=== PATIENT | female | born 1945 | race Caucasian/White ===

== ENCOUNTER → 2017-05-02 13:55 | Outpatient (CLI) | payer MEDICARE, SELFPAY ==
[2017-05-02 14:35] LABS: International Normalized Ratio 2.6
== END ==
PROVIDERS: Family Provider Family Medicine; PCP Family Medicine; Visit Provider Internal Medicine Cardiovascular Disease
DX: I48.0 Paroxysmal atrial fibrillation (principal); Z79.01 Long term (current) use of anticoagulants
CPT/HCPCS: 36415; 85610

== ENCOUNTER 2017-06-04 11:01 | Outpatient (RCR) | payer MEDICARE, SELFPAY ==
[2017-06-04 11:54] LABS: International Normalized Ratio 2.7
== END 2017-06-04 12:00 | disposition home or self-care (01) ==
LOC: LAB 11:01
PROVIDERS: Family Provider Family Medicine; PCP Family Medicine; Visit Provider Internal Medicine Cardiovascular Disease
DX: I48.0 Paroxysmal atrial fibrillation (principal); I34.1 Nonrheumatic mitral (valve) prolapse; R55 Syncope and collapse
CPT/HCPCS: 36415; 85610

== ENCOUNTER 2017-07-09 12:03 | Outpatient (RCR) | payer MEDICARE, SELFPAY ==
[2017-07-09 13:12] LABS: International Normalized Ratio 2.2; Prothrombin Time (Protime)PT. 24.1 SECONDS (11.7-14.9)
== END 2017-07-09 13:00 | disposition home or self-care (01) ==
LOC: LAB 12:03
PROVIDERS: Family Provider Family Medicine; PCP Family Medicine; Visit Provider Internal Medicine Cardiovascular Disease
DX: I48.0 Paroxysmal atrial fibrillation (principal); Z79.01 Long term (current) use of anticoagulants
CPT/HCPCS: 36415; 85610

== ENCOUNTER 2017-08-27 16:48 | Outpatient (RCR) | payer MEDICARE, SELFPAY ==
--- NOTE | 2017-08-27 16:48 | DT_ITS ---
This patient was seen during an EMR downtime August 25, 2017 - September 01, 2017. This patient may have a combination of paper and electronic documentation or all paper documentation. All documentation is viewable within the e-chart portion of [facility] for each patient visit.
[2017-09-01 12:18] LABS: International Normalized Ratio 2.1; Prothrombin Time (Protime)PT. 23.7 SECONDS (11.7-14.9)
== END 2017-08-27 18:00 | disposition home or self-care (01) ==
LOC: LAB 16:48
PROVIDERS: Family Provider Family Medicine; PCP Family Medicine; Visit Provider Internal Medicine Cardiovascular Disease
DX: I48.0 Paroxysmal atrial fibrillation (principal); Z79.01 Long term (current) use of anticoagulants
CPT/HCPCS: 85610

== ENCOUNTER → 2017-09-05 14:51 | Outpatient (CLI) | payer MEDICARE, SELFPAY ==
[2017-09-05 15:40] LABS: Absolute Lymphocyte Count 1.36 X10^3/ul (0.83-4.51); Absolute Neutrophil Count 3.7 X10^3/uL (2.0-7.7); Basophil# 0.01 X10^3/uL; Basophil% 0.2 % (0-1); Eosinophil# 0.14 X10^3/uL; Eosinophils% 2.5 % (0-5); Hemoglobin 12.8 g/dl (12.0-15.0); Lymphocyte # 1.36 X10^3/ul (4.0); Lymphocyte % 24.6 % (19-41); Mean Corp Hgb Conc 32.8 g/gl (32-36); Mean Corpuscular Volume 91.5 fL (81-99); Mean Platelet Vol. 9.1 fl (6.2-12.0); Monocyte# 0.36 X10^3/uL; Monocyte% 6.5 % (0-10); Neutrophil # 3.65 X10^3/uL (2.7-7.7); Platelet Count 233 K/mm3 (150-450); RBC Distribution Width CV 13.7 % (11.6-14.6); RBC Distribution Width SD 45.2 fl (35.1-43.9); Red Blood Count 4.26 M/mm3 (4.2-5.4); White Blood Count 5.5 K/mm3 (4.4-11.0)
[2017-09-05 15:48] LABS: POSITIVE COUNT NO; POSITIVE DIFFERENTIAL NO; POSITIVE MORPHOLOGY NO
[2017-09-05 16:28] LABS: Erythrocyte Sedimentation Rate 22 mm/hr (0-30)
[2017-09-05 16:35] LABS: CRP < 2.90 mg/L (0.0-3.0); Rheumatoid Factor < 10.0 IU/mL (<15); Uric Acid 2.9 mg/dL (2.6-6.0)
[2017-09-09 15:42] LABS: ANTINUCLEAR ANTIBODIES DIRECT Negative (Negative)
== END ==
PROVIDERS: Family Provider Family Medicine; PCP Family Medicine; Visit Provider Family Medicine
DX: M25.50 Pain in unspecified joint (principal)
CPT/HCPCS: 36415; 84443; 84550; 85025; 85652; 86038; 86140; 86431

== ENCOUNTER → 2017-09-16 10:44 | Outpatient (CLI) | payer MEDICARE, SELFPAY ==
--- NOTE | 2017-09-16 10:46 | BD_ITS ---
STUDY: DUAL ENERGY X-RAY ABSORPTIOMETRY / DXA REASON FOR EXAM: Female, 71 years old. The patient is postmenopausal. No loss of height. TECHNIQUE: Bone Mineral Density (BMD) measurements of lumbar spine and bilateral hips were obtained. COMPARISON: Comparison is made with prior study dated May 05, 2014. FINDINGS: Lumbar Spine (L1-L4): g/cm2 (1.128) / T-score (-0.4) / Z-score (1.2) Findings are suggestive of normal bone density with a low fracture risk. Left Femur Total: g/cm2 (0.779) / T-score (-1.8) / Z-score (-0.4) Left Femoral Neck: g/cm2 (0.731) / T-score (-2.2) / Z-score (-0.5) Right Femur Total: g/cm2 (0.832) / T-score (-1.4) / Z-score (0.1) Right Femoral Neck: g/cm2 (0.791) / T-score (-1.8) / Z-score (-0.1) The T-Scores on the most recent prior examination were: Lumbar Spine (L1-L4): There has been improvement of bone density since the previous examination. Left Femur Total: which represents an improvement of . Right Femur Total: which represents an improvement of . BD/Dexa Bone Density Study IMPRESSION: The patient is considered osteopenic as outlined below according to World Jose Organization (WHO) criteria with a moderate fracture risk. There has been improvement of bone density since the previous examination. Reference Information: The T-score is the number of standard deviations above or below the standard which is normal for young adults at their peak bone mineral density. The World Health Organization (WHO) interprets the T-scores as follows: Above -1 Normal bone density Between -1 and -2.5 Osteopenia Equal to / or below -2.5 Osteoporosis As a practical clinical guideline, osteopenia may be graded as follows: Mild -1 through -1.5 Moderate -1.6 through -2.0 Severe -2.1 through -2.4 The Z-score is the number of standard deviations above or below age-matched controls. A Z-score of less than -1.5 would be considered abnormal. References: 1. NIH Osteoporosis and Related Bone Diseases http://www.osteo.org 2. International Society for Clinical Densitometry http://www.iscd.org 3. National Osteoporosis Foundation http://www.nof.org Electronically Signed: Gilberto Henderson MD at 15:36 EDT Tel [phone], Service support ,
== END ==
PROVIDERS: Family Provider Family Medicine; PCP Family Medicine; Visit Provider Family Medicine
DX: Z78.0 Asymptomatic menopausal state (principal)
CPT/HCPCS: 77080

== ENCOUNTER 2017-10-14 14:04 | Outpatient (RCR) | payer MEDICARE, SELFPAY ==
[2017-10-14 16:18] LABS: International Normalized Ratio 1.6; Prothrombin Time (Protime)PT. 18.7 SECONDS (11.7-14.9)
== END 2017-10-14 16:00 | disposition home or self-care (01) ==
LOC: LAB 14:04
PROVIDERS: Family Provider Family Medicine; PCP Family Medicine; Visit Provider Internal Medicine Cardiovascular Disease
DX: I48.0 Paroxysmal atrial fibrillation (principal); Z79.01 Long term (current) use of anticoagulants
CPT/HCPCS: 36415; 85610

== ENCOUNTER → 2017-11-05 08:24 | Outpatient (CLI) | payer MEDICARE, SELFPAY | PROVIDERS: Family Provider Family Medicine; PCP Family Medicine; Visit Provider Family Medicine | DX: Z00.00 Encounter for general adult medical examination without abnormal findings (principal); Z12.31 Encounter for screening mammogram for malignant neoplasm of breast | CPT/HCPCS: 77063; 77067 ==

== ENCOUNTER 2017-11-18 13:14 | Outpatient (RCR) | payer MEDICARE, SELFPAY ==
[2017-10-27 11:44] LABS: International Normalized Ratio 2.8; Prothrombin Time (Protime)PT. 29.5 SECONDS (11.7-14.9)
[2017-11-18 16:53] LABS: International Normalized Ratio 2.1; Prothrombin Time (Protime)PT. 23.2 SECONDS (11.7-14.9)
== END 2017-11-18 15:00 | disposition home or self-care (01) ==
LOC: LAB 13:14
PROVIDERS: Family Provider Family Medicine; PCP Family Medicine; Visit Provider Internal Medicine Cardiovascular Disease
DX: I48.0 Paroxysmal atrial fibrillation (principal); Z79.01 Long term (current) use of anticoagulants
CPT/HCPCS: 36415; 85610

== ENCOUNTER 2017-12-25 16:21 | Outpatient (RCR) | payer MEDICARE, SELFPAY ==
[2017-12-25 17:33] LABS: International Normalized Ratio 2.3
== END 2017-12-25 18:00 | disposition home or self-care (01) ==
LOC: LAB 16:21
PROVIDERS: Family Provider Family Medicine; PCP Family Medicine; Visit Provider Internal Medicine Cardiovascular Disease
DX: I48.0 Paroxysmal atrial fibrillation (principal); Z79.01 Long term (current) use of anticoagulants
CPT/HCPCS: 36415; 85610

== ENCOUNTER 2018-01-30 13:25 | Outpatient (RCR) | payer MEDICARE, SELFPAY ==
[2018-01-30 15:48] LABS: International Normalized Ratio 2.2; Prothrombin Time (Protime)PT. 24.2 SECONDS (11.7-14.9)
== END 2018-02-20 12:17 | disposition home or self-care (01) ==
LOC: LAB 13:25
PROVIDERS: Family Provider Family Medicine; PCP Family Medicine; Referring Provider Internal Medicine Cardiovascular Disease; Visit Provider Internal Medicine Cardiovascular Disease
DX: I48.0 Paroxysmal atrial fibrillation (principal); Z79.01 Long term (current) use of anticoagulants
CPT/HCPCS: 36415; 85610

== ENCOUNTER 2018-03-19 15:26 | Outpatient (RCR) | payer MEDICARE, SELFPAY ==
[2017-05-02 14:39] VITALS: BMI 27.6
[2018-03-19 16:45] LABS: International Normalized Ratio 1.9; Prothrombin Time (Protime)PT. 21.9 SECONDS (11.7-14.9)
== END 2018-03-19 16:26 | disposition home or self-care (01) ==
LOC: LAB 15:26
PROVIDERS: Family Provider Family Medicine; PCP Family Medicine; Referring Provider Internal Medicine Cardiovascular Disease; Visit Provider Internal Medicine Cardiovascular Disease
DX: I48.0 Paroxysmal atrial fibrillation (principal); Z79.01 Long term (current) use of anticoagulants
CPT/HCPCS: 36415; 85610

== ENCOUNTER → 2018-03-31 10:34 | Outpatient (CLI) | payer MEDICARE, SELFPAY ==
[2017-05-02 14:39] VITALS: BMI 27.6
--- NOTE | 2018-03-31 10:37 | ECHOD_ITS ---
Reason For Study: [email or web address] Procedure This was a 2D Doppler, Color Flow transthoracic echocardiogram. The exam was of adequate technical quality. Exam performed in department. Left Ventricle Normal LV size. Left ventricular systolic function is normal. The estimated ejection fraction is 60 %. Transmitral diastolic flow velocities suggest moderate (stage 2) diastolic dysfunction (pseudonormal pattern). No regional wall motion abnormalities noted. Right Ventricle Normal RV size. Normal systolic function. Atria The left atrium is mildly enlarged. Normal right atrium. No doppler evidence for ASD. Mitral Valve There is no mitral annular calcification. Mild diffuse mitral valve thickening. Mild mitral valve prolapse, posterior leaflet. Mild (1+) mitral valve insufficiency. Tricuspid Valve Normal tricuspid valve. Mild tricuspid valve insufficiency. Right ventricular systolic pressure estimated to be 29 mmHg. Aortic Valve Trisinus/trileaflet aortic valve. Mild focal aortic valve thickening. Pulmonic Valve The pulmonic valve is not well visualized. Great Vessels Normal sized aortic root. Pericardium/Pleural No pericardial effusion. MMode/2D Measurements & Calculations LVIDd: 5.3 cm IVSd: 0.72 cm Ao root diam: 3.3 cm LVIDs: 3.3 cm LVPWd: 0.89 cm RVDd: 3.7 cm FS: 38.4 % LAV(MOD-bp): 72.3 ml LA A4 area: 22.3 cm2 LA dimension(2D): 4.1 cm LAV(MOD-bp) Indexed: 40.5 ml/m2 LAV(MOD-sp2): 74.3 ml LAV(MOD-sp4): 70.9 ml RA A4 area: 14.4 cm2 Doppler Measurements & Calculations MV E max kayden: 91.1 cm/sec Lat Peak E' Kadyen: 10.2 cm/sec Med Peak E' Kayden: 6.5 cm/sec MV A max kayden: 74.3 cm/sec E/E' lat: 8.9 E/E' med: 14.0 MV E/A: 1.2 Ao V2 max: 157.9 cm/sec LV V1 max: 143.9 cm/sec PA V2 max: 94.7 cm/sec Ao max P.0 mmHg LV V1 max P.3 mmHg TR max kayden: 252.3 cm/sec TR max P.5 mmHg Interpretation Summary Left ventricular systolic function is normal. The estimated ejection fraction is 60 %. The left atrium is mildly enlarged. Mild mitral valve prolapse, posterior leaflet Mild diffuse mitral valve thickening. Mild (1+) mitral valve insufficiency. Mild tricuspid valve insufficiency. Mild focal aortic valve thickening. Right ventricular systolic pressure estimated to be 29 mmHg. Transmitral diastolic flow velocities suggest diastolic dysfunction (pseudonormal pattern). Ordering Physician: Juan M Napoles Referring Physician: Mini Tyson Performed By: Myrtle Stephenson RDCS, RVT
== END ==
PROVIDERS: Family Provider Family Medicine; PCP Family Medicine; Referring Provider Nurse Practitioner Family; Visit Provider Nurse Practitioner Family
DX: I34.1 Nonrheumatic mitral (valve) prolapse (principal); I48.0 Paroxysmal atrial fibrillation
CPT/HCPCS: 93306

== ENCOUNTER → 2018-04-01 10:28 | Outpatient (CLI) | payer MEDICARE, SELFPAY ==
[2017-05-02 14:39] VITALS: BMI 27.6
--- NOTE | 2018-04-01 10:30 | US_ITS ---
STUDY: THYROID ULTRASOUND REASON FOR EXAM: Female, 72 years old. Nodule follow-up. TECHNIQUE: Ultrasound evaluation of the thyroid was performed with real-time and static metz-scale imaging. COMPARISON: Ultrasound thyroid 01/25/2016, 06/06/2015, 06/30/2014, 05/18/2013. FINDINGS: RIGHT LOBE: The right thyroid measures 6.3 x 3.2 x 2.9 cm. Back on echotexture is mildly heterogeneous. Vascularity is normal. 5 nodules are identified measuring 2.4 x 1.9 x 1.8 cm, 0.9 x 1.0 x 0.8 cm, 1.2 x 0.8 x 1.2 cm, 0.8 x 0.5 x 0.8 cm. Largest nodule 3.1 x 2.1 x 3.3 cm. The lungs are solid, minimal internal heterogeneity, a few of them containing very minimal cystic components. Exhibiting perinodular and intranodular vascular flow. No new nodules are evident. LEFT LOBE: The left thyroid measures 3.8 x 1.7 cm. 3 nodules are present, 7 x 6 x 6 mm, 7 x 6 x 6 mm, and the largest mid polar 10 x 7 x 9 mm. Solid. Perinodular vascular flow. ISTHMUS: The isthmus measures 3 mm, normal echotexture . US/Thyroid IMPRESSION: Multiple solid thyroid nodules larger and more numerous on the right, similar features seen since imaging of 2013, no apparent change since imaging of 01/25/2016. Based on the [place] [employer] guidelines for assessment of thyroid nodules, the solid nodule sonographic pattern falls into the intermediate suspicion pattern, generally hypoechoic solid nodules with no microcalcifications, smooth margins. Based on size criteria, certain nodules greater than 1 cm, biopsy may be considered. Based on long-term stability, biopsy may not be indicated, and therefore follow-up surveillance imaging in approximately one year is recommended. Electronically Signed: Harmeet Perez MD at 9:53 EST Tel , Service support ,
== END ==
PROVIDERS: Family Provider Family Medicine; PCP Family Medicine; Referring Provider Internal Medicine Endocrinology, Diabetes & Metabolism; Visit Provider Internal Medicine Endocrinology, Diabetes & Metabolism
DX: E04.1 Nontoxic single thyroid nodule (principal)
CPT/HCPCS: 76536

== ENCOUNTER 2018-04-10 10:53 | Outpatient (RCR) | payer MEDICARE, SELFPAY ==
[2017-05-02 14:39] VITALS: BMI 27.6
[2018-04-10 11:26] LABS: International Normalized Ratio 2.1; Prothrombin Time (Protime)PT. 23.2 SECONDS (11.7-14.9)
--- OUTSIDE RECORDS SUMMARY | 2018-06-14 19:52 | XMS RPT_ITS ---
:1945 Author Organization [place] Support Name Relationship Address Phone COVERT, LYNNETTE Unavailable [address] + [place] [address] COVERT, JAMAR Unavailable [address] + [place] [address] R Unavailable Unavailable Unavailable COVERT, LYNNETTE Unavailable [address] + [place] [address] COVERT, JAMAR Unavailable [address] + [place] [address] R Unavailable Unavailable Unavailable COVERT, LYNNETTE Unavailable [address] + [place] [address] COVERT, JAMAR Unavailable [address] + [place] [address] R Unavailable Unavailable Unavailable COVERT, LYNNETTE Unavailable [address] + [place] [address] COVERT, JAMAR Unavailable [address] + [place] [address] R Unavailable Unavailable Unavailable COVERT, LYNNETTE Unavailable [address] + [place] [address] COVERT, JAMAR Unavailable [address] + [place] [address] R Unavailable Unavailable Unavailable COVERT, LYNNETTE Unavailable [address] + [place] [address] COVERT, JAMAR Unavailable [address] + [place] [address] R Unavailable Unavailable Unavailable COVERT, LYNNETTE Unavailable [address] + [place] [address] COVERT, JAMAR Unavailable [address] + [place] [address] R Unavailable Unavailable Unavailable COVERT, LYNNETTE Unavailable [address] + [place] [address] COVERT, JAMAR Unavailable [address] [facility] [address] + [place] [address] R Unavailable Unavailable Unavailable COVERT, LYNNETTE Unavailable [address] + [place] [address] COVERT, JAMAR Unavailable [address] [facility] [address] + [place] [address] R Unavailable Unavailable Unavailable COVERT, LYNNETTE Unavailable [address] + [place] [address] COVERT, JAMAR Unavailable [address] [facility] [address] + [place] [address] R Unavailable Unavailable Unavailable COVERT, LYNNETTE Unavailable [address] + [place] [address] COVERT, JAMAR Unavailable [address] [facility] [facility] [address] + [place] [address] R Unavailable Unavailable Unavailable COVERT, LYNNETTE Unavailable Unavailable + COVERT, JAMAR Unavailable Unavailable + R Unavailable Unavailable Unavailable COVERT, LYNNETTE Unavailable Unavailable + COVERT, JAMAR Unavailable Unavailable + R Unavailable Unavailable Unavailable COVERT, LYNNETTE Unavailable Unavailable + COVERT, JAMAR Unavailable Unavailable + R Unavailable Unavailable Unavailable COVERT, LYNNETTE Unavailable NA + [place], [place] COVERT, JAMAR Unavailable NA + [place], [place] R Unavailable Unavailable Unavailable COVERT, LYNNETTE Unavailable NA + [place], [place] COVERT, JAMAR Unavailable NA + [place], [place] R Unavailable Unavailable Unavailable COVERT, LYNNETTE Unavailable [address] + [place] [address] COVERT, JAMAR Unavailable [address] + [place], [place] . R Unavailable Unavailable Unavailable COVERT, LYNNETTE Unavailable [address] + [place] [address] COVERT, JAMAR Unavailable [address] + [place], [place] . R Unavailable Unavailable Unavailable COVERT, LYNNETTE Unavailable [address] + [place] [address] COVERT, JAMAR Unavailable [address] + [place], [place] . R Unavailable Unavailable Unavailable COVERT, LYNNETTE Unavailable [address] + [place] [address] COVERT, JAMAR Unavailable [address] + [place], [place] . R Unavailable Unavailable Unavailable COVERT, LYNNETTE Unavailable [address] + [place] [address] COVERT, JAMAR Unavailable [address] + [place], [place] . R Unavailable Unavailable Unavailable Care Team Providers Name Role Phone PRAVIN VALDEZ, ESE Attending Unavailable АЛЕКСАНДР FRAZIER, DR. CHONG Primary Care Unavailable MoodDionte donahue Attending Unavailable MoodispawDionte Referring Unavailable Jolliff, Mini Primary Care Unavailable Roof, Juan M H Attending Unavailable Roof, Juan M H Referring Unavailable Jolliff, Mini Primary Care Unavailable Raghunathan, Ese N. Attending Unavailable Pravin, Ese NAlice Referring Unavailable Jolliff, Mini Primary Care Unavailable MoodispawDionte Attending Unavailable Roof, Juan M H Referring Unavailable Jolliff, Mini Primary Care Unavailable Roof, Juan M H Consulting Unavailable MoodispawDionet Attending Unavailable Jolliff, Mini Primary Care Unavailable MoodispaDionte ashley Referring Unavailable MoodispaDionte ashley Attending Unavailable Jolliff, Mini Referring Unavailable Brenda Roy Attending Unavailable MoodispawDionte Attending Unavailable DeFinTalia hebert Attending Unavailable Moodispaw, Dionte Attending Unavailable MoodispawDionte Referring Unavailable Jolliff, Mini Primary Care Unavailable Roof, Juan M H Attending Unavailable Jolliff, Mini Referring Unavailable Jolliff, Mini Primary Care Unavailable MoodispaDionte ashley Attending Unavailable MoodispaDionte ashley Referring Unavailable Jolliff, Mini Primary Care Unavailable Moodispaw, Dionte Attending Unavailable Moodispaw, Dionte Referring Unavailable Jolliff, Mini Primary Care Unavailable Jolliff, Mini Attending Unavailable Jolliff, Mini Primary Care Unavailable Jolliff, Mini Attending Unavailable Jolliff, Mini Referring Unavailable Jolliff, Mini Primary Care Unavailable Moodispaw, Dionte Attending Unavailable Moodispaw, Dionte Referring Unavailable Jolliff, Mini Primary Care Unavailable Moodispaw, Dionte Attending Unavailable Moodispaw, Dionte Referring Unavailable Jolliff, Mini Primary Care Unavailable Jolliff, Mini Attending Unavailable Jolliff, Mini Primary Care Unavailable Moodispaw, Dionte Attending Unavailable Moodispaw, Dionte Referring Unavailable Jolliff, Mini Primary Care Unavailable Moodispaw, Dionte Attending Unavailable Moodispaw, Dionte Referring Unavailable Jolliff, Mini Primary Care Unavailable Moodispaw, Dionte Attending Unavailable Moodispaw, Dionte Referring Unavailable Jolliff, Mini Primary Care Unavailable PROBLEMS PROBLEMS DATE TYPE CONDITION / CODE ATTENDING STATUS SOURCE 03/31/2018 Unknown I34.1 - Nonrheumatic MoodisDionte kahn Active [facility] mitral (valve) [facility] prolapse / Hospital I34.1(ICD-10) Repository 03/31/2018 Unknown I48.0 - Paroxysmal MoodispaDionte ashley Active [facility] atrial fibrillation Community / I48.0(ICD-10) Hospital Repository 03/23/2018 Unknown Z79.01 - nursing home MoodispaDionte ashley Active [facility] (current) use of [facility] anticoagulants / Hospital Z79.01(ICD-10) Repository 09/16/2017 Unknown N95.9 - Unspecified Jolliff, Mini Active [facility] menopausal and Community perimenopausal Hospital disorder / Repository N95.9(ICD-10) 09/19/2017 Unknown I48.91 - Unspecified Moodispaw, Dionte Active [facility] atrial fibrillation [facility] / I48.91(ICD-10) Hospital Repository PROCEDURES PROCEDURES No Procedure Records FoundRESULTS RESULTS TSH Collected: 04/14/2018 Status: F Source: [facility] 10:53 AM [facility] REPOSITORY TYPE CODE TESTS RESULT OUT OF RANGE REFERENCE UNITS LAB TSH(LOINC) 0.36-3.74 mcIU/mL TSH 0.81 Performed By: #### TSH, FT4, FT3 #### [place] [address] FT4 Collected: 04/14/2018 Status: F Source: [facility] 10:53 AM [facility] REPOSITORY TYPE CODE TESTS RESULT OUT OF RANGE REFERENCE UNITS LAB FT4(LOINC) 0.76-1.46 ng/dL Free T4 1.12 Performed By: #### TSH, FT4, FT3 #### [facility] [address] [place] [address] FT3 Collected: 04/14/2018 Status: F Source: [facility] 10:53 AM [facility] REPOSITORY TYPE CODE TESTS RESULT OUT OF RANGE REFERENCE UNITS LAB FT3(LOINC) 2.30-4.00 pg/mL Free T3 2.56 Performed By: #### TSH, FT4, FT3 #### [facility] [address] [place] [address] PROTHROMBIN TIME W/INR Collected: 04/10/2018 Status: F Source: [place] 11:00 AM [facility] REPOSITORY TYPE CODE TESTS RESULT OUT OF RANGE REFERENCE UNITS LAB L300.4150 11.7-14.9 SECONDS High PROTIME 23.2 LAB L300.4200 Normal INR 2.1 Performed By: #### L300.3900 #### [facility] [address] [place], [address] THYROID Observed: 04/01/2018 Status: F Source: [place] 10:31 AM [facility] REPOSITORY [facility] Imaging Services [address] [place] [address] Thyroid MR#: [id number] Acct: [id number] Name: ESTELA THADLISA Digna Rep #: [id number] : 1945 F 72 From: Harmeet Perez MD PCP: Mini Tyson MD Status: REG CLI Study: Thyroid Date of Exam: 04/01/18 Exam# [id number] Ordering Dr: Ese Costello MD STUDY: THYROID ULTRASOUND REASON FOR EXAM: Female, 72 years old. Nodule follow-up. TECHNIQUE: Ultrasound evaluation of the thyroid was performed with real-time and static metz-scale imaging. COMPARISON: Ultrasound thyroid 01/25/2016, 06/06/2015, 06/30/2014, 05/18/2013. FINDINGS: RIGHT LOBE: The right thyroid measures 6.3 x 3.2 x 2.9 cm. Back on echotexture is mildly heterogeneous. Vascularity is normal. 5 nodules are identified measuring 2.4 x 1.9 x 1.8 cm, 0.9 x 1.0 x 0.8 cm, 1.2 x 0.8 x 1.2 cm, 0.8 x 0.5 x 0.8 cm. Largest nodule 3.1 x 2.1 x 3.3 cm. The lungs are solid, minimal internal heterogeneity, a few of them containing very minimal cystic components. Exhibiting perinodular and intranodular vascular flow. No new nodules are evident. LEFT LOBE: The left thyroid measures 3.8 x 1.7 cm. 3 nodules are present, 7 x 6 x 6 mm, 7 x 6 x 6 mm, and the largest mid polar 10 x 7 x 9 mm. Solid. Perinodular vascular flow. ISTHMUS: The isthmus measures 3 mm, normal echotexture . US/Thyroid IMPRESSION: Multiple solid thyroid nodules larger and more numerous on the right, similar features seen since imaging of 2013, no apparent change since imaging of 01/25/2016. Based on the [place] guidelines for assessment of thyroid nodules, the solid nodule sonographic pattern falls into the intermediate suspicion pattern, generally hypoechoic solid nodules with no microcalcifications, smooth margins. Based on size criteria, certain nodules greater than 1 cm, biopsy may be considered. Based on long-term stability, biopsy may not be indicated, and therefore follow-up surveillance imaging in approximately one year is recommended. 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 The exam was of adequate technical quality. Exam performed in department. Left Ventricle Normal LV size. Left ventricular systolic function is normal. The estimated ejection fraction is 60 %. Transmitral diastolic flow velocities suggest moderate (stage 2) diastolic dysfunction (pseudonormal pattern). No regional wall motion abnormalities noted. Right Ventricle Normal RV size. Normal systolic function. Atria The left atrium is mildly enlarged. Normal right atrium. No doppler evidence for ASD. Mitral Valve There is no mitral annular calcification. Mild diffuse mitral valve thickening. Mild mitral valve prolapse, posterior leaflet. Mild (1+) mitral valve insufficiency. Tricuspid Valve Normal tricuspid valve. Mild tricuspid valve insufficiency. Right ventricular systolic pressure estimated to be 29 mmHg. Aortic Valve Trisinus/trileaflet aortic valve. Mild focal aortic valve thickening. Pulmonic Valve The pulmonic valve is not well visualized. Great Vessels Normal sized aortic root. Pericardium/Pleural No pericardial effusion. MMode/2D Measurements AND Calculations LVIDd: 5.3 cm IVSd: 0.72 cm Ao root diam: 3.3 cm LVIDs: 3.3 cm LVPWd: 0.89 cm RVDd: 3.7 cm FS: 38.4 % LAV(MOD-bp): 72.3 ml LA A4 area: 22.3 cm2 LA dimension(2D): 4.1 cm LAV(MOD-bp) Indexed: 40.5 ml/m2 LAV(MOD-sp2): 74.3 ml LAV(MOD-sp4): 70.9 ml RA A4 area: 14.4 cm2 Doppler Measurements AND Calculations MV E max kayden: 91.1 cm/sec Lat Peak E' Kayden: 10.2 cm/sec Med Peak E' Kayden: 6.5 cm/sec MV A max kayden: 74.3 cm/sec E/E' lat: 8.9 E/E' med: 14.0 MV E/A: 1.2 Ao V2 max: 157.9 cm/sec LV V1 max: 143.9 cm/sec PA V2 max: 94.7 cm/sec Ao max P.0 mmHg LV V1 max P.3 mmHg TR max kayden: 252.3 cm/sec TR max P.5 mmHg Interpretation Summary Left ventricular systolic function is normal. The estimated ejection fraction is 60 %. The left atrium is mildly enlarged. Mild mitral valve prolapse, posterior leaflet Mild diffuse mitral valve thickening. Mild (1+) mitral valve insufficiency. Mild tricuspid valve insufficiency. Mild focal aortic valve thickening. Right ventricular systolic pressure estimated to be 29 mmHg. Transmitral diastolic flow velocities suggest diastolic dysfunction (pseudonormal pattern). Ordering Physician: Juan M Napoles Referring Physician: Mini Tyson Performed By: Myrtle Stephenson, RDPAMELA, RVT 03/31/182218 Date Dionte Castellanos MD CC: BRIAN Napoles; Mini Tyson MD Date Dictated: 03/31/18 104 Date Transcribed: 03/31/182218 Human Resources Benefits Manager: Signed PROTHROMBIN TIME W/INR Collected: 03/19/2018 Status: F Source: [place] 3:34 PM [facility] REPOSITORY TYPE CODE TESTS RESULT OUT OF RANGE REFERENCE UNITS LAB L300.4150 11.7-14.9 SECONDS High PROTIME 21.9 LAB L300.4200 Normal INR 1.9 Performed By: #### L300.3900 #### [facility] [address] [place], [address] PROTHROMBIN TIME W/INR Collected: 01/30/2018 Status: F Source: [place] 1:32 PM [facility] REPOSITORY TYPE CODE TESTS RESULT OUT OF RANGE REFERENCE UNITS LAB L300.4150 11.7-14.9 SECONDS High PROTIME 24.2 LAB L300.4200 Normal INR 2.2 Performed By: #### L300.3900 #### [facility] [address] [place], [address] PROTHROMBIN TIME W/INR Collected: 12/25/2017 Status: F Source: [place] 4:32 PM [facility] REPOSITORY TYPE CODE TESTS RESULT OUT OF RANGE REFERENCE UNITS LAB L300.4150 11.7-14.9 SECONDS High PROTIME 25.0 LAB L300.4200 Normal INR 2.3 Performed By: #### L300.3900 #### [facility] [address] [place], [address] PROTHROMBIN TIME W/INR Collected: 11/18/2017 Status: F Source: [place] 1:19 PM [facility] REPOSITORY TYPE CODE TESTS RESULT OUT OF RANGE REFERENCE UNITS LAB L300.4150 11.7-14.9 SECONDS High PROTIME 23.2 LAB L300.4200 Normal INR 2.1 Performed By: #### L300.3900 #### [facility] [address] [facility] [place], [address] SCREENING MAMM (CAD), Observed: 11/05/2017 Status: F Source: [place] 8:26 AM [facility] REPOSITORY [facility] Imaging Services [address] [place] [address] SCREENING MAMM (CAD), BILAT MR#: [id number] Acct: [id number] Name: LISA THORPE Rep #: [id number] : 1945 F 72 From: Gilberto Henderson MD PCP: Mini Tyson MD Status: REG CL Study: SCREENING MAMM (CAD), BILAT Date of Exam: 11/05/17 Exam# [id number] Ordering Dr: Mini Tyson MD MAMMOGRAPHY - BILATERAL SCREENING REASON FOR EXAM: Female, 72 years old. Routine annual screening examination. PERTINENT HISTORY: Mother with breast cancer. Aunt with breast cancer. TECHNIQUE: Digital bilateral breast princess (3D mammographic acquisition) in the CC and MLO projections. 2-D mediolateral oblique (MLO) and craniocaudad (CC) views of both breasts were obtained. CAD: Full Field Digital Mammography with Computer Added Detection was performed. COMPARISON: Comparison is made with prior study dated October 22, 2016 and October 16, 2015. FINDINGS: Breast Composition: The breasts are heterogeneously dense, which may obscure small masses. There are no dominant masses or suspicious calcifications. Stable small benign-appearing bilateral axillary lymph nodes. No other significant abnormalities are identified. There has been no significant change since the prior study. BI/SCREENING MAMM (CAD), BILAT IMPRESSION: Stable bilateral screening mammogram. Yearly follow-up mammogram recommended. (A) ASSESSMENT CATEGORY: BIRADS Category 2: Benign. A letter regarding these results will be sent to the patient by the facility within 30 days. Approximately 10% of breast cancers are not detected by mammography. A normal mammogram should not delay biopsy of a clinically suspicious abnormality. [id number] Electronically Signed: Gilberto Henderson MD at 10:10 EDT Tel [phone], Service support , CC: Mini Tyson MD Human Resources Benefits Manager: Signed PROTHROMBIN TIME W/INR Collected: 10/27/2017 Status: F Source: [place] 11:18 AM [facility] REPOSITORY TYPE CODE TESTS RESULT OUT OF RANGE REFERENCE UNITS LAB L300.4150 11.7-14.9 SECONDS High PROTIME 29.5 LAB L300.4200 Normal INR 2.8 Performed By: #### L300.3900 #### [facility] [address] [place], [place], [address] PROTHROMBIN TIME W/INR Collected: 10/14/2017 Status: F Source: [place] 2:05 PM [facility] REPOSITORY TYPE CODE TESTS RESULT OUT OF RANGE REFERENCE UNITS LAB L300.4150 11.7-14.9 SECONDS High PROTIME 18.7 LAB L300.4200 Normal INR 1.6 Performed By: #### L300.3900 #### [facility] [address] [place], [place], [address] DEXA BONE DENSITY Observed: 09/16/2017 Status: F Source: [place] STUDY 10:47 AM [facility] REPOSITORY [facility] Imaging Services [address] [place] [address] Dexa Bone Density Study MR#: [id number] Acct: [id number] Name: LISA THORPE Rep #: [id number] : 1945 F 71 From: Gilberto Henderson MD PCP: Mini Tyson MD Status: REG CLI Study: Dexa Bone Density Study Date of Exam: 09/16/17 Exam# [id number] Ordering Dr: Mini Tyson MD STUDY: DUAL ENERGY X-RAY ABSORPTIOMETRY / DXA REASON FOR EXAM: Female, 71 years old. The patient is postmenopausal. No loss of height. TECHNIQUE: Bone Mineral Density (BMD) measurements of lumbar spine and bilateral hips were obtained. COMPARISON: Comparison is made with prior study dated May 05, 2014. FINDINGS: Lumbar Spine (L1-L4): g/cm2 (1.128) / T-score (-0.4) / Z-score (1.2) Findings are suggestive of normal bone density with a low fracture risk. Left Femur Total: g/cm2 (0.779) / T-score (-1.8) / Z- score (-0.4) Left Femoral Neck: g/cm2 (0.731) / T-score (-2.2) / Z- score (-0.5) Right Femur Total: g/cm2 (0.832) / T-score (-1.4) / Z- score (0.1) Right Femoral Neck: g/cm2 (0.791) / T-score (-1.8) / Z-score (-0.1) The T-Scores on the most recent prior examination were: Lumbar Spine (L1-L4): There has been improvement of bone density since the previous examination. Left Femur Total: which represents an improvement of . Right Femur Total: which represents an improvement of . BD/Dexa Bone Density Study IMPRESSION: The patient is considered osteopenic as outlined below according to World Jose Organization (WHO) criteria with a moderate fracture risk. There has been improvement of bone density since the previous examination. Reference Information: The T-score is the number of standard deviations above or below the standard which is normal for young adults at their peak bone mineral density. The World Health Organization (WHO) interprets the T-scores as follows: Above -1 Normal bone density Between -1 and -2.5 Osteopenia Equal to / or below -2.5 Osteoporosis As a practical clinical guideline, osteopenia may be graded as follows: Mild -1 through -1.5 Moderate -1.6 through -2.0 Severe -2.1 through -2.4 The Z-score is the number of standard deviations above or below age-matched controls. A Z-score of less than -1.5 would be considered abnormal. References: 1. NIH Osteoporosis and Related Bone Diseases http://www.osteo.org 2. International Society for Clinical Densitometry http://www.iscd.org 3. National Osteoporosis Foundation http://www.nof.org Electronically Signed: Gilberto Henderson MD at 15:36 EDT Tel [phone], Service support , CC: Mini Tyson MD Human Resources Benefits Manager: Signed DOWNTIME REPORT Observed: 09/11/2017 Status: F Source: [place] 11:44 AM [facility] REPOSITORY [facility] Medical Records Department [address] [place] [address] Downtime Report MR#: [id number] Acct: [id number] Name: LISA THORPE Rep #: [id number] : 1945 71 From: Reza Ignacio PCP: Mini Tyson MD Status: REG RCR This patient was seen during an EMR downtime August 25, 2017 - September 01, 2017. This patient may have a combination of paper and electronic documentation or all paper documentation. All documentation is viewable within the e-chart portion of [facility] for each patient visit. CBC W/DIFF, AUTOMATED Collected: 09/05/2017 Status: F Source: [place] 2:52 PM [facility] REPOSITORY TYPE CODE TESTS RESULT OUT OF RANGE REFERENCE UNITS LAB L100.1000 4.4-11.0 K/mm3 Normal WBC 5.5 LAB L100.1200 4.2-5.4 M/mm3 Normal RBC 4.26 LAB L100.1300 12.0-15.0 g/dl Normal HGB 12.8 LAB L100.1400 37-47 % Normal HCT 39.0 LAB L100.1500 81-99 fL Normal MCV 91.5 LAB L100.1600 27.0-32.0 pg Normal MCH 30.0 LAB L100.1700 32-36 g/gl Normal MCHC 32.8 LAB L100.1810 11.6-14.6 % Normal RDW CV 13.7 LAB L100.1820 35.1-43.9 fl High RDW SD 45.2 LAB L100.1900 150-450 K/mm3 Normal PLT 233 LAB L100.2000 6.2-12.0 fl Normal MPV 9.1 LAB L100.2100 47-70 % Normal NEUT% 66.0 LAB L100.2200 19-41 % Normal LY% 24.6 LAB L100.2300 0-10 % Normal MONO% 6.5 LAB L100.2400 0-5 % Normal EO% 2.5 LAB L100.2500 0-1 % Normal BASO% 0.2 LAB L100.2550 0.0-0.9 % Normal IM GRAN % 0.200 Result Comment: IG% - Immature Granulocytes (promyelocytes, myelocytes and metamyelocytes) > 1% indicates that a LEFT SHIFT is Present. LAB L100.2620 2.0-7.7 X10 3/uL Normal Absolute Neut 3.7 LAB L100.2720 0.83-4.51 X10 3/ul Normal Absolute Lymph 1.36 Performed By: #### L100.0100, L101.9900 #### [facility] [place], [address] ERYTHROCYTE SED RATE Collected: 09/05/2017 Status: F Source: [place] 2:52 PM [facility] REPOSITORY TYPE CODE TESTS RESULT OUT OF RANGE REFERENCE UNITS LAB L102.0000 0-30 mm/hr Normal SED RATE 22 Performed By: #### L100.0100, L101.9900 #### [facility] [address] [place], [place], [address] URIC ACID Collected: 09/05/2017 Status: F Source: [place] 2:52 PM [facility] REPOSITORY TYPE CODE TESTS RESULT OUT OF RANGE REFERENCE UNITS LAB L501.1400 2.6-6.0 mg/dL Normal URIC 2.9 Result Comment: The drugs N-Acetylcysteine and Metamizole may falsely depress this assay. Performed By: #### L501.1400, L501.6710, L501.9520, L505.7010 #### [facility] [address] [place], [place], [address] CRP Collected: 09/05/2017 Status: F Source: [place] 2:52 PM [facility] REPOSITORY TYPE CODE TESTS RESULT OUT OF RANGE REFERENCE UNITS LAB L501.6710 0.0-3.0 mg/L Normal < 2.90 C-REACTIVE PROT Result Comment: C-Reactive Protein (CRP) provides useful information for the diagnosis, therapy and monitoring of inflammatory processes and associated diseases. For the evaluation of Relative Risk for Cardiovascular Disease, a High Sensitivity CRP (HSCRP) should be ordered. Performed By: #### L501.1400, L501.6710, L501.9520, L505.7010 #### [facility] [address] [place], [address] THYROID STIM HORMONE Collected: 09/05/2017 Status: F Source: [place] ([facility]) 2:52 PM [facility] REPOSITORY TYPE CODE TESTS RESULT OUT OF RANGE REFERENCE UNITS LAB L501.9520 0.358-3.74 uIU/mL Normal TSH 0.50 Performed By: #### L501.1400, L501.6710, L501.9520, L505.7010 #### [facility] [address] [place], [address] RHEUMATOID FACTOR Collected: 09/05/2017 Status: F Source: [place] 2:52 PM [facility] REPOSITORY TYPE CODE TESTS RESULT OUT OF RANGE REFERENCE UNITS LAB L505.7010 <15 IU/mL Normal RHEUMATOID FAC < 10.0 Performed By: #### L501.1400, L501.6710, L501.9520, L505.7010 #### [facility] [address] [place], [address] ANTINUCLEAR ANTIBODIES Collected: 09/05/2017 Status: F Source: SANDY DIRECT 2:52 PM [facility] REPOSITORY TYPE CODE TESTS RESULT OUT OF RANGE REFERENCE UNITS LAB L3100.5475 Negative Normal Negative DIAZ-DIRECT Result Comment: Performed at: [facility] [id number] Electrical And Radio Aircraft Mechanic: Pankaj Matson PhD, Phone: [phone] Performed By: #### L3100.5475 #### [facility] (refer to report for specific site) refer to report for address and phone number PROTHROMBIN TIME W/INR Collected: 08/27/2017 Status: F Source: S[place] 4:48 PM [facility] REPOSITORY TYPE CODE TESTS RESULT OUT OF RANGE REFERENCE UNITS LAB L300.4150 11.7-14.9 SECONDS High PROTIME 23.7 LAB L300.4200 Normal INR 2.1 Performed By: #### L300.3900 #### [facility] [address] [place], [address] PROTHROMBIN TIME W/INR Collected: 07/09/2017 Status: F Source: S[place]Y 12:09 PM [facility] REPOSITORY Order Comment: Comments: STANDING ORDER Comments: STANDING ORDER TYPE CODE TESTS RESULT OUT OF RANGE REFERENCE UNITS LAB L300.4150 11.7-14.9 SECONDS High PROTIME 24.1 LAB L300.4200 Normal INR 2.2 Performed By: #### L300.3900 #### [facility] [address] [place], [address] PROTHROMBIN TIME W/INR Collected: 06/04/2017 Status: F Source: SANDY 11:05 AM [facility] REPOSITORY Order Comment: Comments: Standing Order Comments: Standing Order TYPE CODE TESTS RESULT OUT OF RANGE REFERENCE UNITS LAB L300.4150 11.7-14.9 SECONDS High PROTIME 29.0 LAB L300.4200 Normal INR 2.7 Performed By: #### L300.3900 #### [facility] [address] [place], [address] CNCO Observed: 05/16/2017 Status: COMPLETED Source: [place] 12:00 AM [facility] REPOSITORY Letter Text Sandy Hoep III MD [address] [facility]. [place], [place] [address] Office: [phone] May 16, 2017 PATIENT: Lisa Oneil CLINIC NUMBER: [id number] To whom it may concern: Please excuse Ms. Estela Oneil from Jury Duty. 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 Please excuse Ms. Estela Oneil from jury duty. Please do not hesitate to call if you have any questions. Sincerely, Dixon Hope III MD CC: Lisa Oneil [address] [facility] [address] CARDIOLOGY VISIT Observed: 05/03/2017 Status: F Source: SANDY REPORT 2:15 PM [facility] REPOSITORY [facility] [address] [place] [address] OFFICE VISIT Date of Service: 05/02/17 MR#: [id number] Acct: [id number] Name: LISA THORPE Rep #: [id number] : 1945 Provider: BRIAN Napoles Age/Sex: 71/F Location[place] [facility] Status: Signed HPI HPI Details: LISA ONEIL, is a 71 F who presents to the office today for a cardiovascular outpatient follow-up. Patient has history of paroxysmal atrial fibrillation and mitral valve prolapse. Pt. was seen by Dr. Guerrero for ELI and did not undergo titration study despite recommendation d/t feeling that her results were very minimal. Pt. denies chest, arm, jaw, or neck discomfort. Her exercise tolerance is stable. Pt. denies symptoms of CHF, palpitations, lightheadedness, dizziness, near syncope, or syncopal episodes. Pt. denies edema or claudication issues. Pt. denies orthopnea, PND, fever, chills, blood in urine, blood in stool, or myalgia. Pt. states a decrease in fatigue once she started her sotalol. This has been reduced in the past to help with this. He was if she is good to go this is unchanged since last office visit. Echocardiogram from May 2015 showed an estimated ejection fraction of 60%, mildly enlarged left atrium, mild diffuse mitral valve thickening, mitral valve doming/hockey sticking, mild mitral valve prolapse, posterior leaflet, mild mitral valve insufficiency, mild tricuspid valve insufficiency, mild focal aortic valve thickening, RVSP of 32 mmHg, and diastolic dysfunction. Intake Vital Signs05/02/17 Height 5 ft 4 in 05/02/17 Weight: 161 lb 05/02/17 Body Mass Index (BMI) 27.6 05/02/17 Blood Pressure 122/70 05/02/17 Blood Pressure Location Rt brachial Intake Visit Reasons: 1 Y FU Director Talent Required: No Accompanied by: None Is patient in pain?: No Allergies No Known Allergies Allergy (Verified 05/02/17 13:21) Medications Sotalol HCl [Betapace AF (Beta Lexie)] 40 mg PO BID 09/23/13 [History Confirmed 05/02/17] Warfarin [Coumadin] 2 mg PO DAILY 09/23/13 [History Confirmed 05/02/17] warfarin 1 mg tablet 1 mg PO QDAY 04/28/17 [History Confirmed 05/02/17] multivitamin tablet 1 tab PO QDAY PRN 05/02/17 [History Confirmed 05/02/17] Ejection fraction %: 60 to 64 PFSH Medical History Hyperlipidemia (Chronic) Nonrheumatic mitral (valve) prolapse (Chronic) Paroxysmal atrial fibrillation (Chronic) Syncope and collapse (Chronic) Fatigue (Chronic) SOB (shortness of breath) (Chronic) Family history of hypertension (Chronic) Surgical History History of left heart catheterization (LHC) (Resolved) Family History Father Presence of permanent cardiac pacemaker Mother Atrial fibrillation Mitral valve prolapse Sister Hypertension Social History Smoking Status: Never smoker alcohol intake: never substance use type: does not use caffeine: Yes Type: carbonated beverages what type of physical activity do you participate in: none seatbelt use: always do you feel safe at home: Yes ROS Const Const: Negative for weakness, body ache, fever(s), chills or fatigue ENT ENT: Negative for dizziness Cardio Chest Pain: No Palpitations: Positive for No Edema: None Muscle aches with walking: None Resp Respiratory: Negative for SOB with activity, SOB at rest, SOB orthopnea\SOB lying down or paroxysmal nocturnal dyspnea GI GI: Negative nausea, black,tarry stools, bright, red blood in stools or vomiting blood/hematemesis : Negative for hematuria or frequent nighttime urination/ nocturia Musc Musc: Negative for muscle aches/ myalgia Neuro Neuro: Negative for lightheadedness, Negative for near syncope, Negative for syncope, Negative for orthostatic symptoms, Negative for weakness, Negative for dizziness Endo Endo: Negative for fatigue Cardiology Exam Const Appearance: cooperative, healthy appearing, comfortable and no acute distress Orientation: alert, awake and oriented x3 Head Head: normal to inspection Mouth: oral mucosae normal Neck Neck: no JVD and normal visual inspection Carotids: normal carotid upstroke Chest Chest inspection: normal inspection of the chest and normal respiratory effort Auscultation: Bilateral: Clear to Auscultation Cardio Rate: regular rate Rhythm: regular rhythm Heart sounds: S1 normal and S2 normal; negative rub or gallop GI GI: normal to inspection Neuro General: alert, awake, oriented x3 and CN's II-XI intact bilaterally Skin Skin: no rashes or lesions noted Extremities Pulses: Normal: Right Posterior Tibial Pulse, Left Posterior Tibial Pulse, Right Radial Pulse, Left Radial Pulse Lower Extremity Edema: None: Bilateral Psych Psychological: normal affect Assessment AND Plan 1. Paroxysmal atrial fibrillation I48.0 Plan - PORFIRIO Hand EKG done in office showed sinus bradycardia at a rate of 49 bpm. Patient was asymptomatic with this heart rate. We will continue current medications which include beta-lexie and Coumadin therapy. We will continue to monitor this via history, exam, and repeat ECG as needed. We will not make any medication regimen changes. Orders Orders: 2. Nonrheumatic mitral (valve) prolapse I34.1 PORFIRIO Vo Patient's most recent echocardiogram is noted above. At next office visit it will be approximately 3 years from previous echocardiogram. Thus, we will have her repeat the echocardiogram just prior to office visit or shortly following office visit for ongoing evaluation of mitral valve prolapse/regurgitation unless unforeseen issues arise. Plan Detail Additional Comments - PORFIRIO Hand Discussed the above patient with Dr. Castellanos, he agrees with the plan of care. Thank you for allowing us to participate in the patients plan of care, if you have any questions please do not hesitate to call. This note was generated using a voice recognition system and there may be incorrect words, spelling or punctuation that were not noted when reviewing the office note prior to saving. Follow Up 1 Year (PFM) Coding Level of Care Code Off vis,est,level 3 Diagnoses Paroxysmal atrial fibrillation I48.0 Nonrheumatic mitral (valve) prolapse I34.1 Coding Level of Care Code Off vis,est,level 3 Diagnoses Paroxysmal atrial fibrillation I48.0 Nonrheumatic mitral (valve) prolapse I34.1 05/02/17 1531 <Electronically signed by Juan M CHUNC> Date Juan M CHUNC 05/03/17 1415<Electronically signed by Dionte Castellanos MD> Cosigner Signature: Date (if applicable) Dionte Castellanos MD CC: Mini Tyson MD 12 LEAD EKG PERFORMED Observed: 05/02/2017 Status: F Source: [place] BY [facility] 2:45 PM [facility] REPOSITORY [facility] [address] [facility] [address] 12 Lead EKG performed by [facility] 05/02/17 1444 MR#: [id number] Acct: [id number] Name: LISA THORPE Rep #: [id number] : 1945 71 From: Juan M Napoles NP-C Attending Dr: Juan M Napoles NP Status: DEP AMB Ordering Dr: Juan M NapolesC Date: 05/02/17 Location[place] [facility] Sex: F C Admitted: BMS/12 Lead EKG performed by [facility] ECG Report Interpretation Marked sinus Bradycardia Electronically signed on 05/05/2017 at 14:59 by Dionte Castellanos 05/05/17 1503 Date Juan M MONROY CC: Mini Tyson MD Date Dictated: 05/02/171443 Date Transcribed: 05/02/171443 Human Resources Benefits Manager: AILIN Signed PROTHROMBIN TIME W/INR Collected: 05/02/2017 Status: F Source: [place] 2:11 PM [facility] REPOSITORY TYPE CODE TESTS RESULT OUT OF RANGE REFERENCE UNITS LAB L300.4150 11.7-14.9 SECONDS High PROTIME 27.0 LAB L300.4200 Normal INR 2.6 Performed By: #### L300.3900 #### [facility] [address] [facility]. [place], [place], [address] ALLERGIES ALLERGIES DATE TYPE / CODE NAME / CODE REACTION SEVERITY SOURCE 05/02/2017 Drug No Known Unknown [facility] Allergy/4160 Allergies/F00 [facility] [address](SNOMED 4016453(RXNOR Repository CT) M) ENCOUNTERS ENCOUNTERS ADMIT/DISCHARGE ACCOUNT NUMBER ADMITTING ENCOUNTER LOCATION SOURCE CLASS 04/14/2018/04/14/19 [id number] Ambulatory BBuilding:ADELAIDA Cheatham [address] [place] [address] Repository 04/10/2018 [id number] Ambulatory General acute hospital ding:LAB Repository 04/01/2018 [id number] Ambulatory General acute hospital ding:OPUS Repository 03/31/2018 [id number] Ambulatory BMSBuilding: Sandy SNELL.[facility] Repository 03/31/2018 [id number] Ambulatory General acute hospital ding:[facility] Repository 03/19/2018/03/19/20 [id number] Ambulatory [place] [facility] [facility] ding:LAB Repository 01/30/2018/02/21/20 [id number] Ambulatory [place] [facility] Hospital ding:LAB Repository 12/25/2017/12/26/19 [id number] Ambulatory [place] [facility] ding:LAB Repository 11/18/2017/11/19/19 [id number] Ambulatory [place] [facility] Hospital ding:LAB Repository 11/05/2017 [id number] Ambulatory Sandy [facility] ding:[facility]BI Repository 10/14/2017/10/15/19 [id number] Ambulatory [place] [facility] ding:LAB Repository 09/16/2017 [id number] [facility] 09/05/2017 [id number] [facility] Repository 08/27/2017/08/28/19 [id number] Ambulatory Sandy [place] [facility] ding:LAB Repository 07/09/2017/07/10/19 [id number] Ambulatory [place] [facility] Hospital ding:LAB Repository 06/04/2017/06/05/19 [id number] Ambulatory [place] [facility] ding:LAB Repository 05/02/2017/05/02/19 [id number] Ambulatory BMSBuilding: Sandy 18 [facility] Repository 05/02/2017 [id number] Ambulatory [place] [facility] Hospital ding:LAB Repository 05/02/2017 [id number] Ambulatory BMSBuilding: Sandy BMS.[facility] Repository 04/30/2017 [id number] Ambulatory BMSBuilding: Sandy BMS.[facility] Repository 04/28/2017 [id number] Ambulatory BMSBuilding: [place] BMS[facility] Repository 04/28/2017 [id number] Ambulatory BMSBuilding: Sandy BMS.[facility] Repository PAYERS PAYERS ENCOUNTER GUARANTOR PAYER SUBSCRIBER SOURCE 04/14/2018 LISA Sawyer Primary Insurance:AETNA LISA K [facility] COVERTDOB: INSCOPolicy Number: COVERTDOB: Foundation [id number] MEBPSSTDEffective [id number] Repository [place] Date:2018-04-14 [place], [place] [id number] Name:[place], [place] [address]Rwx: [phone]) [address], [place] [address]Kjo: [phone]: (HP) (HP) (WP) [phone] (WP) 04/10/2018 LISA PALMER Primary Insurance:LIONTCECIL PALMER [place] [id number] MCRPolicy Number: COVERTDOB: [facility] MEBPSSTDEffective [id number] Date:6356-58-58KJ BOX Repository [address]Nby: [phone], [place] [phone] (HP) [phone]: 04/10/2018 Secondary NOT GIVENUNK [place] Insurance:SELF PAY Community INSURANCEPolicy Number: Hospital Effective Repository Date:2018-03-23 04/01/2018 LISA Sawyer NIYAHPHILLIP Primary Insurance:AETNA LISA Sawyer NIYAHPHILLIP [place] [id number] MCRPolicy Number: COVERTDOB: [facility] MEBPSSTDEffective [id number] Date:5988-33-08JU BOX Repository [address]Rhx: [phone] [place], [place] [phone] () [address]KI: 04/01/2018 Secondary NOT GIVENUNK [place] Insurance:SELF PAY Community INSURANCEPolicy Number: Hospital Effective Repository Date:2018-03-26 03/31/2018 LISA Digna PALMER Primary Insurance:AETNA LISA PALMER [place] [id number] MCRPolicy Number: COVERTDOB: Community [place] MEBPSSTDEffective [id number] [facility] [place] Date:2863-14-10RT BOX Repository [address]Vcq: [phone] [place], [place] [phone] (HP) [address]TX: 03/31/2018 Secondary NOT GIVENUNK [place] Insurance:SELF PAY Community INSURANCEPolicy Number: Hospital Effective Repository Date:2018-03-31 03/31/2018 LISAELIGIO PALMER Primary Insurance:AETNA LISA Digna PALMER [place] [id number] MCRPolicy Number: COVERTDOB: Community [place] MEBPSSTDEffective [id number] Rehabilitation [facility], [place] Date:2467-67-95KQ BOX Repository [address]Hyr: [phone] [place], [place] [phone] (HP) [phone]: 03/31/2018 Secondary NOT GIVENUNK [place] Insurance:SELF PAY Community INSURANCEPolicy Number: Hospital Effective Repository Date:2018-01-05 03/19/2018 LISA Digna PALMER Primary Insurance:AETNA LISA Digna PALMER [place] [id number] MCRPolicy Number: COVERTDOB: Community [place] MEBPSSTDEffective [id number] Rehabilitation Hospital, [place] Date:2989-76-98TX BOX Repository [address]Onq: [phone] [facility] [place] [phone] () [address]SC: 03/19/2018 Secondary NOT GIVENUNK [place] Insurance:SELF PAY Community INSURANCEPolicy Number: Hospital Effective Repository Date:2018-02-23 01/30/2018 LISA Digna LINDERUTZ Primary Insurance:AETNA LISA Digna LINDERUTZ [place] [id number] MCRPolicy Number: COVERTDOB: Community [place] MEBPSSTDEffective [id number] Rehabilitation Hospital, [place] Date:9258-03-95MF BOX Repository [address]Lis: [phone] [place], [place] [phone] (HP) [phone]: 01/30/2018 Secondary NOT GIVENUNK [place] Insurance:SELF PAY Community INSURANCEPolicy Number: Hospital Effective Repository Date:2018-01-22 12/25/2017 LISA PALMER Primary Insurance:AETNA LISA PALMER [place] [id number] MCRPolicy Number: COVERTDOB: Community [place] MEBPSSTDEffective [id number] Recovery Center [facility] [place] Date:6615-98-35FB BOX Repository [address]Kbn: [phone] [place], [place] [phone] (HP) [address]ZS: 12/25/2017 Secondary NOT GIVENUNK [place] Insurance:SELF PAY Community INSURANCEPolicy Number: Hospital Effective Repository Date:2017-11-25 11/18/2017 LISA PALMER Primary Insurance:AETNA LISA PALMER [place] [id number] MCRPolicy Number: COVERTDOB: Community [place] MEBPSSTDEffective [id number] Recovery Center [facility] [place] Date:0291-19-52NG BOX Repository [address]Ksw: [phone] [place], [place] [phone] (HP) [phone]: 11/18/2017 Secondary NOT GIVENUNK [place] Insurance:SELF PAY Community INSURANCEPolicy Number: Hospital Effective Repository Date:2017-10-23 11/05/2017 LISA PALMER Primary Insurance:AETNA LISA PALMER [place] [id number] MCRPolicy Number: COVERTDOB: Community [place] MEBPSSTDEffective [id number] [facility] [place] Date:5182-23-12BD BOX Repository [address]Ugf: [phone] [place], [place] [phone] (HP) [phone]: 11/05/2017 Secondary NOT GIVENUNK [place] Insurance:SELF PAY Community INSURANCEPolicy Number: Hospital Effective Repository Date:2017-10-16 10/14/2017 LISA PALMER Primary Insurance:AETNA LISA PALMER [place] [id number] MCRPolicy Number: COVERTDOB: Community [place] MEBPSSTDEffective [id number] [facility] [place] Date:7466-47-03RP BOX Repository [address]Akh: [phone] [place], [place] [phone] () [address]ZR: 10/14/2017 Secondary NOT GIVENUNK [place] Insurance:SELF PAY Community INSURANCEPolicy Number: Hospital Effective Repository Date:2017-09-19 09/16/2017 LISA PALMER Primary Insurance:AETNA LISA PALMER [place] [id number] MCRPolicy Number: COVERTDOB: Community [place] MEBPSSTDEffective [id number] [facility] [place] Date:4320-16-64RC BOX Repository [address]Ggy: [phone] [place], [place] [phone] () [address]UB: 09/16/2017 Secondary NOT GIVENUNK [place] Insurance:SELF PAY Community INSURANCEPolicy Number: Hospital Effective Repository Date:2017-08-30 09/05/2017 LISA PALMER Primary Insurance:AETNA LISA PALMER [place] [id number] MCRPolicy Number: COVERTDOB: Community [place] MEBPSSTDEffective [id number] Rehabilitation Hospital, [place] Date:2196-98-92OX BOX Repository [address]Wck: [phone] [facility], [place] [phone] () [address]ZP: 09/05/2017 Secondary NOT GIVENUNK [place] Insurance:SELF PAY Community INSURANCEPolicy Number: Hospital Effective Repository Date:2017-09-05 08/27/2017 LISA PALMER Primary Insurance:AETNA LISA PALMER [place] [id number] MCRPolicy Number: COVERTDOB: Community [place] MEBPSSTDEffective [id number] [facility] [place] Date:1469-02-54MI BOX Repository [address]Cig: [phone] [place], [place] [phone] (HP) [phone]: 08/27/2017 Secondary NOT GIVENUNK [place] Insurance:SELF PAY Community INSURANCEPolicy Number: Hospital Effective Repository Date:2017-07-22 07/09/2017 LISA PALMER Primary Insurance:AETNA LISA Digna PALMER [place] [id number] MCRPolicy Number: COVERTDOB: Community [place] MEBPSSTDEffective [id number] Rehabilitation [facility], [place] Date:2419-14-77PJ BOX Repository [address]Rhq: [phone] [place], [place] [phone] (HP) [phone]: 07/09/2017 Secondary NOT GIVENUNK [place] Insurance:SELF PAY Community INSURANCEPolicy Number: Hospital Effective Repository Date:2017-06-23 06/04/2017 LISAELIGIO PALMER Primary Insurance:AETNA LISA Digna PALMER [place] [id number] MCRPolicy Number: COVERTDOB: Community [place] MEBPSSTDEffective [id number] Rehabilitation Hospital, [place] Date:4286-29-96KG BOX Repository [address]Xgt: [phone] [place], [place] [phone] (HP) [phone]: 06/04/2017 Secondary NOT GIVENUNK [place] Insurance:SELF PAY Community INSURANCEPolicy Number: Hospital Effective Repository Date:2017-03-24 05/02/2017 LISA Digna PALMER Primary Insurance:AETNA LISA Digna PALMER [place] [id number] MCRPolicy Number: COVERTDOB: Community [place] MEBPSSTDEffective [id number] Rehabilitation Hospital, [place] Date:2696-59-69UV BOX Repository [address]Pem: [phone] [place], [place] [phone] (HP) [phone]: 05/02/2017 Secondary NOT GIVENUNK [place] Insurance:SELF PAY Community INSURANCEPolicy Number: Hospital Effective Repository Date:2017-04-28 05/02/2017 Lisa Palmer Primary Insurance:AETNA LISAELIGIO PALMER [place] [id number] MCRPolicy Number: COVERTDOB: [facility] MEBPSSTDEffective [id number] Date:4581-12-05ZT BOX Repository [address]Duu: [phone] [place], [place] [phone] (RF) [phone]: 05/02/2017 Secondary NOT GIVENUNK [place] Insurance:SELF PAY Community INSURANCEPolicy Number: Hospital Effective Repository Date:2017-05-02 05/02/2017 Lisa Digna Palmer Primary LISA Digna PALMER [place] [id number] Insurance:MEDICARE PART COVERTDOB: [facility] BPolicy Number: [id number] [id number] Repository [address]Mrm: (918) Date:2017-05-02 [phone] () 05/02/2017 Secondary Lisa Digna Palmer [place] Insurance:AULTCAREPolic CovertDOB: Community y Number: [id number] Hospital [id number] Repository Date:7632-70-34ML [address] [place] [phone]: 05/02/2017 Tertiary Insurance:SELF NOT GIVENUNK [place] PAY INSURANCEPolicy Community Number: Effective Hospital Date:2017-05-02 Repository 04/30/2017 Lisa Digna Palmer Primary LISA Digna PALMER [place] [id number] Insurance:MEDICARE PART COVERTDOB: [facility] BPolicy Number: [id number] [place], [place] [id number] Repository [address]Iof: ([phone]) Date:2017-03-28 [phone] () 04/30/2017 Secondary Ilsa Digna Palmer [place] Insurance:AULTCAREPolic CovertDOB: Community y Number: [id number] Hospital [id number] Repository Date:0326-64-32ON [address] [place] [phone]: 04/30/2017 Tertiary Insurance:SELF NOT GIVENUNK [place] PAY INSURANCEPolicy Community Number: Effective Hospital Date:2017-03-28 Repository 04/28/2017 Lisa Digna Palmer Primary LISA Digna PALMER [place] [id number] Insurance:MEDICARE PART COVERTDOB: [facility] BPolicy Number: [id number] Nuys, [place] [id number] Repository [address]Oil: ([phone]) Date:2017-03-01 [phone] () 04/28/2017 Secondary Lisa Digna Palmer [place] Insurance:AULTCAREPolic CovertDOB: Community y Number: [id number] Hospital [id number] Repository Date:2335-18-82ZF[address] [address]OC: 04/28/2017 Tertiary Insurance:SELF NOT GIVENUNK [place] PAY INSURANCEPolicy Community Number: Effective Hospital Date:2017-03-01 Repository 04/28/2017 Lisa Digna Slphillip Primary LISA Digna PALMER [place] [id number] Insurance:MEDICARE PART COVERTDOB: [facility] BPolicy Number: [id number] Nuys, [place] [id number] Repository [address]Tpf: 330) Date:2017-04-28 [phone] () 04/28/2017 Secondary Lisa Digna Palmer [place] Insurance:AULTCAREPolic CovertDOB: Community y Number: [id number] Hospital [id number] Repository Date:5061-63-22PJ[address] [address]MV: 04/28/2017 Tertiary Insurance:SELF NOT GIVENUNK [place] PAY INSURANCEPolicy Community Number: Effective Hospital Date:2017-04-28 Repository
== END 2018-04-10 12:00 | disposition home or self-care (01) ==
LOC: LAB 10:53
PROVIDERS: Family Provider Family Medicine; PCP Family Medicine; Referring Provider Internal Medicine Cardiovascular Disease; Visit Provider Internal Medicine Cardiovascular Disease
DX: I48.0 Paroxysmal atrial fibrillation (principal); Z79.01 Long term (current) use of anticoagulants
CPT/HCPCS: 36415; 85610

== ENCOUNTER 2018-05-05 10:58 | Outpatient (RCR) | payer MEDICARE, SELFPAY ==
[2017-05-02 14:39] VITALS: BMI 27.6
[2018-05-05 12:02] LABS: International Normalized Ratio 2.7; Prothrombin Time (Protime)PT. 28.7 SECONDS (11.7-14.9)
== END 2018-05-21 14:51 | disposition home or self-care (01) ==
LOC: LAB 10:58
PROVIDERS: Family Provider Family Medicine; PCP Family Medicine; Referring Provider Internal Medicine Cardiovascular Disease; Visit Provider Internal Medicine Cardiovascular Disease
DX: I48.0 Paroxysmal atrial fibrillation (principal); Z79.01 Long term (current) use of anticoagulants
CPT/HCPCS: 36415; 85610

== ENCOUNTER 2018-06-16 12:35 | Outpatient (RCR) | payer MEDICARE, SELFPAY ==
[2018-05-14 13:57] VITALS: BMI 27.6
[2018-06-04 15:09] LABS: International Normalized Ratio 1.7; Prothrombin Time (Protime)PT. 19.6 SECONDS (11.7-14.9)
[2018-06-16 13:48] LABS: International Normalized Ratio 2.1; Prothrombin Time (Protime)PT. 23.1 SECONDS (11.7-14.9)
== END 2018-06-16 13:35 | disposition home or self-care (01) ==
LOC: LAB 12:35
PROVIDERS: Family Provider Family Medicine; PCP Family Medicine; Referring Provider Internal Medicine Cardiovascular Disease; Visit Provider Internal Medicine Cardiovascular Disease
DX: I48.0 Paroxysmal atrial fibrillation (principal); Z79.01 Long term (current) use of anticoagulants
CPT/HCPCS: 36415; 85610

== ENCOUNTER 2018-07-02 13:51 | Outpatient (RCR) | payer MEDICARE, SELFPAY ==
[2018-05-14 13:57] VITALS: BMI 27.6
[2018-07-02 14:52] LABS: International Normalized Ratio 2.6; Prothrombin Time (Protime)PT. 28.2 SECONDS (11.7-14.9)
== END 2018-07-21 16:00 | disposition home or self-care (01) ==
LOC: LAB 13:51
PROVIDERS: Family Provider Family Medicine; PCP Family Medicine; Referring Provider Internal Medicine Cardiovascular Disease; Visit Provider Internal Medicine Cardiovascular Disease
DX: I48.0 Paroxysmal atrial fibrillation (principal); Z79.01 Long term (current) use of anticoagulants
CPT/HCPCS: 36415; 85610

== ENCOUNTER 2018-08-12 10:29 | Outpatient (RCR) | payer MEDICARE, SELFPAY ==
[2018-05-14 13:57] VITALS: BMI 27.6
[2018-08-12 11:48] LABS: International Normalized Ratio 3.4; Prothrombin Time (Protime)PT. 34.5 SECONDS (11.7-14.9)
[2018-08-12 12:02] LABS: Cholesterol 159 mg/dL (200); Glucose 102 mg/dL (74-106); High Density Lipoprotein 53 mg/dL; Triglycerides 90 mg/dL; Very Low Density Lipoprotein 18 mg/dL (5-40)
== END 2018-08-12 11:29 | disposition home or self-care (01) ==
LOC: LAB 10:29
PROVIDERS: Nurse Practitioner Adult Health; Family Provider Family Medicine; PCP Family Medicine; Referring Provider Internal Medicine Cardiovascular Disease; Visit Provider Internal Medicine Cardiovascular Disease
DX: I48.0 Paroxysmal atrial fibrillation (principal); Z79.01 Long term (current) use of anticoagulants; Z13.6 Encounter for screening for cardiovascular disorders; Z13.1 Encounter for screening for diabetes mellitus
CPT/HCPCS: 36415; 80061; 82947; 85610

== ENCOUNTER 2018-08-27 14:21 | Outpatient (RCR) | payer MEDICARE, SELFPAY ==
[2018-05-14 13:57] VITALS: BMI 27.6
[2018-08-27 16:30] LABS: International Normalized Ratio 2.9; Prothrombin Time (Protime)PT. 30.6 SECONDS (11.7-14.9)
== END 2018-08-27 15:00 | disposition home or self-care (01) ==
LOC: LAB 14:21
PROVIDERS: Family Provider Family Medicine; PCP Family Medicine; Referring Provider Internal Medicine Cardiovascular Disease; Visit Provider Internal Medicine Cardiovascular Disease
DX: I48.0 Paroxysmal atrial fibrillation (principal); Z79.01 Long term (current) use of anticoagulants
CPT/HCPCS: 36415; 85610

== ENCOUNTER 2018-10-13 16:30 | Outpatient (RCR) | payer MEDICARE, SELFPAY ==
[2018-05-14 13:57] VITALS: BMI 27.6
[2018-10-02 10:23] LABS: International Normalized Ratio 3.5; Prothrombin Time (Protime)PT. 35.4 SECONDS (11.7-14.9)
[2018-10-13 17:13] LABS: Prothrombin Time (Protime)PT. 22.6 SECONDS (11.7-14.9)
== END 2018-10-21 06:15 | disposition home or self-care (01) ==
LOC: LAB 16:30
PROVIDERS: Family Provider Family Medicine; PCP Family Medicine; Referring Provider Internal Medicine Cardiovascular Disease; Visit Provider Internal Medicine Cardiovascular Disease
DX: I48.0 Paroxysmal atrial fibrillation (principal); Z79.01 Long term (current) use of anticoagulants
CPT/HCPCS: 36415; 85610

== ENCOUNTER 2018-11-03 16:28 | Outpatient (RCR) | payer MEDICARE, SELFPAY ==
[2018-05-14 13:57] VITALS: BMI 27.6
[2018-11-03 17:28] LABS: International Normalized Ratio 2.7; Prothrombin Time (Protime)PT. 29.1 SECONDS (11.7-14.9)
== END 2018-11-03 18:00 | disposition home or self-care (01) ==
LOC: LAB 16:28
PROVIDERS: Family Provider Family Medicine; PCP Family Medicine; Referring Provider Internal Medicine Cardiovascular Disease; Visit Provider Internal Medicine Cardiovascular Disease
DX: I48.0 Paroxysmal atrial fibrillation (principal); Z79.01 Long term (current) use of anticoagulants
CPT/HCPCS: 36415; 85610

== ENCOUNTER → 2018-11-18 10:33 | Outpatient (CLI) | payer MEDICARE, SELFPAY ==
[2018-05-14 13:57] VITALS: BMI 27.6
== END ==
PROVIDERS: Family Provider Family Medicine; PCP Family Medicine; Referring Provider Nurse Practitioner Adult Health; Visit Provider Nurse Practitioner Adult Health
DX: Z12.31 Encounter for screening mammogram for malignant neoplasm of breast (principal)
CPT/HCPCS: 77063; 77067

== ENCOUNTER → 2018-12-01 10:14 | Outpatient (CLI) | payer MEDICARE, SELFPAY ==
[2018-05-14 13:57] VITALS: BMI 27.6
--- NOTE | 2018-12-01 10:18 | US_ITS ---
STUDY: THYROID ULTRASOUND REASON FOR EXAM: Female, 73 years old. Follow-up thyroid nodules TECHNIQUE: Ultrasound evaluation of the thyroid was performed with real-time and static metz-scale imaging. COMPARISON: Previous study of April 01, 2018 FINDINGS: RIGHT LOBE: The right lobe of the thyroid gland measures 5.6 x 4.5 x 2.4 cm. There is a there is a heterogeneous echotexture.. 5 nodules are identified. The largest nodule is located in the midpole and measures 3.1 x 2.3 x 3.4 cm. Additional nodules measure 2.2 x 1.9 x 1.8 cm, 0.8 x 0.8 x 0.6 cm, 0.9 x 1.5 x 1.3 cm, and 1.0 x 1.2 x 1.0 cm. These nodules are all solid with no cystic component or calcification. The largest of these nodules demonstrates moderate internal vascularity. LEFT LOBE: The left lobe of the thyroid gland measures 4.5 x 1.0 x 1.6 cm. There is a heterogeneous. 2 left thyroid lobe nodules are noted, measuring 1.1 x 0.8 x 1.0 cm and 0.6 x 0.6 x 0.5 cm respectively. A previously noted third left thyroid lobe nodule is not seen at this time. These nodules demonstrate minimal peripheral vascularity. No cystic component or associated calcifications are seen. ISTHMUS: The isthmus measures 2 mm . The regional lymph nodes are normal. US/Thyroid IMPRESSION: Bilateral thyroidal nodules as detailed above appearing stable in the interval. A third left thyroid lobe nodule reported on the prior study is not seen at this time. Follow-up thyroid ultrasound in one year is recommended. Electronically Signed: Hola Doan MD at 23:48 EDT , Service support ,
--- NOTE | 2018-12-01 10:55 | BI_ITS ---
MAMMOGRAPHY - BILATERAL SCREENING REASON FOR EXAM: Female, 73 years old. Routine annual screening examination. PERTINENT HISTORY: Mother with breast cancer. Aunt with breast cancer. TECHNIQUE: Digital bilateral breast boris (3D mammographic acquisition) in the CC and MLO projections. 2-D mediolateral oblique (MLO) and craniocaudad (CC) views of both breasts were obtained. CAD: Full Field Digital Mammography with Computer Added Detection was performed. COMPARISON: Comparison is made with prior study dated November 05, 2017 and October 22, 2016. FINDINGS: Breast Composition: The breasts are heterogeneously dense, which may obscure small masses. There are no dominant masses or suspicious calcifications. Stable small benign-appearing bilateral axillary lymph nodes. No other significant abnormalities are identified. There has been no significant change since the prior study. BI/SCREEN MAMM (CAD) W/BORIS BILAT IMPRESSION: Stable bilateral screening mammogram. Yearly follow-up mammogram recommended. (A) ASSESSMENT CATEGORY: BIRADS Category 2: Benign. A letter regarding these results will be sent to the patient by the facility within 30 days. Approximately 10% of breast cancers are not detected by mammography. A normal mammogram should not delay biopsy of a clinically suspicious abnormality. [id number] Electronically Signed: Gilberto Henderson, at 9:26 EDT , Service support ,
== END ==
PROVIDERS: Family Provider Family Medicine; PCP Family Medicine; Referring Provider Internal Medicine Endocrinology, Diabetes & Metabolism; Visit Provider Internal Medicine Endocrinology, Diabetes & Metabolism
DX: Z12.31 Encounter for screening mammogram for malignant neoplasm of breast (principal); Z80.3 Family history of malignant neoplasm of breast; E04.2 Nontoxic multinodular goiter
CPT/HCPCS: 76536; 77063; 77067

== ENCOUNTER 2018-12-07 14:18 | Outpatient (RCR) | payer MEDICARE, SELFPAY ==
[2018-05-14 13:57] VITALS: BMI 27.6
[2018-12-07 15:26] LABS: International Normalized Ratio 2.3; Prothrombin Time (Protime)PT. 25.3 SECONDS (11.7-14.9)
== END 2018-12-07 16:00 | disposition home or self-care (01) ==
LOC: LAB 14:18
PROVIDERS: Family Provider Family Medicine; PCP Family Medicine; Referring Provider Internal Medicine Cardiovascular Disease; Visit Provider Internal Medicine Cardiovascular Disease
DX: I48.0 Paroxysmal atrial fibrillation (principal); Z79.01 Long term (current) use of anticoagulants
CPT/HCPCS: 36415; 85610

== ENCOUNTER 2019-01-06 15:49 | Outpatient (RCR) | payer MEDICARE, SELFPAY ==
[2018-05-14 13:57] VITALS: BMI 27.6
[2019-01-06 16:43] LABS: International Normalized Ratio 2.4; Prothrombin Time (Protime)PT. 25.8 SECONDS (11.7-14.9)
== END 2019-01-06 18:00 | disposition home or self-care (01) ==
LOC: LAB 15:49
PROVIDERS: Family Provider Family Medicine; PCP Family Medicine; Referring Provider Internal Medicine Cardiovascular Disease; Visit Provider Internal Medicine Cardiovascular Disease
DX: I48.0 Paroxysmal atrial fibrillation (principal); Z79.01 Long term (current) use of anticoagulants
CPT/HCPCS: 36415; 85610

== ENCOUNTER 2019-02-16 11:49 | Outpatient (RCR) | payer MEDICARE, SELFPAY ==
[2018-05-14 13:57] VITALS: BMI 27.6
[2019-02-16 13:28] LABS: Prothrombin Time (Protime)PT. 22.4 SECONDS (11.7-14.9)
== END 2019-02-16 18:00 | disposition home or self-care (01) ==
LOC: LAB 11:49
PROVIDERS: Family Provider Family Medicine; PCP Family Medicine; Referring Provider Internal Medicine Cardiovascular Disease; Visit Provider Internal Medicine Cardiovascular Disease
DX: I48.0 Paroxysmal atrial fibrillation (principal); Z79.01 Long term (current) use of anticoagulants
CPT/HCPCS: 36415; 85610

== ENCOUNTER 2019-04-16 15:03 | Outpatient (RCR) | payer MEDICARE, SELFPAY ==
[2018-05-14 13:57] VITALS: BMI 27.6
[2019-03-30 15:27] LABS: International Normalized Ratio 1.8; Prothrombin Time (Protime)PT. 20.8 SECONDS (11.7-14.9)
[2019-04-16 17:44] LABS: International Normalized Ratio 2.1; Prothrombin Time (Protime)PT. 23.3 SECONDS (11.7-14.9)
== END 2019-04-16 18:00 | disposition home or self-care (01) ==
LOC: LAB 15:03
PROVIDERS: Family Provider Family Medicine; PCP Family Medicine; Referring Provider Internal Medicine Cardiovascular Disease; Visit Provider Internal Medicine Cardiovascular Disease
DX: I48.0 Paroxysmal atrial fibrillation (principal); Z79.01 Long term (current) use of anticoagulants
CPT/HCPCS: 36415; 85610

== ENCOUNTER 2019-05-14 10:10 | Outpatient (RCR) | payer MEDICARE, SELFPAY ==
[2018-05-14 13:57] VITALS: BMI 27.6
[2019-05-14 10:36] LABS: International Normalized Ratio 2.6; Prothrombin Time (Protime)PT. 27.6 SECONDS (11.7-14.9)
[2019-05-14 11:02] LABS: ALB/GLOB Ratio 0.9 RATIO (0.9-2.4); AST(SGOT) 16 U/L (15-37); Alanine Aminotransfer ALT/SGPT 23 U/L (13-56); Albumin, Serum 3.2 g/dL (3.2-5.0); Alkaline Phosphatase 63 U/L (45-117); Anion Gap 5 (5-15); BUN 23 mg/dL (7-18); BUN/Creat Ratio 24.2 RATIO (10-20); Calcium,Total 8.5 mg/dL (8.5-10.1); Chloride 108 mmol/L (98-107); Cholesterol 198 mg/dL (200); Creatinine, Serum 0.95 mg/dL (0.55-1.02); EST Glomerular Filtration Rate 62 mL/min (>60); Est Glom Filt Rate - Afr Amer 74 mL/min (>60); Globulin 3.7 g/dL (2.2-4.2); Glucose 87 mg/dL (74-106); High Density Lipoprotein 65 mg/dL; Potassium 4.1 mmol/L (3.5-5.1); Protein, Total 6.9 g/dL (6.4-8.2); Sodium Level 139 mmol/L (136-145); Triglycerides 84 mg/dL; Very Low Density Lipoprotein 17 mg/dL (5-40)
[2019-05-14 11:06] LABS: Hemoglobin A1c 5.4 % (4.2-6.3)
== END 2019-05-14 18:00 | disposition home or self-care (01) ==
LOC: LAB 10:10
PROVIDERS: Family Provider Family Medicine; PCP Family Medicine; Referring Provider Internal Medicine Cardiovascular Disease; Visit Provider Internal Medicine Cardiovascular Disease
DX: I48.0 Paroxysmal atrial fibrillation (principal); Z79.01 Long term (current) use of anticoagulants; E78.5 Hyperlipidemia, unspecified; E11.65 Type 2 diabetes mellitus with hyperglycemia; Z13.1 Encounter for screening for diabetes mellitus
CPT/HCPCS: 36415; 80053; 80061; 83036; 85610

== ENCOUNTER 2019-06-30 16:14 | Outpatient (RCR) | payer MEDICARE, SELFPAY ==
[2018-05-14 13:57] VITALS: BMI 27.6
[2019-05-26 13:02] VITALS: BMI 28.5
[2019-06-30 16:40] LABS: International Normalized Ratio 3.2; Prothrombin Time (Protime)PT. 32.3 SECONDS (11.7-14.9)
== END 2019-07-22 18:00 | disposition home or self-care (01) ==
LOC: LAB 16:14
PROVIDERS: Family Provider Family Medicine; PCP Family Medicine; Referring Provider Internal Medicine Cardiovascular Disease; Visit Provider Internal Medicine Cardiovascular Disease
DX: I48.0 Paroxysmal atrial fibrillation (principal); Z79.01 Long term (current) use of anticoagulants
CPT/HCPCS: 36415; 85610

== ENCOUNTER 2019-07-26 14:13 | Outpatient (RCR) | payer MEDICARE, SELFPAY ==
[2019-05-26 13:02] VITALS: BMI 28.5
[2019-07-26 15:57] LABS: International Normalized Ratio 2.6; Prothrombin Time (Protime)PT. 27.5 SECONDS (11.7-14.9)
== END 2019-07-26 18:00 | disposition home or self-care (01) ==
LOC: LAB 14:13
PROVIDERS: Nurse Practitioner Family; Family Provider Family Medicine; PCP Family Medicine; Referring Provider Internal Medicine Cardiovascular Disease; Visit Provider Internal Medicine Cardiovascular Disease
DX: I48.0 Paroxysmal atrial fibrillation (principal); Z79.01 Long term (current) use of anticoagulants
CPT/HCPCS: 36415; 85610

== ENCOUNTER 2019-09-23 11:40 | Outpatient (RCR) | payer MEDICARE, SELFPAY ==
[2019-05-26 13:02] VITALS: BMI 28.5
[2019-09-23 12:32] LABS: International Normalized Ratio 2.9; Prothrombin Time (Protime)PT. 29.5 SECONDS (11.7-14.9)
== END 2019-09-28 18:00 | disposition home or self-care (01) ==
LOC: LAB 11:40
PROVIDERS: Family Provider Family Medicine; PCP Family Medicine; Referring Provider Internal Medicine Cardiovascular Disease; Visit Provider Internal Medicine Cardiovascular Disease
DX: I48.0 Paroxysmal atrial fibrillation (principal); Z79.01 Long term (current) use of anticoagulants
CPT/HCPCS: 36415; 85610

== ENCOUNTER 2019-11-04 11:27 | Outpatient (RCR) | payer MEDICARE, SELFPAY ==
[2019-05-26 13:02] VITALS: BMI 28.5
[2019-11-04 12:21] LABS: Prothrombin Time (Protime)PT. 30.6 SECONDS (11.7-14.9)
== END 2019-11-22 18:00 | disposition home or self-care (01) ==
LOC: LAB 11:27
PROVIDERS: Family Provider Family Medicine; PCP Family Medicine; Referring Provider Internal Medicine Cardiovascular Disease; Visit Provider Internal Medicine Cardiovascular Disease
DX: I48.0 Paroxysmal atrial fibrillation (principal); Z79.01 Long term (current) use of anticoagulants
CPT/HCPCS: 36415; 85610

== ENCOUNTER → 2019-12-14 | Outpatient (CLI) | payer MEDICARE, SELFPAY ==
[2019-05-26 13:02] VITALS: BMI 28.5
--- NOTE | 2019-12-14 12:24 | BI_ITS ---
MAMMOGRAPHY - BILATERAL SCREENING REASON FOR EXAM: Female, 74 years old. Routine annual screening examination. PERTINENT HISTORY: Mother with breast cancer. Aunt with breast cancer. TECHNIQUE: Digital bilateral breast boris (3D mammographic acquisition) in the CC and MLO projections. 2-D mediolateral oblique (MLO) and craniocaudad (CC) views of both breasts were obtained. CAD: Full Field Digital Mammography with Computer Added Detection was performed. COMPARISON: Comparison is made with prior study dated 12/01/2018 and 11/05/2017. FINDINGS: Breast Composition: The breasts are heterogeneously dense, which may obscure small masses. There are no dominant masses or suspicious calcifications. Stable benign-appearing bilateral axillary lymph nodes. No other significant abnormalities are identified. There has been no significant change since the prior study. BI/SCREEN MAMM (CAD) W/BORIS BILAT IMPRESSION: Stable bilateral screening mammogram. Yearly follow-up mammogram recommended. (A) ASSESSMENT CATEGORY: BIRADS Category 2: Benign. A letter regarding these results will be sent to the patient by the facility within 30 days. Approximately 10% of breast cancers are not detected by mammography. A normal mammogram should not delay biopsy of a clinically suspicious abnormality. [id number] Electronically Signed: Gilberto Henderson, at 13:36 EDT , Service support ,
== END | disposition home or self-care (01) ==
LOC: OPBI 12:23
PROVIDERS: PCP Family Medicine; Referring Provider Family Medicine; Visit Provider Family Medicine
DX: Z12.31 Encounter for screening mammogram for malignant neoplasm of breast (principal)
CPT/HCPCS: 77063; 77067

== ENCOUNTER 2019-12-16 10:11 | Outpatient (RCR) | payer MEDICARE, SELFPAY ==
[2019-05-26 13:02] VITALS: BMI 28.5
[2019-12-16 11:11] LABS: International Normalized Ratio 2.4
== END 2019-12-16 18:00 | disposition home or self-care (01) ==
LOC: LAB 10:11
PROVIDERS: Family Provider Family Medicine; PCP Family Medicine; Referring Provider Internal Medicine Cardiovascular Disease; Visit Provider Internal Medicine Cardiovascular Disease
DX: I48.0 Paroxysmal atrial fibrillation (principal); Z79.01 Long term (current) use of anticoagulants
CPT/HCPCS: 36415; 85610

== ENCOUNTER 2020-01-28 13:05 | Outpatient (RCR) | payer MEDICARE, SELFPAY ==
[2019-05-26 13:02] VITALS: BMI 28.5
[2020-01-28 13:34] LABS: International Normalized Ratio 2.7; Prothrombin Time (Protime)PT. 28.4 SECONDS (11.7-14.9)
== END 2020-01-28 18:00 | disposition home or self-care (01) ==
LOC: LAB 13:05
PROVIDERS: Family Provider Family Medicine; PCP Family Medicine; Referring Provider Internal Medicine Cardiovascular Disease; Visit Provider Internal Medicine Cardiovascular Disease
DX: I48.0 Paroxysmal atrial fibrillation (principal); Z79.01 Long term (current) use of anticoagulants
CPT/HCPCS: 36415; 85610

== ENCOUNTER 2020-03-02 13:20 | Outpatient (RCR) | payer MEDICARE, SELFPAY ==
[2019-05-26 13:02] VITALS: BMI 28.5
[2020-03-02 14:49] LABS: International Normalized Ratio 2.5; Prothrombin Time (Protime)PT. 26.7 SECONDS (11.7-14.9)
== END 2020-03-02 18:00 | disposition home or self-care (01) ==
LOC: LAB 13:20
PROVIDERS: Family Provider Family Medicine; PCP Family Medicine; Referring Provider Internal Medicine Cardiovascular Disease; Visit Provider Internal Medicine Cardiovascular Disease
DX: I48.0 Paroxysmal atrial fibrillation (principal); Z79.01 Long term (current) use of anticoagulants
CPT/HCPCS: 36415; 85610

== ENCOUNTER 2020-04-05 11:16 | Outpatient (RCR) | payer MEDICARE, SELFPAY ==
[2019-05-26 13:02] VITALS: BMI 28.5
[2020-04-05 11:42] LABS: International Normalized Ratio 2.5; Prothrombin Time (Protime)PT. 26.5 SECONDS (11.7-14.9)
== END 2020-04-05 18:00 | disposition home or self-care (01) ==
LOC: LAB 11:16
PROVIDERS: Family Provider Family Medicine; PCP Family Medicine; Referring Provider Internal Medicine Cardiovascular Disease; Visit Provider Internal Medicine Cardiovascular Disease
DX: I48.0 Paroxysmal atrial fibrillation (principal); Z79.01 Long term (current) use of anticoagulants
CPT/HCPCS: 36415; 85610

== ENCOUNTER 2020-05-19 16:19 | Outpatient (RCR) | payer MEDICARE, SELFPAY ==
[2019-05-26 13:02] VITALS: BMI 28.5
[2020-05-19 17:13] LABS: International Normalized Ratio 2.6; Prothrombin Time (Protime)PT. 27.6 SECONDS (11.7-14.9)
== END 2020-05-19 18:00 | disposition home or self-care (01) ==
LOC: LAB 16:19
PROVIDERS: Family Provider Family Medicine; PCP Family Medicine; Referring Provider Internal Medicine Cardiovascular Disease; Visit Provider Internal Medicine Cardiovascular Disease
DX: I48.0 Paroxysmal atrial fibrillation (principal); Z79.01 Long term (current) use of anticoagulants
CPT/HCPCS: 36415; 85610

== ENCOUNTER → 2020-05-30 12:19 | Outpatient (CLI) | payer MEDICARE, SELFPAY ==
[2019-05-26 13:02] VITALS: BMI 28.5
--- NOTE | 2020-05-30 12:42 | US_ITS ---
STUDY: THYROID ULTRASOUND REASON FOR EXAM: Female, 74 years old. THYROID NODULE TECHNIQUE: Ultrasound evaluation of the thyroid was performed with real-time and static metz-scale imaging. COMPARISON: 12/01/2018 FINDINGS: RIGHT LOBE: The right lobe of the thyroid gland measures 6.6 x 3.6 x 2.8 cm. There is a heterogeneous echotexture. Nodule 1: No change in a 32 x 24 x 31 mm solid isoechoic wider than tall ill-defined marginated nodule with no echogenic foci (TR 3) in the superior right lobe and biopsy is recommended if never performed. Nodule 2: No change in a 22 x 21 x 22 mm solid isoechoic wider than tall ill-defined marginated nodule with no echogenic foci (TR 3) in the lateral right lobe and follow-up ultrasound is recommended in one year. Nodule 3: No change in the 18 x 16 x 11 mm solid isoechoic wider than tall ill-defined marginated nodule with no echogenic foci (TR 3) in the inferior right lobe and follow-up ultrasound is recommended in one year. LEFT LOBE: The left lobe of the thyroid gland measures 4.3 x 1.2 x 1.6 cm. There is a heterogeneous echotexture. Nodule 4: No change in the 10 x 8 x 9 mm solid isoechoic wider than tall ill-defined marginated nodule with no echogenic foci (TR 3) in the posterior left lobe likely consistent with an adenoma. ISTHMUS: The isthmus measures 17 mm thick. . The regional lymph nodes are normal. US/Thyroid IMPRESSION: No change in multinodular goiter. Follow-up ultrasound is recommended in one year. Biopsy of the dominant nodules is recommended if never performed. Electronically Signed: Harmeet Torres MD at 12:27 EDT Tel , Service support ,
== END ==
PROVIDERS: PCP Family Medicine; Referring Provider Internal Medicine Endocrinology, Diabetes & Metabolism; Visit Provider Internal Medicine Endocrinology, Diabetes & Metabolism
DX: E04.1 Nontoxic single thyroid nodule (principal)
CPT/HCPCS: 76536

== ENCOUNTER 2020-07-11 15:56 | Outpatient (RCR) | payer MEDICARE, SELFPAY ==
[2019-05-26 13:02] VITALS: BMI 28.5
[2020-05-31 13:01] VITALS: BMI 28.7
[2020-07-11 16:49] LABS: Prothrombin Time (Protime)PT. 22.2 SECONDS (11.7-14.9)
== END 2020-07-11 18:00 | disposition home or self-care (01) ==
LOC: LAB 15:56
PROVIDERS: Family Provider Family Medicine; PCP Family Medicine; Referring Provider Internal Medicine Cardiovascular Disease; Visit Provider Internal Medicine Cardiovascular Disease
DX: I48.0 Paroxysmal atrial fibrillation (principal); Z79.01 Long term (current) use of anticoagulants
CPT/HCPCS: 36415; 85610

== ENCOUNTER 2020-08-25 15:26 | Outpatient (RCR) | payer MEDICARE, SELFPAY ==
[2020-05-31 13:01] VITALS: BMI 28.7
[2020-08-25 17:34] LABS: International Normalized Ratio 2.4
== END 2020-08-25 18:00 | disposition home or self-care (01) ==
LOC: LAB 15:26
PROVIDERS: Family Provider Family Medicine; PCP Family Medicine; Referring Provider Internal Medicine Cardiovascular Disease; Visit Provider Internal Medicine Cardiovascular Disease
DX: I48.0 Paroxysmal atrial fibrillation (principal); Z79.01 Long term (current) use of anticoagulants
CPT/HCPCS: 36415; 85610

== ENCOUNTER 2020-09-21 13:23 | Outpatient (RCR) | payer MEDICARE, SELFPAY ==
[2020-05-31 13:01] VITALS: BMI 28.7
[2020-09-21 15:26] LABS: International Normalized Ratio 2.4
== END 2020-09-21 18:00 | disposition home or self-care (01) ==
LOC: LAB 13:23
PROVIDERS: Family Provider Family Medicine; PCP Family Medicine; Referring Provider Internal Medicine Cardiovascular Disease; Visit Provider Internal Medicine Cardiovascular Disease
DX: I48.0 Paroxysmal atrial fibrillation (principal); Z79.01 Long term (current) use of anticoagulants
CPT/HCPCS: 36415; 85610

== ENCOUNTER 2020-11-10 13:21 | Outpatient (RCR) | payer MEDICARE, SELFPAY ==
[2020-05-31 13:01] VITALS: BMI 28.7
[2020-11-10 14:44] LABS: Prothrombin Time (Protime)PT. 21.7 SECONDS (11.7-14.9)
== END 2020-11-10 18:00 | disposition home or self-care (01) ==
LOC: LAB 13:21
PROVIDERS: Family Provider Family Medicine; PCP Family Medicine; Referring Provider Internal Medicine Cardiovascular Disease; Visit Provider Internal Medicine Cardiovascular Disease
DX: I48.0 Paroxysmal atrial fibrillation (principal); Z79.01 Long term (current) use of anticoagulants
CPT/HCPCS: 36415; 85610

== ENCOUNTER 2020-12-13 14:17 | Outpatient (RCR) | payer MEDICARE, SELFPAY ==
[2020-11-21 19:49] VITALS: BMI 28.7
[2020-12-13 14:55] LABS: International Normalized Ratio 2.2
== END 2020-12-13 18:00 | disposition home or self-care (01) ==
LOC: LAB 14:17
PROVIDERS: Family Provider Family Medicine; PCP Family Medicine; Referring Provider Internal Medicine Cardiovascular Disease; Visit Provider Internal Medicine Cardiovascular Disease
DX: I48.0 Paroxysmal atrial fibrillation (principal); Z79.01 Long term (current) use of anticoagulants
CPT/HCPCS: 36415; 85610

== ENCOUNTER → 2020-12-20 10:53 | Outpatient (CLI) | payer MEDICARE, SELFPAY ==
--- NOTE | 2020-12-20 10:55 | BI_ITS ---
MAMMOGRAPHY - BILATERAL SCREENING REASON FOR EXAM: Female, 75 years old. Routine annual screening examination. PERTINENT HISTORY: Sister with breast cancer. Mother with breast cancer. Aunt with breast cancer. TECHNIQUE: Digital bilateral breast boris (3D mammographic acquisition) in the CC and MLO projections. 2-D mediolateral oblique (MLO) and craniocaudad (CC) views of both breasts were obtained. CAD: Full Field Digital Mammography with Computer Added Detection was performed. COMPARISON: Comparison is made with prior examination of 12/14/2019 and 12/01/2018. FINDINGS: Breast Composition: The breasts are heterogeneously dense, which may obscure small masses. There are no dominant masses or suspicious calcifications. Stable small benign-appearing bilateral axillary nodes. No other significant abnormalities are identified. There has been no significant change since the prior study. BI/SCRN MAMM (CAD)W/BORIS BILAT IMPRESSION: Stable bilateral screening mammogram. Yearly follow-up mammogram recommended. (A) ASSESSMENT CATEGORY: BIRADS Category 2: Benign. A letter regarding these results will be sent to the patient by the facility within 30 days. Approximately 10% of breast cancers are not detected by mammography. A normal mammogram should not delay biopsy of a clinically suspicious abnormality. [id number] Electronically Signed: Gilberto Henderson MD at 12:04 EDT , Service support ,
== END ==
PROVIDERS: PCP Family Medicine; Referring Provider Family Medicine; Visit Provider Family Medicine
DX: Z12.31 Encounter for screening mammogram for malignant neoplasm of breast (principal)
CPT/HCPCS: 77063; 77067

== ENCOUNTER 2021-01-23 11:53 | Outpatient (RCR) | payer MEDICARE, SELFPAY ==
[2020-12-21 20:04] VITALS: BMI 28.7
[2021-01-23 12:38] LABS: International Normalized Ratio 2.3; Prothrombin Time (Protime)PT. 24.8 SECONDS (11.7-14.9)
== END 2021-02-20 18:00 | disposition home or self-care (01) ==
LOC: LAB 11:53
PROVIDERS: Family Provider Family Medicine; PCP Family Medicine; Referring Provider Internal Medicine Cardiovascular Disease; Visit Provider Internal Medicine Cardiovascular Disease
DX: I48.0 Paroxysmal atrial fibrillation (principal); Z79.01 Long term (current) use of anticoagulants
CPT/HCPCS: 36415; 85610

== ENCOUNTER 2021-02-28 09:57 | Outpatient (RCR) | payer MEDICARE, SELFPAY ==
[2021-02-21 02:05] VITALS: BMI 28.7
[2021-02-28 10:37] LABS: International Normalized Ratio 2.3; Prothrombin Time (Protime)PT. 24.4 SECONDS (11.7-14.9)
== END 2021-03-24 18:00 | disposition home or self-care (01) ==
LOC: LAB 09:57
PROVIDERS: Family Provider Family Medicine; PCP Family Medicine; Referring Provider Internal Medicine Cardiovascular Disease; Visit Provider Internal Medicine Cardiovascular Disease
DX: I48.0 Paroxysmal atrial fibrillation (principal); Z79.01 Long term (current) use of anticoagulants
CPT/HCPCS: 36415; 85610

== ENCOUNTER 2021-04-06 13:16 | Outpatient (RCR) | payer MEDICARE, SELFPAY ==
[2021-03-25 03:40] VITALS: BMI 28.7
== END 2021-04-23 18:00 | disposition home or self-care (01) ==
LOC: LAB 13:16
PROVIDERS: Family Provider Family Medicine; PCP Family Medicine; Referring Provider Internal Medicine Cardiovascular Disease; Visit Provider Internal Medicine Cardiovascular Disease
DX: I48.0 Paroxysmal atrial fibrillation (principal); Z79.01 Long term (current) use of anticoagulants
CPT/HCPCS: 36415; 85610

== ENCOUNTER 2021-05-09 10:50 | Outpatient (CLI) | payer MEDICARE, SELFPAY ==
--- NOTE | 2021-05-09 10:52 | ECHOD_ITS ---
Reason For Study: MV PROLAPSE Procedure This was a 2D Doppler, Color Flow transthoracic echocardiogram. The exam was of adequate technical quality. Exam performed in department. Left Ventricle Normal LV size. Left ventricular systolic function is normal. The estimated ejection fraction is 55 %. Diastolic function is indeterminate. No regional wall motion abnormalities noted. Right Ventricle Normal RV size. Normal systolic function. Atria The left atrium is mildly enlarged. Normal right atrium. No doppler evidence for ASD. Mitral Valve There is no mitral annular calcification. Mild mitral valve prolapse, posterior leaflet. Mild- Moderate (1-2+) mitral valve insufficiency. Tricuspid Valve Normal tricuspid valve. Mild to moderate (1-2+) tricuspid valve insufficiency. Right ventricular systolic pressure estimated to be 29 mmHg. Aortic Valve Trisinus/trileaflet aortic valve. Normal aortic valve. Trivial aortic valve insufficiency. Pulmonic Valve The pulmonic valve is not well visualized. Great Vessels Normal sized aortic root. Pericardium/Pleural No pericardial effusion. MMode/2D Measurements & Calculations LVIDd: 5.4 cm IVSd: 0.82 cm Ao root diam: 3.7 cm LVIDs: 3.8 cm LVPWd: 0.75 cm RVDd: 3.0 cm FS: 30.1 % LAV(MOD-bp): 69.0 ml LA A4 area: 19.6 cm2 LA dimension(2D): 4.3 cm LAV(MOD-bp) Indexed: 38.1 ml/m2 LAV(MOD-sp2): 65.4 ml LAV(MOD-sp4): 65.2 ml RA A4 area: 12.9 cm2 Time Measurements MV dec time: 0.25 sec Doppler Measurements & Calculations MV E max kayden: 68.8 cm/sec Lat Peak E' Kayden: 7.9 cm/sec Med Peak E' Kayden: 7.0 cm/sec MV A max kayden: 53.1 cm/sec E/E' lat: 8.7 E/E' med: 9.9 MV E/A: 1.3 Ao V2 max: 147.3 cm/sec LV V1 max: 125.9 cm/sec PA V2 max: 78.2 cm/sec Ao max P.7 mmHg LV V1 max P.3 mmHg TR max kayden: 258.0 cm/sec TR max P.5 mmHg ECHO/Echo Complete Interpretation Summary Left ventricular systolic function is normal. The estimated ejection fraction is 55 %. The left atrium is mildly enlarged. Mild mitral valve prolapse, posterior leaflet Mild-Moderate (1-2+) mitral valve insufficiency. Mild to moderate (1-2+) tricuspid valve insufficiency. Trivial aortic valve insufficiency. Right ventricular systolic pressure estimated to be 29 mmHg. Diastolic function is indeterminate. Ordering Physician: Dionte Castellanos Referring Physician: Mini Tyson Performed By: Myrtle Stephenson, ANIKA, RVT
== END 2021-05-09 23:59 | disposition home or self-care (01) ==
PROVIDERS: PCP Family Medicine; Referring Provider Internal Medicine Cardiovascular Disease; Visit Provider Internal Medicine Cardiovascular Disease
DX: I34.1 Nonrheumatic mitral (valve) prolapse (principal); I48.0 Paroxysmal atrial fibrillation; Z79.01 Long term (current) use of anticoagulants
CPT/HCPCS: 36415; 85610; 93306

== ENCOUNTER 2021-05-09 11:52 | Outpatient (RCR) | payer MEDICARE, SELFPAY ==
[2021-04-23 22:15] VITALS: BMI 28.7
[2021-05-09 12:37] LABS: International Normalized Ratio 2.5
== END 2021-05-09 18:00 | disposition home or self-care (01) ==
LOC: LAB 11:52
PROVIDERS: Family Provider Family Medicine; PCP Family Medicine; Referring Provider Internal Medicine Cardiovascular Disease; Visit Provider Internal Medicine Cardiovascular Disease
DX: I48.0 Paroxysmal atrial fibrillation (principal); Z79.01 Long term (current) use of anticoagulants
CPT/HCPCS: 36415; 85610

== ENCOUNTER 2021-07-17 16:18 | Outpatient (RCR) | payer MEDICARE, SELFPAY ==
[2021-05-22 09:23] VITALS: BMI 28.7
[2021-06-28 15:32] LABS: International Normalized Ratio 1.6; Prothrombin Time (Protime)PT. 18.5 SECONDS (11.7-14.9)
[2021-07-17 16:42] LABS: International Normalized Ratio 1.9; Prothrombin Time (Protime)PT. 21.8 SECONDS (11.7-14.9)
== END 2021-07-17 18:00 | disposition home or self-care (01) ==
LOC: LAB 16:18
PROVIDERS: Family Provider Family Medicine; PCP Family Medicine; Referring Provider Internal Medicine Cardiovascular Disease; Visit Provider Internal Medicine Cardiovascular Disease
DX: I48.0 Paroxysmal atrial fibrillation (principal); Z79.01 Long term (current) use of anticoagulants
CPT/HCPCS: 36415; 85610

== ENCOUNTER 2021-07-27 13:12 | Outpatient (RCR) | payer MEDICARE, SELFPAY ==
[2021-07-22 02:43] VITALS: BMI 28.7
[2021-07-27 13:46] LABS: International Normalized Ratio 2.4; Prothrombin Time (Protime)PT. 25.6 SECONDS (11.7-14.9)
== END 2021-07-27 18:00 | disposition home or self-care (01) ==
LOC: LAB 13:12
PROVIDERS: Family Provider Family Medicine; PCP Family Medicine; Referring Provider Internal Medicine Cardiovascular Disease; Visit Provider Internal Medicine Cardiovascular Disease
DX: I48.0 Paroxysmal atrial fibrillation (principal); Z79.01 Long term (current) use of anticoagulants
CPT/HCPCS: 36415; 85610

== ENCOUNTER → 2021-08-07 | Outpatient (CLI) | payer MEDICARE, SELFPAY ==
--- NOTE | 2021-08-07 09:17 | BD_ITS ---
STUDY: DUAL ENERGY X-RAY ABSORPTIOMETRY / DXA REASON FOR EXAM: Female, 75 years old. M810. Patient is postmenopausal. TECHNIQUE: Bone Mineral Density (BMD) measurements of lumbar spine and bilateral hips were obtained. COMPARISON: Comparison is made with prior study dated 09/16/2017. FINDINGS: Lumbar Spine (L1-L4): g/cm2 (1.019) / T-score (-0.3) / Z-score (2.1) Findings are suggestive of normal bone density with a low fracture risk. Left Femur Total: g/cm2 (0.758) / T-score (-1.5) / Z-score (0.2) Left Femoral Neck: g/cm2 (0.624) / T-score (-2.0) / Z-score (0.0) Right Femur Total: g/cm2 (0.799) / T-score (-1.2) / Z-score (0.5) Right Femoral Neck: g/cm2 (0.676) / T-score (-1.6) / Z-score (0.5) The T-Scores on the most recent prior examination were: Lumbar Spine (L1-L4): There has been worsening of bone density since the previous examination. Left Femur Total: which represents a worsening of 0.1%. Right Femur Total: which represents an improvement of 4.6%. BD/Dexa Bone Density Study IMPRESSION: The patient is considered osteopenic as outlined below according to World Jose Organization (WHO) criteria with a moderate fracture risk. There has been worsening of bone density since the previous examination. Reference Information: The T-score is the number of standard deviations above or below the standard which is normal for young adults at their peak bone mineral density. The World Health Organization (WHO) interprets the T-scores as follows: Above -1 Normal bone density Between -1 and -2.5 Osteopenia Equal to / or below -2.5 Osteoporosis As a practical clinical guideline, osteopenia may be graded as follows: Mild -1 through -1.5 Moderate -1.6 through -2.0 Severe -2.1 through -2.4 The Z-score is the number of standard deviations above or below age-matched controls. A Z-score of less than -1.5 would be considered abnormal. References: 1. NIH Osteoporosis and Related Bone Diseases www osteo.org 2. International Society for Clinical Densitometry www iscd.org 3. National Osteoporosis Foundation www nof.org Electronically Signed: Gilberto Henderson MD at 10:23 EDT ,
== END | disposition home or self-care (01) ==
LOC: OPBD 09:11
PROVIDERS: PCP Family Medicine; Visit Provider Internal Medicine Endocrinology, Diabetes & Metabolism
DX: M81.0 Age-related osteoporosis without current pathological fracture (principal)
CPT/HCPCS: 77080

== ENCOUNTER 2021-09-19 14:44 | Outpatient (RCR) | payer MEDICARE, SELFPAY ==
[2021-08-21 20:19] VITALS: BMI 28.7
[2021-09-19 16:16] LABS: International Normalized Ratio 1.8; Prothrombin Time (Protime)PT. 20.7 SECONDS (11.7-14.9)
== END 2021-09-19 23:59 | disposition home or self-care (01) ==
LOC: LAB 14:44
PROVIDERS: Family Provider Family Medicine; PCP Family Medicine; Referring Provider Internal Medicine Cardiovascular Disease; Visit Provider Internal Medicine Cardiovascular Disease
DX: I48.0 Paroxysmal atrial fibrillation (principal); Z79.01 Long term (current) use of anticoagulants
CPT/HCPCS: 36415; 85610

== ENCOUNTER 2021-10-10 15:46 | Outpatient (RCR) | payer MEDICARE, SELFPAY ==
[2021-09-21 06:45] VITALS: BMI 28.7
[2021-10-10 17:32] LABS: International Normalized Ratio 2.4; Prothrombin Time (Protime)PT. 26.1 SECONDS (11.7-14.9)
== END 2021-10-21 02:03 | disposition home or self-care (01) ==
LOC: LAB 15:46
PROVIDERS: Family Provider Family Medicine; PCP Family Medicine; Referring Provider Internal Medicine Cardiovascular Disease; Visit Provider Internal Medicine Cardiovascular Disease
DX: I48.0 Paroxysmal atrial fibrillation (principal); Z79.01 Long term (current) use of anticoagulants
CPT/HCPCS: 36415; 85610

== ENCOUNTER 2021-11-23 16:55 | Outpatient (RCR) | payer MEDICARE, SELFPAY ==
[2021-10-21 02:04] VITALS: BMI 28.7
[2021-11-23 17:27] LABS: International Normalized Ratio 2.4; Prothrombin Time (Protime)PT. 25.5 SECONDS (11.7-14.9)
== END 2021-11-23 18:00 | disposition home or self-care (01) ==
LOC: LAB 16:55
PROVIDERS: Family Provider Family Medicine; PCP Family Medicine; Referring Provider Internal Medicine Cardiovascular Disease; Visit Provider Internal Medicine Cardiovascular Disease
DX: I48.0 Paroxysmal atrial fibrillation (principal); Z79.01 Long term (current) use of anticoagulants
CPT/HCPCS: 36415; 85610

== ENCOUNTER 2021-12-25 14:41 | Outpatient (RCR) | payer MEDICARE, SELFPAY ==
[2021-12-21 20:26] VITALS: BMI 28.7
[2021-12-25 16:07] LABS: International Normalized Ratio 2.3; Prothrombin Time (Protime)PT. 25.1 SECONDS (11.7-14.9)
== END 2021-12-25 18:00 | disposition home or self-care (01) ==
LOC: LAB 14:41
PROVIDERS: Family Provider Family Medicine; PCP Family Medicine; Referring Provider Internal Medicine Cardiovascular Disease; Visit Provider Internal Medicine Cardiovascular Disease
DX: I48.0 Paroxysmal atrial fibrillation (principal); Z79.01 Long term (current) use of anticoagulants
CPT/HCPCS: 36415; 85610

== ENCOUNTER → 2022-01-08 | Outpatient (CLI) | payer MEDICARE, SELFPAY ==
--- NOTE | 2022-01-08 10:46 | BI_ITS ---
MAMMOGRAPHY - BILATERAL SCREENING REASON FOR EXAM: Female, 76 years old. Routine annual screening examination. PERTINENT HISTORY: Sister with breast cancer. Mother with breast cancer. Aunt with breast cancer. TECHNIQUE: Digital bilateral breast boris (3D mammographic acquisition) in the CC and MLO projections. 2-D mediolateral oblique (MLO) and craniocaudad (CC) views of both breasts were obtained. CAD: Full Field Digital Mammography with Computer Added Detection was performed. COMPARISON: Comparison is made with prior study dated 12/20/2020 and 12/14/2019. FINDINGS: Breast Composition: The breasts are heterogeneously dense, which may obscure small masses. There are no dominant masses or suspicious calcifications. Stable small benign appearing bilateral axillary lymph nodes. No other significant abnormalities are identified. There has been no significant change since the prior study. BI/SCRN MAMM (CAD)W/BORIS BILAT IMPRESSION: Stable bilateral screening mammogram. Yearly follow-up mammogram recommended. (A) ASSESSMENT CATEGORY: BIRADS Category 2: Benign. A letter regarding these results will be sent to the patient by the facility within 30 days. Approximately 10% of breast cancers are not detected by mammography. A normal mammogram should not delay biopsy of a clinically suspicious abnormality. [id number] Electronically Signed: Gilberto Henderson MD at 12:31 EDT ,
== END | disposition home or self-care (01) ==
LOC: OPBI 10:44
PROVIDERS: PCP Family Medicine; Visit Provider Family Medicine
DX: Z12.31 Encounter for screening mammogram for malignant neoplasm of breast (principal); Z80.3 Family history of malignant neoplasm of breast
CPT/HCPCS: 77063; 77067

== ENCOUNTER 2022-02-06 14:07 | Outpatient (RCR) | payer MEDICARE, SELFPAY ==
[2022-01-22 10:07] VITALS: BMI 28.7
[2022-02-06 14:54] LABS: International Normalized Ratio 2.4; Prothrombin Time (Protime)PT. 25.6 SECONDS (11.7-14.9)
== END 2022-02-20 18:00 | disposition home or self-care (01) ==
LOC: LAB 14:07
PROVIDERS: Family Provider Family Medicine; PCP Family Medicine; Referring Provider Internal Medicine Cardiovascular Disease; Visit Provider Internal Medicine Cardiovascular Disease
DX: I48.0 Paroxysmal atrial fibrillation (principal); Z79.01 Long term (current) use of anticoagulants
CPT/HCPCS: 36415; 85610

== ENCOUNTER 2022-03-13 14:27 | Outpatient (RCR) | payer MEDICARE, SELFPAY ==
[2022-02-20 22:46] VITALS: BMI 28.7
[2022-03-13 15:36] LABS: International Normalized Ratio 2.5; Prothrombin Time (Protime)PT. 26.3 SECONDS (11.7-14.9)
== END 2022-03-13 18:00 | disposition home or self-care (01) ==
LOC: LAB 14:27
PROVIDERS: Family Provider Family Medicine; PCP Family Medicine; Referring Provider Internal Medicine Cardiovascular Disease; Visit Provider Internal Medicine Cardiovascular Disease
DX: I48.0 Paroxysmal atrial fibrillation (principal); Z79.01 Long term (current) use of anticoagulants
CPT/HCPCS: 36415; 85610

== ENCOUNTER 2022-04-22 16:31 | Outpatient (RCR) | payer MEDICARE, SELFPAY ==
[2022-03-23 22:53] VITALS: BMI 28.7
[2022-04-22 17:29] LABS: International Normalized Ratio 2.5
== END 2022-04-22 18:00 | disposition home or self-care (01) ==
LOC: LAB 16:31
PROVIDERS: Family Provider Family Medicine; PCP Family Medicine; Referring Provider Internal Medicine Cardiovascular Disease; Visit Provider Internal Medicine Cardiovascular Disease
DX: I48.0 Paroxysmal atrial fibrillation (principal); Z79.01 Long term (current) use of anticoagulants
CPT/HCPCS: 36415; 85610

== ENCOUNTER 2022-06-06 16:39 | Outpatient (RCR) | payer MEDICARE, SELFPAY ==
[2022-04-24 07:54] VITALS: BMI 28.7
[2022-06-06 17:37] LABS: International Normalized Ratio 2.1; Prothrombin Time (Protime)PT. 23.1 SECONDS (11.7-14.9)
== END 2022-06-21 21:32 | disposition home or self-care (01) ==
LOC: LAB 16:39
PROVIDERS: Family Provider Family Medicine; PCP Family Medicine; Referring Provider Internal Medicine Cardiovascular Disease; Visit Provider Internal Medicine Cardiovascular Disease
DX: I48.0 Paroxysmal atrial fibrillation (principal); Z79.01 Long term (current) use of anticoagulants
CPT/HCPCS: 36415; 85610

== ENCOUNTER → 2022-06-21 | Outpatient (CLI) | payer MEDICARE, SELFPAY ==
--- NOTE | 2022-06-21 11:57 | US_ITS ---
STUDY: THYROID ULTRASOUND REASON FOR EXAM: Female, 76 years old. Known nodules TECHNIQUE: Ultrasound evaluation of the thyroid was performed with real-time and static metz-scale imaging. COMPARISON: 05/30/2020 FINDINGS: There has been previous thyroid biopsy. RIGHT LOBE: The right lobe of the thyroid gland measures 6 x 3.7 x 2.8 cm. There is a heterogeneous echotexture. Operations Dispatcher notes for separate solid hypoechoic nodules. Largest again measures approximately 3.7 x 3.7 x 2.9 cm. LEFT LOBE: The left lobe of the thyroid gland measures 4.2 x 1.6 x 1.8 cm. There is a heterogeneous echotexture. Operations Dispatcher notes 3 separate hypoechoic solid nodules largest again measures 1.4 x 1.2 x 1.4 cm. ISTHMUS: The isthmus measures 4.2 mm. The regional lymph nodes are normal. US/Thyroid IMPRESSION: Thyroid gland is again noted to be heterogeneous with enlargement of the right thyroid lobe. Stable bilateral solid hypoechoic nodules in both lobes of the thyroid without significant interval change since the previous study. Findings again suggestive of goiter. Yearly follow-up recommended to assess stability. Electronically Signed: Oliver Gurrola MD at 8:20 EDT ,
== END | disposition home or self-care (01) ==
LOC: US 11:56
PROVIDERS: PCP Family Medicine; Referring Provider Internal Medicine Endocrinology, Diabetes & Metabolism; Visit Provider Internal Medicine Endocrinology, Diabetes & Metabolism
DX: E04.1 Nontoxic single thyroid nodule (principal); I48.91 Unspecified atrial fibrillation; M81.0 Age-related osteoporosis without current pathological fracture; R73.03 Prediabetes; E55.9 Vitamin D deficiency, unspecified
CPT/HCPCS: 76536

== ENCOUNTER 2022-07-09 11:46 | Outpatient (RCR) | payer MEDICARE, SELFPAY ==
[2022-06-21 21:32] VITALS: BMI 28.7
[2022-07-09 12:41] LABS: International Normalized Ratio 2.4; Prothrombin Time (Protime)PT. 26.1 SECONDS (11.7-14.9)
== END 2022-07-21 00:33 | disposition home or self-care (01) ==
LOC: LAB 11:46
PROVIDERS: Family Provider Family Medicine; PCP Family Medicine; Referring Provider Internal Medicine Cardiovascular Disease; Visit Provider Internal Medicine Cardiovascular Disease
DX: I48.0 Paroxysmal atrial fibrillation (principal); Z79.01 Long term (current) use of anticoagulants
CPT/HCPCS: 36415; 85610

== ENCOUNTER → 2022-08-29 | Outpatient (CLI) | payer MEDICARE, SELFPAY ==
--- NOTE | 2022-08-29 08:57 | ECHOD_ITS ---
Reason For Study: MVP Procedure This was a 2D Doppler, Color Flow transthoracic echocardiogram. Exam performed in department. Left Ventricle Normal LV size. Left ventricular systolic function is normal. The estimated ejection fraction is 60 %. Stage 1 diastolic dysfunction. No regional wall motion abnormalities noted. Right Ventricle Normal RV size. Normal systolic function. Mitral Valve Equivocal mitral valve prolapse. Mild (1+) mitral valve insufficiency. Tricuspid Valve Normal tricuspid valve. Mild (1+) tricuspid valve insufficiency. Pulmonary artery systolic pressure is 38 mmHg. Aortic Valve Normal aortic valve. Trisinus/trileaflet aortic valve. Pulmonic Valve Normal pulmonic valve. Great Vessels Normal aortic root. The pulmonary artery is normal size. Normal inferior vena cava. Pericardium/Pleural No pericardial effusion. MMode/2D Measurements & Calculations LVIDd: 5.5 cm IVSd: 0.63 cm Ao root diam: 3.5 cm LVIDs: 3.6 cm LVPWd: 0.53 cm LA dimension: 4.6 cm RVDd: 3.5 cm FS: 34.7 % LAV(MOD-bp): 71.3 ml LA A4 area: 21.3 cm2 RA A4 area: 14.0 cm2 LAV(MOD-bp) Indexed: 39.2 ml/m2 LAV(MOD-sp2): 75.9 ml LAV(MOD-sp4): 65.2 ml Time Measurements MV dec time: 0.22 sec Doppler Measurements & Calculations MV E max kayden: 69.9 cm/sec Lat Peak E' Kayden: 8.5 cm/sec Med Peak E' Kayden: 6.6 cm/sec MV A max kayden: 84.0 cm/sec E/E' lat: 8.3 E/E' med: 10.5 MV E/A: 0.83 MV V2 max: 103.6 cm/sec MV P1/2t max kayden: 104.3 cm/sec Ao V2 max: 158.6 cm/sec MV max P.3 mmHg MV P1/2t: 84.9 msec Ao max P.1 mmHg MV V2 mean: 43.1 cm/sec Ao V2 mean: 112.1 cm/sec MV mean P.99 mmHg MV dec slope: 359.5 cm/sec2 Ao mean P.5 mmHg MV V2 VTI: 34.3 cm MVA(P1/2t): 2.6 cm2 Ao V2 VTI: 39.5 cm AV (velocity ratio): 0.87 LV V1 max: 137.7 cm/sec MR max kayden: 583.1 cm/sec PA V2 max: 87.2 cm/sec LV V1 max P.6 mmHg MR max P.0 mmHg PA V2 mean: 65.1 cm/sec LV V1 mean P.0 mmHg MR mean kayden: 458.5 cm/sec LV V1 mean: 93.9 cm/sec MR mean P.8 mmHg LV V1 VTI: 34.5 cm MR VTI: 242.0 cm PI dec slope: 125.7 cm/sec2 TR max kayden: 293.0 cm/sec TR max P.3 mmHg ECHO/Echo Complete Interpretation Summary Normal LV size. Left ventricular systolic function is normal. The estimated ejection fraction is 60 %. Stage 1 diastolic dysfunction. Equivocal mitral valve prolapse. Mild (1+) mitral valve insufficiency. Ordering Physician: Niya Rivera Referring Physician: Mini Tyson M.D. Performed By: Jose Cordero RCS
== END | disposition home or self-care (01) ==
LOC: CVS 08:56
PROVIDERS: PCP Family Medicine; Referring Provider Nurse Practitioner Gerontology; Visit Provider Nurse Practitioner Gerontology
DX: I36.1 Nonrheumatic tricuspid (valve) insufficiency (principal); I48.0 Paroxysmal atrial fibrillation; I34.0 Nonrheumatic mitral (valve) insufficiency; I34.1 Nonrheumatic mitral (valve) prolapse
CPT/HCPCS: 93306

== ENCOUNTER 2022-11-11 14:33 | Outpatient (RCR) | payer MEDICARE, SELFPAY ==
[2022-07-21 00:33] VITALS: BMI 28.7
[2022-11-11 15:42] LABS: International Normalized Ratio 2.4; Prothrombin Time (Protime)PT. 26.7 SECONDS (11.7-14.9)
== END 2022-11-11 18:00 | disposition home or self-care (01) ==
LOC: LAB 14:33
PROVIDERS: Family Provider Family Medicine; PCP Family Medicine; Referring Provider Internal Medicine Cardiovascular Disease; Visit Provider Internal Medicine Cardiovascular Disease
DX: I48.0 Paroxysmal atrial fibrillation (principal); Z79.01 Long term (current) use of anticoagulants
CPT/HCPCS: 36415; 85610

== ENCOUNTER 2022-12-16 13:50 | Outpatient (RCR) | payer MEDICARE, SELFPAY ==
[2022-11-21 21:53] VITALS: BMI 28.7
[2022-12-16 15:08] LABS: Prothrombin Time (Protime)PT. 22.6 SECONDS (11.7-14.9)
== END 2022-12-16 18:00 | disposition home or self-care (01) ==
LOC: LAB 13:50
PROVIDERS: Family Provider Family Medicine; PCP Family Medicine; Referring Provider Internal Medicine Cardiovascular Disease; Visit Provider Internal Medicine Cardiovascular Disease
DX: I48.0 Paroxysmal atrial fibrillation (principal); Z79.01 Long term (current) use of anticoagulants
CPT/HCPCS: 36415; 85610

== ENCOUNTER 2023-01-13 11:11 | Outpatient (RCR) | payer MEDICARE, SELFPAY ==
[2022-12-22 01:43] VITALS: BMI 28.7
[2023-01-13 12:34] LABS: International Normalized Ratio 2.6; Prothrombin Time (Protime)PT. 28.4 SECONDS (11.7-14.9)
== END 2023-01-13 18:00 | disposition home or self-care (01) ==
LOC: LAB 11:11
PROVIDERS: Family Provider Family Medicine; PCP Family Medicine; Referring Provider Internal Medicine Cardiovascular Disease; Visit Provider Internal Medicine Cardiovascular Disease
DX: I48.0 Paroxysmal atrial fibrillation (principal); Z79.01 Long term (current) use of anticoagulants
CPT/HCPCS: 36415; 85610

== ENCOUNTER → 2023-01-13 | Outpatient (CLI) | payer MEDICARE, SELFPAY ==
--- NOTE | 2023-01-13 10:29 | BI_ITS ---
MAMMOGRAPHY - BILATERAL SCREENING REASON FOR EXAM: Female, 77 years old. Routine annual screening examination. PERTINENT HISTORY: Sister with breast cancer. Mother with breast cancer. Aunt with breast cancer. History of prior left breast aspirations. TECHNIQUE: Digital bilateral breast boris (3D mammographic acquisition) in the CC and MLO projections. 2-D mediolateral oblique (MLO) and craniocaudad (CC) views of both breasts were obtained. CAD: Full Field Digital Mammography with Computer Added Detection was performed. COMPARISON: Comparison is made with prior study January 08, 2022 and December 20, 2020. FINDINGS: Breast Composition: The breasts are heterogeneously dense, which may obscure small masses. There are no dominant masses or suspicious calcifications. Stable small benign-appearing bilateral axillary lymph nodes. No other significant abnormalities are identified. There has been no significant change since the prior study. BI/SCRN MAMM (CAD)W/BORIS BILAT IMPRESSION: Stable bilateral screening mammogram. Yearly follow-up mammogram recommended. (A) ASSESSMENT CATEGORY: BIRADS Category 2: Benign. A letter regarding these results will be sent to the patient by the facility within 30 days. Approximately 10% of breast cancers are not detected by mammography. A normal mammogram should not delay biopsy of a clinically suspicious abnormality. [id number] Electronically Signed: Gilberto Henderson MD at 12:13 EDT ,
== END | disposition home or self-care (01) ==
LOC: OPBI 10:29
PROVIDERS: PCP Family Medicine; Referring Provider Family Medicine; Visit Provider Family Medicine
DX: Z12.31 Encounter for screening mammogram for malignant neoplasm of breast (principal); Z80.3 Family history of malignant neoplasm of breast
CPT/HCPCS: 77063; 77067

== ENCOUNTER 2023-02-03 13:26 | Outpatient (RCR) | payer MEDICARE, SELFPAY ==
[2023-01-21 22:47] VITALS: BMI 28.7
[2023-02-03 15:04] LABS: International Normalized Ratio 3.3
== END 2023-02-20 18:00 | disposition home or self-care (01) ==
LOC: LAB 13:26
PROVIDERS: Internal Medicine Cardiovascular Disease; Family Provider Family Medicine; PCP Family Medicine; Visit Provider Nurse Practitioner Family
DX: I48.0 Paroxysmal atrial fibrillation (principal); Z79.01 Long term (current) use of anticoagulants
CPT/HCPCS: 36415; 85610

== ENCOUNTER 2023-02-21 15:50 | Outpatient (RCR) | payer MEDICARE, SELFPAY ==
[2023-02-21 03:05] VITALS: BMI 28.7
[2023-02-21 16:52] LABS: International Normalized Ratio 2.3; Prothrombin Time (Protime)PT. 25.9 SECONDS (11.7-14.9)
== END 2023-03-23 18:00 | disposition home or self-care (01) ==
LOC: LAB 15:50
PROVIDERS: Family Provider Family Medicine; PCP Family Medicine; Referring Provider Nurse Practitioner Family; Visit Provider Nurse Practitioner Family
DX: I48.0 Paroxysmal atrial fibrillation (principal); Z79.01 Long term (current) use of anticoagulants
CPT/HCPCS: 36415; 85610

== ENCOUNTER 2023-04-10 16:16 | Outpatient (RCR) | payer MEDICARE, SELFPAY ==
[2023-03-23 20:54] VITALS: BMI 28.7
[2023-04-10 17:33] LABS: Prothrombin Time (Protime)PT. 31.3 SECONDS (11.7-14.9)
== END 2023-04-10 18:00 | disposition home or self-care (01) ==
LOC: LAB 16:16
PROVIDERS: Family Provider Family Medicine; PCP Family Medicine; Referring Provider Nurse Practitioner Family; Visit Provider Nurse Practitioner Family
DX: I48.0 Paroxysmal atrial fibrillation (principal); Z79.01 Long term (current) use of anticoagulants
CPT/HCPCS: 36415; 85610

== ENCOUNTER 2023-05-13 14:18 | Outpatient (RCR) | payer MEDICARE, SELFPAY ==
[2023-04-23 21:41] VITALS: BMI 28.7
[2023-05-13 14:56] LABS: International Normalized Ratio 3.2; Prothrombin Time (Protime)PT. 33.4 SECONDS (11.7-14.9)
== END 2023-05-22 18:00 | disposition home or self-care (01) ==
LOC: LAB 14:18
PROVIDERS: Family Provider Family Medicine; PCP Family Medicine; Referring Provider Nurse Practitioner Family; Visit Provider Nurse Practitioner Family
DX: Z79.01 Long term (current) use of anticoagulants; I48.0 Paroxysmal atrial fibrillation
CPT/HCPCS: 36415; 85610

== ENCOUNTER 2023-05-29 14:21 | Outpatient (RCR) | payer MEDICARE, SELFPAY ==
[2023-05-22 22:10] VITALS: BMI 28.7
[2023-05-29 16:13] LABS: International Normalized Ratio 2.7; Prothrombin Time (Protime)PT. 28.6 SECONDS (11.7-14.9)
== END 2023-06-21 18:00 | disposition home or self-care (01) ==
LOC: LAB 14:21
PROVIDERS: Family Provider Family Medicine; PCP Family Medicine; Referring Provider Nurse Practitioner Family; Visit Provider Nurse Practitioner Family
DX: I48.0 Paroxysmal atrial fibrillation (principal); Z79.01 Long term (current) use of anticoagulants
CPT/HCPCS: 36415; 85610

== ENCOUNTER 2023-07-04 16:43 | Outpatient (RCR) | payer MEDICARE, SELFPAY ==
[2023-06-21 21:32] VITALS: BMI 28.7
[2023-07-04 17:17] LABS: International Normalized Ratio 2.9; Prothrombin Time (Protime)PT. 30.5 SECONDS (11.7-14.9)
== END 2023-07-22 22:35 | disposition home or self-care (01) ==
LOC: LAB 16:43
PROVIDERS: Family Provider Family Medicine; PCP Family Medicine; Referring Provider Nurse Practitioner Family; Visit Provider Nurse Practitioner Family
DX: I48.0 Paroxysmal atrial fibrillation (principal); Z79.01 Long term (current) use of anticoagulants
CPT/HCPCS: 36415; 85610

== ENCOUNTER 2023-08-11 12:47 | Outpatient (RCR) | payer MEDICARE, SELFPAY ==
[2023-07-22 22:35] VITALS: BMI 28.7
[2023-08-11 13:42] LABS: International Normalized Ratio 3.4; Prothrombin Time (Protime)PT. 34.4 SECONDS (11.7-14.9)
== END 2023-08-11 18:00 | disposition home or self-care (01) ==
LOC: LAB 12:47
PROVIDERS: Family Provider Family Medicine; PCP Family Medicine; Referring Provider Nurse Practitioner Family; Visit Provider Nurse Practitioner Family
DX: I48.0 Paroxysmal atrial fibrillation (principal); Z79.01 Long term (current) use of anticoagulants
CPT/HCPCS: 36415; 85610

== ENCOUNTER → 2023-08-11 | Outpatient (CLI) | payer MEDICARE, SELFPAY ==
--- NOTE | 2023-08-11 13:00 | US_ITS ---
ACR Level 3 findings have been noted. An addendum which confirms receipt of the report will follow. INDICATION: NODULE EXAMINATION: Ultrasound US Thyroid (eg thyroid, parathyroid, parotid) TECHNIQUE: Rojo scale and color doppler imaging was performed of the thyroid gland. COMPARISON: June 21, 2022, May 30, 2020., December 01, 2018, April 01, 2018 FINDINGS: RIGHT THYROID LOBE: 6.0 x 3.3 x 2.5 cm. Heterogeneous parenchyma with normal vascularity. Nodules: 1. Solid hypoechoic wider than tall 3.1 x 2.0 x 2.4 cm nodule with smooth margins and no calcifications, TI RAD 4, slightly increasing in size from prior exams. 2. Mixed cystic solid hypoechoic wider than tall 3.4 x 3.4 x 2.3 cm nodule smooth margins and no calcifications, TI RAD 3, unchanged from April 01, 2018 LEFT THYROID LOBE: 3.9 x 1.4 x 1.7 cm. Heterogeneous parenchyma with normal vascularity. Nodules: 1. Solid hypoechoic wider than tall 1.5 x 1.4 x 1.1 cm nodule with ill-defined margins and no calcifications, TI-RAD 4, increasing slowly over prior exams. ISTHMUS: 0.8 cm. No thyroid nodules are present. US/Thyroid IMPRESSION: Bilateral heterogeneous multinodular goiter with slowly enlarging 1.5 cm left thyroid TI-RAD 4 nodule. Consider fine-needle aspiration for histopathologic diagnosis based on TI-RADS criteria. Right thyroid TI-RAD 4 thyroid 3.1 cm is slowly, slightly increasing in size over time. Consider fine-needle aspiration at time of left thyroid nodule sampling. Electronically Signed: Real Hedrick MD at 19:30 EDT ,
== END | disposition home or self-care (01) ==
LOC: US 12:50
PROVIDERS: PCP Family Medicine; Referring Provider Internal Medicine Endocrinology, Diabetes & Metabolism; Visit Provider Internal Medicine Endocrinology, Diabetes & Metabolism
DX: M81.0 Age-related osteoporosis without current pathological fracture (principal); E04.1 Nontoxic single thyroid nodule; R73.03 Prediabetes; E55.9 Vitamin D deficiency, unspecified
CPT/HCPCS: 76536

== ENCOUNTER → 2023-08-12 | Outpatient (CLI) | payer MEDICARE, SELFPAY ==
--- NOTE | 2023-08-12 10:53 | BD_ITS ---
STUDY: DUAL ENERGY X-RAY ABSORPTIOMETRY / DXA REASON FOR EXAM: Female, 77 years old. M81.0 TECHNIQUE: Bone Mineral Density (BMD) measurements of lumbar spine and bilateral hips were obtained. COMPARISON: Comparison is made with prior study August 07, 2021. FINDINGS: Lumbar Spine (L1-L4): g/cm2 (1.044) / T-score (0.0) / Z-score (2.4) Findings are suggestive of normal bone density with a low fracture risk. Left Femur Total: g/cm2 (0.771) / T-score (-1.4) / Z-score (0.4) Left Femoral Neck: g/cm2 (0.670) / T-score (-1.6) / Z-score (0.5) Right Femur Total: g/cm2 (0.804) / T-score (-1.1) / Z-score (0.7) Right Femoral Neck: g/cm2 (0.663) / T-score (-1.7) / Z-score (0.4) The T-Scores on the most recent prior examination were: Lumbar Spine (L1-L4): There has been improvement of bone density since the previous examination. Left Femur Total: which represents an improvement of 1.7%. Right Femur Total: which represents an improvement of 0.6%. BD/Dexa Bone Density Study IMPRESSION: The patient is considered osteopenic as outlined below according to World [place] Organization (WHO) criteria with a moderate fracture risk. There has been improvement of bone density since the previous examination. Reference Information: The T-score is the number of standard deviations above or below the standard which is normal for young adults at their peak bone mineral density. The World Health Organization (WHO) interprets the T-scores as follows: Above -1 Normal bone density Between -1 and -2.5 Osteopenia Equal to / or below -2.5 Osteoporosis As a practical clinical guideline, osteopenia may be graded as follows: Mild -1 through -1.5 Moderate -1.6 through -2.0 Severe -2.1 through -2.4 The Z-score is the number of standard deviations above or below age-matched controls. A Z-score of less than -1.5 would be considered abnormal. References: 1. NIH Osteoporosis and Related Bone Diseases www osteo.org 2. International Society for Clinical Densitometry www iscd.org 3. National Osteoporosis Foundation www nof.org Electronically Signed: Gilberto Henderson MD at 9:10 EDT ,
== END | disposition home or self-care (01) ==
LOC: OPBD 10:46
PROVIDERS: PCP Family Medicine; Referring Provider Internal Medicine Endocrinology, Diabetes & Metabolism; Visit Provider Internal Medicine Endocrinology, Diabetes & Metabolism
DX: M81.0 Age-related osteoporosis without current pathological fracture (principal)
CPT/HCPCS: 77080

== ENCOUNTER 2023-09-12 14:11 | Outpatient (RCR) | payer MEDICARE, SELFPAY ==
[2023-08-25 08:53] VITALS: BMI 28.7
[2023-09-04 17:13] LABS: Absolute Lymphocyte Count 1.45 X10^3/uL (0.83-4.51); Absolute Neutrophil Count 3.7 X10^3/uL (2.0-7.7); Basophil# 0.03 X10^3/uL; Basophil% 0.5 % (0-1); Eosinophil# 0.21 X10^3/uL; Eosinophils% 3.6 % (0-5); Hematocrit 40.4 % (37-47); Hemoglobin 12.9 g/dL (12.0-15.0); Lymphocyte # 1.45 X10^3/ul (0.83-4.51); Lymphocyte % 24.6 % (19-41); Mean Corp Hgb Conc 31.9 g/dL (32-36); Mean Corpuscular Hgb 29.3 pg (27.0-32.0); Mean Corpuscular Volume 91.6 fL (81-99); Mean Platelet Vol. 9.5 fl (6.2-12.0); Monocyte# 0.46 X10^3/uL; Monocyte% 7.8 % (0-10); NRBC Flagged by Analyzer 0 % (0-5); Neutrophil # 3.73 X10^3/uL (2.7-7.7); Neutrophil % 63.3 % (47-70); Platelet Count 228 K/mm3 (150-450); RBC Distribution Width CV 13.9 % (11.6-14.6); RBC Distribution Width SD 47.2 fl (35.1-43.9); Red Blood Count 4.41 M/mm3 (4.2-5.4); White Blood Count 5.9 K/mm3 (4.4-11.0)
[2023-09-04 17:32] LABS: Prothrombin Time (Protime)PT. 38.6 SECONDS (11.7-14.9)
[2023-09-04 17:39] LABS: BNP,B-Type NATRIURETIC PEPTIDE 225.7 pg/mL (0-100)
[2023-09-04 17:50] LABS: ALB/GLOB Ratio 0.9 RATIO (0.9-2.4); AST(SGOT) 24 U/L (15-37); Alanine Aminotransfer ALT/SGPT 44 U/L (13-56); Albumin, Serum 3.4 g/dL (3.2-5.0); Alkaline Phosphatase 75 U/L (45-117); Anion Gap 4 (5-15); BUN 27 mg/dL (7-18); Calcium,Total 8.8 mg/dL (8.5-10.1); Chloride 109 mmol/L (98-107); Creatinine, Serum 1.04 mg/dL (0.55-1.02); EST Glomerular Filtration Rate 55 mL/min (>60); Est Glom Filt Rate - Afr Amer 66 mL/min (>60); Globulin 3.6 g/dL (2.2-4.2); Glucose 95 mg/dL (74-106); Magnesium 2.1 mg/dL (1.6-2.6); Potassium 3.8 mmol/L (3.5-5.1); Sodium Level 137 mmol/L (136-145); T4 Free Direct 1.04 ng/dL (0.76-1.46); Thyroid Stim Hormone (TSH) 0.57 uIU/mL (0.358-3.74)
[2023-09-12 15:51] LABS: International Normalized Ratio 2.2; Prothrombin Time (Protime)PT. 24.5 SECONDS (11.7-14.9)
== END 2023-09-12 18:00 | disposition home or self-care (01) ==
LOC: LAB 14:11
PROVIDERS: Family Provider Family Medicine; PCP Family Medicine; Referring Provider Nurse Practitioner Family; Visit Provider Nurse Practitioner Family
DX: I48.0 Paroxysmal atrial fibrillation (principal); Z79.01 Long term (current) use of anticoagulants; R55 Syncope and collapse; R06.02 Shortness of breath; R06.09 Other forms of dyspnea
CPT/HCPCS: 36415; 80053; 83735; 83880; 84439; 84443; 85025; 85610

== ENCOUNTER 2023-10-10 13:40 | Outpatient (RCR) | payer MEDICARE, SELFPAY ==
[2023-09-21 22:24] VITALS: BMI 28.7
[2023-10-10 15:08] LABS: International Normalized Ratio 3.1; Prothrombin Time (Protime)PT. 31.6 SECONDS (11.7-14.9)
== END 2023-10-22 18:00 | disposition home or self-care (01) ==
LOC: LAB 13:40
PROVIDERS: Family Provider Family Medicine; PCP Family Medicine; Referring Provider Nurse Practitioner Family; Visit Provider Nurse Practitioner Family
DX: I48.0 Paroxysmal atrial fibrillation (principal); Z79.01 Long term (current) use of anticoagulants
CPT/HCPCS: 36415; 85610

== ENCOUNTER → 2023-10-17 | Outpatient (CLI) | payer MEDICARE, SELFPAY ==
--- NOTE | 2023-10-17 13:02 | ECHOD_ITS ---
Reason For Study: Afib Procedure This was a 2D Doppler, Color Flow transthoracic echocardiogram. Exam performed in department. Left Ventricle Normal LV size. The estimated ejection fraction is 60 %. Diastolic function is indeterminate. No regional wall motion abnormalities noted. Right Ventricle Normal RV size. Normal systolic function. Atria The left atrium is mildly enlarged. Normal right atrium. No doppler evidence for ASD. Mitral Valve There is no mitral valve stenosis. Mild-Moderate (1-2+) mitral valve insufficiency. Tricuspid Valve There is no tricuspid stenosis. Moderate (2+) tricuspid valve insufficiency. Pulmonary artery systolic pressure is 40 mmHg. Aortic Valve Trisinus/trileaflet aortic valve. There is no aortic stenosis. No aortic valve insufficiency. Pulmonic Valve There is no pulmonic valvular stenosis. Trivial pulmonic valve insufficiency. Great Vessels Normal aortic root. Pericardium/Pleural No pericardial effusion. MMode/2D Measurements & Calculations LVIDd: 4.9 cm IVSd: 0.96 cm Ao root diam: 3.8 cm LVIDs: 3.6 cm LVPWd: 1.1 cm RVDd: 3.8 cm FS: 25.8 % LAV(MOD-bp): 73.0 ml LVAd ap4: 23.4 cm2 SV(MOD-sp4): 32.6 ml LAV(MOD-bp) Indexed: 40.0 ml/m2 LVLd ap4: 6.9 cm LAV(MOD-sp2): 70.8 ml EDV(MOD-sp4): 63.9 ml LAV(MOD-sp4): 62.1 ml EDV(sp4-el): 67.3 ml LVAs ap4: 14.7 cm2 LVLs ap4: 5.8 cm ESV(MOD-sp4): 31.3 ml ESV(sp4-el): 31.7 ml EF(MOD-sp4): 51.0 % EF(sp4-el): 52.8 % SV(sp4-el): 35.6 ml LA A4 area: 21.9 cm2 LA dimension(2D): 5.0 cm RA A4 area: 15.0 cm2 TAPSE: 1.7 cm Doppler Measurements & Calculations MV E max kayden: 78.9 cm/sec Lat Peak E' Kayden: 12.0 cm/sec Med Peak E' Kayden: 8.2 cm/sec E/E' lat: 6.6 E/E' med: 9.6 Ao V2 max: 102.3 cm/sec LV V1 max: 96.4 cm/sec PA V2 max: 85.2 cm/sec Ao max P.2 mmHg LV V1 max P.7 mmHg Ao V2 mean: 77.5 cm/sec LV V1 mean P.2 mmHg Ao mean P.6 mmHg LV V1 mean: 69.8 cm/sec Ao V2 VTI: 19.5 cm LV V1 VTI: 19.5 cm AV (velocity ratio): 1.00 PI end-d kayden: 145.3 cm/sec TR max kayden: 294.7 cm/sec TR max P.7 mmHg ECHO/Echo Complete Interpretation Summary The estimated ejection fraction is 60 %. Diastolic function is indeterminate. The left atrium is mildly enlarged. Mild-Moderate (1-2+) mitral valve insufficiency. Ordering Physician: Gigi Jain Referring Physician: Mini Tyson Performed By: Swapna Napoles, ANIKA, RVT
== END | disposition home or self-care (01) ==
LOC: CVS 13:00
PROVIDERS: PCP Family Medicine; Referring Provider Internal Medicine Cardiovascular Disease; Visit Provider Internal Medicine Cardiovascular Disease
DX: I48.0 Paroxysmal atrial fibrillation (principal)
CPT/HCPCS: 93306

== ENCOUNTER → 2023-12-16 | Outpatient (CLI) | payer MEDICARE, SELFPAY ==
--- NOTE | 2023-12-16 16:17 | STRESSREP_ITS ---
Stress Test Report Exercise myocardial perfusion stress test. 78-year-old male with a history of chest pain and A-fib Stress protocol: Resting EKG demonstrates atrial fibrillation with a rate of 79 bpm resting blood pressure is 132/84 mmHg. The patient exercised according to the regular Diony protocol for a total duration of 4 minutes and 46 seconds attaining a maximum heart rate of 130 bpm which was 90% of maximum predicted heart rate; the maximum workload was 7 metabolic equivalents. At rest there were no ST or T wave changes noted to suggest ischemia and at peak exercise upsloping ST changes only were noted which did not meet the criteria for ischemia. No clinical angina was noted the test was terminated due to the target heart rate being achiev ed/fatigue. The peak blood pressure was 142/80 mmHg. Rate-pressure product was 12,700. Myocardial perfusion protocol. 11.3 mCi of technetium 99m sestamibi was injected at rest. The patient exercis ed according to regular Diony protocol for total duration of 4 minutes and 46 seconds and at peak exercise 33.2 mCi of technetium 99m sestamibi was injected stress images were obtained stress and rest images were reconstructed in comparing the short axis vertical long and horizontal long axis. Gated images were also obtained. Perfusion SPECT analysis: Review of the stress images demonstrate normal uptake of tracer noted in all areas of the myocardium. The resting images similarly demonstrate normal uptake of tracer noted in all areas of the myocardium. No areas of reversibility are noted to suggest ischemia no previous infarct was noted. Gated SPECT analysis: The gated ejection fraction is 60%. Conclusion: Normal exercise myocardial perfusion stress test at a moderate workload Preserved ejection fraction.
== END | disposition home or self-care (01) ==
LOC: CVS 06:28
PROVIDERS: PCP Family Medicine; Referring Provider Nurse Practitioner Family; Visit Provider Nurse Practitioner Family
DX: R06.02 Shortness of breath (principal); I48.0 Paroxysmal atrial fibrillation; I34.0 Nonrheumatic mitral (valve) insufficiency; R07.9 Chest pain, unspecified
CPT/HCPCS: 78452; 93017; A9500; A4216; J2785

== ENCOUNTER → 2024-01-20 | Outpatient (CLI) | payer MEDICARE, SELFPAY ==
--- NOTE | 2024-01-20 10:57 | BI_ITS ---
MAMMOGRAPHY - BILATERAL SCREENING REASON FOR EXAM: Female, 78 years old. Routine annual screening examination. PERTINENT HISTORY: Sister with breast cancer. Mother with breast cancer. Aunt with breast cancer. History of remote left breast aspiration. TECHNIQUE: Digital bilateral breast boris (3D mammographic acquisition) in the CC and MLO projections. 2-D mediolateral oblique (MLO) and craniocaudad (CC) views of both breasts were obtained. CAD: Full Field Digital Mammography with Computer Added Detection was performed. COMPARISON: Comparison is made with prior study January 13, 2023 and January 08, 2022. FINDINGS: Breast Composition: The breasts are heterogeneously dense, which may obscure small masses. There are no dominant masses or suspicious calcifications. Stable bilateral fat containing axillary lymph nodes. No other significant abnormalities are identified. There has been no significant change since the prior study. BI/SCRN MAMM (CAD)W/BORIS BILAT IMPRESSION: Stable bilateral screening mammogram. Yearly follow-up mammogram recommended. (A) ASSESSMENT CATEGORY: BIRADS Category 2: Benign. A letter regarding these results will be sent to the patient by the facility within 30 days. Approximately 10% of breast cancers are not detected by mammography. A normal mammogram should not delay biopsy of a clinically suspicious abnormality. [id number] Electronically Signed: Gilberto Henderson MD at 11:57 EDT ,
== END | disposition home or self-care (01) ==
LOC: OPBI 10:57
PROVIDERS: PCP Family Medicine; Referring Provider Family Medicine; Visit Provider Family Medicine
DX: Z12.31 Encounter for screening mammogram for malignant neoplasm of breast (principal); Z80.3 Family history of malignant neoplasm of breast
CPT/HCPCS: 77063; 77067

== ENCOUNTER → 2024-08-17 | Outpatient (CLI) | payer MEDICARE, SELFPAY ==
--- NOTE | 2024-08-17 12:57 | US_ITS ---
PROCEDURE: THYROID 08/17/2024 REASON FOR EXAM: F/U MNG TECHNIQUE: High-frequency thyroid ultrasound, including grayscale and color-flow images. REFERENCE LINKS: TI-RADS Chart: [email or web address] TI-RADS Calculator Tool with Reference Images: [email or web address] COMPARISON: Prior study dated August 11, 2023. FINDINGS: Right thyroid lobe size: 5.6 cm 3.4 cm 2.8 cm Left thyroid lobe size: 4.7 cm 1.3 cm x 1.8 cm Isthmus: 0.5 cm Background parenchymal echotexture is heterogeneous Nodules: . Lobe: Right, Location: Upper pole, Size: 3.1 cm 2.2 cm 2.5 cm cm, Stability: Stable Composition: Solid or almost completely solid (+2) Echogenicity: Hypoechoic (+2) Margin: Smooth (+0) Shape: Wider than tall (+0) Echogenic Foci: None (+0) TI-RADS: <2 = TR 1 * 2 = TR 2 * 3 = TR 3 * 4-6 = TR 4 * >6 = TR 5 . Lobe: Right, Location: Midpole, Size: 3.5 cm x 3 cm x 2.6 cm, Stability: Stable Composition: Solid or almost completely solid (+2) Echogenicity: Hypoechoic (+2) Margin: Smooth (+0) Shape: Wider than tall (+0) Echogenic Foci: None (+0) TI-RADS: <2 = TR 1 * 2 = TR 2 * 3 = TR 3 * 4-6 = TR 4 * >6 = TR 5 Stable 1.3 cm x 1 cm 1.3 cm hypoechoic solid nodule with increased vascularity in the left lobe. Essentially stable examination. Fine-needle aspiration of the right thyroid nodule recommended if not already performed. US/Thyroid IMPRESSION: Stable examination. RECOMMENDATION: Based on most suspicious nodule. Nodule size = largest diameter Only evaluate nodule if =>5 mm. Growth > 20% in 2 dimensions = worsening. Follow up to 4 nodules. Recommend biopsy for no more than 2 nodules. Reading Location: [place] [address]
== END | disposition home or self-care (01) ==
LOC: US 12:56
PROVIDERS: PCP Family Medicine; Referring Provider Internal Medicine Endocrinology, Diabetes & Metabolism; Visit Provider Internal Medicine Endocrinology, Diabetes & Metabolism
DX: M81.0 Age-related osteoporosis without current pathological fracture (principal); R73.03 Prediabetes; E04.1 Nontoxic single thyroid nodule; E55.9 Vitamin D deficiency, unspecified
CPT/HCPCS: 76536

== ENCOUNTER → 2024-09-29 | Outpatient (CLI) | payer MEDICARE, SELFPAY ==
[2024-09-29 12:44] LABS: Hematocrit 41.5 % (37-47); Hemoglobin 13.4 g/dL (12.0-15.0); Immature Granulocytes Count 0.020 X10^3/uL (0.0-0.0); Mean Corp Hgb Conc 32.3 g/dL (32-36); Mean Corpuscular Volume 91.6 fL (81-99); Mean Platelet Vol. 9.3 fl (6.2-12.0); NRBC Flagged by Analyzer 0 % (0-5); Platelet Count 222 K/mm3 (150-450); RBC Distribution Width CV 13.8 % (11.6-14.6); RBC Distribution Width SD 46.2 fl (35.1-43.9); Red Blood Count 4.53 M/mm3 (4.2-5.4); White Blood Count 6.3 K/mm3 (4.4-11.0)
[2024-09-29 13:45] LABS: AST(SGOT) 21 U/L (<=31); Alanine Aminotransfer ALT/SGPT 25 U/L (<=34); Albumin, Serum 4.0 g/dL (3.4-4.8); Alkaline Phosphatase 83 U/L (35-104); Anion Gap 11 (5-15); BUN 25 mg/dL (4-19); BUN/Creat Ratio 26.0 RATIO (10-20); Calcium,Total 9.5 mg/dL (7.6-11.0); Carbon Dioxide 24.9 mmol/L (21.0-32.0); Chloride 105 mmol/L (98-108); Cholesterol 211 mg/dL (<=200); Globulin 3.2 g/dL (2.2-4.2); Glucose 72 mg/dL (70-99); Low Density Lipoprotein Calc. 116 mg/dL; Potassium 4.2 mmol/L (3.3-5.1); Triglycerides 118 mg/dL; Very Low Density Lipoprotein 24 mg/dL (5-40); Vitamin D,25 Hydroxy 30.2 ng/mL (30-100); cholesterol:hdl ratio screen 2.94
== END | disposition home or self-care (01) ==
LOC: BIMLAB 11:04
PROVIDERS: PCP Internal Medicine; Visit Provider Internal Medicine
DX: I48.0 Paroxysmal atrial fibrillation (principal); M85.80 Other specified disorders of bone density and structure, unspecified site; E78.5 Hyperlipidemia, unspecified; R73.03 Prediabetes
CPT/HCPCS: 36415; 80053; 80061; 82306; 83036; 85025

== ENCOUNTER → 2024-10-20 | Outpatient (CLI) | payer MEDICARE, SELFPAY ==
--- NOTE | 2024-10-20 08:00 | FLU_PTH ---
PATIENT: DAGO ONEIL LOC: CT U#:[id number] AGE/SX: 79/F ROOM: RE10/20/[address]: Dr. Gigi Mix MD : [id number] BED: DIS: 10/20/2024 SPEC #: [id number] RECD: 10/20/24 08:45 STATUS: LILLIAN REGiancarlo #: [id number] BLANCA: 10/20/24 08:[address]: Gigi Mix DEPT: CYTOLOGY RECD BY: Saw Dai ENTERED: 10/20/24 09:34 SP TYPE: Fluid OTHR DR: Dr. Mahad Us MD Tissues: A - Thyroid gland, NOS B - Thyroid gland, NOS Procedures: Special Stain Group II Surgery Specimen Level IV Cytospin Fluid HEADER OPERATION: Fine needle aspiration of right thyroid nodule PRE-OP DIAGNOSIS: Right thyroid nodule TISSUE SUBMITTED: A- Right superior thyroid nodule, B- Right mid thyroid nodule DIAGNOSIS CYTOLOGY A. Thyroid, FNA, right superior nodule: * No malignant cells are identified * Benign (consistent with follicular nodular disease) B. Thyroid, FNA, right mid nodule: * No malignant cells are identified * Benign (consistent with follicular nodular disease) CYTOLOGY STUDY Slides are reviewed. CYTOLOGY GROSS A. Received is 30 ml of cloudy-colorless cytolyt with particles and 4 smears labeled with the patient's name and and designated per the requisition as Right superior thyroid nodule. Submitted for cytology and cytospin. B. Received is 30 ml of light pink- cloudy cytoloyt with particles and 4 smears labeled with the patient's name and and designated per the requisition as Right mid thyroid nodule. Submitted for cytology and cytospin. 10/20/2024 CPT: [id number] ADDENDUM ADDENDUM ADDENDUM ADDENDUM ADDENDUM ADDENDUM ADDENDUM ADDENDUM ADDENDUM ADDENDUM ADDENDUM ADDENDUM ADDENDUM ADDENDUM 01/28/2025 08:23 ADDENDUM 01/28/2025 08:23 ADDENDUM 01/28/2025 08:23 ADDENDUM 01/28/2025 08:23 ADDENDUM 01/28/2025 08:23 This addendum is added to incorporate an outside pathology consultation report. The case was examined at [facility] by Dr. Petit (#[id number]) and the following diagnosis was rendered. A. Thyroid, right superior nodule, fine needle aspiration: Benign. Benign follicular cells and colloid. B. Thyroid, right mid nodule, fine needle aspiration: Benign. Benign follicular cells and colloid. Please see complete above mentioned consultation report in EMR
--- OUTSIDE RECORDS SUMMARY | 2024-10-20 11:17 | XMS RPT_ITS | CCD ---
Author Organization [facility] Care Team Providers Care Maintenance Painter Name Role Phone Maggi DAS, Bethanie Eduardo Unavailable Unavailable Jasmin VALDEZ, Dionte Young Unavailable Kirill RN, Tanika Sotelo Unavailable Tonia, RN, Bri Liu Unavailable Unavailanthony Tay RN, Bethanie Eduardo Unavailable Unavailable Kirill DAS, Tanika Sotelo Unavailable [phone] Kirill RN, Tanika Sotelo Unavailable DR MINI TYSON MD Primary Care Physician Dr. Mini Tyson Primary Care Provider Dr. Dionte Castellanos Attending Provider Dr. Mini Tyson Referring Provider Dr. Mini Tyson Primary Care Provider Dr. Dionte Castellanos Attending Provider Dr. Mini Tyson Primary Care Provider Dr. Dillon Hemphill Attending Provider [phone] Mini Tyson Referring Provider [phone] Miguel TORRES, AERONAUTICAL DRAFTER-C Niya Attending Provider Miguel TORRES, AERONAUTICAL DRAFTER-C Niya Referring Provider ESE COSTELLO MD Attending UnavailDR MINI Sevilla MD Primary Care Unavailable Cara Martinez DO Primary Care Provider MARCUS VALDEZ, NIR Eduardo Attending Unavailable JAH VALDEZ, DR CHONG Primary Care Unavailable JAH VALDEZ, DR CHONG Primary Care Unavailable NIR CULP MD Attending Unavailable JAH VALDEZ, DR CHONG Primary Care Unavailable MARCUS VALDEZ, NIR Eduardo Admitting Unavailable MARCUS VALDEZ, NIR Eduardo Attending Unavailable Jah VALDEZ, Dr. Mini Aguirre Primary Care Provider [phone] Jah VALDEZ, Dr. Mini Aguirre Referring Provider Susy VALDEZ, Dr. Yu Attending Provider Pravin VALDEZ, Dr. Ese Starks Attending Provide r Pravin VALDEZ, Dr. Ese Starks Referring Provide r JAH VALDEZ, DR CHONG Primary Care Unavailable PRAVIN VALDEZ, ESE Attending Unavailjayce TYSON MD, DR CHONG Primary Care Unavailable PRAVIN VALDEZ, ESE Attending Unavailjayce Tyson MD, Dr. Mini Aguirre Primary Care Provider Jah VALDEZ, Dr. Mini Aguirre Referring Provider Abeba VALDEZ, Dr. Tobin Attending Provider Abeba VALDEZ, Dr. Tobin Primary Care Provider Roof AERONAUTICAL DRAFTER, Juan M Joya Attending Unavailable Roof AERONAUTICAL DRAFTER, Juan M Joya Referring Unavailable Jolliff, Mini S Primary Care Unavailable Jolliff, Mini S Primary Care Unavailable Jolliff, Mini S Referring Unavailable Jolliff, Miin S Attending Unavailable Mary Kate Costelloa Tereza Referring Unavaila Ese Pruitt Na Attending Unavaila karni Pardoiff, Mini S Primary Care Unavailable Roof AERONAUTICAL DRAFTER, Juan M H Referring Unavailable Roof AERONAUTICAL DRAFTER, Juan M Joya Attending Unavailable [place] AERONAUTICAL DRAFTER, Cindy Consulting Unavailable Jolliff, Mini S Primary Care Unavailable Roof AERONAUTICAL DRAFTER, Juan M H Consulting Unavailable Mahad Us Attending Unavailable Mahad Us Primary Care Unavailable Roof AERONAUTICAL DRAFTER, Juan M Joya Attending Unavailable Jolliff, Mini S Primary Care Unavailable Jolliff, Mini S Referring Unavailable Gigi Jain Attending Unavailable Jolliff, Mini S Primary Care Unavailable Jolliff, Mini S Referring Unavailable Jolliff, Mini S Primary Care Unavailable Marlys Ecsoto Attending UnavailGigi Weber Attending Unavailable Jolliff, Mini S Primary Care Unavailable Jolliff, Mini S Referring Unavailable Roof AERONAUTICAL DRAFTER, Juan M H Consulting Unavailable Roof AERONAUTICAL DRAFTER, Juan M H Referring Unavailable Jolliff, Mini S Primary Care Unavailable Dillon Hemphill Attending Unavailable Mahad Us Attending Unavailable Jah, Mini S Primary Care Unavailable Mini Tyson S Referring Unavailable Gigi Jain Attending Unavailable Mini Tyson Referring Unavailable Jah, Mini S Primary Care Unavailable Yesika AERONAUTICAL DRAFTER, Juan M Joya Referring Unavailable Yesika AERONAUTICAL DRAFTER, Juan M Joya Attending Unavailable Cindy Le NP Consulting Unavailable Mini Tyson Primary Care Unavailable Yesika AERONAUTICAL DRAFTER, Juan M Joya Consulting Unavailable Gigi Jain Attending Unavailable Mini Tyson Primary Care Unavailable Gigi Jain Referring Unavailable Dr. Gigi Mix MD Attending Provider Allergies Allergy Classification Reported Allergen(s) Allergy Type Date of Onset Reaction(s) Facility (6 sources) NKDA drug allergy 05-15-2011 [employer] Work Phone: (6 sources) NKA drug allergy 05-15-2011 [employer] Work Phone: Medications Current Medications Medication Drug Class(es) Dates Sig (Normalized) Sig (Original) apixaban 5 mg oral tablet (11 sources) Factor Xa Inhibitor Start: 10-30-2023 End: 12-29-2023 take 1 tablet by mouth twice daily Apixaban (Eliquis) 5 mg tablet Active 5 mg PO TWICE A DAY 180 3 December 29, 2023 10:31am calcium carbonate 1500 mg / cholecalciferol 200 unt oral tablet (1 source) Vitamin D Start: 07-14-2009 calcium carbonate/vitami n d3(CALCIUM 600 + D(3) 600 MG (1,500)-200 UNIT TAB) Takes 2-3 daily 0 07/14/2009 Active Calcium-Vitamin C-Vit D2-Min (20 sources) Start: 06-28-2021 take 1 tablet by mouth once daily Calcium-Vitamin C-Vit D2-Min Active 1 TABLET PO DAILY June 28, 2021 1:41pm Start: 06-28-2021 take 1 tablet by indra th once daily Calcium-Vitamin C-Vit D2-Min Active 1 TABLET PO DAILY June 27, 2021 11:00pm Start: 06-28-2021 take 1 tablet by indra th once daily Calcium-Vitamin C-Vit D2-Min Active 1 TABLET PO DAILY June 28, 2021 12:00am dexamethasone 0.001 mg/mg / neomycin 0.0035 mg/mg / polymyxin b 10 unt/mg ophthalmic ointment (1 source) Aminoglycoside Antibacterial, Polymyxin-class Antibacterial, Corticosteroid Start: 06-01-2020 NEOMYCIN 3.5 MG/G-POLYMYXIN B 10,000 UNIT/G-DEXAMETH 0.1 % EYE OINT Use in the right eye daily at bedtime. 06/01/2020 Active MULTIVITAMIN TAB (1 source) Start: 09-13-2005 MULTIVITAMIN TAB Take one(1) tablet daily. 0 09/13/2005 Active ofloxacin 3 mg/ml ophthalmic solution (1 source) Quinolone Antimicrobial Start: 06-01-2020 take 1 drop(s) into the eye(s) once daily ofloxacin (OCUFLOX) 0.3 % ophthalmic solution Use 1 Drop in the right eye once daily. 06/01/2020 Active prednisoLONE acetate 10 mg/ml ophthalmic suspension (1 source) Corticosteroid Start: 06-01-2020 prednisoLONE acetate (PRED FORTE, ECONOPRED PLUS) 1 % ophthalmic suspension Use 1 Drop in the right eye once daily. 06/01/2020 Active Completed/Discontinued Medications Medication Drug Class(es) Dates Sig (Normalized) Sig (Original) acetaminophen 325 mg / HYDROcodone bitartrate 5 mg oral tablet (20 sources) Opioid Agonist Start: 09-23-2013 End: 04-28-2017 Hydrocodone-Acetami nophen 1 TABLET tablet Discontinued 1 - 2 {tbl} PO EVERY 4 HOURS NEEDED as needed for Pain 30 0 September 23, 2013 12:00am April 28, 2017 9:40am Start: 09-23-2013 End: 04-28-2017 take 1 tablet by mouth every four hours as needed Hydrocodone-Acetaminophen Discontinued 1 - 2 TABLET PO EVERY 4 HOURS NEEDED September 23, 2013 12:00am April 28, 2017 9:40am aspirin 81 mg chewable tablet (20 sources) Nonsteroidal Anti-inflammatory Drug Start: 09-23-2013 End: 05-02-2017 take 1 tablet by mouth once daily Aspirin 81 MG tablet,chewable Discontinued 81 mg PO DAILY@0800 September 23, 2013 12:00am May 02, 2017 4:03pm Start: 09-06-2010 take 1 tablet by indra every other day ECOTRIN LOW STRENGTH 81 MG TBEC One tablet by mouth every other day ASPIRIN [id number] Tanika Downey PA-C Start: 09-06-2010 take 1 tablet by indra th once daily ASPIRIN EC 81 MG TBEC One tablet by mouth daily ASPIRIN [id number] Ghazala Flores RN Start: 09-06-2010 take 1 tablet by indra th once daily ECOTRIN LOW STRENGTH 81 MG TBEC One tablet by mouth daily ASPIRIN [id number] Bonita Fernandes Start: 09-06-2010 take 1 tablet by indra th every other day ECOTRIN LOW STRENGTH 81 MG TBEC One tablet by mouth every other day ASPIRIN [id number] Tanika Downey PA-C calcium (14 sources) Phosphate Binder, Calcium Start: 09-06-2010 End: 05-15-2011 take 1 tablet by mouth once daily CALCIUM 600 MG TABS One tablet by mouth daily CALCIUM [id number] Dionte Castellanos MD Start: 09-06-2010 take 1 tablet by indra th once daily CALCIUM 600 MG TABS One tablet by mouth daily CALCIUM [id number] Bonita Fernandes Start: 09-06-2010 End: 05-15-2011 take 1 tablet by mouth once daily CALCIUM 600 MG TABS One tablet by mouth daily CALCIUM [id number] Dionte Castellanos MD Start: 09-06-2010 take 1 tablet by indra th once daily CALCIUM 600 MG TABS One tablet by mouth daily CALCIUM [id number] Bonita Fernandes Start: 09-06-2010 End: 05-15-2011 take 1 tablet by mouth once daily CALCIUM 600 MG TABS One tablet by mouth daily CALCIUM [id number] Dionte Castellanos MD Start: 09-06-2010 take 1 tablet by indra th once daily CALCIUM 600 MG TABS One tablet by mouth daily CALCIUM [id number] Bonita Fernandes calcium carbonate 1500 mg oral tablet (20 sources) Start: 04-28-2017 End: 05-02-2017 take 1 tablet by mouth twice daily Calcium Carbonate 600 mg calcium (1,500 mg) tablet Discontinued 600 mg PO TWICE A DAY April 28, 2017 1:00am May 02, 2017 4:04pm calcium carbonate 600 mg / vitamin d 200 unt oral capsule (7 sources) Start: 09-06-2010 take 1 tablet by mouth twice daily CALCIUM CARBONATE-VITAMIN D 600-200 MG-UNIT CAPS One tablet by mouth twice daily CALCIUM CARBONATE-VITAMIN D [id number] [facility] Fernandes Calcium-Vitamin C-Vit D2-Min tablet (8 sources) Start: 11-27-2023 End: 05-03-2024 Calcium-Vitamin C-Vit D2-Min tablet Discontinued 1 {tbl} PO DAILY as needed November 27, 2023 10:42am May 03, 2024 11:47am Start: 06-28-2021 End: 11-27-2023 Calcium-Vitamin C-Vit D2-Min tablet Discontinued 1 {tbl} PO DAILY June 28, 2021 12:00am November 27, 2023 10:42am cholecalciferol 0.05 mg oral capsule (20 sources) Vitamin D Start: 04-28-2017 End: 05-02-2017 take 1 capsule by mouth once daily Cholecalciferol (Vitamin D3) 2,000 unit capsule Discontinued 2000 U PO daily April 28, 2017 1:00am May 02, 2017 4:04pm Start: 09-06-2010 take 1 tablet by indra th once daily VITAMIN D 2000 UNIT TABS One tablet by mouth daily CHOLECALCIFEROL [id number] [facility] [place] (8 sources) Non-Standardized Food Allergenic Extract, Non-Standardized Plant Allergenic Extract Start: 09-06-2010 FLAX SEED OIL CAPS 1 tsp daily FLAXSEED (LINSEED) CAPS [id number] [facility] [place] Start: 09-06-2010 FLAX SEED OIL CAPS 1 tsp daily FLAXSEED (LINSEED) CAPS [id number] [facility] [place]LAXSEED ORAL Ta ke by mouth once daily. Takes 5 out of 7 days Active flaxseed oil (20 sources) Start: 04-28-2017 End: 05-02-2017 flaxseed oil Discontinued 5 ML MC daily April 28, 2017 9:39am May 02, 2017 4:04pm Start: 04-28-2017 End: 05-02-2017 flaxseed oil Discontinued 5 ML MC daily April 28, 2017 12:00am May 02, 2017 3:04pm Start: 04-28-2017 End: 05-02-2017 flaxseed oil Discontinued 5 ML MC daily April 28, 2017 1:00am May 02, 2017 4:04pm Flaxseed Oil oil (4 sources) Start: 04-28-2017 End: 05-02-2017 Flaxseed Oil oil Discontinued 5 mL MC daily April 28, 2017 1:00am May 02, 2017 4:04pm ibandronic acid 150 mg oral tablet (15 sources) Bisphosphonate Start: 07-08-2008 End: 12-26-2014 take 1 tablet by mouth every month BONIVA 150 MG TABS 1 tablet by mouth monthly IBANDRONATE SODIUM [id number] Dionte Castellanos MD 24 hr metoprolol succinate 25 mg extended release oral tablet (4 sources) beta-Adrenergic Lexie Start: 10-30-2023 End: 01-14-2024 take 1 tablet by mouth twice daily Metoprolol Succinate 25 mg tablet extended release 24 hr Discontinued 25 mg PO TWICE A DAY 180 October 30, 2023 12:00am January 14, 2024 12:49pm MULTIPLE VITAMIN (5 sources) Start: 09-06-2010 take 1 tablet by mouth once daily MULTIVITAMINS TABS One tablet by mouth daily MULTIPLE VITAMIN [id number] Bonita Fernandes MULTIPLE VITAMIN (2 sources) Start: 09-06-2010 take 1 tablet by mouth once daily MULTIVITAMINS TABS One tablet by mouth daily MULTIPLE VITAMIN [id number] Bonita Fernandes Multivitamin preparation (20 sources) Start: 05-02-2017 End: 06-28-2021 take 1 tablet by mouth once daily Multivitamin Discontinued 1 TABLET PO daily May 02, 2017 3:05pm June 28, 2021 12:40pm Start: 05-02-2017 End: 06-28-2021 take 1 tablet by mouth once daily Multivitamin Discontinued 1 TABLET PO daily May 02, 2017 4:05pm June 28, 2021 1:40pm Start: 04-28-2017 End: 05-02-2017 take 1 tablet by mouth once daily Multivitamin Discontinued 1 TABLET PO daily April 28, 2017 9:39am May 02, 2017 4:06pm Start: 04-28-2017 End: 05-02-2017 take 1 tablet by mouth once daily Multivitamin Discontinued 1 TABLET PO daily April 28, 2017 12:00am May 02, 2017 3:06pm Start: 04-28-2017 End: 05-02-2017 take 1 tablet by mouth once daily Multivitamin Discontinued 1 TABLET PO daily April 28, 2017 1:00am May 02, 2017 4:06pm Multivitamin tablet (8 sources) Start: 05-02-2017 End: 06-28-2021 Multivitamin tablet Disconti nued 1 {tbl} PO daily as needed May 02, 2017 4:05pm June 28, 2021 1:40pm Start: 04-28-2017 End: 05-02-2017 Multivitamin tablet Disconti nued 1 {tbl} PO daily April 28, 2017 1:00am May 02, 2017 4:06pm ondansetron 4 mg disintegrating oral tablet (20 sources) Serotonin-3 Receptor Antagonist Start: 09-23-2013 End: 04-28-2017 take 1 tablet by mouth every eight hours as needed for nausea Ondansetron 4 MG tablet Discontinued 4 mg PO EVERY 8 HOURS NEEDED as needed for Nausea September 23, 2013 12:00am April 28, 2017 9:40am sotalol hydrochloride 80 mg oral tablet (20 sources) Antiarrhythmic Start: 01-07-2024 End: 09-29-2024 take 1 tablet by mouth twice daily Sotalol (Sotalol Af) 80 mg tablet Discontinued 80 mg PO TWICE A DAY 180 January 14, 2024 12:49pm September 29, 2024 10:01am Start: 07-18-2020 sotalol 80 mg oral tablet Dose : 40 mg = 0.5 tab(s), Oral, BID, 0 Refill(s) Start Date: 07/18/20 Status: Ordered Start: 09-23-2013 End: 10-30-2023 Sotalol (Sotalol Af) 80 mg t ablet Discontinued 40 mg PO TWICE A DAY 45 June 24, 2023 9:23am October 30, 2023 3:18pm Start: 09-23-2013 End: 05-12-2017 take 40 mg by mouth twice daily Sotalol Discontinued 4 0 MG PO TWICE A DAY May 05, 2017 11:47am May 12, 2017 4:39pm Start: 05-15-2011 take 1 tablet by indra th twice daily SOTALOL HCL (AF) 80 MG TABS One half tablet by mouth twice daily SOTALOL HCL AF [id number] Dionte Castellanos MD Start: 05-15-2011 take 0.5 tablet by m outh once daily, then take 1 tablet by mouth SOTALOL HCL (AF) 80 MG TABS 1/2 tablet by mouth daily SOTALOL HCL AF [id number] Dillon Hemphill MD Start: 05-15-2011 take 1 tablet by indra th once daily SOTALOL HCL (AF) 80 MG TABS One tablet by mouth daily SOTALOL HCL AF [id number] Ghazala Flores RN Start: 05-15-2011 take 1 tablet by indra th once daily SOTALOL HCL (AF) 80 MG TABS One half tablet by mouth daily SOTALOL HCL AF [id number] Dionte Castellanos MD Start: 05-15-2011 take 1 tablet by indar th twice daily SOTALOL HCL (AF) 80 MG TABS One tablet by mouth twice daily SOTALOL HCL AF [id number] Dionte Castellanos MD Start: 05-15-2011 take 0.5 tablet by m outh twice daily, then take 1 tablet by mouth SOTALOL HCL (AF) 80 MG TABS 1/2 tablet by mouth twice daily SOTALOL HCL AF [id number] Tanika Downey PA-C Start: 05-15-2011 take 0.5 tablet by m outh once daily, then take 1 tablet by mouth SOTALOL HCL (AF) 80 MG TABS 1/2 tablet by mouth daily SOTALOL HCL AF [id number] Dillon Hemphill MD Start: 05-15-2011 take 1 tablet by indra th once daily SOTALOL HCL (AF) 80 MG TABS One tablet by mouth daily SOTALOL HCL AF [id number] Ghazala Flores RN Start: 05-15-2011 take 0.5 tablet by m outh twice daily, then take 1 tablet by mouth SOTALOL HCL (AF) 80 MG TABS 1/2 tablet by mouth twice daily SOTALOL HCL AF [id number] Tanika Downey PA-C Start: 05-15-2011 take 0.5 tablet by m outh once daily, then take 1 tablet by mouth SOTALOL HCL (AF) 80 MG TABS 1/2 tablet by mouth daily SOTALOL HCL AF [id number] Dillon Hemphill MD Start: 05-15-2011 take 1 tablet by indra th once daily SOTALOL HCL (AF) 80 MG TABS One tablet by mouth daily SOTALOL HCL AF [id number] Ghazala Flores RN Start: 05-15-2011 take 0.5 tablet by m outh twice daily, then take 1 tablet by mouth SOTALOL HCL (AF) 80 MG TABS 1/2 tablet by mouth twice daily SOTALOL HCL AF [id number] Tanika Downey PA-C Start: 09-06-2010 take 1 tablet by indra th twice daily SOTALOL HCL (AF) 80 MG TABS One tablet by mouth twice daily SOTALOL HCL AF [id number] Bon[facility] Fernandes Start: 09-06-2010 take 1 tablet by indra th twice daily SOTALOL HCL (AF) 80 MG TABS One tablet by mouth twice daily SOTALOL HCL AF [id number] Dionte Castellanos MD Start: 09-06-2010 take 1 tablet by indra th twice daily SOTALOL HCL (AF) 80 MG TABS One tablet by mouth twice daily SOTALOL HCL AF [id number] Dionte Castellanos MD take 0.5 tablet by m outh once daily in the evening sotalol (SOTALOL AF) 80 mg tablet Take 80 mg by mouth once daily. Takes 1/2 tab in am and 1/2 tab pm Active warfarin sodium 2 mg oral tablet (20 sources) Vitamin K Antagonist Start: 06-28-2021 End: 03-28-2023 Warfarin 1 mg tablet Discontinued 1 mg PO .COMPLEX 90 3 June 17, 2022 1:14pm March 28, 2023 4:18pm 1 mg PO with a 2 mg tablet to = 3mg daily; or as directed. Please send MAGDA unless already shipped from 06/18 RX Please contact the information source for Protocol details. Start: 07-18-2020 warfarin 3 mg oral tablet Dose : 3 mg = 1 tab(s), Oral, Daily, 0 Refill(s) Start Date: 07/18/20 Status: Ordered Start: 08-28-2015 COUMADIN 1 MG TABS Current dose 4 mg (2 tablets) on Sat and Sun; 3 mg ( a 2 mg and a 1 mg tablet) Friday through Friday WARFARIN SODIUM [id number] Dionte Castellanos MD Start: 08-28-2015 COUMADIN 2 MG TABS Current dose 4 mg (2 tablets) on Sat and Sun; 3 mg ( a 2 mg and a 1 mg tablet) Friday through Friday WARFARIN SODIUM [id number] Dionte Castellanos MD Start: 07-30-2011 End: 10-30-2023 Warfarin 1 mg tablet Discont inued 1 mg PO .COMPLEX 90 June 19, 2023 10:44am October 30, 2023 3:17pm 1 mg PO with a 2 mg tablet to = 3mg daily; or as directed. Please contact the information source for Protocol details. Start: 07-30-2011 End: 01-12-2015 COUMADIN 1 MG TABS Take palomo g with a 2 mg tablet to = 3 mg Fri-, 4 mg all other days, or as directed (on HOLD) WARFARIN SODIUM [id number] Dionte Castellanos MD Start: 09-06-2010 End: 10-30-2023 Warfarin 2 mg tablet Discont inued 2 mg PO .COMPLEX 90 June 23, 2023 3:07pm October 30, 2023 3:17pm Please use Pul[employer]izer Feeder AMNEAL 2 mg orally daily with a 1 mg tablet to = 3 mg daily; as directed; Please use Pul[employer]izer Feeder AMNEAL Please contact the information source for Protocol details. Start: 09-06-2010 COUMADIN 1 MG TABS 1/2 tablet every evening with a 2mg tablet to = 2.5 WARFARIN SODIUM [id number] Bonita Fernandes Problems Active Problems Problem Classification Problem Date Documented Da te Episodic/Chronic Cardiac dysrhythmias (20 sources) Permanent atrial fibrillation ; Translations: [Atrial fibrillation] Onset: 09-06-2010 06-26-2015 Chronic Diabetes mellitus without complication (12 sources) Prediabetes; Translations: [Prediabetes] Onset: 09-29-2024 07-18-2020 Episodic Disorders of lipid metabolism (20 sources) Hyperlipidemia; Translations: [Hyperlipidemia, unspecified] Onset: 09-29-2024 07-18-2020 Chronic Essential hypertension (5 sources) Hypertensive disorder 01-07-2024 Chronic Heart valve disorders (20 sources) Mitral valve prolapse; 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] Onset: 09-06-2010 04-26-2016 Chronic Malaise and fatigue (20 sources) Fatigue; Translations: [Other fatigue] Onset: 09-06-2010 09-06-2010 Episodic Nutritional deficiencies (7 sources) Vitamin D deficiency 07-18-2020 Chronic Osteoporosis (8 sources) Osteoporosis; Translations: [Age-related osteoporosis without current pathological fracture] Onset: 08-20-2024 07-18-2020 Chronic Other aftercare (20 sources) Long-term current use of anticoagulant; Translations: [[facility] (current) use of anticoagulants] 05-02-2017 Episodic Other bone disease and musculoskeletal deformities (20 sources) Osteopenia; Translations: [Other specified disorders of bone density and structure, unspecified site] 01-11-2013 Episodic Other bone disease and musculoskeletal deformities (1 source) Other specified disorders of bone density and structure, unspecified site; Translations: [Other specified disorders of bone density and structure, unspecified site] Onset: 09-29-2024 Episodic Other connective tissue disease (1 source) Pain in right foot; Translations: [Pain in right foot] 06-26-2020 Episodic Other lower respiratory disease (20 sources) Dyspnea; Translations: [Shortness of breath] Onset: 05-15-2011 05-15-2011 Episodic Syncope (20 sources) Syncope and collapse; Translations: [Syncope and collapse] Onset: 09-06-2010 09-06-2010 Episodic Thyroid disorders (12 sources) Thyroid nodule; Translations: [Non-toxic multinodular goiter] Onset: 12-23-2004 07-18-2020 Chronic Unclassified (1 source) Other persistent atrial fibrillation; Translations: [Other persistent atrial fibrillation] Onset: 05-03-2024 Past or Other Problems Problem Classification Problem Date Documented Da te Episodic/Chronic Other aftercare (5 sources) 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; Translations: [Long-term (current) use of anticoagulants] Onset: 10-22-2023 Episodic Other lower respiratory disease (2 sources) Shortness of breath; Translations: [Shortness of breath] Onset: 01-15-2024 Episodic Other nutritional; endocrine; and metabolic disorders (7 sources) Body mass index (BMI) 27.0-27.9, adult; Translations: [Body mass index (BMI) 27.0-27.9, adult] Onset: 12-21-2012 12-21-2012 Episodic Other screening for suspected conditions (not mental disorders or infectious disease) (1 source) Encounter for screening mammogram for malignant neoplasm of breast; Translations: [Encounter for screening mammogram for malignant neoplasm of breast] Onset: 02-10-2024 Episodic Unclassified (7 sources) FH: Hypertension; Translations: [Family history of ischemic heart disease and other diseases of the circulatory system] 07-05-2014 Episodic Results Test Name Value Interpretation Reference Range Facility Absolute lymphocyte countOrd ered By: Mahad Us on 09-29-2024 Lymphocytes Auto (Unsp spec) [#/Vol] 1.28 10*3/uL 0.83-4.51 [facility] Absolute neutrophil countOrd ered By: Mahad Us on 09-29-2024 Neutrophils (Bld) [#/Vol] 4.2 10*3/uL 2.0-7.7 [facility] Anion gap in Serum or Plasma Ordered By: Mahad Us on 09-29-2024 Anion gap [Moles/Vol] 11 mmol/L 5-15 [facility] Automated lymphocyte count a s percentage of total leukocytesOrdered By: Mahad Us on 09-29-2024 Lymphocytes/100 WBC Auto (Unsp spec) 20.4 % 19-41 [facility] BUN/creatinine ratioOrdered By: Mahad Us on 09-29-2024 Urea nitrogen/Creatinine [Mass ratio] 26.0 mg/mg High 10-20 [facility] Basophil percentageOrdered B y: Mahad Us on 09-29-2024 Basophils/100 WBC (Bld) 0.6 % 0-1 [facility] Bilirubin, totalOrdered By: Mahad Us on 09-29-2024 Bilirubin [Mass/Vol] 0.32 mg/dL 0.00-1.30 [facility] CBC W/Diff, Automatedon 07 Absolute Lymph 1.28 X10 3/uL Normal 0.83-4.51 [facility] Comment on above: Performed By: #### L 100.0100, L506.1001, L501.9985, L500.4050, L500.4100 #### [facility] [address] [place], [address] Absolute Neut 4.2 X10 3/uL Normal 2.0-7.7 [facility] Comment on above: Performed By: #### L 100.0100, L506.1001, L501.9985, L500.4050, L500.4100 #### [facility] [address] [place], [address] Basophils/100 WBC (Bld) 0.6 % Normal 0-1 [facility] Comment on above: Performed By: #### L 100.0100, L506.1001, L501.9985, L500.4050, L500.4100 #### [facility] [address] [place], [address] Eosinophils/100 WBC (Bld) 2.7 % Normal 0-5 [facility] Comment on above: Performed By: #### L 100.0100, L506.1001, L501.9985, L500.4050, L500.4100 #### [facility] [address] [place], [address] Erythrocyte distribution width (RBC) [Ratio] 13.8 % Normal 11.6-14.6 [facility] Comment on above: Performed By: #### L 100.0100, L506.1001, L501.9985, L500.4050, L500.4100 #### [facility] [address] [place], [address] Hematocrit (Bld) [Volume fraction] 41.5 % Normal 37-47 [facility] Comment on above: Performed By: #### L 100.0100, L506.1001, L501.9985, L500.4050, L500.4100 #### [facility] [address] [place], [address] Hemoglobin (Bld) [Mass/Vol] 13.4 g/dL Normal 12.0-15.0 [facility] Comment on above: Performed By: #### L 100.0100, L506.1001, L501.9985, L500.4050, L500.4100 #### [facility] [address] [place], [address] IG% 0.300 Normal 0.0-0.9 [facility] Comment on above: Result Comment: IG% - Immature Granulocytes (promyelocytes, myelocytes and metamyelocytes) > 1% indicates that a LEFT SHIFT is Present. Performed By: #### L 100.0100, L506.1001, L501.9985, L500.4050, L500.4100 #### [facility] [address] [place], [address] Lymphocytes/100 WBC (Bld) 20.4 % Normal 19-41 [facility] Comment on above: Performed By: #### L 100.0100, L506.1001, L501.9985, L500.4050, L500.4100 #### [facility] [address] [place], [address] MCH (RBC) [Entitic mass] 29.6 pg Normal 27.0-32.0 [facility] Comment on above: Performed By: #### L 100.0100, L506.1001, L501.9985, L500.4050, L500.4100 #### [facility] [address] [place], [address] MCHC (RBC) [Mass/Vol] 32.3 g/dL Normal 32-36 [facility] Comment on above: Performed By: #### L 100.0100, L506.1001, L501.9985, L500.4050, L500.4100 #### [facility] [address] [place], [address] MCV (RBC) [Entitic vol] 91.6 fL Normal 81-99 [facility] Comment on above: Performed By: #### L 100.0100, L506.1001, L501.9985, L500.4050, L500.4100 #### [facility] [address] [place], [address] Monocytes/100 WBC (Bld) 8.3 % Normal 0-10 [facility] Comment on above: Performed By: #### L 100.0100, L506.1001, L501.9985, L500.4050, L500.4100 #### [facility] [address] [place], [address] Neutrophils/100 WBC (Bld) 67.7 % Normal 47-70 [facility] Comment on above: Performed By: #### L 100.0100, L506.1001, L501.9985, L500.4050, L500.4100 #### [facility] [address] [place], [address] Nucleated RBC (Bld) [#/Vol] 0 10*3/uL Normal 0-5 [facility] Comment on above: Performed By: #### L 100.0100, L506.1001, L501.9985, L500.4050, L500.4100 #### [facility] [address] [place], [address] Platelet mean volume (Bld) [Entitic vol] 9.3 fL Normal 6.2-12.0 [facility] Comment on above: Performed By: #### L 100.0100, L506.1001, L501.9985, L500.4050, L500.4100 #### [facility] [address] [place], [address] Platelets (Bld) [#/Vol] 222 10*3/uL Normal 150-450 [facility] Comment on above: Performed By: #### L 100.0100, L506.1001, L501.9985, L500.4050, L500.4100 #### [facility] [address] [place], [address] RBC (Bld) [#/Vol] 4.53 10*6/uL Normal 4.2-5.4 [facility] Comment on above: Performed By: #### L 100.0100, L506.1001, L501.9985, L500.4050, L500.4100 #### [facility] [address] [place], [address] RDW SD 46.2 fl High 35.1-43.9 [facility] Comment on above: Performed By: #### L 100.0100, L506.1001, L501.9985, L500.4050, L500.4100 #### [facility] [address] [place], [address] WBC (Bld) [#/Vol] 6.3 10*3/uL Normal 4.4-11.0 [facility] Comment on above: Performed By: #### L 100.0100, L506.1001, L501.9985, L500.4050, L500.4100 #### [facility] [address] [place], [address] Calculated very low density lipoprotein (VLDL) cholesterol measurementOrdered By: Mahad Us on 09-29-2024 Calculated very low density lipoprotein (VLDL) cholesterol measurement 24 mg/dL 5-40 [facility] Carbon dioxide, total [Moles /volume] in Central venous bloodOrdered By: Mahad Us on 09-29-2024 CO2 [Moles/Vol] 24.9 mmol/L 21.0-32.0 [facility] Chloride assayOrdered By: Hilda Us on 09-29-2024 Chloride [Moles/Vol] 105 mmol/L 98-108 [facility] Comprehensive Metabolic Prof ilon 09-29-2024 Albumin [Mass/Vol] 4.0 g/dL Normal 3.4-4.8 [facility] Comment on above: Performed By: #### L 100.0100, L506.1001, L501.9985, L500.4050, L500.4100 #### [facility] [address] [place], [address] Albumin/Globulin [Mass ratio] 1.3 {ratio} Normal 0.9-2.4 [facility] Comment on above: Performed By: #### L 100.0100, L506.1001, L501.9985, L500.4050, L500.4100 #### [facility] [address] [place], [address] ALK PHOS 83 U/L Normal 35-104 [facility] Comment on above: Performed By: #### L 100.0100, L506.1001, L501.9985, L500.4050, L500.4100 #### [facility] [address] [place], [address] ALT [Catalytic activity/Vol] 25 U/L Normal <=34 [facility] Comment on above: Performed By: #### L 100.0100, L506.1001, L501.9985, L500.4050, L500.4100 #### [facility] [address] [place], [id number] AST [Catalytic activity/Vol] 21 U/L Normal <=31 [facility] Comment on above: Performed By: #### L 100.0100, L506.1001, L501.9985, L500.4050, L500.4100 #### [facility] [address] [place], [id number] Bilirubin [Mass/Vol] 0.32 mg/dL Normal 0.00-1.30 [facility] Comment on above: Performed By: #### L 100.0100, L506.1001, L501.9985, L500.4050, L500.4100 #### [facility] [address] [place], [id number] BUN/CRE 26.0 RATIO High 10-20 [facility] Comment on above: Performed By: #### L 100.0100, L506.1001, L501.9985, L500.4050, L500.4100 #### [facility] [address] [place], [id number] Calcium [Mass/Vol] 9.5 mg/dL Normal 7.6-11.0 [facility] Comment on above: Performed By: #### L 100.0100, L506.1001, L501.9985, L500.4050, L500.4100 #### [facility] [address] [place], [id number] Chloride [Moles/Vol] 105 mmol/L Normal 98-108 [facility] Comment on above: Performed By: #### L 100.0100, L506.1001, L501.9985, L500.4050, L500.4100 #### [facility] [address] [place], [address] CO2 [Moles/Vol] 24.9 mmol/L Normal 21.0-32.0 [facility] Comment on above: Performed By: #### L 100.0100, L506.1001, L501.9985, L500.4050, L500.4100 #### [facility] [address] [place], [address] Creatinine [Mass/Vol] 0.96 mg/dL Normal 0.70-1.20 [facility] Comment on above: Performed By: #### L 100.0100, L506.1001, L501.9985, L500.4050, L500.4100 #### [facility] [address] [place], [address] GAP 11 Normal 5-15 [facility] Comment on above: Performed By: #### L 100.0100, L506.1001, L501.9985, L500.4050, L500.4100 #### [facility] [address] [place], [address] GFR/1.73 sq M.predicted among non-blacks MDRD (S/P/Bld) [Vol rate/Area] 62 mL/min/{1.73_m2} Normal >60 [facility] Comment on above: Result Comment: mL/m in/1.73m2 CKD-EPI Creatinine Equation (2020) Performed By: #### L 100.0100, L506.1001, L501.9985, L500.4050, L500.4100 #### [facility] [address] [place], [address] Globulin (S) [Mass/Vol] 3.2 g/dL Normal 2.2-4.2 [facility] Comment on above: Performed By: #### L 100.0100, L506.1001, L501.9985, L500.4050, L500.4100 #### [facility] [address] [place], [address] Glucose [Mass/Vol] 72 mg/dL Normal 70-99 [facility] Comment on above: Performed By: #### L 100.0100, L506.1001, L501.9985, L500.4050, L500.4100 #### [facility] [address] [place], [address] Potassium [Moles/Vol] 4.2 mmol/L Normal 3.3-5.1 [facility] Comment on above: Performed By: #### L 100.0100, L506.1001, L501.9985, L500.4050, L500.4100 #### [facility] [address] [place], [address] Sodium [Moles/Vol] 141 mmol/L Normal 133-145 [facility] Comment on above: Performed By: #### L 100.0100, L506.1001, L501.9985, L500.4050, L500.4100 #### [facility] [address] [place], [address] T PROT 7.2 g/dL Normal 5.9-8.4 [facility] Comment on above: Performed By: #### L 100.0100, L506.1001, L501.9985, L500.4050, L500.4100 #### [facility] [address] [place], [address] Urea nitrogen [Mass/Vol] 25 mg/dL High 4-19 [facility] Comment on above: Performed By: #### L 100.0100, L506.1001, L501.9985, L500.4050, L500.4100 #### [facility] [address] [place], [address] Eosinophil percentageOrdered By: Efewongbe Oleghe on 09-29-2024 Eosinophils/100 WBC (Bld) 2.7 % 0-5 [facility] Erythrocyte distribution wid th ratioOrdered By: jay Us on 09-29-2024 Erythrocyte distribution width (RBC) [Ratio] 13.8 % 11.6-14.6 [facility] Erythrocyte distribution wid th standard deviationOrdered By: giannawakefieldsanjay Us on 09-29-2024 Erythrocyte distribution width (RBC) [Ratio] 46.2 fl High 35.1-43.9 [facility] Glomerular filtration rate ( GFR) estimation/1.73 sq m using serum, plasma, or whole bOrdered By: Mahad Us on 09-29-2024 GFR/1.73 sq M.predicted among non-blacks MDRD (S/P/Bld) [Vol rate/Area] 62 mL/min/{1.73_m2} >60 [facility] Comment on above: mL/min/1.73m2 CKD-EP I Creatinine Equation (2020) Hematocrit Auto (Bld) [Volum e fraction]Ordered By: jay Us on 09-29-2024 Hematocrit (Bld) [Volume fraction] 41.5 % 37-47 [facility] Hemoglobin A1con 09-29-2024 HbA1c (Bld) [Mass fraction] 5.4 % Normal <=5.6 [facility] Comment on above: Result Comment: Norm al < 5.7 % Prediabetic 5.7 - 6.4 % Diabetic >or= 6.5 % Please note range changes. Performed By: #### L 100.0100, L506.1001, L501.9985, L500.4050, L500.4100 #### [facility] [place], [address] Hemoglobin A1c percentageOrd ered By: Mahad Us on 09-29-2024 HbA1c (Bld) [Mass fraction] 5.4 % <5.7 [facility] Comment on above: Normal < 5.7 % Predi abetic 5.7 - 6.4 % Diabetic >or= 6.5 % Please note range changes. Hemoglobin measurementOrdere d By: Mahad Us on 09-29-2024 Hemoglobin (Bld) [Mass/Vol] 13.4 g/dL 12.0-15.0 [facility] Immature granulocytes/100 WB C Auto (Bld)Ordered By: Mahad Us on 09-29-2024 Immature granulocytes/100 WBC (Bld) 0.300 % 0.0-0.9 [facility] Comment on above: IG% - Immature Granu locytes (promyelocytes, myelocytes and metamyelocytes) > 1% indicates that a LEFT SHIFT is Present. Internal Medicine Office Vis iton 09-29-2024 Internal Medicine Office Visit [facility] [address] [place] [address] [place] [address] OFFICE VISIT Date of Service: 09/29/24 MR#: [id number] Acct: [id number] Name: MAURILIOTLISA Rep #: [id number] : 1945 Provider: Dr. Mahad olivo MD Age/Sex: 78/F Location[place] 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 Shah as PCP pt reports she had a cardioversion at [facility] December 2023 and a cardiac ablation in Mar 2024 pt states she is scheduled with Dr. Mix for a FNA (October 13) of her thyroid due to noted enlargement recently pt states she has no concerns today [facility] Medical History (Updated 09/29/24 @ 12:[address] Mahad Us MD) Health care maintenance Borderline type 2 diabetes mellitus Thyroid nodule History of cardioversion Non-rheumatic tricuspid valve insufficiency Non-rheumatic mitral regurgitation Basal cell carcinoma Hyperlipidemia Nonrheumatic mitral (valve) prolapse Paroxysmal atrial fibrillation Syncope and collapse Fatigue SOB (shortness of breath) Family history of hypertension Surgical History History of cardiac radiofrequency ablation History of left heart catheterization (LHC) Family History Father Presence of permanent cardiac pacemaker Mother Atrial fibrillation Mitral valve prolapse Sister Hypertension Social History Smoking Status: Never smoker alcohol intake: never substance use type: does not use caffeine: Yes Type: carbonated beverages what type of physical activity do you participate in: none seatbelt use: always do you feel safe at home: Yes HPI HPI 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 Had previously seen Dr. Tyson. She reports concerns regarding a thyroid nodule. The thyroid nodule has been monitored for approximately 35 years with annual ultrasounds, initially identified by a physician in [place] and later managed by Dr. Olivaers. A fine needle biopsy is scheduled due to recent growth observed by Dr. Olivares. The patient has a history of atrial fibrillation, which was treated with cardioversion and cardiac ablation, resulting in significant improvement. She was previously on sotalol but has been weaned off, with anticoagulation therapy continuing. The patient has been identified with borderline diabetes, with a recent A1c of 5.5, indicating good control. She is not currently on any specific diabetes medication. The patient has a moderate fracture risk, stable since 2014, and has not been taking calcium or vitamin D supplements regularly. DEXA scans are performed every two years, with the last scan showing steady results. Preventative care measures discussed include colon cancer screening with Cologuard, vaccinations for shingles, pneumonia, and RSV, and regular mammograms and dermatology screenings. Attestation: Documentation on this patient encounter was supported using ambient scribe technology/ voice AI technology. The patient consented to recording for the purpose of documenting the encounter. Provider reviewed content of the generated note prior to signature. ROS Const Constitutional: No body ache, chills, excessive sweating, fatigue, fever(s), frequent falls, headache(s), snoring, weight change, sleep problems, abnormal sleep pattern or change in appetite Eyes Eyes: No blurry vision, change in vision, vision loss, dry eyes, eye pain or Light sensitivity ENT ENT: No abnormal hearing, ear or mastoid pain, tinnitus, dizziness/vertigo, nasal congestion, headache(s), neck pain or sore throat Resp Respiratory: No cough, excessive phlegm production, hemoptysis, shortness of breath, snoring or wheezing Cardio Cardiology: No chest pain at rest, chest pain with exertion, excessive sweating, sh (more content not included)... Normal [facility] LDL calc ser/plasOrdered By: Mahad Us on 09-29-2024 Cholesterol in LDL [Mass/Vol] 116 mg/dL [facility] Comment on above: Rdhovbirvv=808-336 m g/dL & Higher Gjfw=958 mg/dL or greater Laboratory - Chemistry and C hemistry - challengeOrdered By: Mahad Us on 09-29-2024 AST [Catalytic activity/Vol] 21 U/L <32 [facility] Lipid Profileon 09-29-2024 CHOL:HDL 2.94 Normal [facility] Comment on above: Performed By: #### L 100.0100, L506.1001, L501.9985, L500.4050, L500.4100 #### [facility] [address] [place], [address] Cholesterol [Mass/Vol] 211 mg/dL High <=200 [facility] Comment on above: Result Comment: Chol esterol level, Desirable <200 mg/dL Borderline high cholesterol 200-239 mg/dL High cholesterol >=240 mg/dL Recommendations of the NCEP Adult Treatment Panel for the following risk-cutoff thresholds for the [place] population. Performed By: #### L 100.0100, L506.1001, L501.9985, L500.4050, L500.4100 #### [facility] [address] [place], [address] Cholesterol in HDL [Mass/Vol] 72 mg/dL Normal [facility] Comment on above: Result Comment: Kori onal Cholesterol Education Program (NCEP) guidelines: <40 mg/dL: Low HDL-cholesterol (major risk factor for CHD) >= 60 mg/dL: High HDL-cholesterol (negative risk factor for CHD) HDL-cholesterol is affected by a number of factors, e.g. smoking, exercise, hormones, sex and age. Performed By: #### L 100.0100, L506.1001, L501.9985, L500.4050, L500.4100 #### [facility] [address] [place], [address] Cholesterol in LDL [Mass/Vol] 116 mg/dL Normal [facility] Comment on above: Result Comment: Bord okmirq=004-708 mg/dL Higher Kmaq=515 mg/dL or greater Performed By: #### L 100.0100, L506.1001, L501.9985, L500.4050, L500.4100 #### [facility] [address] [place], [address] Cholesterol in VLDL [Mass/Vol] 24 mg/dL Normal 5-40 [facility] Comment on above: Performed By: #### L 100.0100, L506.1001, L501.9985, L500.4050, L500.4100 #### [facility] [address] [place], [address] Triglyceride [Mass/Vol] 118 mg/dL Normal [facility] Comment on above: Result Comment: The drugs N-Acetylcysteine and Metamizole may falsely depress this assay. Normal range: <150 mg/dL Borderline High: 150-199 mg/dL High: 200-499 mg/dL Very High: >500 mg/dL Performed By: #### L 100.0100, L506.1001, L501.9985, L500.4050, L500.4100 #### [facility] [address] [place], [address] MCV (mean corpuscular volume ) determinationOrdered By: Mahad Us on 09-29-2024 MCV (RBC) [Entitic vol] 91.6 fL 81-99 [facility] Mean corpuscular hemoglobin (MCH) determinationOrdered By: Mahad Us on 09-29-2024 MCH (RBC) [Entitic mass] 29.6 pg 27.0-32.0 [facility] Mean corpuscular hemoglobin concentration (MCHC) determinationOrdered By: Mahad Us on 09-29-2024 MCHC (RBC) [Mass/Vol] 32.3 g/dL 32-36 [facility] Mean platelet volume determi nationOrdered By: Mahad Us on 09-29-2024 Platelet mean volume (Bld) [Entitic vol] 9.3 fL 6.2-12.0 [facility] Monocyte percentageOrdered B y: Mahad Us on 09-29-2024 Monocytes/100 WBC (Bld) 8.3 % 0-10 [facility] Neutrophil percentageOrdered By: Mahad Us on 09-29-2024 Neutrophils/100 WBC (Bld) 67.7 % 47-70 [facility] Nucleated red blood cell per centageOrdered By: Mahad Us on 09-29-2024 Nucleated RBC/100 WBC (Bld) [Ratio] 0 % 0-5 [facility] Platelet countOrdered By: Hilda Us on 09-29-2024 Platelets (Bld) [#/Vol] 222 10*3/uL 150-450 [facility] Potassium measurement (mass/ volume)Ordered By: Mahad Us on 09-29-2024 Potassium (Unsp spec) [Mass/Vol] 4.2 mmol/L 3.3-5.1 [facility] RBC Auto (Bld) [#/Vol]Ordere d By: Mahad Us on 09-29-2024 RBC (Bld) [#/Vol] 4.53 10*6/uL 4.2-5.4 [facility] Screening total cholesterol/ high density lipoprotein (HDL) cholesterol ratioOrdered By: Mahad Us on 09-29-2024 Cholesterol.total/Lissette sterol in HDL [Mass ratio] 2.94 {ratio} [facility] Serum creatinine measurement (mass/volume)Ordered By: Mahad Us on 09-29-2024 Creatinine [Mass/Vol] 0.96 mg/dL 0.70-1.20 [facility] Serum globulin measurementOr dered By: Mahad Us on 09-29-2024 Globulin (S) [Mass/Vol] 3.2 g/dL 2.2-4.2 [facility] Serum glucose measurement (m ass/volume)Ordered By: Mahad Us on 09-29-2024 Glucose [Mass/Vol] 72 mg/dL 70-99 [facility] Serum or plasma alanine linder otransferase (ALT) measurementOrdered By: Mahad Us on 09-29-2024 ALT [Catalytic activity/Vol] 25 U/L <35 [facility] Serum or plasma albumin andrew urement (mass/volume)Ordered By: Mahad Us on 09-29-2024 Albumin [Mass/Vol] 4.0 g/dL 3.4-4.8 [facility] Serum or plasma albumin/glob ulin mass ratioOrdered By: Mahad Us on 09-29-2024 Albumin/Globulin [Mass ratio] 1.3 {ratio} 0.9-2.4 [facility] Serum or plasma alkaline jun sphatase measurementOrdered By: Mahad Us on 09-29-2024 ALP [Catalytic activity/Vol] 83 U/L 35-104 [facility] Serum or plasma calcium andrew urement (mass/volume)Ordered By: Mahad Us on 09-29-2024 Calcium [Mass/Vol] 9.5 mg/dL 7.6-11.0 [facility] Serum or plasma cholesterol in HDL measurement (mass/volume)Ordered By: Mahad Us on 09-29-2024 Cholesterol in HDL [Mass/Vol] 72 mg/dL >40 [facility] Comment on above: National Cholesterol Education Program (NCEP) guidelines:<40 mg/dL: Low HDL-cholesterol (major risk factor for CHD)>= 60 mg/dL: High HDL-cholesterol (negative risk factor for CHD)HDL-cholesterol is affected by a number of factors, e.g. smoking, exercise, hormones, sex and age. Serum or plasma cholesterol measurement (mass/volume)Ordered By: Mahad Us on 09-29-2024 Cholesterol [Mass/Vol] 211 mg/dL High <201 [facility] Comment on above: Cholesterol level, D esirable <200 mg/dLBorderline high cholesterol 200-239 mg/dLHigh cholesterol >=240 mg/dLRecommendations of the NCEP Adult Treatment Panel for the following risk-cutoff thresholds for the [place] population. Serum or plasma urea nitroge n measurement (mass/volume)Ordered By: Mahad Us on 09-29-2024 Urea nitrogen [Mass/Vol] 25 mg/dL High 4-19 [facility] Sodium levelOrdered By: Christine Us on 09-29-2024 Sodium [Moles/Vol] 141 mmol/L 133-145 [facility] Total proteinOrdered By: Cade Us on 09-29-2024 Protein [Mass/Vol] 7.2 g/dL 5.9-8.4 [facility] Triglycerides measurementOrd ered By: Mahad Us on 09-29-2024 Triglyceride [Mass/Vol] 118 mg/dL <199 [facility] Comment on above: The drugs N-Acetylcy steine and Metamizole may falsely depress this assay. Normal range: <150 mg/dLBorderline High: 150-199 mg/dLHigh: 200-499 mg/dLVery High: >500 mg/dL Vitamin D,25 Hydroxyon 09-29 Vitamin D 25-OH 30.2 ng/mL Normal 30-100 [facility] Comment on above: Result Comment: Kaylin min D Status Deficiency: <20 ng/mL (50nmol/L) Insufficiency: 20-30 ng/mL (50-75 nmol/L) Sufficiency: 30-100 ng/mL (75-250 nmol/L) Toxicity: >100 ng/mL (>250 nmol/L) Performed By: #### L 100.0100, L506.1001, L501.9985, L500.4050, L500.4100 #### [facility] [address] [place], [address] White blood cell (WBC) count Ordered By: Mahad Us on 09-29-2024 WBC (Bld) [#/Vol] 6.3 10*3/uL 4.4-11.0 [facility] A1Con 08-20-2024 Glucose [Mass/Vol] 111 mg/dL Normal [facility] Comment on above: Order Comment: jahaira escobar only wanted this test done. - KK 08/20/24 0914AM Result Comment: Deepti mated Average Glucose calculated by equation ((28.7xA1C)-46.7) Estimated average glucose (eAG) is a calculated value from Hemoglobin A1C and is call center representative of the average blood glucose level in the last 2-3 month period. Normal range: less than 114 mg/dL Performed By: #### A 1C #### [address] [place], [place] [address] HbA1c (Bld) [Mass fraction] 5.5 % Normal 4.3-6.4 [facility] Comment on above: Order Comment: jahaira escobar only wanted this test done. - KK 08/20/24 0914AM Performed By: #### A 1C #### [facility] [address] [place], [place] [address] LABORATORYOrdered By: Dana Concepcion on 08-20-2024 Albumin DL <= 20 mg/L (U) [Mass/Vol] 5.9 mg/L Invalid Interpretation Code AO ADM SS Albumin/Creatinine DL <= 20 mg/L (U) [Mass ratio] 5 mg/G Normal 0 - 30 mg/G AO Chemistry S Creatinine (U) [Mass/Vol] 107.8 mg/dL Normal 29.0 - 226.0 mg/dL AO ADM SS LABORATORYOrdered By: SYSTEM SYSTEM on 08-20-2024 Glucose [Mass/Vol] 111 mg/dL Invalid Interpretation Code AO Chemistry S Comment on above: Interpretive Data: E stimated average glucose (eAG) is a calculated value from Hemoglobin A1C and is call center representative of the average blood glucose level in the last 2-3 month period. Normal range: less than 114 mg/dL HbA1c (Bld) [Mass fraction] 5.5 % Normal 4.3 - 6.4 % AO ADM SS MALBRon 08-20-2024 U Creatinine 107.8 mg/dL Normal 29.0-226.0 [facility] Comment on above: Performed By: #### M ALBR #### [address] [address] U Microalb 5.9 mg/L Normal [facility] Comment on above: Performed By: #### M ALBR #### [address] [address] U Ratio Alb/Cre 5 mg/G Normal 0-30 [facility] Comment on above: Performed By: #### M ALBR #### [address] [address] Thyroidon 08-17-2024 Thyroid [facility] Imaging Services [address] [place] [address] Thyroid MR#: [id number] Acct: [id number] Name: LISA ONEIL Rep #: [id number] : 1945 F 78 From: Gilberto kumar MD PCP: Dr. Mini Tyson MD Status: REG CLI Study: Thyroid Date of Exam: 08/17/24 Exam# [id number] Ordering Dr: Ese Costello MD PROCEDURE: THYROID 08/17/2024 REASON FOR EXAM: F/U MNG TECHNIQUE: High-frequency thyroid ultrasound, including grayscale and color-flow images. REFERENCE LINKS: TI-RADS Chart: [email or web address] TI-RADS Calculator Tool with Reference Images: [email or web address] [email or web address] COMPARISON: Prior study dated August 11, 2023. FINDINGS: Right thyroid lobe size: 5.6 cm 3.4 cm 2.8 cm Left thyroid lobe size: 4.7 cm 1.3 cm x 1.8 cm Isthmus: 0.5 cm Background parenchymal echotexture is heterogeneous Nodules: . Lobe: Right, Location: Upper pole, Size: 3.1 cm 2.2 cm 2.5 cm cm, Stability: Stable Composition: Solid or almost completely solid (+2) Echogenicity: Hypoechoic (+2) Margin: Smooth (+0) Shape: Wider than tall (+0) Echogenic Foci: None (+0) TI-RADS: <2 = TR 1 * 2 = TR 2 * 3 = TR 3 * 4-6 = TR 4 * >6 = TR 5 . Lobe: Right, Location: Midpole, Size: 3.5 cm x 3 cm x 2.6 cm, Stability: Stable Composition: Solid or almost completely solid (+2) Echogenicity: Hypoechoic (+2) Margin: Smooth (+0) Shape: Wider than tall (+0) Echogenic Foci: None (+0) TI-RADS: <2 = TR 1 * 2 = TR 2 * 3 = TR 3 * 4-6 = TR 4 * >6 = TR 5 Stable 1.3 cm x 1 cm 1.3 cm hypoechoic solid nodule with increased vascularity in the left lobe. Essentially stable examination. Fine-needle aspiration of the right thyroid nodule recommended if not already performed. US/Thyroid IMPRESSION: Stable examination. RECOMMENDATION: Based on most suspicious nodule. Nodule size = largest diameter Only evaluate nodule if =>5 mm. Growth > 20% in 2 dimensions = worsening. Follow up to 4 nodules. Recommend biopsy for no more than 2 nodules. Reading Location: [place] [address] CC: Dr. Mini Tyson MD; Dr. Ese Costello MD Disintegrator: Signed Normal [facility] .GFRon 08-06-2024 Estimated Glomerular Filtration Rate 58 ml/min/1.73sqm Normal [facility] Comment on above: Result Comment: Stages of Chronic Kidney Disease (CKD) Stage Description eGFR(ml/min/1.73 sq.m.) CKD 1 Normal kidney function or >=90 normal kindney function with possible kidney damage (ex. Proteinuria) CKD 2 Kidney damage with mild loss 60-89 of kidney function CKD 3a Mild to moderate loss of kidney 45-59 function CKD 3b Moderate to severe loss of 30-44 of kindey function CKD 4 Severe loss of kidney function 15-29 CKD 5 Kidney failure <15 Note: (go live 2024) the eGFR calculation was updated to the 2020 CKD-EPI creatinine equation without a race factor to calculate the eGFR results. Performed By: #### G FR, FT4, CMP, FT3, TSH, VIDH #### [place] [address] #### THYAB #### [address] 08-06-2024 Albumin Level 3.4 G/dL Normal 3.4-4.8 [facility] Comment on above: Performed By: #### G FR, FT4, CMP, FT3, TSH, VIDH #### [place] [address] #### THYAB #### [place] [address] Albumin/Globulin [Mass ratio] 0.9 {ratio} Low 1.1-2.5 [facility] Comment on above: Performed By: #### G FR, FT4, CMP, FT3, TSH, VIDH #### [place] [address] #### THYAB #### [place] [address] ALP [Catalytic activity/Vol] 77 U/L Normal 40-135 [facility] Comment on above: Performed By: #### G FR, FT4, CMP, FT3, TSH, VIDH #### [place] [address] #### THYAB #### [address] [address] ALT [Catalytic activity/Vol] 53 U/L Normal 14-59 [facility] Comment on above: Performed By: #### G FR, FT4, CMP, FT3, TSH, VIDH #### [place] [address] #### THYAB #### [address] [address] AST [Catalytic activity/Vol] 28 U/L Normal 10-40 [facility] Comment on above: Performed By: #### G FR, FT4, CMP, FT3, TSH, VIDH #### [place] [address] #### THYAB #### [place] [address] Bili Total 0.5 mg/dL Normal 0.2-1.0 [facility] Comment on above: Result Comment: Use of this assay is not recommended for patients undergoing treatment with eltrombopag due to the potential for falsely elevated results. Performed By: #### G FR, FT4, CMP, FT3, TSH, VIDH #### [place] [address] #### THYAB #### [place] [address] BUN/Creatinine Ratio 28 ratio High 7-27 [facility] Comment on above: Performed By: #### G FR, FT4, CMP, FT3, TSH, VIDH #### [place] [address] #### THYAB #### [place] [address] Calcium [Mass/Vol] 9.4 mg/dL Normal 8.4-10.2 [facility] Comment on above: Performed By: #### G FR, FT4, CMP, FT3, TSH, VIDH #### [place] [address] #### THYAB #### [address] [address] Chloride [Moles/Vol] 107 mmol/L Normal 98-107 [facility] Comment on above: Performed By: #### G FR, FT4, CMP, FT3, TSH, VIDH #### [place] [address] #### THYAB #### [address] [address] CO2 [Moles/Vol] 27 mmol/L Normal 23-31 [facility] Comment on above: Performed By: #### G FR, FT4, CMP, FT3, TSH, VIDH #### [place] [address] #### THYAB #### [address] [address] Creatinine [Mass/Vol] 1.01 mg/dL High 0.51-0.95 [facility] Comment on above: Performed By: #### G FR, FT4, CMP, FT3, TSH, VIDH #### [place] [address] #### THYAB #### [address] [address] Electrolyte Balance 9.0 mEq/L Normal 4.0-15.0 [facility] Comment on above: Performed By: #### G FR, FT4, CMP, FT3, TSH, VIDH #### [place] [address] #### THYAB #### [address] [address] Globulin 3.8 G/dL Normal 2.7-4.4 [facility] Comment on above: Performed By: #### G FR, FT4, CMP, FT3, TSH, VIDH #### [place] [address] #### THYAB #### [address] [address] Glucose [Mass/Vol] 89 mg/dL Normal 83-110 [facility] Comment on above: Performed By: #### G FR, FT4, CMP, FT3, TSH, VIDH #### [address] [address] #### THYAB #### [address] [address] Potassium [Moles/Vol] 4.6 mmol/L Normal 3.5-5.1 [facility] Comment on above: Performed By: #### G FR, FT4, CMP, FT3, TSH, VIDH #### [address] [address] #### THYAB #### [address] [address] Sodium [Moles/Vol] 143 mmol/L Normal 136-145 [facility] Comment on above: Performed By: #### G FR, FT4, CMP, FT3, TSH, VIDH #### [address] [address] #### THYAB #### [address] [address] Total Protein 7.2 G/dL Normal 6.4-8.2 [facility] Comment on above: Performed By: #### G FR, FT4, CMP, FT3, TSH, VIDH #### [address] [address] #### THYAB #### [address] [address] Urea nitrogen [Mass/Vol] 28 mg/dL High 7-18 [facility] Comment on above: Performed By: #### G FR, FT4, CMP, FT3, TSH, VIDH #### [address] [address] #### THYAB #### [address] [address] FT3on 08-06-2024 Free T3 [Mass/Vol] 2.55 pg/mL Normal 2.30-4.00 [facility] Comment on above: Performed By: #### G FR, FT4, CMP, FT3, TSH, VIDH #### [place] [address] [place], [place] [address] #### THYAB #### [address] [address] FT4on 08-06-2024 Free T4 [Mass/Vol] 0.94 ng/dL Normal 0.76-1.46 [facility] Comment on above: Performed By: #### G FR, FT4, CMP, FT3, TSH, VIDH #### [place] [address] [place], [place] [address] #### THYAB #### [place] [address] LABORATORYOrdered By: SYSTEM SYSTEM on 08-06-2024 25-hydroxyvitamin D3 [Mass/Vol] 33.3 ng/mL Invalid Interpretation Code AO ADM SS Comment on above: Interpretive Data: I nterpretive Values Based on Total 25(OH) Vitamin D: Deficient <20 ng/mL Insufficient 20 - <30 ng/mL Sufficient 30-100 ng/mL Albumin BCP dye [Mass/Vol] 3.4 G/dL Normal 3.4 - 4.8 G/dL AO ADM SS Albumin/Globulin [Mass ratio] 0.9 {ratio} Low 1.1 - 2.5 ratio AO ADM SS ALP [Catalytic activity/Vol] 77 U/L Normal 40 - 135 U/L AO ADM SS ALT With P-5'-P [Catalytic activity/Vol] 53 U/L Normal 14 - 59 U/L AO ADM SS AST With P-5'-P [Catalytic activity/Vol] 28 U/L Normal 10 - 40 U/L AO ADM SS Bilirubin [Mass/Vol] 0.5 mg/dL Normal 0.2 - 1 .0 mg/dL AO ADM SS Comment on above: Interpretive Data: U se of this assay is not recommended for patients undergoing treatment with eltrombopag due to the potential for falsely elevated results. Calcium [Mass/Vol] 9.4 mg/dL Normal 8.4 - 10. 2 mg/dL AO ADM SS Chloride [Moles/Vol] 107 mmol/L Normal 98 - 10 7 mmol/L AO ADM SS CO2 [Moles/Vol] 27 mmol/L Normal 23 - 31 mmol/L AO ADM SS Creatinine [Mass/Vol] 1.01 mg/dL High 0.51 - 0.95 mg/dL AO ADM SS Electrolyte Balance 9.0 mEq/L Normal 4.0 - 15 .0 mEq/L AO ADM SS Estimated Glomerular Filtration Rate 58 ml/min/1.73sqm Invalid Interpretation Code AO Chemistry S Comment on above: Interpretive Data: Stages of Chronic Kidney Disease (CKD) Stage Description eGFR(ml/min/1.73 sq.m.) CKD 1 Normal kidney function or >=90 normal kindney function with possible kidney damage (ex. Proteinuria) CKD 2 Kidney damage with mild loss 60-89 of kidney function CKD 3a Mild to moderate loss of kidney 45-59 function CKD 3b Moderate to severe loss of 30-44 of kindey function CKD 4 Severe loss of kidney function 15-29 CKD 5 Kidney failure <15 Note: (go live 2024) the eGFR calculation was updated to the 2020 CKD-EPI creatinine equation without a race factor to calculate the eGFR results. Free T3 [Mass/Vol] 2.55 pg/mL Normal 2.30 - 4. 00 pg/mL AO ADM SS Free T4 [Mass/Vol] 0.94 ng/dL Normal 0.76 - 1. 46 ng/dL AO ADM SS Globulin 3.8 G/dL Normal 2.7 - 4.4 G/dL AO ADM SS Glucose [Mass/Vol] 89 mg/dL Normal 83 - 110 mg/dL AO ADM SS Potassium [Moles/Vol] 4.6 mmol/L Normal 3.5 - 5.1 mmol/L AO ADM SS Protein [Mass/Vol] 7.2 G/dL Normal 6.4 - 8.2 G/dL AO ADM SS Sodium [Moles/Vol] 143 mmol/L Normal 136 - 145 mmol/L AO ADM SS Thyroglobulin Ab IA Qn 32 unit/mL Normal 15 - 60 unit/mL AH ADM SS Comment on above: Interpretive Data: * *Note - New Reference Range in effect 19 TPO Ab IA Qn 43 unit/mL Normal 0 - 60 unit/mL AH ADM SS Comment on above: Interpretive Data: * *Note - New Reference Range in effect 19 TSH Qn 0.97 m[IU]/L Normal 0.36 - 3.74 mcIU/mL AO ADM SS Urea nitrogen [Mass/Vol] 28 mg/dL High 7 - 18 mg/dL AO ADM SS Urea nitrogen/Creatinine [Mass ratio] 28 ratio High 7 - 27 ratio AO ADM SS THYABon 08-06-2024 anti-Thyroid Peroxidase 43 units/ml Normal 0-60 [facility] Comment on above: Result Comment: No te - New Reference Range in effect 19 Performed By: #### G FR, FT4, CMP, FT3, TSH, VIDH #### [place] [address] #### THYAB #### [place] [address] Thyroglobulin Ab 32 units/ml Normal 15-60 [facility] Comment on above: Result Comment: No te - New Reference Range in effect 19 Performed By: #### G FR, FT4, CMP, FT3, TSH, VIDH #### [place] [address] #### THYAB #### [place] [address] TSHon 08-06-2024 TSH Qn 0.97 m[IU]/L Normal 0.36-3.74 [facility] Comment on above: Performed By: #### G FR, FT4, CMP, FT3, TSH, VIDH #### [place] [address] #### THYAB #### [place] [address] VIDHon 08-06-2024 Vit. D 25-Hydroxy 33.3 ng/mL Normal [facility] Comment on above: Result Comment: Inte rpretive Values Based on Total 25(OH) Vitamin D: Deficient <20 ng/mL Insufficient 20 - <30 ng/mL Sufficient 30-100 ng/mL Performed By: #### G FR, FT4, CMP, FT3, TSH, VIDH #### [facility] [address] [place], [place] [address] #### THYAB #### [address] [address] 12 Lead E[facility] [place] [facility] [place] 05-03-2024 12 Lead EKG performed by [facility] [address] [place] [address] 12 Lead EKG performed by [facility] 05/03/245 MR#: [id number] Acct: [id number] Name: COVERTLISA Rep #: [id number] : 1945 78 From: Gigi Jain MD Attending Dr: Dr. Gigi Jain MD Status: DE P AMB Ordering Dr: Gigi Jain MD Date: 05/03/24 Location: [facility] Sex: F C Admitted: BMS/12 Lead EKG performed by [facility] ECG Report Interpretation ---Sinus Bradycardia -RSR(V1) -nondiagnostic. PROBABLY NORMALElectronically signed on 05/03/2024 at 11:[address] Gigi Jain [place] [employer] Version 8610 05/03/241122 Date Gigi Jain MD CC: Dr. Mini Tyson MD Date Dictated: 05/03/241124 Date Transcribed: 05/03/241124 Disintegrator: Signed Normal [facility] Cardiology Visit Reporton Cardiology Visit Report [facility] [address] [place] [address] OFFICE VISIT Date of Service: 05/03/24 MR#: [id number] Acct: [id number] Name: COVERTLISA Rep #: [id number] : 1945 Provider: Dr. Gigi mejias MD Age/Sex: 78/F Location: [facility] Status: Signed HPI HPI History of Present Illness Details: Patient is a pleasant 78-year-old white female who comes in for monitoring of her cardiovascular status. The patient carries a history of paroxysmal atrial fibrillation. She was evaluated back in the summer 2023 and had an echocardiogram which showed mild to moderate mitral regurgitation mildly enlarged left atrium and a normal LV. Stress test was negative she had an event monitor August 2023 which showed atrial fibrillation with an average heart rate of 90. She had had a prior Holter monitor done May 2023 that showed sinus rhythm. The patient was evaluated by electrophysiology Dr. Trejo at [facility]. The patient underwent successful direct-current cardioversion February 2024 after being started on sotalol. She simply underwent radiofrequency ablation with pulmonary vein isolation April 02, 2024. In the interim she had had short bouts of paroxysmal atrial fibrillation that she was aware of. Since her ablation she does not feel that she has been in any significant atrial fibs but occasionally feels some palpitations. She remains on sotalol 80 mg twice daily. The patient is scheduled to be followed up with the EP at [facility] in May 2024. Currently the patient denies any significant symptoms she denies any PND orthopnea denies any lower extremity edema and reports that she is well aware now when she is in sinus rhythm is her energy level is much better. Intake Vital Signs 11/27/23 10:22 05/03/24 10:47 Height 5 ft 4 in 5 ft 4 in Weight: 173 lb 173 lb BMI 29.7 29.7 BP 125/83 H 99/66 Blood Pressure Location Lt brachial Lt brachial Position Sitting Sitting Respiration 16 18 Pulse 97 62 Pulse Source NIBP Monitor Pulse Oximetry (%) 94 Oxygen Delivery Method room air Intake Visit Reasons: 3 M Sample Clerk Required: No Accompanied by: Self Is patient in pain?: No Allergies No Known Allergies Allergy (Verified 05/03/24 10:47) Medications ???Medication ???Instructions ???Recorded ???Confirmed ???Type apixaban 5 mg tablet (Eliquis) 5 mg PO BID #180 tabs 12/29/2301/15 Rx sotalol 80 mg tablet (Sotalol AF) 80 mg PO BID #180 tabs 01/14/24 0 2/10/25 Rx Have you fallen in the past year?: No PFSH Medical History History of cardioversion Non-rheumatic tricuspid valve insufficiency Non-rheumatic mitral regurgitation Basal cell carcinoma Hyperlipidemia Nonrheumatic mitral (valve) prolapse Paroxysmal atrial fibrillation Syncope and collapse Fatigue SOB (shortness of breath) Family history of hypertension Surgical History History of cardiac radiofrequency ablation History of left heart catheterization (LHC) Family History Father Presence of permanent cardiac pacemaker Mother Atrial fibrillation Mitral valve prolapse Sister Hypertension Social History Smoking Status: Never smoker alcohol intake: never substance use type: does not use caffeine: Yes Type: carbonated beverages what type of physical activity do you participate in: none seatbelt use: always do you feel safe at home: Yes ROS Const Const: Negative for fatigue or weakness ENT ENT: Negative for dizziness or balance problems Cardio Chest Pain: No Palpitations: Yes Edema: None Muscle aches with walking: None Resp Respiratory: Negative for SOB with activity, SOB at rest or SOB orthopnea SOB lying down GI GI: Negative nausea, vomiting or heartburn Musc Musc: Negative for muscle weakness or balance problems Neuro Neuro: Negative for dizziness, lightheadedness, near syncope, syncope or weakness Endo Endo: Negative for fatigue Cardiology Exam Const Appearance: cooperative, healthy appearing, no acute distress and well developed Head Head: normal to inspection Eyes General: appearance normal, both eyes and all related structures Neck Neck: normal visual inspection and no JVD Carotids: Negative bruit Chest Chest inspection: normal inspection of the chest Auscultation: Bilateral: Clear to Auscultation Cardio Rate: regular rate Rhythm: regular rhythm Heart sounds: S1 normal and S2 normal; Negative rub, gallop or murmur GI GI: normal to inspection Neuro General: patient alert and patient oriented x3 Skin S (more content not included)... Normal [facility] .GFRon 04-03-2024 GFR >60 Normal [facility] Comment on above: Result Comment: GFR Population mean for , Non- Americans Ages 20-29 = 116 mL/min/1.73 sq.m. Ages 30-39 = 107 mL/min/1.73 sq.m. Ages 40-49 = 99 mL/min/1.73 sq.m. Ages 50-59 = 93 mL/min/1.73 sq.m. Ages 60-69 = 85 mL/min/1.73 sq.m. Ages 70+ = 75 mL/min/1.73 sq.m. Chronic Kidney Disease: Less than 60 mL/min/1.73 square meters End Stage Renal Disease: Less than 15 mL/min/1.73 square meters Performed By: #### B MP, GFR #### [address] [address] GFR Non- 54 ml/min/1.73sqm [facility] Comment on above: Result Comment: GFR Population mean for , Non- Americans Ages 20-29 = 116 mL/min/1.73 sq.m. Ages 30-39 = 107 mL/min/1.73 sq.m. Ages 40-49 = 99 mL/min/1.73 sq.m. Ages 50-59 = 93 mL/min/1.73 sq.m. Ages 60-69 = 85 mL/min/1.73 sq.m. Ages 70+ = 75 mL/min/1.73 sq.m. Chronic Kidney Disease: Less than 60 mL/min/1.73 square meters End Stage Renal Disease: Less than 15 mL/min/1.73 square meters Performed By: #### B MP, GFR #### [address] [address] [facility] BUN/Creatinine Ratio 26.0 ratio High 10.0-22.0 [facility] Comment on above: Performed By: #### B MP, GFR #### [address] [address] Calcium [Mass/Vol] 8.6 mg/dL Low 8.7-10.4 [facility] Comment on above: Performed By: #### B MP, GFR #### [address] [address] Chloride [Moles/Vol] 111 mmol/L High 98-110 [facility] Comment on above: Performed By: #### B MP, GFR #### [address] [address] CO2 [Moles/Vol] 26 mmol/L Normal 22-32 [facility] Comment on above: Performed By: #### B MP, GFR #### [address] [address] Creatinine [Mass/Vol] 1.00 mg/dL Normal 0.50-1.20 [facility] Comment on above: Result Comment: Test ing performed on [employer] analyzer using enzymatic creatinine methodology. Performed By: #### B MP, GFR #### [address] [address] Electrolyte Balance 7.0 mEq/L Normal 4.0-15.0 [facility] Comment on above: Performed By: #### B MP, GFR #### [address] [address] Glucose [Mass/Vol] 155 mg/dL High 82-115 [facility] Comment on above: Performed By: #### B MP, GFR #### [address] [address] Potassium [Moles/Vol] 4.2 mmol/L Normal 3.5-5.0 [facility] Comment on above: Performed By: #### B MP, GFR #### [address] [address] Sodium [Moles/Vol] 144 mmol/L Normal 136-145 [facility] Comment on above: Performed By: #### B MP, GFR #### [address] [address] Urea nitrogen [Mass/Vol] 26.0 mg/dL High 8.0-22.0 [facility] Comment on above: Performed By: #### B MP, GFR #### [address] [address] LABORATORYOrdered By: SYSTEM SYSTEM on 04-03-2024 Calcium [Mass/Vol] 8.6 mg/dL Low 8.7 - 10. 4 mg/dL ADM SS Chloride [Moles/Vol] 111 mmol/L High 98 - 11 0 mEq/L ADM SS CO2 [Moles/Vol] 26 mmol/L Normal 22 - 32 mEq/L ADM SS Creatinine [Mass/Vol] 1.00 mg/dL Normal 0.50 - 1.20 mg/dL ADM SS Comment on above: Interpretive Data: T esting performed on [employer] analyzer using enzymatic creatinine methodology. Electrolyte Balance 7.0 mEq/L Normal 4.0 - 15 .0 mEq/L ADM SS GFR/1.73 sq M.predicted among blacks MDRD (S/P/Bld) [Vol rate/Area] ml/min/1.73sqm Invalid Interpretation Code QCoefficient Chemistry S Comment on above: Interpretive Data: GFR Population mean for , Non- Americans Ages 20-29 = 116 mL/min/1.73 sq.m. Ages 30-39 = 107 mL/min/1.73 sq.m. Ages 40-49 = 99 mL/min/1.73 sq.m. Ages 50-59 = 93 mL/min/1.73 sq.m. Ages 60-69 = 85 mL/min/1.73 sq.m. Ages 70+ = 75 mL/min/1.73 sq.m. Chronic Kidney Disease: Less than 60 mL/min/1.73 square meters End Stage Renal Disease: Less than 15 mL/min/1.73 square meters GFR/1.73 sq M.predicted among non-blacks MDRD (S/P/Bld) [Vol rate/Area] 54 ml/min/1.73sqm Invalid Interpretation Code QCoefficient Chemistry S Comment on above: Interpretive Data: GFR Population mean for , Non- Americans Ages 20-29 = 116 mL/min/1.73 sq.m. Ages 30-39 = 107 mL/min/1.73 sq.m. Ages 40-49 = 99 mL/min/1.73 sq.m. Ages 50-59 = 93 mL/min/1.73 sq.m. Ages 60-69 = 85 mL/min/1.73 sq.m. Ages 70+ = 75 mL/min/1.73 sq.m. Chronic Kidney Disease: Less than 60 mL/min/1.73 square meters End Stage Renal Disease: Less than 15 mL/min/1.73 square meters Glucose [Mass/Vol] 155 mg/dL High 82 - 115 mg/dL ADM SS Potassium [Moles/Vol] 4.2 mmol/L Normal 3.5 - 5.0 mEq/L ADM SS Sodium [Moles/Vol] 144 mmol/L Normal 136 - 145 mEq/L ADM SS Urea nitrogen [Mass/Vol] 26.0 mg/dL High 8.0 - 22.0 mg/dL ADM SS Urea nitrogen/Creatinine [Mass ratio] 26.0 ratio High 10.0 - 22.0 ratio ADM SS .Auto Diffon 04-02-2024 Basophil, Absolute 0.0 10 3/mcL Normal 0.0-0.3 [facility] Comment on above: Performed By: #### P RO, ABOGEL, GFR, ABSGEL, ANEU, ADIFF, CBC, BMP #### [address] [address] Basophils/100 WBC (Bld) 0.5 % Normal 0.0-2.5 [facility] Comment on above: Performed By: #### P RO, ABOGEL, GFR, ABSGEL, ANEU, ADIFF, CBC, BMP #### [address] [address] Eosinophil, Absolute 0.2 10 3/mcL Normal 0.0-0.7 [facility] Comment on above: Performed By: #### P RO, ABOGEL, GFR, ABSGEL, ANEU, ADIFF, CBC, BMP #### [address] [address] Eosinophils/100 WBC (Bld) 2.5 % Normal 0.0-6.0 [facility] Comment on above: Performed By: #### P RO, ABOGEL, GFR, ABSGEL, ANEU, ADIFF, CBC, BMP #### [address] [address] Lymphocyte, Absolute 0.9 10 3/mcL Normal 0.9-4.3 [facility] Comment on above: Performed By: #### P RO, ABOGEL, GFR, ABSGEL, ANEU, ADIFF, CBC, BMP #### [address] [address] Lymphocytes/100 WBC (Bld) 12.1 % Low 20.0-40.0 [facility] Comment on above: Performed By: #### P RO, ABOGEL, GFR, ABSGEL, ANEU, ADIFF, CBC, BMP #### [address] [address] Monocyte, Absolute 0.3 10 3/mcL Normal 0.1-1.4 [facility] Comment on above: Performed By: #### P RO, ABOGEL, GFR, ABSGEL, ANEU, ADIFF, CBC, BMP #### [address] [address] Monocytes/100 WBC (Bld) 4.4 % Normal 2.0-13.0 [facility] Comment on above: Performed By: #### P RO, ABOGEL, GFR, ABSGEL, ANEU, ADIFF, CBC, BMP #### [address] [address] Neutrophils/100 WBC (Bld) 80.5 % High 50.0-75.0 [facility] Comment on above: Performed By: #### P RO, ABOGEL, GFR, ABSGEL, ANEU, ADIFF, CBC, BMP #### [address] [address] .GFRon 04-02-2024 GFR >60 Normal [facility] Comment on above: Result Comment: GFR Population mean for , Non- Americans Ages 20-29 = 116 mL/min/1.73 sq.m. Ages 30-39 = 107 mL/min/1.73 sq.m. Ages 40-49 = 99 mL/min/1.73 sq.m. Ages 50-59 = 93 mL/min/1.73 sq.m. Ages 60-69 = 85 mL/min/1.73 sq.m. Ages 70+ = 75 mL/min/1.73 sq.m. Chronic Kidney Disease: Less than 60 mL/min/1.73 square meters End Stage Renal Disease: Less than 15 mL/min/1.73 square meters Performed By: #### P RO, ABOGEL, GFR, ABSGEL, ANEU, ADIFF, CBC, BMP #### [address] [address] GFR Non- >60 Normal [facility] Comment on above: Result Comment: GFR Population mean for , Non- Americans Ages 20-29 = 116 mL/min/1.73 sq.m. Ages 30-39 = 107 mL/min/1.73 sq.m. Ages 40-49 = 99 mL/min/1.73 sq.m. Ages 50-59 = 93 mL/min/1.73 sq.m. Ages 60-69 = 85 mL/min/1.73 sq.m. Ages 70+ = 75 mL/min/1.73 sq.m. Chronic Kidney Disease: Less than 60 mL/min/1.73 square meters End Stage Renal Disease: Less than 15 mL/min/1.73 square meters Performed By: #### P RO, ABOGEL, GFR, ABSGEL, ANEU, ADIFF, CBC, BMP #### [address] [address] .NEUABSon 04-02-2024 Neutrophil, Absolute 5.9 10 3/mcL Normal 2.3-8.1 [facility] Comment on above: Performed By: #### P RO, ABOGEL, GFR, ABSGEL, ANEU, ADIFF, CBC, BMP #### [address] [address] ABO/Rh (Gel)on 04-02-2024 ABO/Rh Interp Positive Invalid Interpretation Code [facility] Comment on above: Performed By: #### P RO, ABOGEL, GFR, ABSGEL, ANEU, ADIFF, CBC, BMP #### [address] [address] ABS (Gel)on 04-02-2024 ABSC Interp (Gel) Negative Normal [facility] Comment on above: Performed By: #### P RO, ABOGEL, GFR, ABSGEL, ANEU, ADIFF, CBC, BMP #### [place] [id number] APTTon 04-02-2024 aPTT Coag (Bld) [Time] 32.8 s Normal 25.0-35.0 [facility] Comment on above: Result Comment: For Heparin anticoagulation therapy, the recommended therapeutic range is: 54-77 seconds (APTT Correlation with Anti-Xa therapeutic range of 0.3-0.7 units/ml). PLEASE REFERENCE THE PHARMACY PROTOCOL FOR DOSING. Performed By: #### P RO, ABOGEL, GFR, ABSGEL, ANEU, ADIFF, CBC, BMP #### [address] [address] [facility] BUN/Creatinine Ratio 28.2 ratio High 10.0-22.0 [facility] Comment on above: Performed By: #### P RO, ABOGEL, GFR, ABSGEL, ANEU, ADIFF, CBC, BMP #### [place] [id number] Calcium [Mass/Vol] 8.7 mg/dL Normal 8.7-10.4 [facility] Comment on above: Performed By: #### P RO, ABOGEL, GFR, ABSGEL, ANEU, ADIFF, CBC, BMP #### [place] [phone] Chloride [Moles/Vol] 110 mmol/L Normal 98-110 [facility] Comment on above: Performed By: #### P RO, ABOGEL, GFR, ABSGEL, ANEU, ADIFF, CBC, BMP #### [place] [phone] CO2 [Moles/Vol] 27 mmol/L Normal 22-32 [facility] Comment on above: Performed By: #### P RO, ABOGEL, GFR, ABSGEL, ANEU, ADIFF, CBC, BMP #### [place] [phone] Creatinine [Mass/Vol] 0.85 mg/dL Normal 0.50-1.20 [facility] Comment on above: Result Comment: Test ing performed on LC [employer] analyzer using enzymatic creatinine methodology. Performed By: #### P RO, ABOGEL, GFR, ABSGEL, ANEU, ADIFF, CBC, BMP #### [place] [phone] Electrolyte Balance 7.0 mEq/L Normal 4.0-15.0 [facility] Comment on above: Performed By: #### P RO, ABOGEL, GFR, ABSGEL, ANEU, ADIFF, CBC, BMP #### [address] [address] Glucose [Mass/Vol] 105 mg/dL Normal 82-115 [facility] Comment on above: Performed By: #### P RO, ABOGEL, GFR, ABSGEL, ANEU, ADIFF, CBC, BMP #### [address] [address] Potassium [Moles/Vol] 4.6 mmol/L Normal 3.5-5.0 [facility] Comment on above: Result Comment: Spec imen slightly hemolyzed. Performed By: #### P RO, ABOGEL, GFR, ABSGEL, ANEU, ADIFF, CBC, BMP #### [place] [phone] Sodium [Moles/Vol] 144 mmol/L Normal 136-145 [facility] Comment on above: Performed By: #### P RO, ABOGEL, GFR, ABSGEL, ANEU, ADIFF, CBC, BMP #### [place] [phone] Urea nitrogen [Mass/Vol] 24.0 mg/dL High 8.0-22.0 [facility] Comment on above: Performed By: #### P RO, ABOGEL, GFR, ABSGEL, ANEU, ADIFF, CBC, BMP #### [address] [address] CBCon 04-02-2024 Erythrocyte distribution width (RBC) [Ratio] 14.8 % Normal 11.5-15.5 [facility] Comment on above: Performed By: #### P RO, ABOGEL, GFR, ABSGEL, ANEU, ADIFF, CBC, BMP #### [address] [address] Hematocrit (Bld) [Volume fraction] 36.4 % Normal 34.0-46.0 [facility] Comment on above: Performed By: #### P RO, ABOGEL, GFR, ABSGEL, ANEU, ADIFF, CBC, BMP #### [address] [address] Hgb 12.3 G/dL Normal 12.0-16.0 [facility] Comment on above: Performed By: #### P RO, ABOGEL, GFR, ABSGEL, ANEU, ADIFF, CBC, BMP #### [place] [phone] MCH (RBC) [Entitic mass] 30.5 pg Normal 27.0-33.0 [facility] Comment on above: Performed By: #### P RO, ABOGEL, GFR, ABSGEL, ANEU, ADIFF, CBC, BMP #### [place] [phone] MCHC 33.8 G/dL Normal 32.0-36.0 [facility] Comment on above: Performed By: #### P RO, ABOGEL, GFR, ABSGEL, ANEU, ADIFF, CBC, BMP #### [place] [phone] MCV (RBC) [Entitic vol] 90.3 fL Normal 80.0-99.0 [facility] Comment on above: Performed By: #### P RO, ABOGEL, GFR, ABSGEL, ANEU, ADIFF, CBC, BMP #### [place] [phone] Platelet 201 10 3/mcL Normal 150-450 [facility] Comment on above: Performed By: #### P RO, ABOGEL, GFR, ABSGEL, ANEU, ADIFF, CBC, BMP #### [place] [phone] Platelet mean volume (Bld) [Entitic vol] 7.5 fL Normal 6.6-10.5 [facility] Comment on above: Performed By: #### P RO, ABOGEL, GFR, ABSGEL, ANEU, ADIFF, CBC, BMP #### [place] [phone] RBC 4.03 10 6/mcL Low 4.10-5.30 [facility] Comment on above: Performed By: #### P RO, ABOGEL, GFR, ABSGEL, ANEU, ADIFF, CBC, BMP #### [place] [phone] WBC 7.3 10 3/mcL Normal 4.5-10.8 [facility] Comment on above: Performed By: #### P RO, ABOGEL, GFR, ABSGEL, ANEU, ADIFF, CBC, BMP #### [address] [address] FIBon 04-02-2024 Fibrinogen 464 mg/dL Normal 250-560 [facility] Comment on above: Performed By: #### P RO, ABOGEL, GFR, ABSGEL, ANEU, ADIFF, CBC, BMP #### [facility] [address] [place] [address] LABORATORYOrdered By: SYSTEM SYSTEM on 04-02-2024 Basophils (Bld) [#/Vol] 0.0 103/mcL Normal 0.0 - 0.3 10^3/mcL AH Workflow SS Basophils/100 WBC (Bld) 0.5 % Normal 0.0 - 2.5 % AH Workflow SS Calcium [Mass/Vol] 8.7 mg/dL Normal 8.7 - 10. 4 mg/dL ADM SS Chloride [Moles/Vol] 110 mmol/L Normal 98 - 11 0 mEq/L ADM SS CO2 [Moles/Vol] 27 mmol/L Normal 22 - 32 mEq/L ADM SS Creatinine [Mass/Vol] 0.85 mg/dL Normal 0.50 - 1.20 mg/dL ADM SS Comment on above: Interpretive Data: T esting performed on LC [employer] analyzer using enzymatic creatinine methodology. Electrolyte Balance 7.0 mEq/L Normal 4.0 - 15 .0 mEq/L ADM SS Eosinophils (Bld) [#/Vol] 0.2 103/mcL Normal 0.0 - 0.7 10^3/mcL AH Workflow SS Eosinophils/100 WBC (Bld) 2.5 % Normal 0.0 - 6.0 % AH Workflow SS Erythrocyte distribution width (RBC) [Ratio] 14.8 % Normal 11.5 - 15.5 % AH Workflow SS GFR/1.73 sq M.predicted among blacks MDRD (S/P/Bld) [Vol rate/Area] ml/min/1.73sqm Invalid Interpretation Code Chemistry S Comment on above: Interpretive Data: GFR Population mean for , Non- Americans Ages 20-29 = 116 mL/min/1.73 sq.m. Ages 30-39 = 107 mL/min/1.73 sq.m. Ages 40-49 = 99 mL/min/1.73 sq.m. Ages 50-59 = 93 mL/min/1.73 sq.m. Ages 60-69 = 85 mL/min/1.73 sq.m. Ages 70+ = 75 mL/min/1.73 sq.m. Chronic Kidney Disease: Less than 60 mL/min/1.73 square meters End Stage Renal Disease: Less than 15 mL/min/1.73 square meters GFR/1.73 sq M.predicted among non-blacks MDRD (S/P/Bld) [Vol rate/Area] ml/min/1.73sqm Invalid Interpretation Code Chemistry S Comment on above: Interpretive Data: GFR Population mean for , Non- Americans Ages 20-29 = 116 mL/min/1.73 sq.m. Ages 30-39 = 107 mL/min/1.73 sq.m. Ages 40-49 = 99 mL/min/1.73 sq.m. Ages 50-59 = 93 mL/min/1.73 sq.m. Ages 60-69 = 85 mL/min/1.73 sq.m. Ages 70+ = 75 mL/min/1.73 sq.m. Chronic Kidney Disease: Less than 60 mL/min/1.73 square meters End Stage Renal Disease: Less than 15 mL/min/1.73 square meters Glucose [Mass/Vol] 105 mg/dL Normal 82 - 115 mg/dL ADM SS Hematocrit (Bld) [Volume fraction] 36.4 % Normal 34.0 - 46.0 % AH Workflow SS Hemoglobin (Bld) [Mass/Vol] 12.3 G/dL Normal 12.0 - 16.0 G/dL AH Workflow SS Lymphocytes (Bld) [#/Vol] 0.9 103/mcL Normal 0.9 - 4.3 10^3/mcL AH Workflow SS Lymphocytes/100 WBC (Bld) 12.1 % Low 20.0 - 40.0 % AH Workflow SS MCH (RBC) [Entitic mass] 30.5 pg Normal 27.0 - 33.0 pg AH Workflow SS MCHC 33.8 G/dL Normal 32.0 - 36.0 G/dL AH Workflow SS MCV (RBC) [Entitic vol] 90.3 fL Normal 80.0 - 99.0 fL Workflow SS Monocytes (Bld) [#/Vol] 0.3 103/mcL Normal 0.1 - 1.4 10^3/mcL Workflow SS Monocytes/100 WBC (Bld) 4.4 % Normal 2.0 - 13.0 % AH Workflow SS Neutrophils (Bld) [#/Vol] 5.9 103/mcL Normal 2.3 - 8.1 10^3/mcL Workflow SS Neutrophils/100 WBC (Bld) 80.5 % High 50.0 - 75.0 % Workflow SS Platelet mean volume (Bld) [Entitic vol] 7.5 fL Normal 6.6 - 10.5 fL Workflow SS Platelets (Bld) [#/Vol] 201 103/mcL Normal 150 - 450 10^3/mcL Workflow SS Potassium [Moles/Vol] 4.6 mmol/L Normal 3.5 - 5.0 mEq/L ADM SS Comment on above: Result Comment: Spec imen slightly hemolyzed. PT Coag (PPP) [Time] 13.2 s Normal 9.0 - 1 4.4 seconds [facility] Comment on above: Result Comment: Spec imen hemolyzed. Results may be affected. Interpretive Data: E ffective 10/06/07, Protime results may be affected by some antibiotics (i.e. Ciprofloxacin, Azithromycin, Bactrim) which may potentiate the action of oral anticoagulants, with further increases in Protime/INR. PT International Ratio 1.2 ratio Invalid Interpretation Code [facility] Comment on above: Result Comment: Spec imen hemolyzed. Results may be affected. Interpretive Data: Marissa benson [employer] (CHEST, 1992, 102:312S-25S) recommended therapeutic range for oral anticoagulant therapy is: LOW RISK: Prophylaxis of venous thrombosis INR: 2.0-3.0 Treatment of pulmonary embolism 2.0-3.0 Prevention of systemic embolism 2.0-3.0 HIGH RISK: Mechanical prosthetic valves 2.5-3.5 RBC (Bld) [#/Vol] 4.03 106/mcL Low 4.10 - 5.3 0 10^6/mcL Workflow SS Sodium [Moles/Vol] 144 mmol/L Normal 136 - 145 mEq/L ADM SS Urea nitrogen [Mass/Vol] 24.0 mg/dL High 8.0 - 22.0 mg/dL ADM SS Urea nitrogen/Creatinine [Mass ratio] 28.2 ratio High 10.0 - 22.0 ratio ADM SS WBC (Bld) [#/Vol] 7.3 103/mcL Normal 4.5 - 10.8 10^3/mcL Workflow SS aPTT Coag (Bld) [Time] 32.8 s Normal 25.0 - 35.0 seconds [facility] Comment on above: Interpretive Data: F or Heparin anticoagulation therapy, the recommended therapeutic range is: 54-77 seconds (APTT Correlation with Anti-Xa therapeutic range of 0.3-0.7 units/ml). PLEASE REFERENCE THE PHARMACY PROTOCOL FOR DOSING. Fibrinogen 464 mg/dL Normal 250 - 560 mg/[facility] Coag (PPP) [Time] 12.1 s Normal 9.0 - 1 4.4 seconds [facility] Comment on above: Interpretive Data: E ffective 10/06/07, Protime results may be affected by some antibiotics (i.e. Ciprofloxacin, Azithromycin, Bactrim) which may potentiate the action of oral anticoagulants, with further increases in Protime/INR. PT International Ratio 1.0 ratio Invalid Interpretation Code [facility] Comment on above: Interpretive Data: Marissa benson [employer] (CHEST, 1991, 102:312S-25S) recommended therapeutic range for oral anticoagulant therapy is: LOW RISK: Prophylaxis of venous thrombosis INR: 2.0-3.0 Treatment of pulmonary embolism 2.0-3.0 Prevention of systemic embolism 2.0-3.0 HIGH RISK: Mechanical prosthetic valves 2.5-3.5 LABORATORYOrdered By: Natasha Del Castillo on 04-02-2024 ABO and Rh group Nom (Bld) Blood group O Rh(D) positive Invalid Interpretation Code BB Auto SS Blood group antibody screen Ql Negative ABSC (04/02/24 6:39 AM) Normal BB Auto SS PROon 04-02-2024 INR Coag (PPP) [Relative time] 1.2 {INR} Normal [facility] Comment on above: Result Comment: Spec imen hemolyzed. Results may be affected. [employer] (CHEST, 1992, 102:312S-25S) recommended therapeutic range for oral anticoagulant therapy is: LOW RISK: Prophylaxis of venous thrombosis INR: 2.0-3.0 Treatment of pulmonary embolism 2.0-3.0 Prevention of systemic embolism 2.0-3.0 HIGH RISK: Mechanical prosthetic valves 2.5-3.5 Performed By: #### P RO, ABOGEL, GFR, ABSGEL, ANEU, ADIFF, CBC, BMP #### [address] [address] PT Coag (PPP) [Time] 13.2 s Normal 9.0-14.4 [facility] Comment on above: Result Comment: Spec imen hemolyzed. Results may be affected. Effective 10/06/07, Protime results may be affected by some antibiotics (i.e. Ciprofloxacin, Azithromycin, Bactrim) which may potentiate the action of oral anticoagulants, with further increases in Protime/INR. Performed By: #### P RO, ABOGEL, GFR, ABSGEL, ANEU, ADIFF, CBC, BMP #### [address] [address] INR Coag (PPP) [Relative time] 1.0 {INR} Normal [facility] Comment on above: Result Comment: [employer] (CHEST, 1992, 102:312S-25S) recommended therapeutic range for oral anticoagulant therapy is: LOW RISK: Prophylaxis of venous thrombosis INR: 2.0-3.0 Treatment of pulmonary embolism 2.0-3.0 Prevention of systemic embolism 2.0-3.0 HIGH RISK: Mechanical prosthetic valves 2.5-3.5 Performed By: #### P RO, ABOGEL, GFR, ABSGEL, ANEU, ADIFF, CBC, BMP #### [place] [id number] [place] [address] PT Coag (PPP) [Time] 12.1 s Normal 9.0-14.4 [facility] Comment on above: Result Comment: Effe ctive 10/06/07, Protime results may be affected by some antibiotics (i.e. Ciprofloxacin, Azithromycin, Bactrim) which may potentiate the action of oral anticoagulants, with further increases in Protime/INR. Performed By: #### P RO, ABOGEL, GFR, ABSGEL, ANEU, ADIFF, CBC, BMP #### [address] [address] .Auto Diffon 03-19-2024 Basophil, Absolute 0.0 10 3/mcL Normal 0.0-0.3 [facility] Comment on above: Performed By: #### P RO, ABOGEL, GFR, ABSGEL, ANEU, ADIFF, CBC, BMP #### [address] [address] Basophils/100 WBC (Bld) 0.5 % Normal 0.0-2.5 [facility] Comment on above: Performed By: #### P RO, ABOGEL, GFR, ABSGEL, ANEU, ADIFF, CBC, BMP #### [address] [address] Eosinophil, Absolute 0.2 10 3/mcL Normal 0.0-0.7 [facility] Comment on above: Performed By: #### P RO, ABOGEL, GFR, ABSGEL, ANEU, ADIFF, CBC, BMP #### [address] [address] Eosinophils/100 WBC (Bld) 3.1 % Normal 0.0-6.0 [facility] Comment on above: Performed By: #### P RO, ABOGEL, GFR, ABSGEL, ANEU, ADIFF, CBC, BMP #### [address] [address] Lymphocyte, Absolute 1.2 10 3/mcL Normal 0.9-4.3 [facility] Comment on above: Performed By: #### P RO, ABOGEL, GFR, ABSGEL, ANEU, ADIFF, CBC, BMP #### [address] [address] Lymphocytes/100 WBC (Bld) 20.6 % Normal 20.0-40.0 [facility] Comment on above: Performed By: #### P RO, ABOGEL, GFR, ABSGEL, ANEU, ADIFF, CBC, BMP #### [address] [address] Monocyte, Absolute 0.6 10 3/mcL Normal 0.1-1.4 [facility] Comment on above: Performed By: #### P RO, ABOGEL, GFR, ABSGEL, ANEU, ADIFF, CBC, BMP #### [address] [address] Monocytes/100 WBC (Bld) 9.6 % Normal 2.0-13.0 [facility] Comment on above: Performed By: #### P RO, ABOGEL, GFR, ABSGEL, ANEU, ADIFF, CBC, BMP #### [address] [address] Neutrophils/100 WBC (Bld) 66.2 % Normal 50.0-75.0 [facility] Comment on above: Performed By: #### P RO, ABOGEL, GFR, ABSGEL, ANEU, ADIFF, CBC, BMP #### [address] [address] .GFRon 03-19-2024 GFR >60 [facility] MAIN Comment on above: Result Comment: GFR Population mean for , Non- Americans Ages 20-29 = 116 mL/min/1.73 sq.m. Ages 30-39 = 107 mL/min/1.73 sq.m. Ages 40-49 = 99 mL/min/1.73 sq.m. Ages 50-59 = 93 mL/min/1.73 sq.m. Ages 60-69 = 85 mL/min/1.73 sq.m. Ages 70+ = 75 mL/min/1.73 sq.m. Chronic Kidney Disease: Less than 60 mL/min/1.73 square meters End Stage Renal Disease: Less than 15 mL/min/1.73 square meters Performed By: #### P RO, ABOGEL, GFR, ABSGEL, ANEU, ADIFF, CBC, BMP #### [address] [address] GFR Non- 54 ml/min/1.73sqm [facility] MAIN Comment on above: Result Comment: GFR Population mean for , Non- Americans Ages 20-29 = 116 mL/min/1.73 sq.m. Ages 30-39 = 107 mL/min/1.73 sq.m. Ages 40-49 = 99 mL/min/1.73 sq.m. Ages 50-59 = 93 mL/min/1.73 sq.m. Ages 60-69 = 85 mL/min/1.73 sq.m. Ages 70+ = 75 mL/min/1.73 sq.m. Chronic Kidney Disease: Less than 60 mL/min/1.73 square meters End Stage Renal Disease: Less than 15 mL/min/1.73 square meters Performed By: #### P RO, ABOGEL, GFR, ABSGEL, ANEU, ADIFF, CBC, BMP #### [address] [address] .NEUABSon 03-19-2024 Neutrophil, Absolute 3.9 10 3/mcL Normal 2.3-8.1 [facility] Comment on above: Performed By: #### P RO, ABOGEL, GFR, ABSGEL, ANEU, ADIFF, CBC, BMP #### [address] [address] BMPon 03-19-2024 BUN/Creatinine Ratio 31.0 ratio High 10.0-22.0 [facility] Comment on above: Performed By: #### P RO, ABOGEL, GFR, ABSGEL, ANEU, ADIFF, CBC, BMP #### [address] [address] Calcium [Mass/Vol] 9.0 mg/dL Normal 8.7-10.4 [facility]IN Comment on above: Performed By: #### P RO, ABOGEL, GFR, ABSGEL, ANEU, ADIFF, CBC, BMP #### [address] [address] Chloride [Moles/Vol] 109 mmol/L Normal 98-110 [facility] Comment on above: Performed By: #### P RO, ABOGEL, GFR, ABSGEL, ANEU, ADIFF, CBC, BMP #### [address] [address] CO2 [Moles/Vol] 28 mmol/L Normal 22-32 [facility] Comment on above: Performed By: #### P RO, ABOGEL, GFR, ABSGEL, ANEU, ADIFF, CBC, BMP #### [address] [address] Creatinine [Mass/Vol] 1.00 mg/dL Normal 0.50-1.20 [facility] MAIN Comment on above: Result Comment: Test ing performed on LC [employer] analyzer using enzymatic creatinine methodology. Performed By: #### P RO, ABOGEL, GFR, ABSGEL, ANEU, ADIFF, CBC, BMP #### [address] [address] Electrolyte Balance 6.0 mEq/L Normal 4.0-15.0 [facility] MAIN Comment on above: Performed By: #### P RO, ABOGEL, GFR, ABSGEL, ANEU, ADIFF, CBC, BMP #### [address] [address] Glucose [Mass/Vol] 89 mg/dL Normal 82-115 [facility] MAIN Comment on above: Performed By: #### P RO, ABOGEL, GFR, ABSGEL, ANEU, ADIFF, CBC, BMP #### [address] [address] Potassium [Moles/Vol] 4.4 mmol/L Normal 3.5-5.0 [facility] Comment on above: Performed By: #### P RO, ABOGEL, GFR, ABSGEL, ANEU, ADIFF, CBC, BMP #### [address] [address] Sodium [Moles/Vol] 143 mmol/L Normal 136-145 [facility] MAIN Comment on above: Performed By: #### P RO, ABOGEL, GFR, ABSGEL, ANEU, ADIFF, CBC, BMP #### [address] [address] Urea nitrogen [Mass/Vol] 31.0 mg/dL High 8.0-22.0 [facility] Comment on above: Performed By: #### P RO, ABOGEL, GFR, ABSGEL, ANEU, ADIFF, CBC, BMP #### [address] [address] CBCon 03-19-2024 Erythrocyte distribution width (RBC) [Ratio] 14.7 % Normal 11.5-15.5 [facility] Comment on above: Performed By: #### P RO, ABOGEL, GFR, ABSGEL, ANEU, ADIFF, CBC, BMP #### [place] [address] Hematocrit (Bld) [Volume fraction] 37.4 % Normal 34.0-46.0 [facility] MAIN Comment on above: Performed By: #### P RO, ABOGEL, GFR, ABSGEL, ANEU, ADIFF, CBC, BMP #### [place] [id number] Hgb 12.5 G/dL Normal 12.0-16.0 [facility] Comment on above: Performed By: #### P RO, ABOGEL, GFR, ABSGEL, ANEU, ADIFF, CBC, BMP #### [place] [address] MCH (RBC) [Entitic mass] 29.7 pg Normal 27.0-33.0 [facility] Comment on above: Performed By: #### P RO, ABOGEL, GFR, ABSGEL, ANEU, ADIFF, CBC, BMP #### [place] [id number] MCHC 33.4 G/dL Normal 32.0-36.0 [facility] Comment on above: Performed By: #### P RO, ABOGEL, GFR, ABSGEL, ANEU, ADIFF, CBC, BMP #### [place] [id number] MCV (RBC) [Entitic vol] 88.8 fL Normal 80.0-99.0 [facility] MAIN Comment on above: Performed By: #### P RO, ABOGEL, GFR, ABSGEL, ANEU, ADIFF, CBC, BMP #### [place] [id number] Platelet 215 10 3/mcL Normal 150-450 [facility] MA[facility] Comment on above: Performed By: #### P RO, ABOGEL, GFR, ABSGEL, ANEU, ADIFF, CBC, BMP #### [place] [address] Platelet mean volume (Bld) [Entitic vol] 7.2 fL Normal 6.6-10.5 [facility] Comment on above: Performed By: #### P RO, ABOGEL, GFR, ABSGEL, ANEU, ADIFF, CBC, BMP #### [place] [address] RBC 4.21 10 6/mcL Normal 4.10-5.30 [facility] Comment on above: Performed By: #### P RO, ABOGEL, GFR, ABSGEL, ANEU, ADIFF, CBC, BMP #### [place] [address] WBC 5.9 10 3/mcL Normal 4.5-10.8 [facility] Comment on above: Performed By: #### P RO, ABOGEL, GFR, ABSGEL, ANEU, ADIFF, CBC, BMP #### [place] [address] LABORATORYOrdered By: SYSTEM SYSTEM on 03-19-2024 Basophils (Bld) [#/Vol] 0.0 103/mcL Normal 0.0 - 0.3 10^3/mcL AH Workflow SS Basophils/100 WBC (Bld) 0.5 % Normal 0.0 - 2.5 % AH Workflow SS Calcium [Mass/Vol] 9.0 mg/dL Normal 8.7 - 10. 4 mg/dL ADM SS Chloride [Moles/Vol] 109 mmol/L Normal 98 - 11 0 mEq/L ADM SS CO2 [Moles/Vol] 28 mmol/L Normal 22 - 32 mEq/L ADM SS Creatinine [Mass/Vol] 1.00 mg/dL Normal 0.50 - 1.20 mg/dL ADM SS Comment on above: Interpretive Data: T esting performed on LC [employer] analyzer using enzymatic creatinine methodology. Electrolyte Balance 6.0 mEq/L Normal 4.0 - 15 .0 mEq/L AH ADM SS Eosinophils (Bld) [#/Vol] 0.2 103/mcL Normal 0.0 - 0.7 10^3/mcL AH Workflow SS Eosinophils/100 WBC (Bld) 3.1 % Normal 0.0 - 6.0 % AH Workflow SS Erythrocyte distribution width (RBC) [Ratio] 14.7 % Normal 11.5 - 15.5 % AH Workflow SS GFR/1.73 sq M.predicted among blacks MDRD (S/P/Bld) [Vol rate/Area] ml/min/1.73sqm Invalid Interpretation Code QCoefficient Chemistry S Comment on above: Interpretive Data: GFR Population mean for , Non- Americans Ages 20-29 = 116 mL/min/1.73 sq.m. Ages 30-39 = 107 mL/min/1.73 sq.m. Ages 40-49 = 99 mL/min/1.73 sq.m. Ages 50-59 = 93 mL/min/1.73 sq.m. Ages 60-69 = 85 mL/min/1.73 sq.m. Ages 70+ = 75 mL/min/1.73 sq.m. Chronic Kidney Disease: Less than 60 mL/min/1.73 square meters End Stage Renal Disease: Less than 15 mL/min/1.73 square meters GFR/1.73 sq M.predicted among non-blacks MDRD (S/P/Bld) [Vol rate/Area] 54 ml/min/1.73sqm Invalid Interpretation Code QCoefficient Chemistry S Comment on above: Interpretive Data: GFR Population mean for , Non- Americans Ages 20-29 = 116 mL/min/1.73 sq.m. Ages 30-39 = 107 mL/min/1.73 sq.m. Ages 40-49 = 99 mL/min/1.73 sq.m. Ages 50-59 = 93 mL/min/1.73 sq.m. Ages 60-69 = 85 mL/min/1.73 sq.m. Ages 70+ = 75 mL/min/1.73 sq.m. Chronic Kidney Disease: Less than 60 mL/min/1.73 square meters End Stage Renal Disease: Less than 15 mL/min/1.73 square meters Glucose [Mass/Vol] 89 mg/dL Normal 82 - 115 mg/dL ADM SS Hematocrit (Bld) [Volume fraction] 37.4 % Normal 34.0 - 46.0 % Workflow SS Hemoglobin (Bld) [Mass/Vol] 12.5 G/dL Normal 12.0 - 16.0 G/dL Workflow SS Lymphocytes (Bld) [#/Vol] 1.2 103/mcL Normal 0.9 - 4.3 10^3/mcL Workflow SS Lymphocytes/100 WBC (Bld) 20.6 % Normal 20.0 - 40.0 % AH Workflow SS MCH (RBC) [Entitic mass] 29.7 pg Normal 27.0 - 33.0 pg AH Workflow SS MCHC 33.4 G/dL Normal 32.0 - 36.0 G/dL AH Workflow SS MCV (RBC) [Entitic vol] 88.8 fL Normal 80.0 - 99.0 fL AH Workflow SS Monocytes (Bld) [#/Vol] 0.6 103/mcL Normal 0.1 - 1.4 10^3/mcL AH Workflow SS Monocytes/100 WBC (Bld) 9.6 % Normal 2.0 - 13.0 % AH Workflow SS Neutrophils (Bld) [#/Vol] 3.9 103/mcL Normal 2.3 - 8.1 10^3/mcL AH Workflow SS Neutrophils/100 WBC (Bld) 66.2 % Normal 50.0 - 75.0 % AH Workflow SS Platelet mean volume (Bld) [Entitic vol] 7.2 fL Normal 6.6 - 10.5 fL AH Workflow SS Platelets (Bld) [#/Vol] 215 103/mcL Normal 150 - 450 10^3/mcL AH Workflow SS Potassium [Moles/Vol] 4.4 mmol/L Normal 3.5 - 5.0 mEq/L AH ADM SS RBC (Bld) [#/Vol] 4.21 106/mcL Normal 4.10 - 5.3 0 10^6/mcL AH Workflow SS Sodium [Moles/Vol] 143 mmol/L Normal 136 - 145 mEq/L AH ADM SS Urea nitrogen [Mass/Vol] 31.0 mg/dL High 8.0 - 22.0 mg/dL AH ADM SS Urea nitrogen/Creatinine [Mass ratio] 31.0 ratio High 10.0 - 22.0 ratio AH ADM SS WBC (Bld) [#/Vol] 5.9 103/mcL Normal 4.5 - 10.8 10^3/mcL AH Workflow SS SCRN MAMM (CAD)W/BORIS Engel n 01-20-2024 SCRN MAMM (CAD)W/BORIS CHERY [facility] Imaging Services [address], [place] [id number] SCRN MAMM (CAD)W/BORIS CHERY MR#: [id number] Acct: [id number] Name: LISA ONEIL Rep #: [id number] : 1945 F 78 From: Gilberto kumar MD PCP: Dr. Mini Tyson MD Status: REG [facility] Study: SCRN MAMM (CAD)W/BORIS BILAT Date of Exam: 12/23 12/15 Exam# [id number] Ordering Dr: [place] [id number] MAMMOGRAPHY - BILATERAL SCREENING REASON FOR EXAM: Female, 78 years old. Routine annual screening examination. PERTINENT HISTORY: Sister with breast cancer. Mother with breast cancer. Aunt with breast cancer. History of remote left breast aspiration. TECHNIQUE: Digital bilateral breast boris (3D mammographic acquisition) in the CC and MLO projections. 2-D mediolateral oblique (MLO) and craniocaudad (CC) views of both breasts were obtained. CAD: Full Field Digital Mammography with Computer Added Detection was performed. COMPARISON: Comparison is made with prior study January 13, 2023 and January 08, 2022. FINDINGS: Breast Composition: The breasts are heterogeneously dense, which may obscure small masses. There are no dominant masses or suspicious calcifications. Stable bilateral fat containing axillary lymph nodes. No other significant abnormalities are identified. There has been no significant change since the prior study. BI/SCRN MAMM (CAD)W/BORIS BILAT IMPRESSION: Stable bilateral screening mammogram. Yearly follow-up mammogram recommended. (A) ASSESSMENT CATEGORY: BIRADS Category 2: Benign. A letter regarding these results will be sent to the patient by the facility within 30 days. Approximately 10% of breast cancers are not detected by mammography. A normal mammogram should not delay biopsy of a clinically suspicious abnormality. [id number] Electronically Signed: Gilberto Henderson MD at 11:57 EDT , CC: Dr. Mini Tyson MD Disintegrator: Signed [facility] .GFRon 01-16-2024 GFR >60 [facility] MAIN Comment on above: Result Comment: GFR Population mean for , Non- Americans Ages 20-29 = 116 mL/min/1.73 sq.m. Ages 30-39 = 107 mL/min/1.73 sq.m. Ages 40-49 = 99 mL/min/1.73 sq.m. Ages 50-59 = 93 mL/min/1.73 sq.m. Ages 60-69 = 85 mL/min/1.73 sq.m. Ages 70+ = 75 mL/min/1.73 sq.m. Chronic Kidney Disease: Less than 60 mL/min/1.73 square meters End Stage Renal Disease: Less than 15 mL/min/1.73 square meters Performed By: #### P RO, ABOGEL, GFR, ABSGEL, ANEU, ADIFF, CBC, BMP #### [place] [address] GFR Non- 54 ml/min/1.73sqm [facility] MAIN Comment on above: Result Comment: GFR Population mean for , Non- Americans Ages 20-29 = 116 mL/min/1.73 sq.m. Ages 30-39 = 107 mL/min/1.73 sq.m. Ages 40-49 = 99 mL/min/1.73 sq.m. Ages 50-59 = 93 mL/min/1.73 sq.m. Ages 60-69 = 85 mL/min/1.73 sq.m. Ages 70+ = 75 mL/min/1.73 sq.m. Chronic Kidney Disease: Less than 60 mL/min/1.73 square meters End Stage Renal Disease: Less than 15 mL/min/1.73 square meters Performed By: #### P RO, ABOGEL, GFR, ABSGEL, ANEU, ADIFF, CBC, BMP #### [address] [address] [facility] 01-16-2024 BUN/Creatinine Ratio 23.0 ratio High 10.0-22.0 [facility] MAIN Comment on above: Performed By: #### P RO, ABOGEL, GFR, ABSGEL, ANEU, ADIFF, CBC, BMP #### [place] [id number] Calcium [Mass/Vol] 9.7 mg/dL Normal 8.7-10.4 [facility] MAIN Comment on above: Performed By: #### P RO, ABOGEL, GFR, ABSGEL, ANEU, ADIFF, CBC, BMP #### [place] [id number] Chloride [Moles/Vol] 109 mmol/L Normal 98-110 [facility] MAIN Comment on above: Performed By: #### P RO, ABOGEL, GFR, ABSGEL, ANEU, ADIFF, CBC, BMP #### [place] [id number] CO2 [Moles/Vol] 28 mmol/L Normal 22-32 [facility] MAIN Comment on above: Performed By: #### P RO, ABOGEL, GFR, ABSGEL, ANEU, ADIFF, CBC, BMP #### [place] [address] Creatinine [Mass/Vol] 1.00 mg/dL Normal 0.50-1.20 [facility] MAIN Comment on above: Result Comment: Test ing performed on LC [employer] analyzer using enzymatic creatinine methodology. Performed By: #### P RO, ABOGEL, GFR, ABSGEL, ANEU, ADIFF, CBC, BMP #### [place] [id number] Electrolyte Balance 3.0 mEq/L Low 4.0-15.0 [facility] MAIN Comment on above: Performed By: #### P RO, ABOGEL, GFR, ABSGEL, ANEU, ADIFF, CBC, BMP #### [place] [id number] Glucose [Mass/Vol] 111 mg/dL Normal 82-115 [facility] MAIN Comment on above: Performed By: #### P RO, ABOGEL, GFR, ABSGEL, ANEU, ADIFF, CBC, BMP #### [address] [address] Potassium [Moles/Vol] 4.2 mmol/L Normal 3.5-5.0 [facility] MAIN Comment on above: Performed By: #### P RO, ABOGEL, GFR, ABSGEL, ANEU, ADIFF, CBC, BMP #### [address] [address] Sodium [Moles/Vol] 140 mmol/L Normal 136-145 [facility] MAIN Comment on above: Performed By: #### P RO, ABOGEL, GFR, ABSGEL, ANEU, ADIFF, CBC, BMP #### [address] [address] Urea nitrogen [Mass/Vol] 23.0 mg/dL High 8.0-22.0 [facility] MAIN Comment on above: Performed By: #### P RO, ABOGEL, GFR, ABSGEL, ANEU, ADIFF, CBC, BMP #### [address] [address] LABORATORYOrdered By: SYSTEM SYSTEM on 01-16-2024 Calcium [Mass/Vol] 9.7 mg/dL Normal 8.7 - 10. 4 mg/dL ADM SS Chloride [Moles/Vol] 109 mmol/L Normal 98 - 11 0 mEq/L ADM SS CO2 [Moles/Vol] 28 mmol/L Normal 22 - 32 mEq/L ADM SS Creatinine [Mass/Vol] 1.00 mg/dL Normal 0.50 - 1.20 mg/dL ADM SS Comment on above: Interpretive Data: T esting performed on LC [employer] analyzer using enzymatic creatinine methodology. Electrolyte Balance 3.0 mEq/L Low 4.0 - 15 .0 mEq/L AH ADM SS GFR/1.73 sq M.predicted among blacks MDRD (S/P/Bld) [Vol rate/Area] ml/min/1.73sqm Invalid Interpretation Code Chemistry S Comment on above: Interpretive Data: GFR Population mean for , Non- Americans Ages 20-29 = 116 mL/min/1.73 sq.m. Ages 30-39 = 107 mL/min/1.73 sq.m. Ages 40-49 = 99 mL/min/1.73 sq.m. Ages 50-59 = 93 mL/min/1.73 sq.m. Ages 60-69 = 85 mL/min/1.73 sq.m. Ages 70+ = 75 mL/min/1.73 sq.m. Chronic Kidney Disease: Less than 60 mL/min/1.73 square meters End Stage Renal Disease: Less than 15 mL/min/1.73 square meters GFR/1.73 sq M.predicted among non-blacks MDRD (S/P/Bld) [Vol rate/Area] 54 ml/min/1.73sqm Invalid Interpretation Code Chemistry S Comment on above: Interpretive Data: GFR Population mean for , Non- Americans Ages 20-29 = 116 mL/min/1.73 sq.m. Ages 30-39 = 107 mL/min/1.73 sq.m. Ages 40-49 = 99 mL/min/1.73 sq.m. Ages 50-59 = 93 mL/min/1.73 sq.m. Ages 60-69 = 85 mL/min/1.73 sq.m. Ages 70+ = 75 mL/min/1.73 sq.m. Chronic Kidney Disease: Less than 60 mL/min/1.73 square meters End Stage Renal Disease: Less than 15 mL/min/1.73 square meters Glucose [Mass/Vol] 111 mg/dL Normal 82 - 115 mg/dL ADM SS Potassium [Moles/Vol] 4.2 mmol/L Normal 3.5 - 5.0 mEq/L ADM SS PT Coag (PPP) [Time] 16.4 s High 9.0 - 1 4.4 seconds [employer] SS Comment on above: Interpretive Data: E ffective 10/06/07, Protime results may be affected by some antibiotics (i.e. Ciprofloxacin, Azithromycin, Bactrim) which may potentiate the action of oral anticoagulants, with further increases in Protime/INR. PT International Ratio 1.4 ratio Invalid Interpretation Code HemAlhaji LUNDBERG Comment on above: Interpretive Data: Marissa benson [employer] (CHEST, 1992, 102:312S-25S) recommended therapeutic range for oral anticoagulant therapy is: LOW RISK: Prophylaxis of venous thrombosis INR: 2.0-3.0 Treatment of pulmonary embolism 2.0-3.0 Prevention of systemic embolism 2.0-3.0 HIGH RISK: Mechanical prosthetic valves 2.5-3.5 Sodium [Moles/Vol] 140 mmol/L Normal 136 - 145 mEq/L ADM SS Urea nitrogen [Mass/Vol] 23.0 mg/dL High 8.0 - 22.0 mg/dL AH ADM SS Urea nitrogen/Creatinine [Mass ratio] 23.0 ratio High 10.0 - 22.0 ratio AH ADM SS PROon 01-16-2024 INR Coag (PPP) [Relative time] 1.4 {INR} Normal [facility] MAIN Comment on above: Result Comment: [employer] (CHEST, 1992, 102:312S-25S) recommended therapeutic range for oral anticoagulant therapy is: LOW RISK: Prophylaxis of venous thrombosis INR: 2.0-3.0 Treatment of pulmonary embolism 2.0-3.0 Prevention of systemic embolism 2.0-3.0 HIGH RISK: Mechanical prosthetic valves 2.5-3.5 Performed By: #### P RO, ABOGEL, GFR, ABSGEL, ANEU, ADIFF, CBC, BMP #### [facility] [address] [place] [id number] PT Coag (PPP) [Time] 16.4 s High 9.0-14.4 [facility] MAIN Comment on above: Result Comment: Effe ctive 10/06/07, Protime results may be affected by some antibiotics (i.e. Ciprofloxacin, Azithromycin, Bactrim) which may potentiate the action of oral anticoagulants, with further increases in Protime/INR. Performed By: #### P RO, ABOGEL, GFR, ABSGEL, ANEU, ADIFF, CBC, BMP #### [facility] [address] [place] [address] Stress Reporton 12-16-2023 Stress Report [facility] Cardiovascular Services [address] [place] [address] MR#: [id number] Acct: [id number] Name: LISA ONEIL Rep #: [id number] : 1945 78 From: Dillon Hemphill MD Primary Care: Dr. Mini Tyson MD Status: REG CLI Referring Dr: Juan M Napoles NP AERONAUTICAL DRAFTER-C Sex: F C Stress Test Report Exercise myocardial perfusion stress test. 78-year-old male with a history of chest pain and A-fib Stress protocol: Resting EKG demonstrates atrial fibrillation with a rate of 79 bpm resting blood pressure is 132/84 mmHg. The patient exercised according to the regular Diony protocol for a total duration of 4 minutes and 46 seconds attaining a maximum heart rate of 130 bpm which was 90% of maximum predicted heart rate; the maximum workload was 7 metabolic equivalents. At rest there were no ST or T wave changes noted to suggest ischemia and at peak exercise upsloping ST changes only were noted which did not meet the criteria for ischemia. No clinical angina was noted the test was terminated due to the target heart rate being achieved/fatigue. The peak blood pressure was 142/80 mmHg. Rate- pressure product was 12,700. Myocardial perfusion protocol. 11.3 mCi of technetium 99m sestamibi was injected at rest. The patient exercised according to regular Diony protocol for total duration of 4 minutes and 46 seconds and at peak exercise 33.2 mCi of technetium 99m sestamibi was injected stress images were obtained stress and rest images were reconstructed in comparing the short axis vertical long and horizontal long axis. Gated images were also obtained. Perfusion SPECT analysis: Review of the stress images demonstrate normal uptake of tracer noted in all areas of the myocardium. The resting images similarly demonstrate normal uptake of tracer noted in all areas of the myocardium. No areas of reversibility are noted to suggest ischemia no previous infarct was noted. Gated SPECT analysis: The gated ejection fraction is 60%. Conclusion: Normal exercise myocardial perfusion stress test at a moderate workload Preserved ejection fraction. 12/16/231618 Date Dillon Hemphill MD CC: AERONAUTICAL DRAFTER-C Juan M Napoles; Dr. Mini Tyson MD Date Dictated: 12/16/231616 Date Transcribed: 12/16/231616 Disintegrator: CO Signed Normal [facility] 12 Lead EKG performed by [facility] on 11-27-2023 12 Lead EKG performed by [place] [address] [place] [address] 12 Lead EKG performed by [facility] 11/27/231045 MR#: [id number] Acct: [id number] Name: LISA ONEIL Rep #: [id number] : 1945 78 From: Juan M CHUNC Attending Dr: LAY HandC Status: DEP AMB Ordering Dr: Juan M Napoles NP AERONAUTICAL DRAFTERShaneC Date: 11/27/23 Location: [facility] Sex: F C Admitted: BMS/12 Lead EKG performed by [facility] ECG Report Interpretation ---Atrial fibrillation Low voltage -possible pulmonary disease. ABNORMAL Electronically signed on 12/01/2023 at 09:[address] Gigi Balderas Software Version 8610 12/01/23926 Date Juan M Napoles NP AERONAUTICAL DRAFTER-C CC: Dr. Mini Tyson MD Date Dictated: 11/27/231045 Date Transcribed: 11/27/231045 Disintegrator: AILIN Signed Normal [facility] Cardiology Visit Reporton Cardiology Visit Report [facility] [address] [place] [address] OFFICE VISIT Date of Service: 11/27/23 MR#: [id number] Acct: [id number] Name: LISA ONEIL Rep #: [id number] : 1945 Provider: PORFIRIO young Age/Sex: 78/F Location: [facility] Status: Signed [facility] History of Present Illness Details: Patient is a pleasant 78-year-old white female is seen in the office for follow-up. She has a history of atrial fibrillation that is persistent and at least documented since September 10, 2023. She was in normal sinus rhythm on a Holter monitor 06/22/2023. We actually did an EKG armhole presser which continued to show atrial fibrillation with a controlled ventricular response in the 100 bpm range. Her blood pressure is 100/68 respiratory rate 16 and unlabored. The patient was evaluated in the office here October 02, 2023 she was having trouble deciding if she was having any symptoms of significance in the atrial fibrillation. Now in retrospect when we bring her back to discuss options it appears that maybe there is been a drop-off in her exercise tolerance but is really does not appear to be quality of life limiting. She acknowledges chest heaviness when climbing stairs. She also notes this when carrying something. She continues with palpitations that she describes as fast. She denies bilateral lower extreme edema or claudication. She continues with shortness of breath when going up stairs. She denies shortness of breath at rest, orthopnea, cough, or PND. She denies lightheadedness, dizziness, near syncope, or syncope. She continues with fatigue. Intake Vital Signs 10/30/23 14:32 11/27/23 10:22 Height 5 ft 4 in 5 ft 4 in Weight: 172 lb 173 lb BMI 29.5 29.7 BP 100/68 125/83 H Blood Pressure Location Lt brachial Lt brachial Position Sitting Sitting Respiration 16 16 Pulse 81 97 Pulse Source Monitor NIBP Pulse Oximetry (%) 94 Oxygen Delivery Method room air Intake Visit Reasons: 4 WK FU Sample Clerk Required: No Is patient in pain?: No Allergies No Known Allergies Allergy (Verified 11/27/23 10:40) Medications ???Medication ???Instructions ???Recorded ???Confirmed ???Type apixaban 5 mg tablet (Eliquis) 5 mg PO BID #60 tabs 10/30/23 11/27/23 Rx metoprolol succinate 25 mg 25 mg PO BID #180 tabs 10/30/23 11/27/23 Rx tablet,extended release 24 hr calcium-vitamin C-vit D2-min tablet 1 tab PO DAILY PRN 11/27/23 11/27/23 History Ejection fraction %: 60 Have you fallen in the past year?: Yes (Fainted x 2 in April) PFSH Medical History Non-rheumatic tricuspid valve insufficiency Non-rheumatic mitral regurgitation Basal cell carcinoma Hyperlipidemia Nonrheumatic mitral (valve) prolapse Paroxysmal atrial fibrillation Syncope and collapse Fatigue SOB (shortness of breath) Family history of hypertension Surgical History History of left heart catheterization (LHC) Family History Father Presence of permanent cardiac pacemaker Mother Atrial fibrillation Mitral valve prolapse Sister Hypertension Social History Smoking Status: Never smoker alcohol intake: never substance use type: does not use caffeine: Yes Type: carbonated beverages what type of physical activity do you participate in: none seatbelt use: always do you feel safe at home: Yes ROS Const Const: Positive for fatigue; Negative for weakness Eyes Eyes: Negative for change in vision ENT ENT: Negative for dizziness, Nosebleed/epistaxis or balance problems Cardio Chest Pain: Yes (Heaviness in chest when climbing stairs, especially if carrying something) Palpitations: Yes feels like its: fast Edema: None Muscle aches with walking: None Resp Respiratory: Positive for SOB with activity (Only when going up stairs); Negative for SOB at rest, SOB orthopnea SOB lying down, Cough or paroxysmal nocturnal dyspnea GI GI: Negative nausea, heartburn or black,tarry stools : Negative for hematuria Musc Musc: Negative for muscle aches/ myalgia, muscle weakness, joint pain or balance problems Skin Skin: Negative rash Neuro Neuro: Negative for dizziness, lightheadedness, near syncope, syncope or weakness Lionel Hematologic/Lymphatic: Negative for easy bleeding or easy bruising Endo Endo: Positive for fatigue Allergy Allergy/Immunology: Negative for rash Cardiology Exam Const Appearance: cooperative, healthy appearing, comfortable and no acute distress Nutritional Appearance: well nourished and overweight Orientation: alert, awake and oriented x3 Head Head: normal to inspection Ears: hearing grossly normal bilaterally Nose: external n (more content not included)... Normal [facility] 12 Lead EKG performed by [facility] on 10-30-2023 12 Lead EKG performed by [facility] [address] [place] [address] 12 Lead EKG performed by [facility] 10/30/23 1430 MR#: [id number] Acct: [id number] Name: THADLISA BRADLEY Rep #: [id number] : 1945 78 From: Gigi Jain MD Attending Dr: Dr. Gigi Jain MD Status: DE P AMB Ordering Dr: Gigi Jain MD Date: 10/30/23 Location: [facility] Sex: F C Admitted: BMS/12 Lead EKG performed by [facility] ECG Report Interpretation ---Atrial fibrillation -Poor R-wave progression -nonspecific. ABNORMAL RHYTHMElectronically signed on 10/30/2023 at 15:[address] Gigi Jain [employer] Version [id number] 10/30/23 1549 Date Gigi Jain MD CC: Dr. Mini Tyson MD Date Dictated: 10/30/23 1430 Date Transcribed: 10/30/23 143 Disintegrator: Signed [facility] Cardiology Visit Reporton Cardiology Visit Report [facility] [address] [place], [place] [address] OFFICE VISIT Date of Service: 10/30/23 MR#: [id number] Acct: [id number] Name: MAURILIOTLISA Rep #: [id number] : 1945 Provider: Dr. Gigi mejias MD Age/Sex: 78/F Location: [facility] Status: Signed [facility] History of Present Illness Details: Patient is a pleasant 78-year-old white female is seen in the office for follow-up. She has a history of atrial fibrillation that is persistent and at least documented since September 10, 2023. She was in normal sinus rhythm on a Holter monitor 06/22/2023. We actually did an EKG armhole presser which today shows consistent continued atrial fibrillation with a controlled ventricular response in the 100 bpm range. Her blood pressure is 100/68 respiratory rate 16 and unlabored. The patient was evaluated in the office here October 02, 2023 she was having trouble deciding if she was having any symptoms of significance in the atrial fibrillation. Now in retrospect when we bring her back to discuss options it appears that maybe there is been a drop-off in her exercise tolerance but is really does not appear to be quality of life limiting. Her most recent echo showed mild left atrial enlargement with 1-2+ mitral regurgitation. She has now been in atrial fibrillation probably 5 months and has atrial enlargement with mitral regurgitation and really has had no nuisance bleeding from the Coumadin although it has been little bit more difficult to titrate due to dietary manipulations. She remains on sotalol at 40 mg twice daily. Her QT interval is normal at about 450 ms. The patient is not sure if she was ever on 80 mg or higher doses of sotalol or not. She believes she may have initially been on 80 mg and had to be dropped back to 40. As requested she did check and she found that it was going to cost her about $25 a month for Eliquis after she pays her deductible on her drug plan. Intake Vital Signs 10/02/23 10:55 10/30/23 14:32 Height 5 ft 4 in 5 ft 4 in Weight: 172 lb BMI 29.5 BP 100/68 Blood Pressure Location Lt brachial Position Sitting Respiration 16 Pulse 81 Pulse Source Monitor Pulse Oximetry (%) 94 Oxygen Delivery Method room air Intake Visit Reasons: See Clinical Note Accompanied by: Self Is patient in pain?: No Allergies No Known Allergies Allergy (Verified 10/30/23 14:33) Medications ???Medication ???Instructions ???Recorded ???Confirmed ???Type calcium-vitamin C-vit D2-min tablet 1 tab PO DAILY 06/28/21 10/30/23 History apixaban 5 mg tablet (Eliquis) 5 mg PO BID #60 tabs 10/30/23 10/30/23 Rx metoprolol succinate 25 mg 25 mg PO BID #180 tabs 10/30/23 10/30/23 Rx tablet,extended release 24 hr Ejection fraction %: 60 Have you fallen in the past year?: Yes (fainting episode 1 in 05/2023 2 in 04/2023) [facility] Medical History Non-rheumatic tricuspid valve insufficiency Non-rheumatic mitral regurgitation Basal cell carcinoma Hyperlipidemia Nonrheumatic mitral (valve) prolapse Paroxysmal atrial fibrillation Syncope and collapse Fatigue SOB (shortness of breath) Family history of hypertension Surgical History History of left heart catheterization (LHC) Family History Father Presence of permanent cardiac pacemaker Mother Atrial fibrillation Mitral valve prolapse Sister Hypertension Social History Smoking Status: Never smoker alcohol intake: never substance use type: does not use caffeine: Yes Type: carbonated beverages what type of physical activity do you participate in: none seatbelt use: always do you feel safe at home: Yes ROS Const Const: Positive for fatigue (Occ) and daytime sleepiness (Occ); Negative for weakness, headache(s), frequent falls, night sweats, difficulty sleeping, excessive sweating or weight gain Eyes Eyes: Positive for blurry vision (wrinkled macula repair, right eye); Negative for blind spots, loss of peripheral vision, transient loss of vision, change in vision, double vision, floaters or tunnel vision ENT ENT: Negative for headache(s), dizziness, tinnitus, Nosebleed/epistaxis, balance problems or neck pain Cardio Chest Pain: No Palpitations: Yes feels like its: fast Edema: None Muscle aches with walking: None Resp Respiratory: Positive for SOB with activity; Negative for SOB at rest, SOB orthopnea SOB lying down, Cough, chest congestion, wheezing or paroxysmal nocturnal dyspnea GI GI: Negative nausea, vomiting, heartburn, bloating, vomiting blood/hematemesis, bright, red blood in stools or black,tarry stools (more content not included)... Normal [facility] Echo Completeon 10-17-2023 Echo Complete [facility] Cardiovascular Services [address] [place] [address] Echo Complete 10/17/23 1309 MR#: [id number] Acct: [id number] Name: LISA ONEIL Rep #: [id number] : 1945 78 From: Marlys Escoto MD Attending Dr: Dr. Gigi Jain MD Status: RE G CLI Ordering Dr: Gigi Jain MD Date: 10/17/23 Location: [facility] Sex: F C Admitted: Reason For Study: Afib Procedure This was a 2D Doppler, Color Flow transthoracic echocardiogram. Exam performed in department. Left Ventricle Normal LV size. The estimated ejection fraction is 60 %. Diastolic function is indeterminate. No regional wall motion abnormalities noted. Right Ventricle Normal RV size. Normal systolic function. Atria The left atrium is mildly enlarged. Normal right atrium. No doppler evidence for ASD. Mitral Valve There is no mitral valve stenosis. Mild-Moderate (1-2+) mitral valve insufficiency. Tricuspid Valve There is no tricuspid stenosis. Moderate (2+) tricuspid valve insufficiency. Pulmonary artery systolic pressure is 40 mmHg. Aortic Valve Trisinus/trileaflet aortic valve. There is no aortic stenosis. No aortic valve insufficiency. Pulmonic Valve There is no pulmonic valvular stenosis. Trivial pulmonic valve insufficiency. Great Vessels Normal aortic root. Pericardium/Pleural No pericardial effusion. MMode/2D Measurements Calculations LVIDd: 4.9 cm IVSd: 0.96 cm Ao root diam: 3.8 cm LVIDs: 3.6 cm LVPWd: 1.1 cm RVDd: 3.8 cm FS: 25.8 % LAV(MOD-bp): 73.0 ml LVAd ap4: 23.4 cm2 SV(MOD-sp4): 32.6 ml LAV(MOD-bp) Indexed: 40.0 ml/m2 LVLd ap4: 6.9 cm LAV(MOD-sp2): 70.8 ml EDV(MOD-sp4): 63.9 ml LAV(MOD-sp4): 62.1 ml EDV(sp4-el): 67.3 ml LVAs ap4: 14.7 cm2 LVLs ap4: 5.8 cm ESV(MOD-sp4): 31.3 ml ESV(sp4-el): 31.7 ml EF(MOD-sp4): 51.0 % EF(sp4-el): 52.8 % SV(sp4-el): 35.6 ml LA A4 area: 21.9 cm2 LA dimension(2D): 5.0 cm RA A4 area: 15.0 cm2 TAPSE: 1.7 cm Doppler Measurements Calculations MV E max kirk: 78.9 cm/sec Lat Peak E' Kirk: 12.0 cm/sec Med Peak E' Kirk: 8.2 cm/sec E/E' lat: 6.6 E/E' med: 9.6 Ao V2 max: 102.3 cm/sec LV V1 max: 96.4 cm/sec PA V2 max: 85.2 cm/sec Ao max P.2 mmHg LV V1 max P.7 mmHg Ao V2 mean: 77.5 cm/sec LV V1 mean P.2 mmHg Ao mean P.6 mmHg LV V1 mean: 69.8 cm/sec Ao V2 VTI: 19.5 cm LV V1 VTI: 19.5 cm AV (velocity ratio): 1.00 PI end-d kirk: 145.3 cm/sec TR max kirk: 294.7 cm/sec TR max P.7 mmHg ECHO/Echo Complete Interpretation Summary The estimated ejection fraction is 60 %. Diastolic function is indeterminate. The left atrium is mildly enlarged. Mild-Moderate (1-2+) mitral valve insufficiency. Ordering Physician: Gigi Jain Referring Physician: Mini Tyson Performed By: Swapna Napoles, ANIKA, RVT 10/20/23927 Date Marlys Escoto MD CC: Dr. Mini Tyson MD; Dr. Gigi Jain MD Date Dictated: 10/17/23 1309 Date Transcribed: 10/20/23927 Disintegrator: Signed Normal [facility] Prothrombin Time w/INRon INR Coag (PPP) [Relative time] 3.1 {INR} Normal [facility] Comment on above: Performed By: #### L 300.3900 #### [facility] [address] [place], [place], [id number] PT Coag (PPP) [Time] 31.6 s High 11.7-14.9 [facility] Comment on above: Performed By: #### L 300.3900 #### [facility] [address] [place], [address] .GFRon 07-23-2023 GFR 61 ml/min/1.73sqm Normal [facility] ([place]) Comment on above: Result Comment: GFR Population mean for , Non- Americans Ages 20-29 = 116 mL/min/1.73 sq.m. Ages 30-39 = 107 mL/min/1.73 sq.m. Ages 40-49 = 99 mL/min/1.73 sq.m. Ages 50-59 = 93 mL/min/1.73 sq.m. Ages 60-69 = 85 mL/min/1.73 sq.m. Ages 70+ = 75 mL/min/1.73 sq.m. Chronic Kidney Disease: Less than 60 mL/min/1.73 square meters End Stage Renal Disease: Less than 15 mL/min/1.73 square meters Performed By: #### V IDH, FT4, A1C, GFR, CMP, FT3, TSH #### [address] [address] GFR Non- 50 ml/min/1.73sqm Normal [facility] ([place]) Comment on above: Result Comment: GFR Population mean for , Non- Americans Ages 20-29 = 116 mL/min/1.73 sq.m. Ages 30-39 = 107 mL/min/1.73 sq.m. Ages 40-49 = 99 mL/min/1.73 sq.m. Ages 50-59 = 93 mL/min/1.73 sq.m. Ages 60-69 = 85 mL/min/1.73 sq.m. Ages 70+ = 75 mL/min/1.73 sq.m. Chronic Kidney Disease: Less than 60 mL/min/1.73 square meters End Stage Renal Disease: Less than 15 mL/min/1.73 square meters Performed By: #### V IDH, FT4, A1C, GFR, CMP, FT3, TSH #### [address] [address] A1Con 07-23-2023 HbA1c (Bld) [Mass fraction] 5.6 % Normal 4.3-6.4 [facility] ([place]) Comment on above: Performed By: #### V IDH, FT4, A1C, GFR, CMP, FT3, TSH #### [address] [address] CMPon 07-23-2023 Albumin Level 3.5 G/dL Normal 3.4-4.8 [facility] ([place]) Comment on above: Performed By: #### V IDH, FT4, A1C, GFR, CMP, FT3, TSH #### [address] [address] Albumin/Globulin [Mass ratio] 1.2 {ratio} Normal 1.1-2.5 [facility] ([place]) Comment on above: Performed By: #### V IDH, FT4, A1C, GFR, CMP, FT3, TSH #### [address] [address] ALP [Catalytic activity/Vol] 76 U/L Normal 40-135 [facility] ([place]) Comment on above: Performed By: #### V IDH, FT4, A1C, GFR, CMP, FT3, TSH #### [address] [address] ALT [Catalytic activity/Vol] 49 U/L Normal 14-59 [facility] ([place]) Comment on above: Performed By: #### V IDH, FT4, A1C, GFR, CMP, FT3, TSH #### [address] [address] AST [Catalytic activity/Vol] 18 U/L Normal 10-40 [facility] ([place]) Comment on above: Performed By: #### V IDH, FT4, A1C, GFR, CMP, FT3, TSH #### [address] [address] Bili Total 0.5 mg/dL Normal 0.2-1.0 [facility] ([place]) Comment on above: Result Comment: Use of this assay is not recommended for patients undergoing treatment with eltrombopag due to the potential for falsely elevated results. Performed By: #### V IDH, FT4, A1C, GFR, CMP, FT3, TSH #### [address] [address] BUN/Creatinine Ratio 16 ratio Normal 7-27 [facility] ([place]) Comment on above: Performed By: #### V IDH, FT4, A1C, GFR, CMP, FT3, TSH #### [address] [address] Calcium [Mass/Vol] 8.6 mg/dL Normal 8.4-10.2 [facility] 1928[facility] ([place]) Comment on above: Performed By: #### V IDH, FT4, A1C, GFR, CMP, FT3, TSH #### [address] [address] Chloride [Moles/Vol] 107 mmol/L Normal 98-107 [facility] ([place]) Comment on above: Performed By: #### V IDH, FT4, A1C, GFR, CMP, FT3, TSH #### [address] [address] CO2 [Moles/Vol] 27 mmol/L Normal 23-31 [facility] ([place]) Comment on above: Performed By: #### V IDH, FT4, A1C, GFR, CMP, FT3, TSH #### [address] [address] Creatinine [Mass/Vol] 1.07 mg/dL High 0.55-1.02 [facility] ([place]) Comment on above: Performed By: #### V IDH, FT4, A1C, GFR, CMP, FT3, TSH #### [address] [address] Electrolyte Balance 9.0 mEq/L Normal 4.0-15.0 [facility] ([place]) Comment on above: Performed By: #### V IDH, FT4, A1C, GFR, CMP, FT3, TSH #### [address] [address] Globulin 3.0 G/dL Normal [facility] ([place]) Comment on above: Performed By: #### V IDH, FT4, A1C, GFR, CMP, FT3, TSH #### [address] [address] Glucose [Mass/Vol] 86 mg/dL Normal 83-110 [facility] ([place]) Comment on above: Performed By: #### V IDH, FT4, A1C, GFR, CMP, FT3, TSH #### [address] [address] Potassium [Moles/Vol] 4.5 mmol/L Normal 3.5-5.1 [facility] ([place]) Comment on above: Performed By: #### V IDH, FT4, A1C, GFR, CMP, FT3, TSH #### [address] [address] Sodium [Moles/Vol] 143 mmol/L Normal 136-145 [facility] ([place]) Comment on above: Performed By: #### V IDH, FT4, A1C, GFR, CMP, FT3, TSH #### [address] [address] Total Protein 6.5 G/dL Normal 6.4-8.2 [facility] ([place]) Comment on above: Performed By: #### V IDH, FT4, A1C, GFR, CMP, FT3, TSH #### [address] [address] Urea nitrogen [Mass/Vol] 17 mg/dL Normal 7-18 [facility] ([place]) Comment on above: Performed By: #### V IDH, FT4, A1C, GFR, CMP, FT3, TSH #### [address] [address] FT3on 07-23-2023 Free T3 [Mass/Vol] 2.82 pg/mL Normal 2.30-4.00 [facility] ([place]) Comment on above: Performed By: #### V IDH, FT4, A1C, GFR, CMP, FT3, TSH #### [address] [address] FT4on 07-23-2023 Free T4 [Mass/Vol] 1.13 ng/dL Normal 0.76-1.46 [facility] ([place]) Comment on above: Performed By: #### V IDH, FT4, A1C, GFR, CMP, FT3, TSH #### [place] [address] [place] [address] LABORATORYOrdered By: SYSTEM SYSTEM on 07-23-2023 25-hydroxyvitamin D3 [Mass/Vol] 31.0 ng/mL Invalid Interpretation Code AO ADM SS Comment on above: Interpretive Data: I nterpretive Values Based on Total 25(OH) Vitamin D: Deficient <20 ng/mL Insufficient 20 - <30 ng/mL Sufficient 30-100 ng/mL Albumin BCP dye [Mass/Vol] 3.5 G/dL Normal 3.4 - 4.8 G/dL AO ADM SS Albumin/Globulin [Mass ratio] 1.2 {ratio} Normal 1.1 - 2.5 ratio AO ADM SS ALP [Catalytic activity/Vol] 76 U/L Normal 40 - 135 U/L AO ADM SS ALT With P-5'-P [Catalytic activity/Vol] 49 U/L Normal 14 - 59 U/L AO ADM SS AST With P-5'-P [Catalytic activity/Vol] 18 U/L Normal 10 - 40 U/L AO ADM SS Bilirubin [Mass/Vol] 0.5 mg/dL Normal 0.2 - 1 .0 mg/dL AO ADM SS Comment on above: Interpretive Data: U se of this assay is not recommended for patients undergoing treatment with eltrombopag due to the potential for falsely elevated results. Calcium [Mass/Vol] 8.6 mg/dL Normal 8.4 - 10. 2 mg/dL AO ADM SS Chloride [Moles/Vol] 107 mmol/L Normal 98 - 10 7 mmol/L AO ADM SS CO2 [Moles/Vol] 27 mmol/L Normal 23 - 31 mmol/L AO ADM SS Creatinine [Mass/Vol] 1.07 mg/dL High 0.55 - 1.02 mg/dL AO ADM SS Electrolyte Balance 9.0 mEq/L Normal 4.0 - 15 .0 mEq/L AO ADM SS Free T3 [Mass/Vol] 2.82 pg/mL Normal 2.30 - 4. 00 pg/mL AO ADM SS Free T4 [Mass/Vol] 1.13 ng/dL Normal 0.76 - 1. 46 ng/dL AO ADM SS GFR/1.73 sq M.predicted among blacks MDRD (S/P/Bld) [Vol rate/Area] 61 ml/min/1.73sqm Invalid Interpretation Code AO Chemistry S Comment on above: Interpretive Data: GFR Population mean for , Non- Americans Ages 20-29 = 116 mL/min/1.73 sq.m. Ages 30-39 = 107 mL/min/1.73 sq.m. Ages 40-49 = 99 mL/min/1.73 sq.m. Ages 50-59 = 93 mL/min/1.73 sq.m. Ages 60-69 = 85 mL/min/1.73 sq.m. Ages 70+ = 75 mL/min/1.73 sq.m. Chronic Kidney Disease: Less than 60 mL/min/1.73 square meters End Stage Renal Disease: Less than 15 mL/min/1.73 square meters GFR/1.73 sq M.predicted among non-blacks MDRD (S/P/Bld) [Vol rate/Area] 50 ml/min/1.73sqm Invalid Interpretation Code AO Chemistry S Comment on above: Interpretive Data: GFR Population mean for , Non- Americans Ages 20-29 = 116 mL/min/1.73 sq.m. Ages 30-39 = 107 mL/min/1.73 sq.m. Ages 40-49 = 99 mL/min/1.73 sq.m. Ages 50-59 = 93 mL/min/1.73 sq.m. Ages 60-69 = 85 mL/min/1.73 sq.m. Ages 70+ = 75 mL/min/1.73 sq.m. Chronic Kidney Disease: Less than 60 mL/min/1.73 square meters End Stage Renal Disease: Less than 15 mL/min/1.73 square meters Globulin 3.0 G/dL Invalid Interpretation Code AO ADM SS Glucose [Mass/Vol] 86 mg/dL Normal 83 - 110 mg/dL AO ADM SS HbA1c (Bld) [Mass fraction] 5.6 % Normal 4.3 - 6.4 % AO ADM SS Potassium [Moles/Vol] 4.5 mmol/L Normal 3.5 - 5.1 mmol/L AO ADM SS Protein [Mass/Vol] 6.5 G/dL Normal 6.4 - 8.2 G/dL AO ADM SS Sodium [Moles/Vol] 143 mmol/L Normal 136 - 145 mmol/L AO ADM SS TSH Qn 0.89 m[IU]/L Normal 0.36 - 3.74 mcIU/mL AO ADM SS Urea nitrogen [Mass/Vol] 17 mg/dL Normal 7 - 18 mg/dL AO ADM SS Urea nitrogen/Creatinine [Mass ratio] 16 ratio Normal 7 - 27 ratio AO ADM SS TSHon 07-23-2023 TSH Qn 0.89 m[IU]/L Normal 0.36-3.74 [facility] ([place]) Comment on above: Performed By: #### V IDH, FT4, A1C, GFR, CMP, FT3, TSH #### [place] [id number] [place] [id number] VIDHon 07-23-2023 Vit. D 25-Hydroxy 31.0 ng/mL Normal [facility] ([place]) Comment on above: Result Comment: Inte rpretive Values Based on Total 25(OH) Vitamin D: Deficient <20 ng/mL Insufficient 20 - <30 ng/mL Sufficient 30-100 ng/mL Performed By: #### V IDH, FT4, A1C, GFR, CMP, FT3, TSH #### [address] [address] Laboratory - CoagulationOrde red By: Juan M Napoles on 07-04-2023 INR Coag (Bld) [Relative time] 2.9 {INR} [facility] PT Coag (PPP) [Time] 30.5 s 11.7-14.9 [facility] - CoagulationOrde red By: Juan M Napoles on 05-29-2023 INR Coag (Bld) [Relative time] 2.7 {INR} [facility] PT Coag (PPP) [Time] 28.6 s 11.7-14.9 [facility] - CoagulationOrde red By: Juan M Napoles on 05-13-2023 INR Coag (Bld) [Relative time] 3.2 {INR} [facility] PT Coag (PPP) [Time] 33.4 s 11.7-14.9 [facility] International normalized rat io (INR) calculationOrdered By: Juan M Napoles on 04-10-2023 INR Coag (PPP) [Relative time] 3.0 {INR} [facility] - CoagulationOrde red By: Juan M Napoles on 04-10-2023 PT Coag (PPP) [Time] 31.3 s 11.7-14.9 [facility] - CoagulationOrde red By: Juan M Napoles on 02-21-2023 PT Coag (PPP) [Time] 25.9 s 11.7-14.9 [facility] Whole blood international no rmalized ratio (INR)Ordered By: Juan M Napoles on 02-21-2023 INR Coag (Bld) [Relative time] 2.3 {INR} [facility] - CoagulationOrde red By: Dillon Hemphill on 02-03-2023 PT Coag (PPP) [Time] 34.0 s 11.7-14.9 [facility] Whole blood international no rmalized ratio (INR)Ordered By: Dillon Hemphill on 02-03-2023 INR Coag (Bld) [Relative time] 3.3 {INR} [facility] INR in Blood by Coagulation assayOrdered By: Dionte Castellanos on 01-13-2023 INR Coag (Bld) [Relative time] 2.6 {INR} [facility] - CoagulationOrde red By: Dionte Castellanos on 01-13-2023 PT Coag (PPP) [Time] 28.4 s 11.7-14.9 [facility] INR in Blood by Coagulation assayOrdered By: Dionte Castellanos on 12-16-2022 INR Coag (Bld) [Relative time] 2.0 {INR} [facility] - CoagulationOrde red By: Dionte Castellanos on 12-16-2022 PT Coag (PPP) [Time] 22.6 s 11.7-14.9 [facility] INR in Blood by Coagulation assayOrdered By: Dionte Castellanos on 11-11-2022 INR Coag (Bld) [Relative time] 2.4 {INR} [facility] - CoagulationOrde red By: Dionte Castellanos on 11-11-2022 PT Coag (PPP) [Time] 26.7 s 11.7-14.9 [facility] INR in Blood by Coagulation assayOrdered By: Dr. Castellanos on 07-09-2022 INR Coag (Bld) [Relative time] 2.4 {INR} [facility] - CoagulationOrde red By: Dr. Castellanos on 07-09-2022 PT Coag (PPP) [Time] 26.1 s 11.7-14.9 [facility] INR in Blood by Coagulation assayOrdered By: Dr. Castellanos on 06-06-2022 INR Coag (Bld) [Relative time] 2.1 {INR} [facility] - CoagulationOrde red By: Dr. Castellanos on 06-06-2022 PT Coag (PPP) [Time] 23.1 s 11.7-14.9 [facility] INR in Blood by Coagulation assayOrdered By: Dr. Castellanos on 04-22-2022 INR Coag (Bld) [Relative time] 2.5 {INR} [facility] - CoagulationOrde red By: Dr. Castellanos on 04-22-2022 PT Coag (PPP) [Time] 27.0 s 11.7-14.9 [facility] INR in Blood by Coagulation assayOrdered By: Dr. Castellanos on 03-13-2022 INR Coag (Bld) [Relative time] 2.5 {INR} [facility] - CoagulationOrde red By: Dr. Castellanos on 03-13-2022 PT Coag (PPP) [Time] 26.3 s 11.7-14.9 [facility] INR in Blood by Coagulation assayOrdered By: Dr. Castellanos on 02-06-2022 INR Coag (Bld) [Relative time] 2.4 {INR} [facility] - CoagulationOrde red By: Dr. Castellanos on 02-06-2022 PT Coag (PPP) [Time] 25.6 s 11.7-14.9 [facility] INR in Blood by Coagulation assayOrdered By: Dr. Castellanos on 12-25-2021 INR Coag (Bld) [Relative time] 2.3 {INR} [facility] - CoagulationOrde red By: Dr. Castellanos on 12-25-2021 PT Coag (PPP) [Time] 25.1 s 11.7-14.9 [facility] INR in Blood by Coagulation assayon 11-23-2021 INR Coag (Bld) [Relative time] 2.4 {INR} [facility] Work Phone: Laboratory - Coagulationon 0 11-23-2021 PT Coag (PPP) [Time] 25.5 s 11.7-14.9 [facility] Work Phone: INR in Blood by Coagulation assayon 10-10-2021 INR Coag (Bld) [Relative time] 2.4 {INR} [facility] Work Phone: Laboratory - Coagulationon 0 10-10-2021 PT Coag (PPP) [Time] 26.1 s 11.7-14.9 [facility] Work Phone: INR in Blood by Coagulation assayon 09-19-2021 INR Coag (Bld) [Relative time] 1.8 {INR} [facility] Work Phone: Laboratory - Coagulationon 0 09-19-2021 PT Coag (PPP) [Time] 20.7 s 11.7-14.9 [facility] Work Phone: INR in Blood by Coagulation assayon 07-27-2021 INR Coag (Bld) [Relative time] 2.4 {INR} [facility] Work Phone: Laboratory - Coagulationon 0 07-27-2021 PT Coag (PPP) [Time] 25.6 s 11.7-14.9 [facility] Work Phone: INR in Blood by Coagulation assayon 07-17-2021 INR Coag (Bld) [Relative time] 1.9 {INR} [facility] Work Phone: Laboratory - Coagulationon 0 07-17-2021 PT Coag (PPP) [Time] 21.8 s 11.7-14.9 [facility] Work Phone: LABORATORYOrdered By: Kelsi Muller on 07-11-2021 Albumin BCP dye [Mass/Vol] 3.5 G/dL Invalid Interpretation Code 3.4 - 4.8 G/dL AO ADM SS Albumin/Globulin [Mass ratio] 1.1 {ratio} Invalid Interpretation Code 1.1 - 2.5 ratio AO ADM SS ALP [Catalytic activity/Vol] 64 U/L Invalid Interpretation Code 40 - 135 U/L AO ADM SS ALT With P-5'-P [Catalytic activity/Vol] 25 U/L Invalid Interpretation Code 14 - 59 U/L AO ADM SS AST With P-5'-P [Catalytic activity/Vol] 15 U/L Invalid Interpretation Code 10 - 40 U/L AO ADM SS Bilirubin [Mass/Vol] 0.4 mg/dL Invalid Interpretation Code 0.2 - 1.0 mg/dL AO ADM SS Calcium [Mass/Vol] 9.2 mg/dL Invalid Interpretation Code 8.4 - 10.2 mg/dL AO ADM SS Chloride [Moles/Vol] 106 mmol/L Invalid Interpretation Code 98 - 107 mmol/L AO ADM SS CO2 [Moles/Vol] 29 mmol/L Invalid Interpretation Code 23 - 31 mmol/L AO ADM SS Creatinine [Mass/Vol] 1.02 mg/dL Invalid Interpretation Code 0.55 - 1.02 mg/dL AO ADM SS Electrolyte Balance 10.0 mEq/L Invalid Interpretation Code 4.0 - 15.0 mEq/L AO ADM SS Globulin 3.3 G/dL Invalid Interpretation Code AO ADM SS Glucose [Mass/Vol] 122 mg/dL Invalid Interpretation Code 83 - 110 mg/dL AO ADM SS HbA1c (Bld) [Mass fraction] 5.4 % Invalid Interpretation Code 4.3 - 6.4 % AO ADM SS Potassium [Moles/Vol] 4.3 mmol/L Invalid Interpretation Code 3.5 - 5.1 mmol/L AO ADM SS Protein [Mass/Vol] 6.8 G/dL Invalid Interpretation Code 6.4 - 8.2 G/dL AO ADM SS Sodium [Moles/Vol] 145 mmol/L Invalid Interpretation Code 136 - 145 mmol/L AO ADM SS TSH Qn 1.10 m[IU]/L Invalid Interpretation Code 0.36 - 3.74 mcIU/mL AO ADM SS Urea nitrogen [Mass/Vol] 21 mg/dL Invalid Interpretation Code 7 - 18 mg/dL AO ADM SS Urea nitrogen/Creatinine [Mass ratio] 21 ratio Invalid Interpretation Code 7 - 27 ratio AO ADM SS Vit. D 25-Hydroxy 33.8 ng/mL Invalid Interpretation Code AO ADM SS LABORATORYOrdered By: SYSTEM SYSTEM on 07-11-2021 GFR 64 ml/min/1.73sqm Invalid Interpretation Code AO Chemistry S GFR Non- 53 ml/min/1.73sqm Invalid Interpretation Code AO Chemistry S INR in Blood by Coagulation assayon 05-09-2021 INR Coag (Bld) [Relative time] 2.5 {INR} [facility] Work Phone: Laboratory - Coagulationon 0 05-09-2021 PT Coag (PPP) [Time] 26.0 s 11.7-14.9 [facility] Work Phone: INR in Blood by Coagulation assayon 04-06-2021 INR Coag (Bld) [Relative time] 2.0 {INR} [facility] Work Phone: Laboratory - Coagulationon 0 04-06-2021 PT Coag (PPP) [Time] 22.0 s 11.7-14.9 [facility] Work Phone: CNOVon 08-10-2020 CNOV Office Visit (PODIWS ) ESTELA THORPET,LISA Sawyer ([id number]) 1945 F Date Time Provider Department 08/10/20 10:30 AM YOLETTE TEJEDA During your visit today, we recorded the following information about you: Latha Mathew Ma 08/10/2020 12:30 PM Signed AMB ROOMING INTAKE FLOWSHEET DATA Pain Pain Level: (0.5/10) Description: Other: See comment (PULLING) Frequency: Intermittent Intervention: Other: See comment (WALKING) Patient presents with: Right Ankle - Established Patient, Fracture Yolette Tejeda DPAlexa 08/10/2020 12:30 PM Signed Follow up podiatric office visit for: Chief Complaint: This 74 year old who presents for follow up:fracture of calcaneus. Patient presents to clinic for follow-up avulsion fracture of right calcaneus. Patient has no pain. She is wearing regular shoes. She was using brace but is no longer. She has no other complaints. PAIN EVALUATION 08/10/2020 1055 Pain Level: ? 0.5/10 Description: Other: See comment PULLING Frequency: Intermittent Intervention: Other: See comment WALKING No results found for: HBA1C PCP: Cara Martinez MD PAST MEDICAL HISTORY Diagnosis Date - Nontoxic uninodular goiter Current Outpatient Medications Medication Sig - NEOMYCIN 3.5 MG/G-POLYMYXIN B 10,000 UNIT/G-DEXAMETH 0.1 % EYE OINT Use in the right eye daily at bedtime. - prednisoLONE acetate (PRED FORTE, ECONOPRED PLUS) 1 % ophthalmic suspension Use 1 Drop in the right eye once daily. - warfarin (COUMADIN) 1 mg tablet Take 1 tablet by mouth once daily. - warfarin (COUMADIN) 2 mg tablet Take 1 tablet by mouth once daily. - sotalol (SOTALOL AF) 80 mg tablet Take 80 mg by mouth once daily. Takes 1/2 tab in am and 1/2 tab pm - MULTIVITAMIN TAB Take one(1) tablet daily. - ofloxacin (OCUFLOX) 0.3 % ophthalmic solution Use 1 Drop in the right eye once daily. (Patient not taking: Reported on 06/28/2020 ) - FLAXSEED ORAL Take by mouth once daily. Takes 5 out of 7 days (Patient not taking: Reported on 06/26/2020 ) - warfarin (COUMADIN) 3 mg tablet Take 3 mg by mouth once daily. (Patient not taking: Reported on 06/26/2020 ) - aspirin, enteric coated 81 mg EC tablet Take 81 mg by mouth once daily. (Patient not taking: Reported on 06/26/2020 ) - calcium carbonate/vitamin d3(CALCIUM 600 + D(3) 600 MG (1,500)-200 UNIT TAB) Takes 2-3 daily (Patient not taking: ) - ibandronate sodium(BONIVA 150 MG TAB) Take one(1) tablet once per month in the morning with a full glass of water, on an empty stomach, and do not take anything else by mouth or lie down for the next 30 minutes. (Patient not taking: ) No current facility-administered medications for this visit. ALLERGIES No Known Allergies PAST SURGICAL HISTORY Procedure Laterality Date - HEART CATHETERIZATION 06/2010 Physical Exam: Constitutional: Pt is a well developed 74 year old female who is alert, oriented, cooperative and in no apparent distress. OBJECTIVE: NVSI unchanged from previous visit. Dermatological: Nails 1-5 right are normal. Webspaces clean and dry 1-4 right. Skin appears well hydrated and supple. good color, texture, turgor. No open lesions present. No callosities present. Musculoskeletal/Orthopa edic: Patient has no pain to palpation of right foot Ct reviewed of right foot. Very small avulsion fracture of calcaneal cuboid joint ASSESSMENT: (S82.769K) Closed fracture of right ankle, initial encounter (primary encounter diagnosis) PLAN: Discussed fracture of right foot. Patient has no pain. She has returned to regular shoes without pain. Patient can f/u prn. Offered xrays patient declined. Yolette Tejeda DPM Referring Provider: YOLETTE TEJEDA [[id number]] Allergies As of Date: 08/10/2020 (No Known Allergies) Date Reviewed: 08/10/2020 Reviewed by: Latha Mathew Ma - Fully Assessed Reason for Visit: Established Patient [175] Fracture [4131] Primary Visit Diagnosis:Closed fracture of right ankle, initial encounter [D32.997W] Prescriptions as of 08/10/2020 Sig: NEOMYCIN 3.5 MG/G-POLYMYXIN B* Use in the right eye daily at* PREDNISOLONE ACETATE 1 % EYE * Use 1 Drop in the right eye o* WARFARIN 1 MG TABLET Take 1 tablet by mouth once d* WARFARIN 2 MG TABLET Take 1 tablet by mouth once d* SOTALOL 80 MG TABLET Take 80 mg by mouth once alyssa* MULTIVITAMIN TABLET Take one(1) tablet daily. OFLOXACIN 0.3 % EYE DROPS Use 1 Drop in the right eye o* Patient not taking: Reported on 06/28/2020 FLAXSEED ORAL Take by mouth once daily. Ta* Patient not taking: Reported on 06/26/2020 WARFARIN 3 MG TABLET Take 3 mg by mouth once daily* Patient not taking: Reported on 06/26/2020 ASPIRIN 81 MG TABLET,DELAYED * Take 81 mg by mouth once alyssa* Patient not taking: Reported on 06/26/2020 CALCIUM 600 + D(3) 600 MG (1,* Takes 2-3 daily Patient not taking: BONIVA 150 MG TABLET Take one(1) tablet (more content not included)... Normal [facility] CNOVon 07-13-2020 CNOV Office Visit (PODIWS ) ESTELA THORPET,LISA Sawyer ([id number]) 1945 F Date Time Provider Department 07/13/20 11:15 AM YOLETTE TEJEDA PODIWS During your visit today, we recorded the following information about you: Latha Mathew Ma 07/13/2020 1:00 PM Signed AMB ROOMING INTAKE FLOWSHEET DATA Patient presents with: Right Ankle - Established Patient, Fracture Yolette Tejeda DPM 07/13/2020 1:00 PM Signed Follow up podiatric office visit for: Chief Complaint: This 74 year old who presents for follow up:avulsion fracture of right calcaneal cuboid joint Patient had been using boot but has now since stopped. She no longer has any pain. She has ct scan to review. PAIN EVALUATION No data found in the last 1 encounters. No results found for: HBA1C PCP: Cara Martinez MD PAST MEDICAL HISTORY Diagnosis Date - Nontoxic uninodular goiter Current Outpatient Medications Medication Sig - NEOMYCIN 3.5 MG/G-POLYMYXIN B 10,000 UNIT/G-DEXAMETH 0.1 % EYE OINT Use in the right eye daily at bedtime. - prednisoLONE acetate (PRED FORTE, ECONOPRED PLUS) 1 % ophthalmic suspension Use 1 Drop in the right eye once daily. - warfarin (COUMADIN) 1 mg tablet Take 1 tablet by mouth once daily. - warfarin (COUMADIN) 2 mg tablet Take 1 tablet by mouth once daily. - sotalol (SOTALOL AF) 80 mg tablet Take 80 mg by mouth once daily. Takes 1/2 tab in am and 1/2 tab pm - MULTIVITAMIN TAB Take one(1) tablet daily. - ofloxacin (OCUFLOX) 0.3 % ophthalmic solution Use 1 Drop in the right eye once daily. (Patient not taking: Reported on 06/28/2020 ) - FLAXSEED ORAL Take by mouth once daily. Takes 5 out of 7 days (Patient not taking: Reported on 06/26/2020 ) - warfarin (COUMADIN) 3 mg tablet Take 3 mg by mouth once daily. (Patient not taking: Reported on 06/26/2020 ) - aspirin, enteric coated 81 mg EC tablet Take 81 mg by mouth once daily. (Patient not taking: Reported on 06/26/2020 ) - calcium carbonate/vitamin d3(CALCIUM 600 + D(3) 600 MG (1,500)-200 UNIT TAB) Takes 2-3 daily (Patient not taking: ) - ibandronate sodium(BONIVA 150 MG TAB) Take one(1) tablet once per month in the morning with a full glass of water, on an empty stomach, and do not take anything else by mouth or lie down for the next 30 minutes. (Patient not taking: ) No current facility-administered medications for this visit. ALLERGIES No Known Allergies PAST SURGICAL HISTORY Procedure Laterality Date - HEART CATHETERIZATION 06/2010 Physical Exam: Constitutional: Pt is a well developed 74 year old female who is alert, oriented, cooperative and in no apparent distress. OBJECTIVE: NVSI unchanged from previous visit. Dermatological: Nails 1-5 b/l are normal. Webspaces clean and dry 1-4 b/l. Skin appears well hydrated and supple. good color, texture, turgor. No open lesions present. No callosities present. Musculoskeletal/Orthopa edic: Patient has no pain to palpation of right foot No swelling and minimal residual bruising is noted to right foot Ct scan reviewed. There is very small avulsion fracture of right calcaneal cuboid joint ASSESSMENT: (K72.101N) Closed fracture of right ankle, initial encounter (primary encounter diagnosis) PLAN: 1. History and physical examination completed today. 2. Reviewed ct scan. She has very small avulsion fracture of calcaneal cuboid joint. There is no displacement. She has already stopped using brace. I informed patient that the avulsion fracture may or may not completely unite but in absence of pain, can treat as soft-tissue sprain. Recommend using ankle brace and working on strengthing of ankle. 3. Discussed possible need for therapy. At this time, she will proceed with brace. 4. Continue with brace and hold on return to major exercise for another 2-3 weeks. If no pain in 2-3 weeks, can slowly return to activity 5. F/u in 1 month Yolette Tejeda DPM Referring Provider: YOLETTE TEJEDA [[id number]] Allergies As of Date: 07/13/2020 (No Known Allergies) Date Reviewed: 07/13/2020 Reviewed by: Latha Mathew Ma - Fully Assessed Reason for Visit: Established Patient [175] Fracture [4131] Primary Visit Diagnosis:Closed fracture of right ankle, initial encounter [S82.891A] Prescriptions as of 07/13/2020 Sig: NEOMYCIN 3.5 MG/G-POLYMYXIN B* Use in the right eye daily at* PREDNISOLONE ACETATE 1 % EYE * Use 1 Drop in the right eye o* WARFARIN 1 MG TABLET Take 1 tablet by mouth once d* WARFARIN 2 MG TABLET Take 1 tablet by mouth once d* SOTALOL 80 MG TABLET Take 80 mg by mouth once alyssa* MULTIVITAMIN TABLET Take one(1) tablet daily. OFLOXACIN 0.3 % EYE DROPS Use 1 Drop in the right eye o* Patient not taking: Reported on 06/28/2020 FLAXSEED ORAL Take by mouth once daily. Ta* Patient not taking: Reported on 06/26/2020 WARFARIN 3 MG TABLET Take 3 mg by mouth once daily* Patient not taking: R (more content not included)... Normal [facility] CT ANKLE WO IVCON RTon 06-29 CT ANKLE WO IVCON RT * * *Final Report* * * DATE OF EXAM: Jun 29 2020 4:05PM [facility] 0061 - CT ANKLE WO IVCON RT / PROCEDURE REASON: Closed fracture of right ankle, initial encounter * * * * Physician Interpretation * * * * CT RIGHT ANKLE WITHOUT CONTRAST HISTORY: Closed fracture of right ankle, initial encounter COMPARISON: 06/26/2020 TECHNIQUE: Axial images with coronal and sagittal reconstructions. No IV contrast was given. CT Dose-Length Product (DLP): 195 mGy*cm. CT Dose Reduction Employed: Automated exposure control(AEC) and iterative recon RESULT: Small avulsion fractures along the anterolateral margin of the calcaneus and posterolateral aspect of the cuboid. There is overlying soft tissue swelling. No additional fractures are identified. Ankle mortise is maintained. No osteochondral lesion involving the talar dome. Joint spaces throughout the hindfoot and midfoot are maintained. IMPRESSION: Small avulsion fractures lateral margin of the calcaneus and cuboid at the calcaneocuboid articulation. Disintegrator: [facility] Transcribe Date/Time: Jun 29 2020 4:41P Dictated by : ERICA RICARDO MD This examination was interpreted and the report reviewed and electronically signed by: ERICA RICARDO MD on Jun 29 2020 4:55PM EST [id number] Normal [facility] CNOVon 06-28-2020 CNOV Office Visit (PODIWS ) ESTELA COVERT,LSIA Sawyer ([id number]) 1945 F Date Time Provider Department 06/28/20 2:30 PM YOLETTE TEJEDA During your visit today, we recorded the following information about you: Latha Mathew Ma 06/28/2020 10:19 PM Signed AMB ROOMING INTAKE FLOWSHEET DATA Patient presents with: Right Ankle - New, Fracture Yolette Tejeda DPM 06/28/2020 10:19 PM Signed Consultation requested by Dr. Weiner for an opinion regarding right ankle injury. My final recommendations will be communicated back to the requesting physician by way of shared Medical record or letter to requesting physician via US mail. Initial Podiatric Office Visit: Chief Complaint: This 74 year old female who presents with chief complaint:right ankle injury HPI Patient presents to clinic for evaluation of right ankle. Patient states that this past Friday, she was walking outside her mothers house and when she was taking the trash outside the garage, she twisted her foot and rolled her ankle inward. She developed pain. Over the past few days, her pain started to increase. She went to urgent care and had xrays taken. Patient was informed that there could have been possible fracture of talus. Patient was given crutches and boot. She presents today in shoes as she is driving here today. Patient states that when she wears the boot, she has no pain. Patient states that when she does not wear the boot, there is no pain. She is here to discuss options. PAIN EVALUATION No data found in the last 1 encounters. No results found for: HBA1C PCP: Cara Martinez MD PAST MEDICAL HISTORY Diagnosis Date - Nontoxic uninodular goiter Current Outpatient Medications Medication Sig - NEOMYCIN 3.5 MG/G-POLYMYXIN B 10,000 UNIT/G-DEXAMETH 0.1 % EYE OINT Use in the right eye daily at bedtime. - prednisoLONE acetate (PRED FORTE, ECONOPRED PLUS) 1 % ophthalmic suspension Use 1 Drop in the right eye once daily. - warfarin (COUMADIN) 1 mg tablet Take 1 tablet by mouth once daily. - warfarin (COUMADIN) 2 mg tablet Take 1 tablet by mouth once daily. - sotalol (SOTALOL AF) 80 mg tablet Take 80 mg by mouth once daily. Takes 1/2 tab in am and 1/2 tab pm - MULTIVITAMIN TAB Take one(1) tablet daily. - ofloxacin (OCUFLOX) 0.3 % ophthalmic solution Use 1 Drop in the right eye once daily. (Patient not taking: Reported on 06/28/2020 ) - FLAXSEED ORAL Take by mouth once daily. Takes 5 out of 7 days (Patient not taking: Reported on 06/26/2020 ) - warfarin (COUMADIN) 3 mg tablet Take 3 mg by mouth once daily. (Patient not taking: Reported on 06/26/2020 ) - aspirin, enteric coated 81 mg EC tablet Take 81 mg by mouth once daily. (Patient not taking: Reported on 06/26/2020 ) - calcium carbonate/vitamin d3(CALCIUM 600 + D(3) 600 MG (1,500)-200 UNIT TAB) Takes 2-3 daily (Patient not taking: ) - ibandronate sodium(BONIVA 150 MG TAB) Take one(1) tablet once per month in the morning with a full glass of water, on an empty stomach, and do not take anything else by mouth or lie down for the next 30 minutes. (Patient not taking: ) No current facility-administered medications for this visit. ALLERGIES No Known Allergies PAST SURGICAL HISTORY Procedure Laterality Date - HEART CATHETERIZATION 06/2010 History reviewed. No pertinent family history. Social History Tobacco Use - Smoking status: Never Smoker - Smokeless tobacco: Never Used Substance Use Topics - Alcohol use: No - Drug use: Not on file REVIEW OF SYSTEMS GENERAL: Negative for Malaise, significant weight loss, fever RESPIRATORY: Negative for cough, wheezing and shortness of breath CARDIOVASCULAR: Negative for chest pain, leg swelling and palpitations GI: Negative for abdominal discomfort, blood in stools or black stools and change in bowel habits : Negative for dysuria, frequency and incontinence MUSCULOSKELETAL: Negative for joint pain or swelling, back pain, and muscle pain. SKIN: Negative for lesions, rash, and itching. HEMATOLOGY/LYMPHOLOGY Negative for prolonged bleeding, bruising easily, and swollen nodes. ENDOCRINE: Negative for cold or heat intolerance, polyuria, polydipsia and goiter. NEURO: negative Physical Exam: Constitutional: Pt is a well developed 74 year old female who is alert, oriented and cooperative Eyes: Following during examination. No redness or drainage. Respiratory: RR normal and nonlabored. Even breathing. No evidence of distress or shortness of breath. Psychology: Patient is engaged during conversation. Normal affect and mood. Does not appear depressed or anxious during encounter. Vascular: Dorsalis pedis and posterior tibial pulses palpable right Capillary Fill time < 5 seconds to digits 1-5 right Skin temperature warm to warm proximal to distal right Hair growth present to digits Neurological: intact ligh (more content not included)... Normal [facility] CNOVon 06-26-2020 CNOV Office Visit ([facility] ) LISA THORPE ([id number]) 1945 F Date Time Provider Department 06/26/20 5:15 PM ROMAN WEINER (COLLEEN) [facility] During your visit today, we recorded the following information about you: Temperature Pulse Respiration Blood pressure 98.4 degrees 56/minute 16/minute 102/72 Weight 75.8 kg Roman Weiner MAUREEN 06/26/2020 7:19 PM Signed Subjective HPI Nontoxic-appearing female presents urgent care chief complaint right foot trauma. Duration of symptoms today. Associated symptoms right foot pain rating up into the ankle. Patient states was helping sister at mother and father's house when she rolled her ankle missing the last step into the garage. States she did fall landing on her right elbow. Does have an abrasion on the forearm. Not concerned about arm injury. Patient states is hard to bear weight on right foot. Rates pain 1 out of 10 at rest 7 out of 10 with ambulation. Denies any OTC medication use. Denies any head neck back pain. No LOC. Denies any other concerns. Denies numbness tingling or decreased sensation distal injury. .Patient presents with: Foot Trauma: RIGHT foot x today PAST MEDICAL HISTORY Diagnosis Date - Nontoxic uninodular goiter PAST SURGICAL HISTORY Procedure Laterality Date - HEART CATHETERIZATION 06/2010 ALLERGIES Patient has no known allergies. MEDICATIONS NEOMYCIN 3.5 MG/G-POLYMYXIN B 10,000 UNIT/G-DEXAMETH 0.1 % EYE OINT Use in the right eye daily at bedtime. ofloxacin (OCUFLOX) 0.3 % ophthalmic solution Use 1 Drop in the right eye once daily. prednisoLONE acetate (PRED FORTE, ECONOPRED PLUS) 1 % ophthalmic suspension Use 1 Drop in the right eye once daily. warfarin (COUMADIN) 1 mg tablet Take 1 tablet by mouth once daily. warfarin (COUMADIN) 2 mg tablet Take 1 tablet by mouth once daily. sotalol (SOTALOL AF) 80 mg tablet Take 80 mg by mouth once daily. Takes 1/2 tab in am and 1/2 tab pm MULTIVITAMIN TAB Take one(1) tablet daily. FLAXSEED ORAL Take by mouth once daily. Takes 5 out of 7 days warfarin (COUMADIN) 3 mg tablet Take 3 mg by mouth once daily. aspirin, enteric coated 81 mg EC tablet Take 81 mg by mouth once daily. calcium carbonate/vitamin d3(CALCIUM 600 + D(3) 600 MG (1,500)-200 UNIT TAB) Takes 2-3 daily ibandronate sodium(BONIVA 150 MG TAB) Take one(1) tablet once per month in the morning with a full glass of water, on an empty stomach, and do not take anything else by mouth or lie down for the next 30 minutes. History reviewed. No pertinent family history. Social History Tobacco Use - Smoking status: Never Smoker - Smokeless tobacco: Never Used Substance Use Topics - Alcohol use: No - Drug use: Not on file BP 102/72 Pulse (!) 56 Temp 36.9 ?C (98.4 ?F) (Left Tympanic) Resp 16 Wt 75.8 kg (167 lb) SpO2 98% BMI 28.67 kg/m? Review of Systems Constitutional: Negative for chills, fever and malaise/fatigue. HENT: Negative for congestion, ear discharge, ear pain, sinus pain and sore throat. Eyes: Negative for blurred vision, pain, discharge and redness. Respiratory: Negative for cough, sputum production, shortness of breath and wheezing. Cardiovascular: Negative for chest pain. Gastrointestinal: Negative for abdominal pain, diarrhea, nausea and vomiting. Musculoskeletal: Positive for falls and joint pain. Negative for back pain, myalgias and neck pain. Skin: Negative for itching and rash. Neurological: Negative for dizziness and headaches. Objective Physical Exam Constitutional: General: She is not in acute distress. Appearance: She is not diaphoretic. HENT: Head: Normocephalic. Eyes: Conjunctiva/sclera: Conjunctivae normal. Pupils: Pupils are equal, round, and reactive to light. Cardiovascular: Rate and Rhythm: Normal rate and regular rhythm. Pulmonary: Effort: Pulmonary effort is normal. No tachypnea, accessory muscle usage or respiratory distress. Breath sounds: Normal breath sounds. No stridor. Abdominal: Palpations: Abdomen is soft. Tenderness: There is no abdominal tenderness. Musculoskeletal: Cervical back: Normal range of motion and neck supple. Right ankle: No swelling, deformity, ecchymosis or lacerations. Tenderness present over the lateral malleolus. Normal range of motion. Right foot: Normal range of motion and normal capillary refill. Swelling, tenderness and bony tenderness present. No deformity, laceration or crepitus. Normal pulse. Lymphadenopathy: Cervical: No cervical adenopathy. Skin: General: Skin is warm and dry. Neurological: Mental Status: She is alert and oriented to person, place, and time. ASSESSMENT/PLAN: 1. Foot pain, right - ICD9: 729.5, ICD10: M79.671 (primary diagnosis) - XR FOOT GENERAL 3V AP/LAT/OBL RT - XR ANKLE GENERAL 3V AP/LAT/OBL RT 2. Closed nondisplaced fracture of body of right talus, initial enco (more content not included)... Normal [facility] No Panel Informationon 06-26 IMPRESSION: There is a small lucency noted in the lateral talus, only noted on the frontal radiograph of the foot. Recommend correlation with point tenderness in this area to evaluate for fracture. [facility] Transcribe Date/Time: Jun 26 2020 6:28P Dictated by : JULISSA BENEDICT MD This examination was interpreted and the report reviewed and electronically signed by: JULISSA BENEDICT MD on Jun 26 2020 6:34PM [facility] DIVISION OF RADIOLOGY Radiology Study observation (narrative) [facility] No Panel InformationOrdered By: [facility] Provider on 06-26-2020 [facility] XR ANKLE 3V AP/LAT/OBL RTon 06-26-2020 XR ANKLE 3V AP/LAT/OBL RT * * *Final Report* * * DATE OF EXAM: Jun 26 2020 6:18PM WOX [id number] - XR ANKLE 3V AP/LAT/OBL RT / PROCEDURE REASON: Foot pain, right * * * * Physician Interpretation * * * * RIGHT ANKLE AND FOOT X-RAYS HISTORY: Foot pain, right TECHNIQUE: AP, lateral and oblique views. COMPARISON: None available. RESULT: There is a small lucency noted in the lateral talus, only noted on the frontal radiograph. Joint spaces and articular surfaces are preserved. Achilles insertional calcaneal enthesophyte. No dislocation. IMPRESSION: There is a small lucency noted in the lateral talus, only noted on the frontal radiograph of the foot. Recommend correlation with point tenderness in this area to evaluate for fracture. Disintegrator: [facility] Transcribe Date/Time: Jun 26 2020 6:28P Dictated by : JULISSA BENEDICT MD This examination was interpreted and the report reviewed and electronically signed by: JULISSA BENEDICT MD on Jun 26 2020 6:34PM EST [id number] Normal [facility] XR Ankle - right AP and Late ral and obliqueon 06-26-2020 * * *Final Report* * * DATE OF EXAM: Jun 26 2020 6:18PM WOX [id number] - XR ANKLE 3V AP/LAT/OBL RT / PROCEDURE REASON: Foot pain, right * * * * Physician Interpretation * * * * RIGHT ANKLE AND FOOT X-RAYS HISTORY: Foot pain, right TECHNIQUE: AP, lateral and oblique views. COMPARISON: None available. RESULT: There is a small lucency noted in the lateral talus, only noted on the frontal radiograph. Joint spaces and articular surfaces are preserved. Achilles insertional calcaneal enthesophyte. No dislocation. DIVISION OF RADIOLOGY Provider, [facility] - 06/26/2020 * * *Final Report* * * DATE OF EXAM: Jun 26 2020 6:18PM WOX [id number] - XR ANKLE 3V AP/LAT/OBL RT / PROCEDURE REASON: Foot pain, right * * * * Physician Interpretation * * * * RIGHT ANKLE AND FOOT X-RAYS HISTORY: Foot pain, right TECHNIQUE: AP, lateral and oblique views. COMPARISON: None available. RESULT: There is a small lucency noted in the lateral talus, only noted on the frontal radiograph. Joint spaces and articular surfaces are preserved. Achilles insertional calcaneal enthesophyte. No dislocation. IMPRESSION IMPRESSION: There is a small lucency noted in the lateral talus, only noted on the frontal radiograph of the foot. Recommend correlation with point tenderness in this area to evaluate for fracture. Disintegrator: [facility] Transcribe Date/Time: Jun 26 2020 6:28P Dictated by : JULISSA BENEDICT MD This examination was interpreted and the report reviewed and electronically signed by: JULISSA BENEDICT MD on Jun 26 2020 6:34PM EST [facility] XR FOOT 3V AP/LAT/OBL RTon 0 06-26-2020 XR FOOT 3V AP/LAT/OBL RT * * *Final Report* * * DATE OF EXAM: Jun 26 2020 6:18PM WOX 5337 - XR FOOT 3V AP/LAT/OBL RT / PROCEDURE REASON: Foot pain, right * * * * Physician Interpretation * * * * RIGHT ANKLE AND FOOT X-RAYS HISTORY: Foot pain, right TECHNIQUE: AP, lateral and oblique views. COMPARISON: None available. RESULT: There is a small lucency noted in the lateral talus, only noted on the frontal radiograph. Joint spaces and articular surfaces are preserved. Achilles insertional calcaneal enthesophyte. No dislocation. IMPRESSION: There is a small lucency noted in the lateral talus, only noted on the frontal radiograph of the foot. Recommend correlation with point tenderness in this area to evaluate for fracture. Disintegrator: [facility] Transcribe Date/Time: Jun 26 2020 6:28P Dictated by : JULISSA BENEDICT MD This examination was interpreted and the report reviewed and electronically signed by: JULISSA BENEDICT MD on Jun 26 2020 6:34PM EST [id number] Normal [facility] XR Foot - right AP and Later al and obliqueon 06-26-2020 * * *Final Report* * * DATE OF EXAM: Jun 26 2020 6:18PM WOX 5337 - XR FOOT 3V AP/LAT/OBL RT / PROCEDURE REASON: Foot pain, right * * * * Physician Interpretation * * * * RIGHT ANKLE AND FOOT X-RAYS HISTORY: Foot pain, right TECHNIQUE: AP, lateral and oblique views. COMPARISON: None available. RESULT: There is a small lucency noted in the lateral talus, only noted on the frontal radiograph. Joint spaces and articular surfaces are preserved. Achilles insertional calcaneal enthesophyte. No dislocation. DIVISION OF RADIOLOGY Provider, [facility] - 06/26/2020 * * *Final Report* * * DATE OF EXAM: Jun 26 2020 6:18PM WOX 5337 - XR FOOT 3V AP/LAT/OBL RT / PROCEDURE REASON: Foot pain, right * * * * Physician Interpretation * * * * RIGHT ANKLE AND FOOT X-RAYS HISTORY: Foot pain, right TECHNIQUE: AP, lateral and oblique views. COMPARISON: None available. RESULT: There is a small lucency noted in the lateral talus, only noted on the frontal radiograph. Joint spaces and articular surfaces are preserved. Achilles insertional calcaneal enthesophyte. No dislocation. IMPRESSION IMPRESSION: There is a small lucency noted in the lateral talus, only noted on the frontal radiograph of the foot. Recommend correlation with point tenderness in this area to evaluate for fracture. Disintegrator: [facility] Transcribe Date/Time: Jun 26 2020 6:28P Dictated by : JULISSA BENEDICT MD This examination was interpreted and the report reviewed and electronically signed by: JULISSA BENEDICT MD on Jun 26 2020 6:34PM [facility] Lab Report: Prothrombin Time w/INRon 05-02-2017 Coagulation tissue factor induced in platelet poor plasma 27 s High 11.7-14.9 [employer] Work Phone: [phone] INR in blood by coagulation 2.6 {INR} Invalid Interpretation Code [employer] [employer] Work Phone: [phone] Lab Report: Prothrombin Time w/INRon 03-07-2017 Coagulation tissue factor induced in platelet poor plasma 25.7 s High 11.7-14.9 [employer] Work Phone: [phone] INR in blood by coagulation 2.5 {INR} Invalid Interpretation Code [facility] [employer] Work Phone: [phone] Coumadin Management: Hannaari n Calccole 01-27-2017 INR Coag RelTime (Bld) Hospital lab Invalid Interpretation Code [facility] Work Phone: [phone] INR Coag RelTime (Bld) 2 to 3 Invalid Interpretation Code [facility] Work Phone: [phone] INR Coag RelTime (PPP) 2.5 {INR} Invalid Interpretation Code [facility] Work Phone: [phone] Prothrombin time (PT) Coag time (PPP) 26.2 s Invalid Interpretation Code [facility] Work Phone: [phone] Lab Report: Prothrombin Time w/INRon 01-27-2017 Prothrombin time (PT) Coag time (PPP) 26.2 s High 11.7-14.9 [employer] Work Phone: [phone] Coumadin Management: Warfari n Calcon 01-06-2017 INR Coag RelTime (Bld) Hospital lab Invalid Interpretation Code [facility] Work Phone: [phone] INR Coag RelTime (PPP) 2.3 {INR} Invalid Interpretation Code [facility] Work Phone: [phone] international normalized ratio (INR) range 2 to 3 Invalid Interpretation Code [facility] Work Phone: [phone] Prothrombin time (PT) Coag time (PPP) 24.1 s Invalid Interpretation Code [facility] Work Phone: [phone] Lab Report: Prothrombin Time w/INRon 01-03-2017 Prothrombin time (PT) Coag time (PPP) 24.1 s High 11.7-14.9 [facility] Work Phone: [phone] Coumadin Management: Warfari n Calcon 09-25-2016 INR in blood by coagulation 2 to 3 Invalid Interpretation Code [facility] Work Phone: [phone] Coumadin Management: Warfari n Calcon 09-23-2016 Coagulation tissue factor induced in platelet poor plasma 25.8 s Invalid Interpretation Code [facility] Work Phone: [phone] INR in blood by coagulation Hospital lab Invalid Interpretation Code [facility] Work Phone: [phone] INR in blood by coagulation 2.5 {INR} Invalid Interpretation Code [facility] Work Phone: [phone] Lab Report: Prothrombin Time w/INRon 09-23-2016 Coagulation tissue factor induced in platelet poor plasma 25.8 s High 11.7-14.9 [facility] Work Phone: [phone] Coumadin Management: Warfari n Calcon 08-12-2016 Coagulation tissue factor induced in platelet poor plasma 23.7 s Invalid Interpretation Code [facility] Work Phone: [phone] INR in blood by coagulation 2 to 3 Invalid Interpretation Code [facility] Work Phone: [phone] INR in blood by coagulation Hospital lab Invalid Interpretation Code [facility] Work Phone: [phone] INR in blood by coagulation 2.2 {INR} Invalid Interpretation Code [facility] Work Phone: [phone] Lab Report: Prothrombin Time w/INRon 08-12-2016 Coagulation tissue factor induced in platelet poor plasma 23.7 s High 11.7-14.9 [employer] Work Phone: [phone] Office Visiton 05-01-2016 Dietary management education, guidance, and counseling (procedure) yes Invalid Interpretation Code [employer] Phone: [phone] Documentation of current medications (procedure) Done Invalid Interpretation Code [employer] Work Phone: [phone] Protein mass conc Done Invalid Interpretation Code [employer] Work Phone: [phone] Replaced Document: Derekmark E CG Observationson 05-01-2016 EKG QRS axis 36 deg Invalid Interpretation Code [employer] Phone: [phone] electrocardiogram interpretation Marked sinus Bradycardia BORDERLINE RHYTHM Invalid Interpretation Code [employer] Phone: [phone] GE use only - for [employer] import when terms are not otherwise specified 463 ms Invalid Interpretation Code [employer] Phone: [phone] Interpretation Marked sinus Bradycardia BORDERLINE RHYTHM Invalid Interpretation Code [employer] Phone: [phone] P [place] 62 deg Invalid Interpretation Code [employer] Phone: [phone] P wave axis, electrocardiogram 62 deg Invalid Interpretation Code [employer] Phone: [phone] MO Interval 158 ms Invalid Interpretation Code [employer] Phone: [phone] MO interval, electrocardiogram 158 ms Invalid Interpretation Code [employer] Work Phone: [phone] Pulse (Heart Rate) 49 /min Invalid Interpretation Code [employer] Work Phone: [phone] QRS axis, electrocardiogram 36 deg Invalid Interpretation Code [employer] Phone: [phone] QRS Duration 90 ms Invalid Interpretation Code [employer] Phone: [phone] QRS duration, electrocardiogram 90 ms Invalid Interpretation Code [employer] Phone: [phone] QT Interval new path ms Invalid Interpretation Code [employer] Work Phone: [phone] QT interval, electrocardiogram new path ms Invalid Interpretation Code [employer] Work Phone: [phone] QTc Daily 463 ms Invalid Interpretation Code [employer] Work Phone: [phone] T [place] 27 deg Invalid Interpretation Code [employer] Work Phone: [phone] T wave axis, electrocardiogram 27 deg Invalid Interpretation Code [employer] Work Phone: [phone] Clinical Lists Updateon Left ventricular Ejection fraction 60 % Invalid Interpretation Code [employer] Work Phone: [phone] Office Visiton 12-26-2014 General cardiovascular disease 10Y risk [#] [place] 6 % Invalid Interpretation Code [employer] Work Phone: [phone] Tobacco smoking status NHIS Tobacco smoking status NHIS Invalid Interpretation Code [employer] Work Phone: [phone] Tobacco smoking status NHIS Never smoker Invalid Interpretation Code [employer] Work Phone: [phone] Tobacco use [facility] Never smoker Invalid Interpretation Code [employer] Work Phone: [phone] Office Visit: [facility] 07-06-19 15 cardiac risk group B Invalid Interpretation Code [employer] Work Phone: [phone] Tobacco smoking status NHIS Never Invalid Interpretation Code [employer] Work Phone: [phone] Replaced Document: Lorri Plummeron 01-03-2014 Pulse (Heart Rate) 444 ms Invalid Interpretation Code [employer] Work Phone: [phone] Lab Report: Ordered by Dr. Hector tan 03-31-2012 Alanine aminotransferase (ALT) 21 U/L Invalid Interpretation Code [employer] Work Phone: [phone] Albumin 4.0 g/dL Invalid Interpretation Code [employer] Work Phone: [phone] Albumin/Globulin Ratio 1.7 {ratio} Invalid Interpretation Code [employer] Work Phone: [phone] Alkaline phosphatase (ALP) 51 U/L Invalid Interpretation Code [employer] Work Phone: [phone] ALP enzyme act/vol (Bld) 51 U/L Invalid Interpretation Code [employer] Work Phone: [phone] Aspartate aminotransferase (AST) 16 U/L Invalid Interpretation Code [employer] Work Phone: [phone] Bilirubin (total) 0.3 mg/dL Invalid Interpretation Code [employer] Work Phone: [phone] BUN/Creatinine Ratio 30 mg/mg Invalid Interpretation Code [employer] Work Phone: [phone] Calcium 9.0 mg/dL Invalid Interpretation Code [employer] Work Phone: [phone] Chloride 106 mmol/L Invalid Interpretation Code [employer] Work Phone: [phone] CO2 22 mmol/L Invalid Interpretation Code [employer] Work Phone: [phone] CO2 ppres (BldV) 22 mmol/L Invalid Interpretation Code [employer] Work Phone: [phone] Creatinine 0.83 mg/dL Invalid Interpretation Code [employer] Work Phone: [phone] Globulin 2.4 g/dL Invalid Interpretation Code [employer] Work Phone: [phone] Glucose 101 mg/dL Invalid Interpretation Code [employer] Work Phone: [phone] Glucose mass conc 101 mg/dL Invalid Interpretation Code [employer] Work Phone: [phone] Potassium 4.3 mmol/L Invalid Interpretation Code [employer] Work Phone: [phone] Protein 6.4 g/dL Invalid Interpretation Code [employer] Work Phone: [phone] Sodium 141 mmol/L Invalid Interpretation Code [employer] Work Phone: [phone] Urea nitrogen 25 mg/dL Invalid Interpretation Code [employer] Work Phone: [phone] Cholesterol 181 mg/dL Invalid Interpretation Code [employer] Work Phone: [phone] HDL Cholesterol 67 mg/dL Invalid Interpretation Code [employer] Work Phone: [phone] LDL Cholesterol 101 mg/dL Invalid Interpretation Code [employer] Work Phone: [phone] Triglyceride 66 mg/dL Invalid Interpretation Code [employer] Work Phone: [phone] very low density lipoproteins 13 mg/dL Invalid Interpretation Code [employer] Work Phone: [phone] Erythrocytes (RBC) 4.59 10*6/uL Invalid Interpretation Code [employer] Work Phone: [phone] Hematocrit (HCT) 41.0 % Invalid Interpretation Code [facility] Work Phone: [phone] Hemoglobin (HGB) 13.6 g/dL Invalid Interpretation Code [facility] Work Phone: [phone] MCH 29.6 pg Invalid Interpretation Code [facility] Work Phone: [phone] MCHC 33.2 % Invalid Interpretation Code [facility] Work Phone: [phone] MCV 89 fL Invalid Interpretation Code [facility] Work Phone: [phone] Platelets 226 10*3/mm3 Invalid Interpretation Code [facility] Work Phone: [phone] RDW-CA 13.9 % Invalid Interpretation Code [facility] Work Phone: [phone] WBC (Leukocytes) 6.2 10*3/uL Invalid Interpretation Code [facility] Work Phone: [phone] Vital Signs Date Time Vital Sign Value Performing Clinician Facility 10-20-2024 08:07-0400 Body height 162.[address] Mini Tyson MD Work Phone: [facility] 10-20-2024 08:07-0400 Body mass index (BMI) [Ratio] 30.4 kg/m2 Dr. Mini Tyson MD Work Phone: [facility] 10-20-2024 08:07-0400 Body temperature 97.2 [degF] Dr. Mini Tyson MD Work Phone: [facility] 10-20-2024 08:07-0400 Body weight 80.[address] Mini Tyson MD Work Phone: [facility] 10-20-2024 08:07-0400 Diastolic blood pressure 69 mm[Hg] Dr. Mini Tyson MD Work Phone: [facility] 10-20-2024 08:07-0400 Heart rate 78 /min Dr. Mini Tyson MD Work Phone: [facility] 10-20-2024 08:07-0400 Respiratory rate 18 /min Dr. Mini Tyson MD Work Phone: [facility] 10-20-2024 08:07-0400 SaO2% (BldA) [Mass fraction] 98 % Dr. Mini Tyson MD Work Phone: [facility] 10-20-2024 08:07-0400 Systolic blood pressure 123 mm[Hg] Dr. Mini Tyson MD Work Phone: [facility] 09-29-2024 09:57-0400 Body height 162.[address] Mini Tyson MD Work Phone: [facility] 09-29-2024 09:57-0400 Body mass index (BMI) [Ratio] 30.2 kg/m2 Dr. Mini Tyson MD Work Phone: [facility] 09-29-2024 09:57-0400 Body temperature 97 [degF] Dr. Mini Tyson MD Work Phone: [facility] 09-29-2024 09:57-0400 Body weight 79.[address] Mini Tyson MD Work Phone: [facility] 09-29-2024 09:57-0400 Diastolic blood pressure 62 mm[Hg] Dr. Mini Tyson MD Work Phone: [facility] 09-29-2024 09:57-0400 Heart rate 92 /min Dr. Mini Tyson MD Work Phone: [facility] 09-29-2024 09:57-0400 Respiratory rate 18 /min Dr. Mini Tyson MD Work Phone: [facility] 09-29-2024 09:57-0400 SaO2% (BldA) [Mass fraction] 97 % Dr. Mini Tyson MD Work Phone: [facility] 09-29-2024 09:57-0400 Systolic blood pressure 114 mm[Hg] Dr. Mini Tyson MD Work Phone: [facility] 05-03-2024 10:47-0500 Body height 162.[address] Mini Tyson MD Work Phone: [facility] 05-03-2024 10:47-0500 Body mass index (BMI) [Ratio] 29.7 kg/m2 Dr. Mini Tyson MD Work Phone: [facility] 05-03-2024 10:47-0500 Body weight 78.[address] Mini Tyson MD Work Phone: [facility] 05-03-2024 10:47-0500 Diastolic blood pressure 66 mm[Hg] Dr. Mini Tyson MD Work Phone: [facility] 05-03-2024 10:47-0500 Heart rate 62 /min Dr. Mini Tyson MD Work Phone: [facility] 05-03-2024 10:47-0500 Respiratory rate 18 /min Dr. Mini Tyson MD Work Phone: [facility] 05-03-2024 10:47-0500 SaO2% (BldA) [Mass fraction] 94 % Dr. Mini Tyson MD Work Phone: [facility] 05-03-2024 10:47-0500 Systolic blood pressure 99 mm[Hg] Dr. Mini Tyson MD Work Phone: [facility] 04-03-2024 13:18-0500 Heart rate 56 /min NIR CULP MD [address] 04-03-2024 13:17-0500 Heart rate 56 /min NIR CULP MD [facility] 04-03-2024 11:25-0500 Heart rate 53 /min NIR CULP MD [address] [place] [address] 04-03-2024 11:03-0500 Blood Pressure Cuff Size NIR CULP MD [address] 04-03-2024 11:03-0500 Blood Pressure Location NIR CULP MD [facility] 04-03-2024 11:03-0500 Blood Pressure Method NIR CULP MD [address] [place] [address] 04-03-2024 11:03-0500 Body temperature 98.78 [degF] NIR CULP MD [address] [place] [address] 04-03-2024 11:03-0500 Diastolic Blood Pressure Non-Invasive 58 mm[Hg] NIR CULP MD [address] [place] [address] 04-03-2024 11:03-0500 Reason For Taking VItal Signs NIR CULP MD [address] [place] [address] 04-03-2024 11:03-0500 Respiratory rate 16 /min NIR CULP MD [address] [place] [address] 04-03-2024 11:03-0500 Systolic Blood Pressure Non-Invasive 108 mm[Hg] NIR CULP MD [address] [place] [address] 04-03-2024 10:38-0500 Reason For Taking VItal Signs NIR CULP MD [address] [place] [address] 04-03-2024 06:55-0500 Blood Pressure Cuff Size NIR CULP MD [address] [place] [address] 04-03-2024 06:55-0500 Blood Pressure Location NIR CULP MD [address] [place] [address] 04-03-2024 06:55-0500 Blood Pressure Method NIR CULP MD [address] [place] [address] 04-03-2024 06:55-0500 Body temperature 99.14 [degF] NIR CULP MD [address] [place] [address] 04-03-2024 06:55-0500 Diastolic Blood Pressure Non-Invasive 58 mm[Hg] NIR CULP MD [address] [place] [address] 04-03-2024 06:55-0500 Reason For Taking VItal Signs NIR CULP MD [address] [place] [address] 04-03-2024 06:55-0500 Respiratory rate 18 /min NIR CULP MD [address] [place] [address] 04-03-2024 06:55-0500 Systolic Blood Pressure Non-Invasive 108 mm[Hg] NIR CULP MD [address] [place] [address] 04-03-2024 03:18-0500 Blood Pressure Location NIR CULP MD [address] [place] [address] 04-03-2024 03:18-0500 Blood Pressure Method NIR CULP MD [address] [place] [address] 04-03-2024 03:18-0500 Body temperature 98.6 [degF] NIR CULP MD [address] [place] [address] 04-03-2024 03:18-0500 Diastolic Blood Pressure Non-Invasive 52 mm[Hg] NIR CULP MD [address] [place] [address] 04-03-2024 03:18-0500 Respiratory rate 18 /min NIR CULP MD [address] [place] [address] 04-03-2024 03:18-0500 Systolic Blood Pressure Non-Invasive 118 mm[Hg] NIR CULP MD [address] [place] [address] 04-03-2024 00:21-0500 Mean blood pressure 70 mm[Hg] NIR CULP MD [address] [place] [address] 04-02-2024 18:24-0500 Blood Pressure Cuff Size NIR CULP MD [address] [place] [address] 04-02-2024 14:28-0500 Mean blood pressure 95 mm[Hg] NIR CULP MD [address] [place] [address] 04-02-2024 13:48-0500 Mean blood pressure 95 mm[Hg] NIR CULP MD [address] [place] [address] 04-02-2024 10:44-0500 Body height 162.6 cm NIR CULP MD [address] [place] [address] 04-02-2024 10:44-0500 Body weight 77.6 kg NIR CULP MD [address] [place] [address] 04-02-2024 10:44-0500 Body weight 29.35 kg/m2 NIR CULP MD [address] [place] [address] 04-02-2024 09:35-0500 Body temperature 96.26 [degF] NIR CULP MD [address] [place] [address] 04-02-2024 09:30-0500 Respiratory Rate - Anes 5 br/min NIR CULP MD [address] [place] [address] 04-02-2024 09:25-0500 Respiratory Rate - Anes 18 br/min NIR CULP MD [address] [place] [address] 04-02-2024 09:20-0500 Respiratory Rate - Anes 11 br/min NIR CULP MD [address] [place] [address] 04-02-2024 09:15-0500 Body temperature 95.68 [degF] NIR CULP MD [address] [place] [address] 04-02-2024 09:10-0500 Body temperature 95.65 [degF] NIR CULP MD [address] [place] [address] 04-02-2024 09:05-0500 Body temperature 95.63 [degF] NIR CULP MD [address] [place] [address] 04-02-2024 06:27-0500 Body height 162.6 cm NIR CULP MD [address] [place] [address] 04-02-2024 06:27-0500 Body weight 77.6 kg NIR CULP MD [address] [place] [address] 04-02-2024 06:27-0500 Heart rate 72 /min NIR CULP MD [address] [place] [address] 03-19-2024 12:38-0500 Blood Pressure Cuff Size NIR CULP MD [address] [place] [address] 03-19-2024 12:38-0500 Blood Pressure Location NIR CULP MD [address] [place] [address] 03-19-2024 12:38-0500 Blood Pressure Method NIR CULP MD [address] [place] [address] 03-19-2024 12:38-0500 Body height 162 cm NIR CULP MD [address] [place] [address] 03-19-2024 12:38-0500 Body temperature 98.42 [degF] NIR CULP MD [address] [place] [address] 03-19-2024 12:38-0500 Body weight 78.6 kg NIR CULP MD [address] [place] [address] 03-19-2024 12:38-0500 Body weight 29.95 kg/m2 NIR CULP MD [address] [place] [address] 03-19-2024 12:38-0500 Diastolic Blood Pressure Non-Invasive 88 mm[Hg] NIR CULP MD [address] [place] [address] 03-19-2024 12:38-0500 Heart rate 55 /min NIR CULP MD [address] [place] [address] 03-19-2024 12:38-0500 Respiratory rate 18 /min NIR CULP MD [address] [place] [address] 03-19-2024 12:38-0500 Systolic Blood Pressure Non-Invasive 136 mm[Hg] NIR CULP MD [address] [place] [address] 01-16-2024 10:00-0400 Diastolic Blood Pressure Non-Invasive 65 mm[Hg] NIR CULP MD [address] [place] [address] 01-16-2024 10:00-0400 Heart rate 49 /min NIR CULP MD [address] [place] [address] 01-16-2024 10:00-0400 Systolic Blood Pressure Non-Invasive 110 mm[Hg] NIR CULP MD [address] [place] [address] 01-16-2024 09:47-0400 Diastolic Blood Pressure Non-Invasive 63 mm[Hg] NIR CULP MD [address] [place] [address] 01-16-2024 09:47-0400 Heart rate 53 /min NIR CULP MD [address] [place] [address] 01-16-2024 09:47-0400 Respiratory rate 16 /min NIR CULP MD [address] [place] [address] 01-16-2024 09:47-0400 Systolic Blood Pressure Non-Invasive 111 mm[Hg] NIR CULP MD [address] [place] [address] 01-16-2024 09:42-0400 Body temperature 97.16 [degF] NIR CULP MD [address] [place] [address] 01-16-2024 09:42-0400 Diastolic Blood Pressure Non-Invasive 63 mm[Hg] NIR CULP MD [address] [place] [address] 01-16-2024 09:42-0400 Heart rate 48 /min NIR CULP MD [address] [place] [address] 01-16-2024 09:42-0400 Systolic Blood Pressure Non-Invasive 133 mm[Hg] NIR CULP MD [address] [place] [address] 01-16-2024 09:40-0400 Respiratory Rate - Anes 0 br/min NIR CULP MD [address] [place] [address] 01-16-2024 09:35-0400 Respiratory Rate - Anes 0 br/min NIR CULP MD [address] [place] [address] 01-16-2024 09:30-0400 Respiratory Rate - Anes 0 br/min NIR CULP MD [address] [place] [address] 01-16-2024 07:26-0400 Body weight 28.81 kg/m2 NIR CULP MD [address] [place] [address] 01-16-2024 07:16-0400 Blood Pressure Cuff Size NIR CULP MD [address] [place] [address] 01-16-2024 07:16-0400 Blood Pressure Location NIR CULP MD [address] [place] [address] 01-16-2024 07:16-0400 Blood Pressure Method NIR CULP MD [address] [place] [address] 01-16-2024 07:16-0400 Body height 163.8 cm NIR CULP MD [address] [place] [address] 01-16-2024 07:16-0400 Body temperature 97.52 [degF] NIR CULP MD [address] [place] [address] 01-16-2024 07:16-0400 Body weight 77.3 kg NIR CULP MD [address] [place] [address] 01-16-2024 07:16-0400 Heart rate 86 /min NIR CULP MD [address] [place] [address] 06-21-2023 21:32-0400 Body mass index (BMI) [Ratio] 28.7 kg/m2 [facility] 05-22-2023 22:10-0500 Body mass index (BMI) [Ratio] 28.7 kg/m2 [facility] 04-23-2023 21:41-0500 Body mass index (BMI) [Ratio] 28.7 kg/m2 [facility] 03-23-2023 20:54-0500 Body mass index (BMI) [Ratio] 28.7 kg/m2 [facility] 02-21-2023 03:05-0500 Body mass index (BMI) [Ratio] 28.7 kg/m2 [facility] 01-21-2023 22:47-0400 Body mass index (BMI) [Ratio] 28.7 kg/m2 [facility] 12-22-2022 01:43-0400 Body mass index (BMI) [Ratio] 28.7 kg/m2 [facility] 11-21-2022 21:53-0400 Body mass index (BMI) [Ratio] 28.7 kg/m2 Dr. Mini Tyson Work Phone: [facility] 09-03-2022 14:48-0400 Body height 162.[address] Mini Tyson Work Phone: [facility] 09-03-2022 14:48-0400 Body mass index (BMI) [Ratio] 29.8 kg/m2 Dr. Mini Tyson Work Phone: [facility] 09-03-2022 14:48-0400 Body weight 78.[address] Mini Tyson Work Phone: [facility] 09-03-2022 14:48-0400 Diastolic blood pressure 74 mm[Hg] Dr. Mini Tyson Work Phone: [facility] 09-03-2022 14:48-0400 Heart rate 60 /min Dr. Mini Tyson Work Phone: [facility] 09-03-2022 14:48-0400 Respiratory rate 18 /min Dr. Mini Tyson Work Phone: [facility] 09-03-2022 14:48-0400 SaO2% (BldA) [Mass fraction] 96 % Dr. Mini Tyson Work Phone: [facility] 09-03-2022 14:48-0400 Systolic blood pressure 135 mm[Hg] Dr. Mini Tyson Work Phone: [facility] 07-21-2022 00:33-0400 Body mass index (BMI) [Ratio] 28.7 kg/m2 Dr. Mini Tyson Work Phone: [facility] 06-21-2022 21:32-0400 Body mass index (BMI) [Ratio] 28.7 kg/m2 [facility] 04-24-2022 07:54-0500 Body mass index (BMI) [Ratio] 28.7 kg/m2 [facility] 03-23-2022 22:53-0500 Body mass index (BMI) [Ratio] 28.7 kg/m2 [facility] 02-20-2022 22:46-0500 Body mass index (BMI) [Ratio] 28.7 kg/m2 [facility] 01-22-2022 10:07-0400 Body mass index (BMI) [Ratio] 28.7 kg/m2 [facility] 12-21-2021 20:26-0400 Body mass index (BMI) [Ratio] 28.7 kg/m2 [facility] 10-21-2021 02:04-0400 Body mass index (BMI) [Ratio] 28.7 kg/m2 [facility] Work Phone: 09-21-2021 06:45-0400 Body mass index (BMI) [Ratio] 28.7 kg/m2 Dr. Mini Tyson Work Phone: [facility] Work Phone: 08-21-2021 20:19-0400 Body mass index (BMI) [Ratio] 28.7 kg/m2 Dr. Mini Tyson Work Phone: [facility] Work Phone: 07-22-2021 02:43-0400 Body mass index (BMI) [Ratio] 28.7 kg/m2 Dr. Mini Tyson Work Phone: [facility] Work Phone: 06-28-2021 13:37-0400 Body height 162.[address] Mini Tyson Work Phone: [facility] Work Phone: 06-28-2021 13:37-0400 Body weight 76.[address] Mini Tyson Work Phone: [facility] Work Phone: 06-28-2021 13:37-0400 Diastolic blood pressure 64 mm[Hg] Dr. Mini Tyson Work Phone: [facility] Work Phone: 06-28-2021 13:37-0400 Heart rate 56 /min Dr. Mini Tyson Work Phone: [facility] Work Phone: 06-28-2021 13:37-0400 Respiratory rate 16 /min Dr. Mini Tyson Work Phone: [facility] Work Phone: 06-28-2021 13:37-0400 Systolic blood pressure 120 mm[Hg] Dr. Mini Tyson Work Phone: [facility] Work Phone: 05-22-2021 09:23-0500 Body mass index (BMI) [Ratio] 28.7 kg/m2 Dr. Mini Tyson Work Phone: [facility] Work Phone: 05-22-2021 08:23-0500 Body mass index (BMI) [Ratio] 28.7 kg/m2 Dr. Mini Tyson Work Phone: [facility] Work Phone: 04-23-2021 21:15-0500 Body mass index (BMI) [Ratio] 28.7 kg/m2 Dr. Mini Tyson Work Phone: [facility] Work Phone: 03-25-2021 02:40-0500 Body mass index (BMI) [Ratio] 28.7 kg/m2 Dr. Mini Tyson Work Phone: [facility] Work Phone: 05-31-2020 13:01-0500 Body mass index (BMI) [Ratio] 28.7 kg/m2 Dr. Mini Tyson Work Phone: [facility] Work Phone: 05-31-2020 12:01-0500 Body mass index (BMI) [Ratio] 28.7 kg/m2 Dr. Mini Tyson Work Phone: [facility] Work Phone: 05-01-2016 11:11-0500 Heart rate 49 /min Tanika Roy RN [facility] Work Phone: 05-01-2016 10:32-0500 BMI (Body Mass Index) 25.74 kg/m2 [facility] Work Phone: 05-01-2016 10:32-0500 BP Diastolic 60 mm[Hg] [facility] Work Phone: 05-01-2016 10:32-0500 BP Systolic 108 mm[Hg] [facility] Work Phone: 05-01-2016 10:32-0500 BSA (Body Surface Area) 1.73 m2 [facility] Work Phone: 05-01-2016 10:32-0500 Pulse (Heart Rate) 52 /min [facility] Work Phone: 05-01-2016 10:32-0500 Respiratory Rate 16 /min [facility] Work Phone: 05-01-2016 10:32-0500 Weight 68.04 kg [facility] Work Phone: 01-03-2014 10:57-0400 Heart rate 444 ms [facility] Work Phone: 05-15-2011 14:53-0500 Height 162.56 cm Bri Randall RN [facility] Work Phone: Encounters Encounter Date Encounter Type Care Provider Facility Start: 10-20-2024 End: 10-20-[address] Mini Tyson MD Work Phone: -[facility] Start: 10-20-2024 End: 10-20-[address] Gigi Mix MD -[facility] Work Phone: Start: 09-29-[address] Jayce Tyson MD Work Phone: [facility] Start: 09-29-2024 End: 09-29-[address] Mini Tyson MD Work Phone: -[facility] Start: 09-29-2024 End: 09-29-[address] Mahad Us MD -[facility] Start: 09-29-2024 End: 09-29-[address] Mahad Us MD [facility] Work Phone: Start: 09-29-2024 End: 09-29-[address] Mahad Us MD [facility] Start: 09-29-2024 End: 09-29-[address] Mini Tyson MD Work Phone: -[facility] Start: 09-29-2024 End: 09-29-2024 ambulatory Mahad Us Facility:[facility] Start: 08-20-2024 End: 08-20-[address] MINI TYSON MD Facility:[facility] Start: 08-20-2024 End: 08-20-2024 Patient encounter procedure ESE COSTELLO MD [facility] Start: 08-17-2024 End: 08-17-[address] Mini Tyson MD Work Phone: [facility] Work Phone: Start: 08-17-2024 End: 08-17-[address] Ese Costello MD -[facility] Work Phone: Start: 08-17-2024 End: 08-17-2024 ambulatory Ese Costello Facility:[facility] Start: 08-06-2024 End: 08-06-[address] MINI TYSON MD Facility:[facility] Start: 08-06-2024 End: 08-06-2024 Patient encounter procedure ESE COSTELLO MD [facility] Start: 05-03-2024 End: 05-03-[address] Gigi Jain MD -[facility] Work Phone: Start: 05-03-2024 End: 05-03-2024 ambulatory Gigi Jain Facility:[facility] Start: 04-02-2024 End: 04-03-[address] MINI TYSON MD Facility:[facility] Start: 04-02-2024 End: 04-03-2024 Observation NIR CULP MD [facility] Start: 03-19-2024 End: 03-19-2024 Admission to establishment NIR CULP MD [facility] Start: 03-19-2024 End: 03-19-[address] MINI TYSON MD Facility:[facility] Start: 01-20-2024 End: 01-20-2024 ambulatory Mini Tyson Facility:[facility] Start: 01-16-2024 End: 01-16-2024 ambulatory NIR CULP MD Facility:[facility] Start: 01-16-2024 End: 01-16-2024 SAME DAY STAY NIR CULP MD [facility] Start: 12-16-2023 ambulatory Juan M Napoles AERONAUTICAL DRAFTER [facility] Start: 12-16-2023 End: 12-16-2023 ambulatory Juan M Napoles NP Facility:[facility] Start: 11-27-2023 End: 11-27-2023 ambulatory Juan M Napoles AERONAUTICAL DRAFTER Facility:[facility] Start: 10-30-2023 End: 10-30-2023 ambulatory Gigi Jain Facility:[facility] Start: 10-23-2023 ambulatory Juan M Napoles AERONAUTICAL DRAFTER Facility :[facility] Start: 10-17-2023 ambulatory Mini Tyson Facility: [facility] Start: 10-17-2023 End: 10-17-2023 ambulatory Gigi Jain Facility:[facility] Start: 10-10-2023 End: 10-22-2023 ambulatory Juan M Napoles NP Facility:[facility] Start: 07-23-2023 End: 07-24-2023 ambulatory ESE COSTELLO MD Facility:[facility] Start: 07-23-2023 End: 07-23-2023 Patient encounter procedure ESE COSTELLO MD [facility] Start: 07-04-2023 End: 07-22-2023 ambulatory [facility] Work Phone: Start: 07-04-2023 End: 07-22-2023 Discharged Recurring [facility] Work Phone: Start: 05-29-2023 End: 06-21-2023 ambulatory [facility] Work Phone: Start: 05-29-2023 End: 06-21-2023 Discharged Recurring [facility] Work Phone: Start: 05-13-2023 End: 05-22-2023 ambulatory [facility] Work Phone: Start: 05-13-2023 End: 05-22-2023 Discharged Recurring [facility] Work Phone: Start: 04-10-2023 End: 04-10-2023 ambulatory [facility] Work Phone: Start: 04-10-2023 End: 04-10-2023 Discharged Recurring [facility] Work Phone: Start: 02-21-2023 End: 03-23-2023 Discharged Recurring [facility] Work Phone: Start: 02-03-2023 End: 02-20-2023 Discharged Recurring [facility] Work Phone: Start: 01-13-2023 End: 01-13-2023 ambulatory [facility] Work Phone: Start: 01-13-2023 End: 01-13-2023 Discharged Recurring [facility] Work Phone: Start: 01-13-2023 End: 01-13-2023 Patient encounter procedure [facility] Work Phone: Start: 12-16-2022 End: 12-16-[address] Mini Tyson Work Phone: [facility] Work Phone: Start: 12-16-2022 End: 12-16-[address] Mini Tyson Work Phone: [facility] Work Phone: Start: 11-11-2022 End: 11-11-[address] Mini Tyson Work Phone: [facility] Work Phone: Start: 11-11-2022 End: 11-11-[address] Mini Tyson Work Phone: [facility] Work Phone: Start: 09-03-2022 End: 09-03-[address] Mini Tyson Work Phone: [facility] Start: 08-29-2022 Non-patient / Non-visit Dr. Jorge Tyson Work Phone: [facility] Start: 08-29-2022 End: 08-29-[address] Mini Tyson Work Phone: [facility] Work Phone: Start: 08-29-2022 End: 08-29-[address] Mini Tyson Work Phone: [facility] Start: 07-09-2022 End: 07-21-2022 ambulatory [facility] Work Phone: Start: 07-09-2022 End: 07-21-2022 Discharged Recurring [facility] Start: 06-21-2022 End: 06-21-2022 ambulatory [facility] Work Phone: Start: 06-21-2022 End: 06-21-2022 Patient encounter procedure [facility] Start: 06-06-2022 End: 06-21-2022 ambulatory [facility] Work Phone: Start: 06-06-2022 End: 06-21-2022 Discharged Recurring [facility] Start: 04-22-2022 End: 04-22-2022 ambulatory [facility] Work Phone: Start: 04-22-2022 End: 04-22-2022 Discharged Recurring [facility] Start: 03-13-2022 End: 03-13-2022 ambulatory [facility] Work Phone: Start: 03-13-2022 End: 03-13-2022 Discharged Recurring [facility] Start: 02-06-2022 End: 02-20-2022 ambulatory [facility] Work Phone: Start: 02-06-2022 End: 02-20-2022 Discharged Recurring [facility] Start: 01-08-2022 End: 01-08-2022 ambulatory [facility] Work Phone: Start: 01-08-2022 End: 01-08-2022 Patient encounter procedure [facility] Start: 12-25-2021 End: 12-25-2021 ambulatory [facility] Work Phone: Start: 12-25-2021 End: 12-25-2021 Discharged Recurring [facility] Start: 12-25-[address] [facility] Start: 11-23-2021 End: 11-23-2021 ambulatory [facility] Work Phone: Start: 11-23-2021 End: 11-23-2021 Discharged Recurring [facility] Start: 10-10-2021 End: 10-21-[address] Mini Tyson Work Phone: [facility] Start: 09-19-2021 End: 09-19-[address] Mini Tyson Work Phone: [facility] Start: 08-07-2021 End: 08-07-[address] Mini Tyson Work Phone: [facility] D[facility] Start: 07-27-2021 End: 07-27-[address] Mini Tyson Work Phone: [facility] Start: 07-27-[address] Mini castellanos Work Phone: [facility] Start: 07-17-2021 End: 07-17-[address] Mini Tyson Work Phone: [facility] Start: 07-11-2021 End: 07-11-2021 Patient encounter procedure ESE COSTELLO MD [facility] Start: 06-28-2021 End: 06-28-[address] Mini Tyson Work Phone: [facility] Start: 05-09-2021 End: 05-09-[address] Mini Tyson Work Phone: [facility] Start: 05-09-2021 Non-patient / Non-visit Dr. Jorge Tyson Work Phone: [facility] Start: 05-09-2021 End: 05-09-[address] Mini Tyson Work Phone: [facility] Start: 04-06-2021 End: 04-23-[address] Mini Tyson Work Phone: [facility] Start: 06-26-2020 End: 06-26-2020 Subsequent hospital visit by physician [facility] Work Phone: Radiology Comment on above: Foot pain, right [[id number] 9.671] Procedures Date Procedure Procedure Detail Performing Clinician Start: 09-29-2024 Vitamin D, 25-hydrox y measurement Dr. Mini Tyson MD Work Phone: Comment on above: Vitamin D StatusDefi ciency: <20 ng/mL (50nmol/L)Insufficiency: 20-30 ng/mL (50-75 nmol/L)Sufficiency: 30-100 ng/mL (75-250 nmol/L)Toxicity: >100 ng/mL (>250 nmol/L) Start: 08-17-2024 US scan of thyroid Dr. Mini Tyson MD Work Phone: Start: 05-03-2024 Evaluation of diagno stic study results Dr. Mini Tyson MD Work Phone: Start: 01-16-2024 Cardioversion NIR CASTILLO MD Start: 01-13-2023 Screening mammography Start: 06-21-2022 US scan of thyroid Start: 01-08-2022 Screening mammography Start: 08-07-2021 Dual energy X-ray absorptiometry Dr. Mini Tyson Work Phone: Start: 06-26-2020 Radex ankle complete minimum 3 views Roman Weiner APRN.CNP Work Phone: Start: 05-01-2016 End: 05-01-2016 Ecg routine ecg w/least 12 lds w/i&r Dionte Castellanos MD Start: 05-01-2016 End: 05-01-2016 Follow Up Appt 1 year Dionte Jimenes Start: 05-01-2016 End: 06-10-2016 INR in Platelet poor plasma by Coagulation assay Dionte Castellanos MD Start: 05-01-2016 End: 05-01-2016 PFM Dionte Castellanos MD Start: 05-01-2016 End: 05-01-2016 Dietary management education, guidance, and counseling Tanika Roy RN Start: 05-01-2016 End: 06-10-2016 Coagulation factor induced.INR assay in platelet poor plasma Dionte Castellanos MD Start: 05-01-2016 End: 05-01-2016 Electrocardiogram, complete Dionte sarmiento MD Start: 05-01-2016 End: 05-01-2016 Follow Up Appt 1 year Dionte Jimenes Start: 05-01-2016 End: 05-01-2016 PFM Dionte Castellanos MD Start: 06-26-2015 End: 06-26-2015 Follow Up Appt 9 months Tanika mclain PA-C Work Phone: Start: 06-26-2015 End: 06-26-2015 PF Tanika Downey PA-C Work Phone: Start: 06-26-2015 End: 06-26-2015 Follow Up Appt 9 months Tanika mclain PA-C Work Phone: Start: 06-26-2015 End: 06-26-2015 PF Tanika Downey PA-C Work Phone: Start: 05-18-2015 End: 06-06-2015 INR in Platelet poor plasma by Coagulation assay Dionte Castellanos MD Start: 05-18-2015 End: 06-06-2015 Coagulation factor induced.INR assay in platelet poor plasma Dionte Castellanos MD Start: 12-26-2014 End: 12-26-2014 Ecg routine ecg w/least 12 lds w/i&r Dionte Castellanos MD Start: 12-26-2014 End: 12-26-2014 Follow Up Appt 6 months Dionte Castellanos MD Start: 12-26-2014 End: 12-26-2014 Follow Up Appt Other Dionte Castellanos MD Start: 12-26-2014 End: 12-26-2014 MMAlexa Castellanos MD Start: 12-26-2014 End: 12-26-2014 Electrocardiogram, complete Dionte sarmiento MD Start: 12-26-2014 End: 12-26-2014 Follow Up Appt 6 months Dionte Castellanos MD Start: 12-26-2014 End: 12-26-2014 Follow Up Appt Other Dionte Castellanos MD Start: 12-26-2014 End: 12-26-2014 MMM Dionte Castellanos MD Start: 07-05-2014 End: 07-06-2014 Documentation of current medications Tanika Downey PA-C Work Phone: Start: 07-05-2014 End: 07-05-2014 Follow Up Appt 6 months Tanika mclain PA-C Work Phone: Start: 07-05-2014 End: 07-05-2014 PFM Tanika Downey PA-C Work Phone: Start: 07-05-2014 End: 07-06-2014 Documentation of current medications Tanika Downey PA-C Work Phone: Start: 07-05-2014 End: 07-05-2014 Follow Up Appt 6 months Tanika mclain PA-C Work Phone: Start: 07-05-2014 End: 07-05-2014 PFM Tanika Downey PA-C Work Phone: Start: 01-03-2014 End: 01-03-2014 Ecg routine ecg w/least 12 lds w/i&r Dionte Castellanos MD Start: 01-03-2014 End: 01-03-2014 Follow Up Appt 6 months Dionte Castellanos MD Start: 01-03-2014 End: 01-03-2014 MMM Dionte Castellanos MD Start: 01-03-2014 End: 01-03-2014 Electrocardiogram, complete Dionte sarmiento MD Start: 01-03-2014 End: 01-03-2014 Follow Up Appt 6 months Dionte Castellanos MD Start: 01-03-2014 End: 01-03-2014 MMM Dionte Castellanos MD Start: 12-08-2013 End: 12-08-2014 INR in Platelet poor plasma by Coagulation assay Dionte Castellanos MD Start: 12-08-2013 End: 12-08-2014 Coagulation factor induced.INR assay in platelet poor plasma Dionte Castellanos MD Start: 06-21-2013 End: 07-05-2014 24 hour holter monitor Tanika prather PA-C Work Phone: Start: 06-21-2013 End: 06-21-2013 Follow Up Appt 6 months Tanika mclain PA-C Work Phone: Start: 06-21-2013 End: 06-21-[address] [facility] Tanika Downey PA-C Work Phone: Start: 06-21-2013 End: 07-05-2014 24 hour holter monitor Tanika prather PA-C Work Phone: Start: 06-21-2013 End: 06-21-2013 Follow Up Appt 6 months Tanika mclain PA-C Work Phone: Start: 06-21-2013 End: 06-21-2013 PFM Tanika Downey PA-C Work Phone: Start: 12-21-2012 End: 12-21-2012 Ecg routine ecg w/least 12 lds w/i&r Dionte Castellanos MD Start: 12-21-2012 End: 12-21-2012 Follow Up Appt 6 months Dionte Castellanos MD Start: 12-21-2012 End: 07-05-2014 Follow Up Appt Other Dionte Castellanos MD Start: 12-21-2012 End: 12-21-2012 MMM Dionte Castellanos MD Start: 12-21-2012 End: 12-21-2012 Electrocardiogram, complete Dionte sarmiento MD Start: 12-21-2012 End: 12-21-2012 Follow Up Appt 6 months Dionte Castellanos MD Start: 12-21-2012 End: 07-05-2014 Follow Up Appt Other Dionte Castellanos MD Start: 12-21-2012 End: 12-21-2012 MMM Dionte Castellanos MD Start: 06-11-2012 End: 06-11-2012 Ecg routine ecg w/least 12 lds w/i&r Dionte Castellanos MD Start: 06-11-2012 End: 06-11-2012 Follow Up Appt 6 months Dionte Castellanos MD Start: 06-11-2012 End: 06-11-2012 Follow Up Appt Other Dionte Castellanos MD Start: 06-11-2012 End: 06-11-2012 PFM Dionte Castellanos MD Start: 06-11-2012 End: 06-11-2012 Electrocardiogram, complete Dionte sarmiento MD Start: 06-11-2012 End: 06-11-2012 Follow Up Appt 6 months Dionte Castellanos MD Start: 06-11-2012 End: 06-11-2012 Follow Up Appt Other Dionte Castellanos MD Start: 06-11-2012 End: 06-11-2012 PFM Dionte Castellanos MD Start: 11-14-2011 End: 06-11-2012 Ecg routine ecg w/least 12 lds w/i&r Dionte Castellanos MD Start: 11-14-2011 End: 06-11-2012 Echocardiography Dionte Castellanos MD Start: 11-14-2011 End: 11-14-2011 Follow Up Appt 6 months Dionte Castellanos MD Start: 11-14-2011 End: 06-11-2012 Echocardiography Dionte Castellanos MD Start: 11-14-2011 End: 06-11-2012 Electrocardiogram, complete Dionte sarmiento MD Start: 11-14-2011 End: 11-14-2011 Follow Up Appt 6 months Dionte Castellanos MD Start: 05-15-2011 End: 04-27-2012 24 hour holter monitor Dionte Castellanos MD Start: 05-15-2011 End: 04-27-2012 Ecg routine ecg w/least 12 lds w/i&r Dionte Castellanos MD Start: 05-15-2011 End: 04-27-2012 Echocardiography Dionte Castellanos MD Start: 05-15-2011 End: 06-11-2012 Follow Up Appt 6 months Dionte Castellanos MD Start: 05-15-2011 End: 04-27-2012 24 hour holter monitor Dionte Castellanos MD Start: 05-15-2011 End: 04-27-2012 Echocardiography Dionte Castellanos MD Start: 05-15-2011 End: 04-27-2012 Electrocardiogram, complete Dionte sarmiento MD Start: 05-15-2011 End: 06-11-2012 Follow Up Appt 6 months Dionte Castellanos MD Plan of Treatment Date Care Activity Detail Author Start: 10-20-2024 ambulatory Ambulatory Facility[place] Start: 09-29-2024 CBC W Auto Differential panel - Blood [facility] Start: 09-29-2024 Comprehensive metabolic 2000 panel - Serum or Plasma [facility] Start: 09-29-2024 Hemoglobin A1c/Hemoglobin.total in Blood [facility] Start: 09-29-2024 Lipid 1996 panel - Serum or Plasma [facility] Start: 09-29-2024 Vitamin D, 25-hydroxy measurement [facility] Start: 11-23-2023 Covid-19 Vaccine () Covid-19 Vaccine () [facility] Start: 11-23-2023 Influenza vaccination Influenza Vaccine (#1) [facility] Start: 03-24-2023 Advance Directive Discussion Advance Directive Discussion [facility] Start: 09-30-2022 RSV Vaccine (1 - 1-dose 75+ series) RSV Vaccine (1 - 1-dose 75+ series) [facility] Start: 06-21-2022 US scan of thyroid Thyroid [facility] Start: 06-21-2022 US Thyroid gland [facility] Start: 04-28-2017 End: 04-28-2017 Appointment Appointment [facility] Work Phone: Start: 04-28-2017 End: 04-28-2017 Appointment Appointment [facility] Work Phone: Start: 05-01-2016 End: 05-01-2016 Ecg routine ecg w/least 12 lds w/i&r EKG (In office) [facility] Work Phone: Start: 05-01-2016 End: 05-01-2016 Follow Up Appt 1 year Follow Up Appt 1 year [facility] Work Phone: Start: 05-01-2016 End: 06-10-2016 INR Coag RelTime (PPP) *PT/INR - Standing Order [facility] Work Phone: Start: 05-01-2016 End: 05-01-2016 PFM PFM [facility] Work Phone: Start: 05-01-2016 End: 06-10-2016 Coagulation factor induced.INR assay in platelet poor plasma *PT/INR - Standing Order [facility] Work Phone: Start: 05-01-2016 End: 05-01-2016 Electrocardiogram, complete EKG (In office) [facility] Work Phone: Start: 05-01-2016 End: 05-01-2016 Follow Up Appt 1 year Follow Up Appt 1 year [facility] Work Phone: Start: 05-01-2016 End: 05-01-2016 PFM PFAlexa [facility] Work Phone: Start: 06-26-2015 End: 06-26-2015 Follow Up Appt 9 months Follow Up Appt 9 months [facility] Work Phone: Start: 06-26-2015 End: 06-26-2015 PFM PF [facility] Work Phone: Start: 06-26-2015 End: 06-26-2015 Follow Up Appt 9 months Follow Up Appt 9 months [facility] Work Phone: Start: 06-26-2015 End: 06-26-2015 PFM PFM [facility] Work Phone: Start: 05-18-2015 End: 06-06-2015 INR Coag RelTime (PPP) *PT/INR - Standing Order [facility] Work Phone: Start: 05-18-2015 End: 06-06-2015 Coagulation factor induced.INR assay in platelet poor plasma *PT/INR - Standing Order [facility] Work Phone: Start: 12-26-2014 End: 12-26-2014 Ecg routine ecg w/least 12 lds w/i&r EKG (In office) [facility] Work Phone: Start: 12-26-2014 End: 12-26-2014 Echocardiography Echocardiogram (complete) [facility] Work Phone: Start: 12-26-2014 End: 12-26-2014 Follow Up Appt 6 months Follow Up Appt 6 months [facility] Work Phone: Start: 12-26-2014 End: 12-26-2014 Follow Up Appt Other Follow Up Appt Other [facility] Work Phone: Start: 12-26-2014 End: 12-26-2014 MMM MMM [facility] Work Phone: Start: 12-26-2014 End: 12-26-2014 Echocardiography Echocardiogram (complete) [facility] Work Phone: Start: 12-26-2014 End: 12-26-2014 Electrocardiogram, complete EKG (In office) [facility] Work Phone: Start: 12-26-2014 End: 12-26-2014 Follow Up Appt 6 months Follow Up Appt 6 months [facility] Work Phone: Start: 12-26-2014 End: 12-26-2014 Follow Up Appt Other Follow Up Appt Other [facility] Work Phone: Start: 12-26-2014 End: 12-26-2014 MMM MMM [facility] Work Phone: Start: 07-05-2014 End: 07-05-2014 Follow Up Appt 6 months Follow Up Appt 6 months [facility] Work Phone: Start: 07-05-2014 End: 07-05-2014 PFM PFM [facility] Work Phone: Start: 07-05-2014 End: 07-05-2014 Follow Up Appt 6 months Follow Up Appt 6 months [facility] Work Phone: Start: 07-05-2014 End: 07-05-2014 PFM PFM [facility] Work Phone: Start: 01-03-2014 End: 01-03-2014 Ecg routine ecg w/least 12 lds w/i&r EKG (In office) [facility] Work Phone: Start: 01-03-2014 End: 01-03-2014 Follow Up Appt 6 months Follow Up Appt 6 months [facility] Work Phone: Start: 01-03-2014 End: 01-03-2014 MMM [facility] Work Phone: Start: 01-03-2014 End: 01-03-2014 Electrocardiogram, complete EKG (In office) [facility] Work Phone: Start: 01-03-2014 End: 01-03-2014 Follow Up Appt 6 months Follow Up Appt 6 months [facility] Work Phone: Start: 01-03-2014 End: 01-03-2014 MMM MM [facility] Work Phone: Start: 12-08-2013 End: 12-08-2013 INR Coag RelTime (PPP) *PT/INR - Standing Order [facility] Work Phone: Start: 12-08-2013 End: 12-08-2013 Coagulation factor induced.INR assay in platelet poor plasma *PT/INR - Standing Order [facility] Work Phone: Start: 06-21-2013 End: 06-21-2013 24 hour holter monitor 24 hour holter monitor [facility] Work Phone: Start: 06-21-2013 End: 06-21-2013 Follow Up Appt 6 months Follow Up Appt 6 months [facility] Work Phone: Start: 06-21-2013 End: 06-21-2013 PF PF [facility] Work Phone: Start: 06-21-2013 End: 06-21-2013 24 hour holter monitor 24 hour holter monitor [facility] Work Phone: Start: 06-21-2013 End: 06-21-2013 Follow Up Appt 6 months Follow Up Appt 6 months [facility] Work Phone: Start: 06-21-2013 End: 06-21-2013 PFM PFM [facility] Work Phone: Start: 12-21-2012 End: 12-21-2012 Ecg routine ecg w/least 12 lds w/i&r EKG (In office) [facility] Work Phone: Start: 12-21-2012 End: 12-21-2012 Follow Up Appt 6 months Follow Up Appt 6 months [facility] Work Phone: Start: 12-21-2012 End: 07-05-2014 Follow Up Appt Other Follow Up Appt Other [facility] Work Phone: Start: 12-21-2012 End: 12-21-2012 MMM MMM [facility] Work Phone: Start: 12-21-2012 End: 12-21-2012 Electrocardiogram, complete EKG (In office) [facility] Work Phone: Start: 12-21-2012 End: 12-21-2012 Follow Up Appt 6 months Follow Up Appt 6 months [facility] Work Phone: Start: 12-21-2012 End: 07-05-2014 Follow Up Appt Other Follow Up Appt Other [facility] Work Phone: Start: 12-21-2012 End: 12-21-2012 MMM MMM [facility] Work Phone: Start: 09-30-2012 Pneumococcal Vaccine: 65+ (1 of 1 - PCV) Pneumococcal Vaccine: 65+ (1 of 1 - PCV) [facility] Start: 09-30-2012 Screening for osteoporosis Bone Density Screening [facility] Start: 06-11-2012 End: 06-11-2012 Ecg routine ecg w/least 12 lds w/i&r EKG (In office) [facility] Work Phone: Start: 06-11-2012 End: 06-11-2012 Follow Up Appt 6 months Follow Up Appt 6 months [facility] Work Phone: Start: 06-11-2012 End: 06-11-2012 Follow Up Appt Other Follow Up Appt Other [facility] Work Phone: Start: 06-11-2012 End: 06-11-2012 PFM PFM [facility] Work Phone: Start: 06-11-2012 End: 06-11-2012 Electrocardiogram, complete EKG (In office) [facility] Work Phone: Start: 06-11-2012 End: 06-11-2012 Follow Up Appt 6 months Follow Up Appt 6 months [facility] Work Phone: Start: 06-11-2012 End: 06-11-2012 Follow Up Appt Other Follow Up Appt Other [facility] Work Phone: Start: 06-11-2012 End: 06-11-2012 PFM PFM [facility] Work Phone: Start: 11-14-2011 End: 06-11-2012 Ecg routine ecg w/least 12 lds w/i&r EKG (In office) [facility] Work Phone: Start: 11-14-2011 End: 04-27-2012 Echocardiography Echocardiogram (complete) [facility] Work Phone: Start: 11-14-2011 End: 11-14-2011 Follow Up Appt 6 months Follow Up Appt 6 months [facility] Work Phone: Start: 11-14-2011 End: 04-27-2012 Echocardiography Echocardiogram (complete) [facility] Work Phone: Start: 11-14-2011 End: 06-11-2012 Electrocardiogram, complete EKG (In office) [facility] Work Phone: Start: 11-14-2011 End: 11-14-2011 Follow Up Appt 6 months Follow Up Appt 6 months [facility] Work Phone: Start: 05-15-2011 End: 05-16-2011 24 hour holter monitor 24 hour holter monitor [facility] Work Phone: Start: 05-15-2011 End: 04-27-2012 Ecg routine ecg w/least 12 lds w/i&r EKG (In office) [facility] Work Phone: Start: 05-15-2011 End: 05-16-2011 Echocardiography Echocardiogram (complete) [facility] Work Phone: Start: 05-15-2011 End: 06-11-2012 Follow Up Appt 6 months Follow Up Appt 6 months [facility] Work Phone: Start: 05-15-2011 End: 05-16-2011 24 hour holter monitor 24 hour holter monitor [facility] Work Phone: Start: 05-15-2011 End: 05-16-2011 Echocardiography Echocardiogram (complete) [facility] Work Phone: Start: 05-15-2011 End: 04-27-2012 Electrocardiogram, complete EKG (In office) [facility] Work Phone: Start: 05-15-2011 End: 06-11-2012 Follow Up Appt 6 months Follow Up Appt 6 months [facility] Work Phone: Start: 09-30-1997 Shingrix Vaccine (1 of 2) Shingrix Vaccine (1 of 2) [facility] Start: 09-30-1992 Diabetes Screening Diabetes Screening [facility] Start: 09-30-1966 Urine microalbumin profile DTaP,Tdap,Td Vaccine (1 - Tdap) [facility] Start: 09-30-1965 Anxiety Screening Anxiety Screening [facility] Start: 09-30-1965 Depression Screening Depression Screening [facility] Start: 09-30-1965 Hepatitis C screening Hepatitis C Screening [facility] Alanine aminotransfe rase [Enzymatic activity/volume] in Serum or Plasma [facility] Albumin [Mass/volume ] in Serum or Plasma [facility] Alkaline phosphatase [Enzymatic activity/volume] in Serum or Plasma [facility] Anion gap in Serum o r Plasma [facility] Bilirubin, total measurement [facility] BUN/Creatinine ratio [facility] Calcium [Mass/volume ] in Serum or Plasma [facility] Carbon dioxide, tota l [Moles/volume] in Central venous blood [facility] Cholesterol [Mass/vo lume] in Serum or Plasma [facility] Cholesterol in HDL [Mass/volume] in Serum or Plasma [facility] Creatinine [Mass/vol ume] in Serum or Plasma [facility] Erythrocyte mean corpuscular volume determination [facility] Glucose [Mass/volume ] in Serum or Plasma [facility] Hematocrit [Volume Fraction] of Blood [facility] Hemoglobin [Mass/vol ume] in Blood [facility] Leukocytes [#/volume ] in Blood [facility] Low density lipoprot ein cholesterol measurement [facility] Mean corpuscular hem oglobin concentration determination [facility] Mean corpuscular hem oglobin determination [facility] Measurement of renal function [facility] MG Breast - bilatera l Screening [facility] Neutrophil count [facility] Neutrophil percent differential count [facility] Platelets [#/volume] in Blood [facility] Potassium measurement [facility] Red blood cell count [facility] Red cell distributio n width determination [facility] Serum chloride measurement [facility] Sodium measurement [facility] Total cholesterol:HD L ratio measurement [facility] Total protein measurement [facility] Triglycerides measurement [facility] Urea nitrogen [Mass/ volume] in Serum or Plasma [facility] VLDL cholesterol measurement [facility] Immunizations Immunization Date Immunization Notes Care Provider Rogerio smith 12-20-2022 influenza virus vacc ine, unspecified formulation NIR CULP MD [facility] 02-06-2022 influenza virus vacc ine, unspecified formulation NIR CULP MD [facility] 03-01-2021 SARS-CoV-2 (COVID-19 ) mRNA-1273 vaccine NIR CULP MD [facility] 07-06-2020 SARS-CoV-2 (COVID-19 ) mRNA-1273 vaccine NIR CULP MD [facility] Comment on above: Result Comment: 2023: [id number] 06-08-2020 SARS-CoV-2 (COVID-19 ) mRNA-1273 vaccine NIR CULP MD [facility] Comment on above: Result Comment: 2023: [id number] 12-22-2019 influenza virus vacc ine, unspecified formulation Xr [place] Work Phone: [facility] 01-22-2019 influenza virus vacc ine, unspecified formulation NIR CULP MD [facility] 01-09-2018 influenza virus vacc ine, unspecified formulation NIR CULP MD [facility] 01-07-2017 influenza virus vacc ine, unspecified formulation NIR CULP MD [facility] 12-29-2015 influenza virus vacc ine, unspecified formulation NIR CULP MD [facility] 12-29-2015 influenza, high dose seasonal, preservative-free Xr [place] Work Phone: [facility] Payers Date Payer Category Payer Private Health Insurance [id number] 2023 Self-pay [id number] 2023 Private Health Insurance [id number] 2016 Unknown [id number] 2012 Medicare [id number] 2012 Medicare [id number] 1945 Unknown [id number] 2.16.8 40.1.073186.3.579.2.627 1945 Unknown [id number] 2.16.8 40.1.183337.3.579.2.627 1945 Unknown [id number] 2.16.8 40.1.780657.3.579.2.627 1945 Unknown [id number] 2.16.8 40.1.605195.3.579.2.627 1945 Unknown [id number] 2.16.8 40.1.996709.3.579.2.627 1945 Unknown [id number] 2.16.8 40.1.224919.3.579.2.627 Unknown [id number] 2.16.8 40.1.412798.3.579.2.462 Unknown [id number] 2.16.8 40.1.100538.3.579.2.462 Unknown [id number] 2.16.8 40.1.492684.3.579.2.462 Unknown [id number] 2.16.8 40.1.056881.3.579.2.462 Unknown [id number] 2.16.8 40.1.768558.3.579.2.462 Unknown [id number] 2.16.8 40.1.317364.3.579.2.462 Unknown [id number] 2.16.8 40.1.997208.3.579.2.462 Unknown [id number] 2.16.8 40.1.661890.3.579.2.462 Unknown [id number] 2.16.8 40.1.482855.3.579.2.462 Unknown [id number] 2.16.8 40.1.765851.3.579.2.462 Unknown [id number] 2.16.8 40.1.724670.3.579.2.462 Unknown [id number] 2.16.8 40.1.777309.3.579.2.462 Unknown [id number] 2.16.8 40.1.746493.3.579.2.462 Unknown [id number] 2.16.8 40.1.505076.3.579.2.462 Social History Date Type Detail Facility Start: 07-18-2020 End: 09-03-2022 Tobacco smoking status Never smoked tobacco (finding) [facility] Comment on above: No smoking Start: 1945 Sex Assigned At Female A [facility] Start: 06-28-2021 End: 09-03-2022 Tobacco smoking status NHIS Unknown if ever smoked [facility] Start: 07-22-2020 None [facility] Start: 07-22-2020 Alone [facility] Start: 07-22-2020 Non-smoker [facility] Start: 06-26-2020 Tobacco use and exposure Smoke less tobacco non-user [facility] Start: 06-26-2020 Alcoholic beverage intake Current non-drinker of alcohol (finding) [facility] Start: 06-26-2020 History of Social function [facility] Start: 06-26-2020 Tobacco use panel [facility] National Score (1-10 0), lower number is lower risk Not on file [facility] Start: 1945 Sex assigned at Not on file [facility] Start: 05-27-2020 End: 06-26-2020 Exposure to SARS-CoV-2 (event) Not sure [facility] Sexual Orientation [facility]ard Start: 05-14-2018 Sex Female (finding) [facility] Functional Status Date Assessment Result Facility 04-03-2024 Functional Status Independent [facility] 04-03-2024 Functional Status Room located n ear nursing station, Door open, Non-Slip footwear, Room check performed [facility] 04-03-2024 Functional Status [facility] 04-03-2024 Functional Status [facility] 04-03-2024 Functional Status [facility] 04-03-2024 Functional Status [facility] 04-02-2024 Functional Status Nurse Safety C jack q2hrs Performed 11pm-7am [facility] 04-02-2024 Functional Status [facility] 04-02-2024 Functional Status Dinner Percent 100 [facility] 04-02-2024 Functional Status [facility] 04-02-2024 Functional Status [facility] 04-02-2024 Functional Status Patient Identi fied Identification band, Verbal [facility] 04-02-2024 Functional Status Maintained [facility] 03-19-2024 Functional Status Sensory Deficits None A [facility] 01-16-2024 Functional Status Room check performed [facility] Mental Status Date Assessment Result Facility 04-03-2024 Mental Status Orientation Oriented x 4 [facility] 04-03-2024 Mental Status [facility] 04-03-2024 Mental Status [facility] 04-02-2024 Mental Status [facility] 04-02-2024 Mental Status [facility] 01-16-2024 Mental Status Oriented x 4 [facility] 01-16-2024 Mental Status [facility] Clinical Notes 06-26-2020 to 09-29-2024 Note Date & Type Note Facility 09-29-2024 Evaluation note Diagnosis Onset Date Resolution Health care maintenance acute J [facility] 2024 9:51am Atrial fibrillation chronic September 29, 2024 9:51am Borderline type 2 diabetes mellitus chronic September 29, 2024 9:51am Osteopenia chronic September 29, 2024 9:51am Thyroid nodule chronic September 29, 2024 9:51am [facility] Work Phone: 1(160) 543-755705-28-2025 Radiology Diagnostic study note [facility] Imaging Services [address] [place] [id number] Thyroid MR#: [id number] Acct: [id number] Name: LISA ONEIL Rep #: [id number] : 1945 F 78 From: Mahesh Henderson MD PCP: Dr. Mini Tyson MD Status: REG CLI Study:Thyroid Date of Exam: 08/17/24 Exam# [id number] Ordering Dr: Ese Mcpherson MD PROCEDURE: THYROID 08/17/2024 REASON FOR EXAM: F/U MNG TECHNIQUE: High-frequency thyroid ultrasound, including grayscale and color-flow images. REFERENCE LINKS: TI-RADS Chart: [email or web address] TI-RADS Calculator Tool with Reference Images: [email or web address] COMPARISON: Prior study dated August 11, 2023. FINDINGS: Right thyroid lobe size: 5.6 cm 3.4 cm 2.8 cm Left thyroid lobe size: 4.7 cm 1.3 cm x 1.8 cm Isthmus: 0.5 cm Background parenchymal echotexture is heterogeneous Nodules: . Lobe: Right, Location: Upper pole, Size: 3.1 cm 2.2 cm 2.5 cm cm, Stability: Stable Composition: Solid or almost completely solid (+2) Echogenicity: Hypoechoic (+2) Margin: Smooth (+0) Shape: Wider than tall (+0) Echogenic Foci: None (+0) TI-RADS: <2 = TR 1 * 2 = TR 2 * 3 = TR 3 * 4-6 = TR 4 * >6 = TR 5 . Lobe: Right, Location: Midpole, Size: 3.5 cm x 3 cm x 2.6 cm, Stability: Stable Composition: Solid or almost completely solid (+2) Echogenicity: Hypoechoic (+2) Margin: Smooth (+0) Shape: Wider than tall (+0) Echogenic Foci: None (+0) TI-RADS: <2 = TR 1 * 2 = TR 2 * 3 = TR 3 * 4-6 = TR 4 * >6 = TR 5 Stable 1.3 cm x 1 cm 1.3 cm hypoechoic solid nodule with increased vascularity in the left lobe. Essentially stable examination. Fine-needle aspiration of the right thyroid nodule recommended if not already performed. US/Thyroid IMPRESSION: Stable examination. RECOMMENDATION: Based on most suspicious nodule. Nodule size = largest diameter Only evaluate nodule if =>5 mm. Growth > 20% in 2 dimensions = worsening. Follow up to 4 nodules. Recommend biopsy for no more than 2 nodules. Reading Location: [facility] CC: Dr. Mini Tyson MD; Dr. Ese Costello MD ~ Disintegrator: Signed [facility]02-10-2025 Evaluation note* Diagnosis Onset Date Resolution Status Admit Date [facility] (current) use of anticoagulants acute May 03 10:43am Non-rheumatic mitral regurgitation chronic May 03 10:43am Paroxysmal atrial fibrillation chron ic May 03, 2024 10:43am [facility] Work Phone: 1(598) 205-286101-11-2025 Discharge summary Date of Service 04/03/2024 14:49:23 Discharge Diagnosis Afib Hospital Course 78-year-old female with past medical significant for persistent atrial fibrillation initiated on oral sotalol with subsequent DC cardioversion January 16, 2024 presented for PWI/PVI. Underwent PWI/PVI without complications. Monitored overnight. Stable for discharge with EP outpatient follow up. Allergies NKA Consults No qualifying data available. Physical Exam Vitals and Measurements T: 37.1 C (Oral) TMIN: 36.8 C (Oral) TMAX: 37.4 C (Oral) HR: 56 (Monitored) RR: 16 BP: 108/58 SpO2:93% Weight Dosing Weight: 77.6 kg (04/02/24) Dosing Weight: 77.6 kg (04/02/24) General: AAOX3, NAD HEENT: Anicteric sclera, MMM Neck: Trachea midline, no JVD appreciated CVS: RRR, normal S1/S2, no murmurs/rubs/gallops Lung: CTAB, no wheezes/rhonchi/rales Abd: Soft, NT/ND Extrem: WWP, no LE edema Skin: Warm, Intact Neuro: AAOX3, spontaneous movement of all extremities Psych: Appropriate mood & affect Code Status No qualifying data available. Admission Date 04/02/2024 06:09:08 Discharge Date 04/03/2024 14:49:30 Medications Unchanged apixaban (Eliquis 5 mg oral tablet)1 tab(s) by mouth two (2) times a day. sotalol (sotalol 80 mg oral tablet)1 tab(s) by mouth two (2) times a day. Refills: 2. Follow Up Follow Up with NIR CULP MD When:06/02/2024 01:00 PM EDT Where:[address] [facility] [address] [place] [address]- [phone] Additional Information: THIS APPOINTMENT WILL BE WITH AYLA SONI Follow Up Appointments No qualifying data available. Follow Up Labs/Studies Discharge Labs No Follow-up Labs Discharge Studies No Follow-up Studies Discharge Diet No qualifying data available. Discharge Activity No qualifying data available. Condition on Discharge good Discharge Disposition home Digitally Signed by MANDO SNOW DO on 04/03/2024 02:57 PM Digitally Signed by [id number] Note Discharge Instructions Thank you for allowing [facility] to assist you with your healthcare needs. The following is importantdischarge information regarding your hospital visit. Your Care Team MINI TYSON MD Your Diagnosis Atrial fibrillation Hypertension What to do next Scheduled Follow-Up Appointments Appointment Type When With Where Contact Information StatusCV OV 06/02/2024 01:00 PM EDT YOVANY GROSS [facility] Confirmed ENDO OV 08/05/2024 11:00 AM EDT ESE COSTELLO MD [facility] [address] [place] [address]- [phone] Confirmed Follow Up Appointments Follow Up with NIR CULP MD When:06/02/2024 01:00 PM EDT Where:[address] [facility] [address] [place] [address]- [phone] Additional Information: THIS APPOINTMENT WILL BE WITH AYLA SONI The Following Activity and Diet Have Been Ordered for You Discharge Activity - Ordered -- Resume your pre-hospitalization activity, 04/03/24 10:00:00 EST Discharge Diet - Ordered -- No changes were made to your diet during your hospital stay. Please resume your pre hospitalization diet on discharge., 04/03/24 10:00:00 EST The Following Equipment Has Been Ordered for You No qualifying data available. The Following Treatments Have Been Ordered for You Discharge Labs No qualifying data available. Discharge Radiology No qualifying data available. Other Therapies No qualifying data available. Post Acute Orders No qualifying data available. Someone Will Contact You Regarding These Home Health Referrals No home referrals have been ordered for you. No one will call you. Allergies NKA Medications Please ask your primary doctor or pharmacist before taking any other medication not listed, including over the counter drugs, herbal medications, vitamins and or supplements as they may interact withyour home medications. What How Much When Why Instructions Last Dose Unchanged apixaban (Eliquis 5 mg oral tablet) 1 tab(s) by mouth Two (2) times a day Unchanged sotalol (sotalol 80 mg oral tablet) 1 tab(s) by mouth Two (2) times a day Atrial fibrillation Hypertension Please take this list to your next doctor s visit. Bring all medications you take, including over the counter medications, herbals and other supplements with you to your doctor s visit. Patients and families are reminded to discard old lists and to update any records with all medication providers or retail pharmacies. Education Materials Cardiac Ablation Cardiac ablation is a procedure to disable (ablate) a small amount of heart tissue in very specificplaces. The heart has many electrical connections. Sometimes these connections are abnormal and cancause the heart to beat very fast or irregularly. Ablating some of the problem areas can improve the heart rhythm or return it to normal. Ablation may be done for people who: Have Ohsvj-Gkttfexfq-Xbxmn syndrome. Have fast heart rhythms (tachycardia). Have taken medicines for an abnormal heart rhythm (arrhythmia) that were not effective or caused side effects. Have a high-risk heartbeat that may be life-threatening. During the procedure, a small incision is made in the neck or the groin, and a long, thin, flexibletube (catheter) is inserted into the incision and moved to the heart. Small devices (electrodes) onthe tip of the catheter will send out electrical currents. A type of X-ray (fluoroscopy) will be used to help guide the catheter and to provide images of the heart. Tell a health care provider about: Any allergies you have. All medicines you are taking, including vitamins, herbs, eye drops, creams, and rsuq-zus-ujznrnd medicines. Any problems you or family members have had with anesthetic medicines. Any blood disorders you have. Any surgeries you have had. Any medical conditions you have, such as kidney failure. Whether you are or may be . What are the risks? Generally, this is a safe procedure. However, problems may occur, including: Infection. Bruising and bleeding at the catheter insertion site. Bleeding into the chest, especially into the sac that surrounds the heart. This is a serious complication. Stroke or blood clots. Damage to other structures or organs. Allergic reaction to medicines or dyes. Need for a permanent pacemaker if the normal electrical system is damaged. A pacemaker is a small computer that sends electrical signals to the heart and helps your heart beat normally. The procedure not being fully effective. This may not be recognized until months later. Repeat ablation procedures are sometimes required. What happens before the procedure? Follow instructions from your health care provider about eating or drinking restrictions. Ask your health care provider about: ? Changing or stopping your regular medicines. This is especially important if you are taking diabetes medicines or blood thinners. ? Taking medicines such as aspirin and ibuprofen. These medicines can thin your blood. Do not take these medicines before your procedure if your health care provider instructs you not to. Plan to have someone take you home from the hospital or clinic. If you will be going home right after the procedure, plan to have someone with you for 24 hours. What happens during the procedure? To lower your risk of infection: ? Your health care team will wash or sanitize their hands. ? Your skin will be washed with soap. ? Hair may be removed from the incision area. An IV tube will be inserted into one of your veins. You will be given a medicine to help you relax (sedative). The skin on your neck or groin will be numbed. An incision will be made in your neck or your groin. A needle will be inserted through the incision and into a large vein in your neck or groin. A catheter will be inserted into the needle and moved to your heart. Dye may be injected through the catheter to help your surgeon see the area of the heart that needs treatment. Electrical currents will be sent from the catheter to ablate heart tissue in desired areas. There are three types of energy that may be used to ablate heart tissue: ? Heat (radiofrequency energy). ? Laser energy. ? Extreme cold (cryoablation). When the necessary tissue has been ablated, the catheter will be removed. Pressure will be held on the catheter insertion area to prevent excessive bleeding. A bandage (dressing) will be placed over the catheter insertion area. The procedure may vary among health care providers and hospitals. What happens after the procedure? Your blood pressure, heart rate, breathing rate, and blood oxygen level will be monitored until themedicines you were given have worn off. Your catheter insertion area will be monitored for bleeding. You will need to lie still for a few hours to ensure that you do not bleed from the catheter insertion area. Do not drive for 24 hours or as long as directed by your health care provider. Summary Cardiac ablation is a procedure to disable (ablate) a small amount of heart tissue in very specificplaces. Ablating some of the problem areas can improve the heart rhythm or return it to normal. During the procedure, electrical currents will be sent from the catheter to ablate heart tissue in desired areas. This information is not intended to replace advice given to you by your health care provider. Make sure you discuss any questions you have with your health care provider. Document Released: 07/27/2009 Document Revised: 08/31/2018 Document Reviewed: 01/27/2017 ID.me Patient Education 2020 [employer]. Additional Information VACCINATE! IT SAVES LIVES! Members of the community who have not yet received the COVID-19 vaccine and would like to receive it can visit one of [facility] vaccine clinics. There are many vaccine clinic locations within the [facility]. For locations and available times, please visit [email or web address] It is important to note that some COVID mobile vaccine clinics are held outdoors and may be canceled in rainy or stormy conditions. To learn more about pediatric vaccinations (ages 5-11), we invite you to visit the [facility] webpage. [email or web address] learn more about the COVID-19 vaccine, we invite you to visit the CDC website for a list of frequently asked questions.https://www.cdc.gov/coronavirus/2019-ncov/vaccines/faq.html [facility] Patient Portal Access Instructions: Stay connected with your healthcare team and access your personal medical information anytime with the [facility] Patient Portal. Please follow the directions below to create your [facility] account: 1.Access the email account you provided upon registration to the hospital/physician office.2.Look for an invitation email from [facility].3.Open the email and access the invitation link: AcceptInvitation to [facility].4.Fill in the required taveras to create your account. To access your account, visit [email or web address]. Click the blue button labeled Access Patient Portal and then log in with the username and password that you created in the steps above. You will be able to view your test results, lab results, a summary of your visits, upcoming appointments and more. There is also a convenient messaging option where you can send secure messages to your p rovider. In addition, you will have the ability to download any documents or summaries to your computer and/or send the information securely to a physician. Remember that your healthcare information is confidential, so carefully consider who you will allowto register on the [facility] Patient Portal for access to your information. You can also access the [facility] Patient Portal on the [facility] yadiel. Simply click on Patient Portal and then log into your account. If you would like to receive a full copy of your medical records, please contact the [facility] Medical Records Department by calling [phone], Friday through Friday between 8 a.m. and 4:30 p.m. HOW TO SAFELY DISPOSE OF PRESCRIPTION MEDICATIONS Please use one of the following methods to safely dispose of your unused medications. 1.Use a drug disposal kit: the drug disposal pouch allows you to safely discard your old and unuseddrugs. Ask your nurse to give you one when you are discharged.2.Visit a local take-back location: Many local pharmacies and police departments have programs that collect old and unwanted prescriptiondrugs. Call your local pharmacy or go to http://bit.ly/0S7Qn5x to find one close to you.3.Make use of household items: Use cat litter or old coffee grounds to dispose medications if other options arenot available. Mix your drugs with these household products, seal them in an airtight container andthrow it into the garbage. Call [facility]: [phone] to be sure your drugs can be disposed of in this way. Some medicines may require a different approach.4.Never flush your medications down the toilet. IF YOU HAVE BEEN PRESCRIBED AN OPIOID FOR PAIN If you have been prescribed an opioid (such as hydrocodone, oxycodone or morphine), it is critical to understand the possible side effects and risks of opioid pain medications. Even when taken as directed, opioids can have several side effects including: Tolerance, meaning you might need to take more of a medication for the same pain relief. Nausea, vomiting and/or constipation. Sleepiness, dizziness, dry mouth, confusion, depression or itching. Physical dependence, meaning you have withdrawal symptoms when a medication is stopped, can develop within a few days. KNOW YOUR RESPONSIBILITIES It is important to know exactly how much and how often to take the opioid pain medications you are prescribed. Never take opioids in higher amounts or more often than prescribed. Do not combine opioids with alcohol or other drugs that cause drowsiness, such as benzodiazepines, also known as benzos, including diazepam and alprazolam, muscle relaxants or sleep aids. Never sell or share prescription opioids. This is illegal. Store opioids in a secure place and out of reach of others (including children, family, friends and visitors). The last page of this document has been signed and retained as a CHART COPY. Signatures Patient Education Materials Cardiac Ablation Medication Leaflets My discharge plan and instructions have been reviewed and explained to me and I,COVERT, LISA Sawyer understand my current condition and have read and understand these discharge instructions. I have received a written copy of the plan/instructions. If I have questions, I am aware that I should contact my doctor. 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 The heart has many electrical connections. Sometimes these connections are abnormal and cancause the heart to beat very fast or irregularly. Ablating some of the problem areas can improve the heart rhythm or return it to normal. Ablation may be done for people who: Have Czpja-Udgizceyo-Qhqvt syndrome. Have fast heart rhythms (tachycardia). Have taken medicines for an abnormal heart rhythm (arrhythmia) that were not effective or caused side effects. Have a high-risk heartbeat that may be life-threatening. During the procedure, a small incision is made in the neck or the groin, and a long, thin, flexibletube (catheter) is inserted into the incision and moved to the heart. Small devices (electrodes) onthe tip of the catheter will send out electrical currents. A type of X-ray (fluoroscopy) will be used to help guide the catheter and to provide images of the heart. Tell a health care provider about: Any allergies you have. All medicines you are taking, including vitamins, herbs, eye drops, creams, and vzbj-vkh-rhdxmlg medicines. Any problems you or family members have had with anesthetic medicines. Any blood disorders you have. Any surgeries you have had. Any medical conditions you have, such as kidney failure. Whether you are or may be . What are the risks? Generally, this is a safe procedure. However, problems may occur, including: Infection. Bruising and bleeding at the catheter insertion site. Bleeding into the chest, especially into the sac that surrounds the heart. This is a serious complication. Stroke or blood clots. Damage to other structures or organs. Allergic reaction to medicines or dyes. Need for a permanent pacemaker if the normal electrical system is damaged. A pacemaker is a small computer that sends electrical signals to the heart and helps your heart beat normally. The procedure not being fully effective. This may not be recognized until months later. Repeat ablation procedures are sometimes required. What happens before the procedure? Follow instructions from your health care provider about eating or drinking restrictions. Ask your health care provider about: ?Changing or stopping your regular medicines. This is especially important if you are taking diabetes medicines or blood thinners. ?Taking medicines such as aspirin and ibuprofen. These medicines can thin your blood. Do not take these medicines before your procedure if your health care provider instructs you not to. Plan to have someone take you home from the hospital or clinic. If you will be going home right after the procedure, plan to have someone with you for 24 hours. What happens during the procedure? To lower your risk of infection: ?Your health care team will wash or sanitize their hands. ?Your skin will be washed with soap. ?Hair may be removed from the incision area. An IV tube will be inserted into one of your veins. You will be given a medicine to help you relax (sedative). The skin on your neck or groin will be numbed. An incision will be made in your neck or your groin. A needle will be inserted through the incision and into a large vein in your neck or groin. A catheter will be inserted into the needle and moved to your heart. Dye may be injected through the catheter to help your surgeon see the area of the heart that needs treatment. Electrical currents will be sent from the catheter to ablate heart tissue in desired areas. There are three types of energy that may be used to ablate heart tissue: ?Heat (radiofrequency energy). ?Laser energy. ?Extreme cold (cryoablation). When the necessary tissue has been ablated, the catheter will be removed. Pressure will be held on the catheter insertion area to prevent excessive bleeding. A bandage (dressing) will be placed over the catheter insertion area. The procedure may vary among health care providers and hospitals. What happens after the procedure? Your blood pressure, heart rate, breathing rate, and blood oxygen level will be monitored until themedicines you were given have worn off. Your catheter insertion area will be monitored for bleeding. You will need to lie still for a few hours to ensure that you do not bleed from the catheter insertion area. Do not drive for 24 hours or as long as directed by your health care provider. Summary Cardiac ablation is a procedure to disable (ablate) a small amount of heart tissue in very specificplaces. Ablating some of the problem areas can improve the heart rhythm or return it to normal. During the procedure, electrical currents will be sent from the catheter to ablate heart tissue in desired areas. This information is not intended to replace advice given to you by your health care provider. Make sure you discuss any questions you have with your health care provider. Document Released: 07/27/2009 Document Revised: 08/31/2018 Document Reviewed: 01/27/2017 ID.me Patient Education 2020 [employer]. Follow Up Care 01/07/2024 14:57:44 With:NIR CULP MD Address: [address] [facility] [place] [address]- [phone] When:06/02/2024 13:00:00 Comments:THIS APPOINTMENT WILL BE WITH AYLA SONI [facility] 01-10-2025 Note* Exam Date Time Procedure Performing Provider Status 04/02/24 11:43 AM Electrocardiogram - EKG - CV KARLOS LEWIS MD; Auth (Verified) ECG Final Report SINUS RHYTHM NONSPECIFIC INTRAVENTRICULAR CONDUCTION DELAY Electronic Signature: KARLOS DANIELSON MD 04/03/2024 18:01:15 [id number] Note* Exam Date Time Procedure Performing Provider Status 04/02/24 7:42 AM Ablation CV NIR CULP MD; Aut h (Verified) [id number] Anesthesiology Consult note Patient: LISA ONEIL Age: 78 years Sex: Female : 1945 Associated Diagnoses: None Author: MARIAMA MORRISON MD Preoperative Information NPO > 8 hrs Anesthesia history Patient's history: negative. Family's history: negative. History of Present Illness The patient presents for preanesthesia evaluation with 78-year-old, female, who presents for a pulsed field ablation. She denies having a personal or family history of anesthesia reaction, or difficult intubation. Her past medical history includes Atrial fibrillation, hyperlipidemia, hypertension, mitral regurgitation, osteoporosis, prediabetes, thyroid nodule, vitamin D deficiency. She has been diagnosed sleep apnea, STOP BANG score, 2, states it was many years ago and did not require treatment or a CPAP. She denies a history of smoking. She has her own teeth, denies loose teeth, denies difficulty opening her jaw. Denies acid reflux. She denies having recent chest pain, chest pressure, palp itations, dizziness, syncopal episodes, shortness of breath, cold-like symptoms, or peripheral edema. . Review of Systems Ear/Nose/Mouth/Throat: Negative except as documented in history of present illness. Respiratory: Negative except as documented in history of present illness. Cardiovascular: Negative except as documented in history of present illness. Gastrointestinal: Negative except as documented in history of present illness. Genitourinary: Negative except as documented in history of present illness. Endocrine: Negative except as documented in history of present illness. Musculoskeletal: Negative except as documented in history of present illness. Integumentary: Negative except as documented in history of present illness. Neurologic: Negative except as documented in history of present illness. Health Status Allergies: Allergic Reactions (Selected) NKA, Allergies (1) ActiveSeverityReaction NKANone Documented Current medications: (Selected) Inpatient Medications Ordered NS 1,000 mL: 50 mL/hr, Intravenous, Stop: 04/02/24 23:59:00 EST Prescriptions Prescribed sotalol 80 mg oral tablet: 80 mg, 1 tab(s), Oral, BID, 180 tab(s), 2 Refill(s) Documented Medications Documented Eliquis 5 mg oral tablet: 5 mg, 1 tab(s), Oral, BID, 180 tab(s), 0 Refill(s), Medications (1) Active Scheduled: (0) Continuous: (1) NS (0.9% nacl) 1,000 mL 1,000 mL, Intravenous, 50 mL/hr PRN: (0) Problem list: Medical Atrial fibrillation / SNOMED CT 95325001 / Confirmed Hyperlipidemia / SNOMED CT 42211766 / Confirmed Hypertension / SNOMED CT 2420649097 / Confirmed Mitral regurgitation / SNOMED CT 90141219 / Confirmed Osteoporosis / SNOMED CT 083116057 / Confirmed Pre-diabetes / SNOMED CT 2403876428 / Confirmed Thyroid nodule / SNOMED CT 802574336 / Confirmed Vitamin D deficiency / SNOMED CT 47236135 / Confirmed, Active Problems (8) Atrial fibrillation Hyperlipidemia Hypertension Mitral regurgitation Osteoporosis Pre-diabetes Thyroid nodule Vitamin D deficiency Histories Past Medical History: No active or resolved past medical history items have been selected or recorded. Procedure history: Cardioversion ([id number]) on 01/16/2024 at 78 Years. Social History: Social & Psychosocial Habits Alcohol 03/19/2024 Use: Never Employment/School 01/07/2024 Status: Retired Substance Abuse 03/19/2024 Use: Never Tobacco 03/19/2024 Tobacco Use: Never (less than 100 in l Comment: No smoking - 01/07/2024 13:51 - Mary Jaramillo GREG Home/Environment 03/19/2024 Marital Status of Patient if Patient Independent Adult: Unmarried Nutrition/Health 03/19/2024 Caffeine intake amount: none Physical Examination Vital Signs (last 24 hrs) Last Charted Temp Oral35.9 DegC (APR 02:) Heart Rate Tqakjz07 bpm (APR 02:) SBPH 159 mmHg (APR 02) DBP85 mmHg (APR 02) Measurements from flowsheet : Measurements 04/02/2024 6:27 EST Height 162.6 cm Admission Weight 77.6 kg Weight Lbs 170.7 lb Weight Method Actual [place] Body Weight 54.74 kg Type of Scale Used Standing General: Alert and oriented, No acute distress. Airway: Normal temporomandibular joint mobility, Normal mouth, Normal neck range of motion. Mallampati classification: II (soft palate, fauces, uvula visible). Dentition Evaluation: Intact, Own teeth. Respiratory: Lungs are clear to auscultation. Cardiovascular: Normal rate, Regular rhythm. Heart Sounds: Normal. Neurologic: Alert, Oriented, No focal deficits. Review / Management Results review: No qualifying data available . Documentation reviewed: Current records. Assessment and Plan [place] [employer] Anesthesiologists (ASA) physical status classification: Class III. Anesthetic Preoperative Plan Premedication: intravenous. Anesthetic technique: General. Induction: intravenously. Maintenance airway: Oral endotracheal tube. Special Monitoring: Arterial line. Postoperative pain management: Per surgeon. Risks discussed: nausea, vomiting, sore throat, dental injury, hypotension, allergic reaction, serious complications. Informed consent: signed by patient. Digitally Signed by MARIAMA MORRISON MD on 04/02/2024 07:21 AM [id number] Hospital Discharge instructions Patient Education 01/16/2024 10:09:40 3- Cardioversion (12/2017) (CUSTOM) CARDIOVERSION Discharge instructions ACTIVITY/SAFETY Please refrain from the following activities for 24 hours: Do not drive a car or operate heavy equipment. Do not consume alcohol for 24 hours. Do not return to work for 24 hours. Postpone signing any important papers or making important decisions. COMFORT Call your primary doctor if you have any redness, tenderness, warmth, discharge or swelling at yourIV site. Your chest or back may get red and/or develop a burning sensation. Apply fragrance-free Aloe Vera lotion. Take Tylenol as needed for pain. DIET When you return home, resume your regular diet unless otherwise directed. Some of the sedatives, anesthetic medications you received today may make you nauseated. If vomiting persists, call your doctor. Restart your usual medications unless otherwise instructed by your doctor. If you have any questions, please call your doctor at the number listed on your follow up instructions. Document Released: 03/10/2006 Document Revised: 02/24/2013 Document Reviewed: 03/11/2014 ExitCare Patient Information 2015 [employer]. This information is not intended to replace advicegiven to you by your health care provider. Make sure you discuss any questions you have with your health care provider. Follow Up Care 01/07/2024 14:52:59 With:NIR CULP MD Address: [address] [place] [address] [address] [place] [address]- [phone] When:03/19/2024 16:00:00 [facility] 10-25-2024 Summary of episode note Discharge Instructions Thank you for allowing [facility] to assist you with your healthcare needs. The following is importantdischarge information regarding your hospital visit. Your Care Team MINI TYSON MD What to do next Instructions From Your Doctor -No driving for today. -Resume your normal activity and diet as tolerated. -You may experience some redness or skin irritation where the patches were placed. If desired, you may apply a skin moisturizer to the affected area. -Follow-up as directed. -Please notify the office with any questions/concerns including any new onset/worsening symptoms. Scheduled Follow-Up Appointments Appointment Type When With Where Contact Information StatusSurgical Pre-Test 03/19/2024 12:30 PM EST Main PAT Confirmed CV OV 03/19/2024 04:00 PM EST B[facility] CULP [facility] Confirmed EP Ablation PF-Ensite 04/02/2024 08:00 AM EST Heart Lab Confirmed ENDO OV 08/05/2024 11:00 AM ESE MCKEON MD [facility] [address] [place] [address]- [phone] Confirmed Follow Up Appointments Follow Up with NIR CULP MD When:03/19/2024 04:00 PM EST Where:[address] [facility] [place] [address]- [phone] Medications Please ask your primary doctor or pharmacist before taking any other medication not listed, including over the counter drugs, herbal medications, vitamins and or supplements as they may interact withyour home medications. What How Much When Why Instructions Last Dose Unchanged apixaban (Eliquis 5 mg oral tablet) 1 tab(s) by mouth Two (2) times a day Unchanged sotalol (sotalol 80 mg oral tablet) 1 tab(s) by mouth Two (2) times a day Atrial fibrillation Hypertension Please take this list to your next doctor s visit. Bring all medications you take, including over the counter medications, herbals and other supplements with you to your doctor s visit. Patients and families are reminded to discard old lists and to update any records with all medication providers or retail pharmacies. Education Materials CARDIOVERSION Discharge instructions ACTIVITY/SAFETY Please refrain from the following activities for 24 hours: Do not drive a car or operate heavy equipment. Do not consume alcohol for 24 hours. Do not return to work for 24 hours. Postpone signing any important papers or making important decisions. COMFORT Call your primary doctor if you have any redness, tenderness, warmth, discharge or swelling at yourIV site. Your chest or back may get red and/or develop a burning sensation. Apply fragrance-free Aloe Vera lotion. Take Tylenol as needed for pain. DIET When you return home, resume your regular diet unless otherwise directed. Some of the sedatives, anesthetic medications you received today may make you nauseated. If vomiting persists, call your doctor. Restart your usual medications unless otherwise instructed by your doctor. If you have any questions, please call your doctor at the number listed on your follow up instructions. Document Released: 03/10/2006 Document Revised: 02/24/2013 Document Reviewed: 03/11/2014 ExitCare Patient Information 2015 [employer]. This information is not intended to replace advicegiven to you by your health care provider. Make sure you discuss any questions you have with your health care provider. Additional Information VACCINATE! IT SAVES LIVES! Members of the community who have not yet received the COVID-19 vaccine and would like to receive it can visit one of [facility] vaccine clinics. There are many vaccine clinic locations within the [facility]. For locations and available times, please visit [email or web address].[place].gov/. It is important to note that some COVID mobile vaccine clinics are held outdoors and may be canceled in rainy or stormy conditions. To learn more about pediatric vaccinations (ages 5-11), we invite you to visit the [facility] webpage. https://www.[employer].org/pages/7686-Aybfs-Invjsfrrqdn-Bmtppfnfxh-Bfjso-Sdw stions.htmlTo learn more about the COVID-19 vaccine, we invite you to visit the CDC website for a list of frequently asked questions.https://www.cdc.gov/coronavirus/2019-ncov/vaccines/faq.html [facility] Patient Portal Access Instructions: Stay connected with your healthcare team and access your personal medical information anytime with the [facility] Patient Portal. Please follow the directions below to create your [facility] account: 1.Access the email account you provided upon registration to the hospital/physician office.2.Look for an invitation email from [facility].3.Open the email and access the invitation link: AcceptInvitation to [facility].4.Fill in the required taveras to create your account. To access your account, visit [facility]. Click the blue button labeled Access Patient Portal and then log in with the username and password that you created in the steps above. You will be able to view your test results, lab results, a summary of your visits, upcoming appointments and more. There is also a convenient messaging option where you can send secure messages to your p rovider. In addition, you will have the ability to download any documents or summaries to your computer and/or send the information securely to a physician. Remember that your healthcare information is confidential, so carefully consider who you will allowto register on the [facility] Patient Portal for access to your information. You can also access the [facility] Patient Portal on the [facility] yadiel. Simply click on Patient Portal and then log into your account. If you would like to receive a full copy of your medical records, please contact the [facility] Medical Records Department by calling [phone], Friday through Friday between 8 a.m. and 4:30 p.m. HOW TO SAFELY DISPOSE OF PRESCRIPTION MEDICATIONS Please use one of the following methods to safely dispose of your unused medications. 1.Use a drug disposal kit: the drug disposal pouch allows you to safely discard your old and unuseddrugs. Ask your nurse to give you one when you are discharged.2.Visit a local take-back location: Many local pharmacies and police departments have programs that collect old and unwanted prescriptiondrugs. Call your local pharmacy or go to http://[employer]/0V0Rw1s to find one close to you.3.Make use of household items: Use cat litter or old coffee grounds to dispose medications if other options arenot available. Mix your drugs with these household products, seal them in an airtight container andthrow it into the garbage. Call [facility]: [phone] to be sure your drugs can be disposed of in this way. Some medicines may require a different approach.4.Never flush your medications down the toilet. IF YOU HAVE BEEN PRESCRIBED AN OPIOID FOR PAIN If you have been prescribed an opioid (such as hydrocodone, oxycodone or morphine), it is critical to understand the possible side effects and risks of opioid pain medications. Even when taken as directed, opioids can have several side effects including: Tolerance, meaning you might need to take more of a medication for the same pain relief. Nausea, vomiting and/or constipation. Sleepiness, dizziness, dry mouth, confusion, depression or itching. Physical dependence, meaning you have withdrawal symptoms when a medication is stopped, can develop within a few days. KNOW YOUR RESPONSIBILITIES It is important to know exactly how much and how often to take the opioid pain medications you are prescribed. Never take opioids in higher amounts or more often than prescribed. Do not combine opioids with alcohol or other drugs that cause drowsiness, such as benzodiazepines, also known as benzos, including diazepam and alprazolam, muscle relaxants or sleep aids. Never sell or share prescription opioids. This is illegal. Store opioids in a secure place and out of reach of others (including children, family, friends and visitors). The last page of this document has been signed and retained as a CHART COPY. Signatures Patient Education Materials 3- Cardioversion (12/2017) (CUSTOM) Medication Leaflets My discharge plan and instructions have been reviewed and explained to me and I,COVERT, LISA Sawyer understand my current condition and have read and understand these discharge instructions. I have received a written copy of the plan/instructions. If I have questions, I am aware that I should contact my doctor. 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 Culp Discharge Diagnosis Atrial fibrillation, s/p [facility] Hospital Course This is a 78-year-old female who presented today for direct-current cardioversion secondary to atrial fibrillation. Patient underwent successful direct-current cardioversion with subsequent sabianism of normal sinus rhythm which she remains in at this time. ---> Post-procedural EKG was reviewed in light of patient recently being initiated on sotalol 80mg twice daily which demonstrated a stable QT interval. She was later discharged home in stable condition with instructions to continue current medical therapies and follow-up as directed. All questions/concerns were addressed to the patient's satisfaction prior to their departure. Allergies NKA Procedures [facility]-01/16/2024 Consults No qualifying data available. Objective Vitals and Measurements T: 36.4 C (Oral) HR: 86 (Monitored) RR: 16 BP: 146/81 SpO2: 99% HT: 163.8 cm WT: 77.3 kg BMI: 28.81 Weight Dosing Weight: 77.3 kg (01/16/24) Code Status No qualifying data available. Admission Date January 16, 2024 Discharge Date January 16, 2024 Patient Instructions -No driving for today. -Resume your normal activity and diet as tolerated. -You may experience some redness or skin irritation where the patches were placed. If desired, you may apply a skin moisturizer to the affected area. -Follow-up as directed. -Please notify the office with any questions/concerns including any new onset/worsening symptoms. Medications Unchanged apixaban (Eliquis 5 mg oral tablet)1 tab(s) by mouth two (2) times a day. sotalol (sotalol 80 mg oral tablet)1 tab(s) by mouth two (2) times a day. Refills: 0. Follow Up Appointments No qualifying data available. Follow Up Labs/Studies Discharge Labs No Follow-up Labs Discharge Studies No Follow-up Studies Discharge Diet No qualifying data available. Discharge Activity No qualifying data available. Condition on Discharge Stable Readmission Risk/Palliative Score No qualifying data available. Discharge Disposition Home Information Provided To Patient Digitally Signed by SONYA MURRAY on 01/16/2024 09:44 AM Digitally Signed by SONYA MCKAY MD [facility]jzemqkx07-47-9020 Procedure note Date of Service January 16, 2024 Primary EP: Dr. Culp Procedure Name Direct-current cardioversion Referring Provider Dr. Culp Consent Patient has been educated about the risks, benefits, and alternatives of this procedure prior to obtaining consent. Indication Atrial fibrillation Location CVOR Procedural Sedation See anesthesia documentation Technique This is a 78-year-old female who presents today for direct current cardioversion secondary to atrial fibrillation. Patient verbalized confirmation that she has been on uninterrupted systemic anticoagulation (aside from one possible missed dose) with Eliquis 5mg twice daily for a minimum of 3 weeks prior to procedure. Current drug regimen includes antiarrhythmic therapy with sotalol 80mg twice daily. Patient presented in a fasting, well-hydrated state. Presenting rhythm was atrial fibrillation witha ventricular response rate of 97 bpm. Once a GRID CASTING MACHINE OPERATOR HELPER administered an IV anesthetic agent and the patient was fully sedated, an anterior-posterior patch placement was utilized to deliver a synchronized biphasic waveform at 120 J with anterior direct pressure which resulted in sabianism of normal sinus rhythm/mild sinus bradycardia at a heart rate of 55 bpm. The patient tolerated the procedure well and returned to cardiac same-day in stable condition. Digitally Signed by SONYA MURRAY on 01/16/2024 09:41 AM [id number] Anesthesiology Consult note Patient: LISA ONEIL Age: 78 years Sex: Female : 1945 Associated Diagnoses: None Author: PARENT, TANIKA Sawyer JASEN Preoperative Information Time of last food or liquid consumption: 01/16/2024 00:01:00 Anesthesia history Patient's history: negative. Family's history: negative. History of Present Illness The patient presents for preanesthesia evaluation with afib. Review of Systems Ear/Nose/Mouth/Throat: Negative except as documented in history of present illness. Respiratory: Negative except as documented in history of present illness. Cardiovascular: Negative except as documented in history of present illness, afib. Gastrointestinal: Negative except as documented in history of present illness. Genitourinary: Negative except as documented in history of present illness. Endocrine: Negative except as documented in history of present illness. Musculoskeletal: Negative except as documented in history of present illness. Integumentary: Negative except as documented in history of present illness. Neurologic: Negative except as documented in history of present illness. Health Status Allergies: Allergic Reactions (All) NKA, Allergies (1) ActiveSeverityReaction NKANone Documented Current medications: (Selected) Prescriptions Prescribed sotalol 80 mg oral tablet: Dose : 80 mg = 1 tab(s), Oral, BID, # 180 tab(s), 0 Refill(s), Pharmacy:[facility]/pharmacy #[id number], Atrial fibrillation Hypertension, 162.6, cm, 01/07/24 13:48:00 EDT, Height, kg, 01/07/24 13:48:00 EDT, Dosing Weight Documented Medications Documented Eliquis 5 mg oral tablet: Dose : 5 mg = 1 tab(s), Oral, BID, # 180 tab(s), 0 Refill(s), 77.7, No qualifying data available Problem list: Medical Atrial fibrillation / SNOMED CT 84811363 / Confirmed Hyperlipidemia / SNOMED CT 94285865 / Confirmed Hypertension / SNOMED CT 3416614507 / Confirmed Mitral regurgitation / SNOMED CT 66267010 / Confirmed Osteoporosis / SNOMED CT 330855938 / Confirmed Pre-diabetes / SNOMED CT 4006139243 / Confirmed Thyroid nodule / SNOMED CT 288133546 / Confirmed Vitamin D deficiency / SNOMED CT 58726098 / Confirmed, Active Problems (8) Atrial fibrillation Hyperlipidemia Hypertension Mitral regurgitation Osteoporosis Pre-diabetes Thyroid nodule Vitamin D deficiency Histories Past Medical History: No active or resolved past medical history items have been selected or recorded. Family History: Breast cancer Sister () Mother Heart disease Mother Father Procedure history: No active procedure history items have been selected or recorded. Social History: Social & Psychosocial Habits Alcohol 01/07/2024 Use: Never Employment/School 01/07/2024 Status: Retired Substance Abuse 01/07/2024 Use: Never Tobacco 01/07/2024 Tobacco Use: Never (less than 100 in l Comment: No smoking - 01/07/2024 13:51 - Mary Jaramillo LPN Home/Environment 01/07/2024 Marital Status of Patient if Patient Independent Adult: Unmarried Nutrition/Health 01/07/2024 Caffeine intake amount: none Physical Examination Vital Signs 01/16/2024 7:16 EDT Temperature Oral 36.4 DegC Peripheral Pulse Rate 86 bpm Respiratory Rate 16 br/min Systolic Blood Pressure Non-Invasive 124 mmHg Diastolic Blood Pressure Non-Invasive 72 mmHg Blood Pressure Method Automatic Blood Pressure Location Left arm Blood Pressure Cuff Size Medium Vital Signs (last 24 hrs) Last Charted Temp Oral36.4 DegC (JAN 15 07:16) OXH144 mmHg (JAN 15 07:16) DBP72 mmHg (JAN 15 07:16) BMI28.81 (JAN 15 07:26) Measurements from flowsheet : Measurements 01/16/2024 7:26 EDT Body Mass Index 28.81 kg/m2 01/16/2024 7:16 EDT Height 163.8 cm Height in inches 64.5 inch(es) Admission Weight 77.3 kg Weight Lbs 170.1 lb Weight Method Actual [place] Body Weight 55.82 kg Type of Scale Used Standing Admission Body Mass Index 28.81 m2 General: Alert and oriented, No acute distress. Airway: Normal temporomandibular joint mobility, Normal mouth, Normal throat, Normal neck range of motion. Mallampati classification: II (soft palate, fauces, uvula visible). Head: Normocephalic. Dentition Evaluation: Intact, Own teeth, Denies loose/chipped teeth. Neck: Supple, Non-tender. Respiratory: Lungs are clear to auscultation, Respirations are non-labored. Cardiovascular: Normal rate, Regular rhythm. Heart Sounds: Normal. Gastrointestinal: Soft, Non-tender, Non-distended. Musculoskeletal Normal range of motion. Normal strength. Integumentary: Intact, Warm, Dry, Edmund. Neurologic: Alert, Oriented, Normal sensory, Normal motor function, No focal deficits. Review / Management Results review: Labs (Last four charted values) Na 140(JAN 15) K 4.2(JAN 15) CO2 28(JAN 15) Cl 109(JAN 15) Cr 1.00(JAN 15) BUN H 23.0(JAN 15) Glucose 111(JAN 15) Ca 9.7(JAN 15) PT H 16.4(JAN 15) INR 1.4(JAN 15) , Lab results 01/16/2024 7:40 EDT Antecubital Right 01/16/2024 20 gauge Peripheral IV Activity: Insert new site Peripheral IV Dressing Condition: Clean, Dry, Intact Peripheral IV Dressing Activity: Applied, Transparent dressing Peripheral IV Line Status/Patency: Flushes easily, 10ml normal saline flush, Good blood return Peripheral IV Line Care: Secured with tape Peripheral IV Site Condition: No complications Peripheral IV Equipment: PRN Adaptor Peripheral IV Number of Attempts: 1 01/16/2024 7:39 EDT Protime 16.4 seconds HI PT International Ratio 1.4 ratio NA Glucose Level 111 mg/dL Sodium Level 140 mEq/L Potassium Level 4.2 mEq/L Chloride 109 mEq/L CO2 28 mEq/L Electrolyte Balance 3.0 mEq/L LOW BUN 23.0 mg/dL HI Creatinine Lvl (s) 1.00 mg/dL BUN/Creatinine Ratio 23.0 ratio HI Calcium Lvl 9.7 mg/dL GFR Non- 54 ml/min/1.73sqm NA GFR >60 ml/min/1.73sqm NA Creatinine Clearance Calc 42.18 mL/min 01/16/2024 7:32 EDT IV Present Present Allergies No Consent Form Signed Yes Patient Dressed In Hospital gown, No undergarments History & Physical Update On Chart Yes History & Physical On Chart Yes Obstructive Sleep Apnea Assess Completed Yes Belongings At Bedside Bra, Bracelet, Cell phone, Glasses, Pants, Purse, Shirt, Shoes, Undergarments, Watch, Pt participated in reconciliation Personal Home Medications Received No home medications were brought in NPO Status Maintained Patient ID Band on and Verified Yes Last Fluid Intake 01/15/2024 21:30 Last Food Intake 01/15/2024 21:30 01/16/2024 7:26 EDT Designated Person #1 We May Share PHI Designated Person #1 We May Share PHI Designated Person #1 Relationship Son Designated Person #2 We May Share PHI Designated Person #2 We May Share PHI Designated Person #2 Relationship Son Privacy Restrictions Requested None Body Mass Index 28.81 kg/m2 Status N/A Sensory Deficits None Sleep Apnea Snore No Sleep Apnea Tired Yes Sleep Apnea Obstruction No Sleep Apnea Pressure No Sleep Apnea BMI No Sleep Apnea Age Yes Sleep Apnea Neck No Sleep Apnea Gender No Sleep Apnea Score 2 Diagnosed With Sleep Apnea No Advanced Directives Unable to obtain Infectious Disease Symptoms Shortness of breath, Fatigue Infectious Disease Recent Exposure No Alcohol and Drug Use No Employee of Institutional Living No Health Care Employee No History of Exposure to TB No History of Positive Chest X-Ray for TB No History of Positive TB Skin Test No Homeless No Known Immunosuppression No Recent Immigrant No Resident of Institutional Living No Bloody Sputum No Fatigue Yes Fever No Loss of Appetite No Night Sweats No Persistent Cough > 3 Weeks No Weight Loss No Barriers to Learning None evident Teaching Method Explanation, Printed materials Preferred Spoken Language Turkish Preferred Written Language Turkish Teaching Evaluation Verbalizes/Nonverbally indicates understanding Safety Brochure Information Reviewed Yes Chaparrita Chappell Video Viewed No Patient's Current Physicians Patient's Current Physicians Discharge To, Anticipated Home independently Prev Test Positive/Diagnosis w/COVID-19 No Current Quarantine/Isolated any Illness No Any Contact with Sick Animals/Birds No Traveled Anywhere in Last 30 Days No Lost Weight Unintentionally Recently No Eat Poorly Due to Decreased Appetite No Total MST Score 0 N/A Personal Devices, Patient Valuables None, Glasses Anesthesia/Transfusions None Admission Note-Nursing Same Day Patient History 01/16/2024 7:21 EDT SN - Preop - CTm - Pt in HL SD Room 01/16/2024 7:07 SN - Preop - CTm - HL Pt Ready for Procedure 01/16/2024 7:45 01/16/2024 7:16 EDT Height 163.8 cm Height in inches 64.5 inch(es) Admission Weight 77.3 kg Weight Lbs 170.1 lb Weight Method Actual [place] Body Weight 55.82 kg Type of Scale Used Standing Admission Body Mass Index 28.81 m2 Temperature Oral 36.4 DegC Peripheral Pulse Rate 86 bpm Respiratory Rate 16 br/min Systolic Blood Pressure Non-Invasive 124 mmHg Diastolic Blood Pressure Non-Invasive 72 mmHg Blood Pressure Method Automatic Blood Pressure Location Left arm Blood Pressure Cuff Size Medium Primary Pain Intensity 0 Pain Scale Type 0-10 Pain scale Heart Rhythm Irregular Dorsalis Pedis Pulse, Left 2+ Normal Dorsalis Pedis Pulse, Right 2+ Normal Posttibial Pulse, Left 2+ Normal Posttibial Pulse, Right 2+ Normal Respirations Unlabored Respiratory Pattern Regular Breath Sounds Auscultated Anterior and posterior All Lobes Breath Sounds Clear Cough None Oxygen Therapy Room air Oxygen Saturation 96 % Abdomen Description Non-distended, Symmetric, Soft, Rounded Abdomen Palpation Non-Tender Swallowing Disorder None Bowel Sounds All Quadrants Present Urinary Elimination Voiding, no difficulties Skin Temperature Warm Skin Description Edmund, Dry Skin Integrity Intact Mucous Membrane Color Edmund Neurological Symptoms Patient denies Extremity Movement Equal Characteristics of Speech Clear Level of Consciousness Alert KATARINA Yes Strength All Extremities Strong Tone All Extremities Normal Sensation All Extremities Intact Affect/Behavior Appropriate, Calm, Cooperative Orientation Oriented x 4 Bryon Motor (2) Moves 4 extremities voluntarily or on command Bryon Respirations (2) Spontaneous respiration without support, RR > 10 Bryon Blood Pressure (2) BP 20% above or below preanesthetic level Bryon Pulse (2) Pulse 20% above or below preanesthetic level Bryon Oxygen Saturation (2) 94% or more Bryon Level of Consciousness (2) Fully awake Bryon III Score 12 Assistive Device None Positioning Repositions self Mobility Assistance Level Independent Activity Status ADL Up ad keke Standard Safety ID band on, Call device within reach, Bed in low position, Wheels locked, Upper/Half-Length side-rails up, Phone within reach, personal items within reach, Visitor at bedside, Safety level maintained, Non-Slip footwear 01/16/2024 7:00 EDT Electrocardiogram - EKG - CV Completed (In Progress) . ECG interpretation: afib. Assessment and Plan [place] [employer]esthesiologists (ASA) physical status classification: Class III. Anesthetic Preoperative Plan Premedication: intravenous. Anesthetic technique: MAC. Induction: intravenously. Maintenance airway: Mask. Special techniques: Warming device. Postoperative pain management: Per surgeon. Risks discussed: nausea, vomiting, headache, sore throat, dental injury, hypotension, allergic reaction, serious complications. Informed consent: signed by patient. Digitally Signed by GABE TANIKA Digna AGGARWAL on 01/16/2024 09:24 AM Digitally Signed by PROMISE GARCIA DO on 01/16/2024 10:16 AM [id number] NoteHNO ID: [id number] Author: Yolette Tejeda Service: ? Author Type: Physician Type: Progress Notes Filed: 08/10/2020 12:30 PM Note Text: Follow up podiatric office visit for: Chief Complaint: This 74 year old who presents for follow up:fracture of calcaneus. Patient presents to clinic for follow-up avulsion fracture of right calcaneus. Patient has no pain. She is wearing regular shoes. She was using brace but is no longer. She has no other complaints. PAIN EVALUATION 08/10/2020 1055 Pain Level: ? 0.5/10 Description: Other: See comment PULLING Frequency: Intermittent Intervention: Other: See comment WALKING No results found for: HBA1C PCP: Cara Martinez MD PAST MEDICAL HISTORY Diagnosis Date - Nontoxic uninodular goiter Current Outpatient Medications Medication Sig - NEOMYCIN 3.5 MG/G-POLYMYXIN B 10,000 UNIT/G-DEXAMETH 0.1 % EYE OINT Use in the right eye daily at bedtime. - prednisoLONE acetate (PRED FORTE, ECONOPRED PLUS) 1 % ophthalmic suspension Use 1 Drop in the right eye once daily. - warfarin (COUMADIN) 1 mg tablet Take 1 tablet by mouth once daily. - warfarin (COUMADIN) 2 mg tablet Take 1 tablet by mouth once daily. - sotalol (SOTALOL AF) 80 mg tablet Take 80 mg by mouth once daily. Takes 1/2 tab in am and 1/2 tab pm - MULTIVITAMIN TAB Take one(1) tablet daily. - ofloxacin (OCUFLOX) 0.3 % ophthalmic solution Use 1 Drop in the right eye once daily. (Patient not taking: Reported on 06/28/2020 ) - FLAXSEED ORAL Take by mouth once daily. Takes 5 out of 7 days (Patient not taking: Reported on 06/26/2020 ) - warfarin (COUMADIN) 3 mg tablet Take 3 mg by mouth once daily. (Patient not taking: Reported on 06/26/2020 ) - aspirin, enteric coated 81 mg EC tablet Take 81 mg by mouth once daily. (Patient not taking: Reported on 06/26/2020 ) - calcium carbonate/vitamin d3(CALCIUM 600 + D(3) 600 MG (1,500)-200 UNIT TAB) Takes 2-3 daily (Patient not taking: ) - ibandronate sodium(BONIVA 150 MG TAB) Take one(1) tablet once per month in the morning with a full glass of water, on an empty stomach, and do not take anything else by mouth or lie down for the next 30 minutes. (Patient not taking: ) No current facility-administered medications for this visit. ALLERGIES No Known Allergies PAST SURGICAL HISTORY Procedure Laterality Date - HEART CATHETERIZATION 06/2010 Physical Exam: Constitutional: Pt is a well developed 74 year old female who is alert, oriented, cooperative and in no apparent distress. OBJECTIVE: NVSI unchanged from previous visit. Dermatological: Nails 1-5 right are normal. Webspaces clean and dry 1-4 right. Skin appears well hydrated and supple. good color, texture, turgor. No open lesions present. No callosities present. Musculoskeletal/Orthopaedic: Patient has no pain to palpation of right foot Ct reviewed of right foot. Very small avulsion fracture of calcaneal cuboid joint ASSESSMENT: (S89.064D) Closed fracture of right ankle, initial encounter (primary encounter diagnosis) PLAN: Discussed fracture of right foot. Patient has no pain. She has returned to regular shoes without pain. Patient can f/u prn. Offered xrays patient declined. Yolette Tejeda [facility]05-20-2021 NoteHNO ID: [id number] Author: Latha Mathew Ma Service: ? Author Type: ? Type: Progress Notes Filed: 08/10/2020 12:30 PM Note Text: AMB ROOMING INTAKE FLOWSHEET DATA Pain Pain Level: (0.5/10) Description: Other: See comment (PULLING) Frequency: Intermittent Intervention: Other: See comment (WALKING) Patient presents with: Right Ankle - Established [facility] NoteHNO ID: [id number] Author: Yolette Tejeda Service: ? Author Type: Physician Type: Progress Notes Filed: 07/13/2020 1:00 PM Note Text: Follow up podiatric office visit for: Chief Complaint: This 74 year old who presents for follow up:avulsion fracture of right calcaneal cuboid joint Patient had been using boot but has now since stopped. She no longer has any pain. She has ct scan to review. PAIN EVALUATION No data found in the last 1 encounters. No results found for: HBA1C PCP: Cara Martinez MD PAST MEDICAL HISTORY Diagnosis Date - Nontoxic uninodular goiter Current Outpatient Medications Medication Sig - NEOMYCIN 3.5 MG/G-POLYMYXIN B 10,000 UNIT/G-DEXAMETH 0.1 % EYE OINT Use in the right eye daily at bedtime. - prednisoLONE acetate (PRED FORTE, ECONOPRED PLUS) 1 % ophthalmic suspension Use 1 Drop in the right eye once daily. - warfarin (COUMADIN) 1 mg tablet Take 1 tablet by mouth once daily. - warfarin (COUMADIN) 2 mg tablet Take 1 tablet by mouth once daily. - sotalol (SOTALOL AF) 80 mg tablet Take 80 mg by mouth once daily. Takes 1/2 tab in am and 1/2 tab pm - MULTIVITAMIN TAB Take one(1) tablet daily. - ofloxacin (OCUFLOX) 0.3 % ophthalmic solution Use 1 Drop in the right eye once daily. (Patient not taking: Reported on 06/28/2020 ) - FLAXSEED ORAL Take by mouth once daily. Takes 5 out of 7 days (Patient not taking: Reported on 06/26/2020 ) - warfarin (COUMADIN) 3 mg tablet Take 3 mg by mouth once daily. (Patient not taking: Reported on 06/26/2020 ) - aspirin, enteric coated 81 mg EC tablet Take 81 mg by mouth once daily. (Patient not taking: Reported on 06/26/2020 ) - calcium carbonate/vitamin d3(CALCIUM 600 + D(3) 600 MG (1,500)-200 UNIT TAB) Takes 2-3 daily (Patient not taking: ) - ibandronate sodium(BONIVA 150 MG TAB) Take one(1) tablet once per month in the morning with a full glass of water, on an empty stomach, and do not take anything else by mouth or lie down for the next 30 minutes. (Patient not taking: ) No current facility-administered medications for this visit. ALLERGIES No Known Allergies PAST SURGICAL HISTORY Procedure Laterality Date - HEART CATHETERIZATION 06/2010 Physical Exam: Constitutional: Pt is a well developed 74 year old female who is alert, oriented, cooperative and in no apparent distress. OBJECTIVE: NVSI unchanged from previous visit. Dermatological: Nails 1-5 b/l are normal. Webspaces clean and dry 1-4 b/l. Skin appears well hydrated and supple. good color, texture, turgor. No open lesions present. No callosities present. Musculoskeletal/Orthopaedic: Patient has no pain to palpation of right foot No swelling and minimal residual bruising is noted to right foot Ct scan reviewed. There is very small avulsion fracture of right calcaneal cuboid joint ASSESSMENT: (S82.081A) Closed fracture of right ankle, initial encounter (primary encounter diagnosis) PLAN: 1. History and physical examination completed today. 2. Reviewed ct scan. She has very small avulsion fracture of calcaneal cuboid joint. There is no displacement. She has already stopped using brace. I informed patient that the avulsion fracture may or may not completely unite but in absence of pain, can treat as soft-tissue sprain. Recommend using ankle brace and working on strengthing of ankle. 3. Discussed possible need for therapy. At this time, she will proceed with brace. 4. Continue with brace and hold on return to major exercise for another 2-3 weeks. If no pain in 2-3 weeks, can slowly return to activity 5. F/u in 1 month Yolette Tejeda [facility]04-22-2021 NoteHNO ID: [id number] Author: Latha Mathew Ma Service: ? Author Type: ? Type: Progress Notes Filed: 07/13/2020 1:00 PM Note Text: AMB ROOMING INTAKE FLOWSHEET DATA Patient presents with: Right Ankle - Established [facility], [facility] NoteHNO ID: [id number] Author: William Holly (Tech) Service: ? Author Type: Mechanical Pencils Assembler Type: Progress Notes Filed: 06/29/2020 4:06 PM Note Text: Radiology Service Progress Note PATIENT NAME: Lisa Wilkinson Covert DATE OF SERVICE: June 29, 2020 TIME: 4:06 PM PATIENT IDENTITY VERIFICATION COMPLETED USING TWO (2) IDENTIFIERS: Name and Date of confirmed by patient verbally. FALL SCREENING: Has the patient had 2 falls in the last year or 1 fall with injury or currently using an Ambulatory Assistive Device (Walker, Cane, Wheelchair, Crutches, etc.)? No PATIENT GENDER DATA: Female. status: : No status: NO. PATIENT RELEVANT IMPLANT DATA REVIEWED: Not Applicable RADIOLOGY DEPARTMENT: rt ankle w/o PERIPHERAL IV DATA: Not applicable SIGNED BY: William Hallman June 29, 2020 4:06 [facility]04-07-2021 NoteHNO ID: [id number] Author: Yolette Tejeda Service: ? Author Type: Physician Type: Progress Notes Filed: 06/28/2020 10:19 PM Note Text: Consultation requested by Dr. Weiner for an opinion regarding right ankle injury. My final recommendations will be communicated back to the requesting physician by way of shared Medical record or letter to requesting physician via US mail. Initial Podiatric Office Visit: Chief Complaint: This 74 year old female who presents with chief complaint:right ankle injury HPI Patient presents to clinic for evaluation of right ankle. Patient states that this past Friday, she was walking outside her mothers house and when she was taking the trash outside the garage, she twisted her foot and rolled her ankle inward. She developed pain. Over the past few days, her pain started to increase. She went to urgent care and had xrays taken. Patient was informed that there could have been possible fracture of talus. Patient was given crutches and boot. She presents today in shoes as she is driving here today. Patient states that when she wears the boot, she has no pain. Patient states that when she does not wear the boot, there is no pain. She is here to discuss options. PAIN EVALUATION No data found in the last 1 encounters. No results found for: HBA1C PCP: Cara Martinez MD PAST MEDICAL HISTORY Diagnosis Date - Nontoxic uninodular goiter Current Outpatient Medications Medication Sig - NEOMYCIN 3.5 MG/G-POLYMYXIN B 10,000 UNIT/G-DEXAMETH 0.1 % EYE OINT Use in the right eye daily at bedtime. - prednisoLONE acetate (PRED FORTE, ECONOPRED PLUS) 1 % ophthalmic suspension Use 1 Drop in the right eye once daily. - warfarin (COUMADIN) 1 mg tablet Take 1 tablet by mouth once daily. - warfarin (COUMADIN) 2 mg tablet Take 1 tablet by mouth once daily. - sotalol (SOTALOL AF) 80 mg tablet Take 80 mg by mouth once daily. Takes 1/2 tab in am and 1/2 tab pm - MULTIVITAMIN TAB Take one(1) tablet daily. - ofloxacin (OCUFLOX) 0.3 % ophthalmic solution Use 1 Drop in the right eye once daily. (Patient not taking: Reported on 06/28/2020 ) - FLAXSEED ORAL Take by mouth once daily. Takes 5 out of 7 days (Patient not taking: Reported on 06/26/2020 ) - warfarin (COUMADIN) 3 mg tablet Take 3 mg by mouth once daily. (Patient not taking: Reported on 06/26/2020 ) - aspirin, enteric coated 81 mg EC tablet Take 81 mg by mouth once daily. (Patient not taking: Reported on 06/26/2020 ) - calcium carbonate/vitamin d3(CALCIUM 600 + D(3) 600 MG (1,500)-200 UNIT TAB) Takes 2-3 daily (Patient not taking: ) - ibandronate sodium(BONIVA 150 MG TAB) Take one(1) tablet once per month in the morning with a full glass of water, on an empty stomach, and do not take anything else by mouth or lie down for the next 30 minutes. (Patient not taking: ) No current facility-administered medications for this visit. ALLERGIES No Known Allergies PAST SURGICAL HISTORY Procedure Laterality Date - HEART CATHETERIZATION 06/2010 History reviewed. No pertinent family history. Social History Tobacco Use - Smoking status: Never Smoker - Smokeless tobacco: Never Used Substance Use Topics - Alcohol use: No - Drug use: Not on file REVIEW OF SYSTEMS GENERAL: Negative for Malaise, significant weight loss, fever RESPIRATORY: Negative for cough, wheezing and shortness of breath CARDIOVASCULAR: Negative for chest pain, leg swelling and palpitations GI: Negative for abdominal discomfort, blood in stools or black stools and change in bowel habits : Negative for dysuria, frequency and incontinence MUSCULOSKELETAL: Negative for joint pain or swelling, back pain, and muscle pain. SKIN: Negative for lesions, rash, and itching. HEMATOLOGY/LYMPHOLOGY Negative for prolonged bleeding, bruising easily, and swollen nodes. ENDOCRINE: Negative for cold or heat intolerance, polyuria, polydipsia and goiter. NEURO: negative Physical Exam: Constitutional: Pt is a well developed 74 year old female who is alert, oriented and cooperative Eyes: Following during examination. No redness or drainage. Respiratory: RR normal and nonlabored. Even breathing. No evidence of distress or shortness of breath. Psychology: Patient is engaged during conversation. Normal affect and mood. Does not appear depressed or anxious during encounter. Vascular: Dorsalis pedis and posterior tibial pulses palpable right Capillary Fill time < 5 seconds to digits 1-5 right Skin temperature warm to warm proximal to distal right Hair growth present to digits Neurological: intact light touch/epicritic sensation right intact protective sensation no significant neurological deficits Dermatological: Nails 1-5 right appear normal. Webspaces clean and dry 1-4 right. Skin appears well hydrated and supple. good color, texture, turgor. No open lesions present. No callosities present. Musculoskeletal/Orthopaedi (more content not included)...[facility]04-07-2021 NoteHNO ID: [id number] Author: Latha Mathew Ma Service: ? Author Type: ? Type: Progress Notes Filed: 06/28/2020 10:19 PM Note Text: AMB ROOMING INTAKE FLOWSHEET DATA Patient presents with: Right Ankle - New, [facility] NoteHNO ID: [id number] Author: Radha Sotelo (RtWilliam Buckner Service: ? Author Type: Mechanical Pencils Assembler Type: Progress Notes Filed: 06/26/2020 6:18 PM Note Text: Radiology Service Progress Note PATIENT NAME: Lisa Wilkinson Covert DATE OF SERVICE: June 26, 2020 TIME: 6:03 PM PATIENT IDENTITY VERIFICATION COMPLETED USING TWO (2) IDENTIFIERS: Name and Date of confirmed by patient verbally. FALL SCREENING: Has the patient had 2 falls in the last year or 1 fall with injury or currently using an Ambulatory Assistive Device (Walker, Cane, Wheelchair, Crutches, etc.)? No PATIENT GENDER DATA: Female. status: : No status: NO. PATIENT RELEVANT IMPLANT DATA REVIEWED: Yes RADIOLOGY DEPARTMENT: General X-ray: Exam(s) Completed: Lower Extremity X-Ray(s): Ankle, Right and Foot, Right: PERIPHERAL IV DATA: Not applicable SIGNED BY: RT Adi June 26, 2020 6:03 [facility]04-05-2021 NoteHNO ID: [id number] Author: Roman (Wallpaper Installer) Regine Service: ? Author Type: Nurse Practitioner Type: Progress Notes Filed: 06/26/2020 7:19 PM Note Text: Subjective HPI Nontoxic-appearing female presents urgent care chief complaint right foot trauma. Duration of symptoms today. Associated symptoms right foot pain rating up into the ankle. Patient states was helping sister at mother and father's house when she rolled her ankle missing the last step into the garage. States she did fall landing on her right elbow. Does have an abrasion on the forearm. Not concerned about arm injury. Patient states is hard to bear weight on right foot. Rates pain 1 out of 10 at rest 7 out of 10 with ambulation. Denies any OTC medication use. Denies any head neck back pain. No LOC. Denies any other concerns. Denies numbness tingling or decreased sensation distal injury. .Patient presents with: Foot Trauma: RIGHT foot x today PAST MEDICAL HISTORY Diagnosis Date - Nontoxic uninodular goiter PAST SURGICAL HISTORY Procedure Laterality Date - HEART CATHETERIZATION 06/2010 ALLERGIES Patient has no known allergies. MEDICATIONS NEOMYCIN 3.5 MG/G-POLYMYXIN B 10,000 UNIT/G-DEXAMETH 0.1 % EYE OINT Use in the right eye daily at bedtime. ofloxacin (OCUFLOX) 0.3 % ophthalmic solution Use 1 Drop in the right eye once daily. prednisoLONE acetate (PRED FORTE, ECONOPRED PLUS) 1 % ophthalmic suspension Use 1 Drop in the right eye once daily. warfarin (COUMADIN) 1 mg tablet Take 1 tablet by mouth once daily. warfarin (COUMADIN) 2 mg tablet Take 1 tablet by mouth once daily. sotalol (SOTALOL AF) 80 mg tablet Take 80 mg by mouth once daily. Takes 1/2 tab in am and 1/2 tab pm MULTIVITAMIN TAB Take one(1) tablet daily. FLAXSEED ORAL Take by mouth once daily. Takes 5 out of 7 days warfarin (COUMADIN) 3 mg tablet Take 3 mg by mouth once daily. aspirin, enteric coated 81 mg EC tablet Take 81 mg by mouth once daily. calcium carbonate/vitamin d3(CALCIUM 600 + D(3) 600 MG (1,500)-200 UNIT TAB) Takes 2-3 daily ibandronate sodium(BONIVA 150 MG TAB) Take one(1) tablet once per month in the morning with a full glass of water, on an empty stomach, and do not take anything else by mouth or lie down for the next 30 minutes. History reviewed. No pertinent family history. Social History Tobacco Use - Smoking status: Never Smoker - Smokeless tobacco: Never Used Substance Use Topics - Alcohol use: No - Drug use: Not on file BP 102/72 Pulse (!) 56 Temp 36.9 ?C (98.4 ?F) (Left Tympanic) Resp 16 Wt 75.8 kg (167 lb) SpO2 98% BMI 28.67 kg/m? Review of Systems Constitutional: Negative for chills, fever and malaise/fatigue. HENT: Negative for congestion, ear discharge, ear pain, sinus pain and sore throat. Eyes: Negative for blurred vision, pain, discharge and redness. Respiratory: Negative for cough, sputum production, shortness of breath and wheezing. Cardiovascular: Negative for chest pain. Gastrointestinal: Negative for abdominal pain, diarrhea, nausea and vomiting. Musculoskeletal: Positive for falls and joint pain. Negative for back pain, myalgias and neck pain. Skin: Negative for itching and rash. Neurological: Negative for dizziness and headaches. Objective Physical Exam Constitutional: General: She is not in acute distress. Appearance: She is not diaphoretic. HENT: Head: Normocephalic. Eyes: Conjunctiva/sclera: Conjunctivae normal. Pupils: Pupils are equal, round, and reactive to light. Cardiovascular: Rate and Rhythm: Normal rate and regular rhythm. Pulmonary: Effort: Pulmonary effort is normal. No tachypnea, accessory muscle usage or respiratory distress. Breath sounds: Normal breath sounds. No stridor. Abdominal: Palpations: Abdomen is soft. Tenderness: There is no abdominal tenderness. Musculoskeletal: Cervical back: Normal range of motion and neck supple. Right ankle: No swelling, deformity, ecchymosis or lacerations. Tenderness present over the lateral malleolus. Normal range of motion. Right foot: Normal range of motion and normal capillary refill. Swelling, tenderness and bony tenderness present. No deformity, laceration or crepitus. Normal pulse. Lymphadenopathy: Cervical: No cervical adenopathy. Skin: General: Skin is warm and dry. Neurological: Mental Status: She is alert and oriented to person, place, and time. ASSESSMENT/PLAN: 1. Foot pain, right - ICD9: 729.5, ICD10: M79.671 (primary diagnosis) - XR FOOT GENERAL 3V AP/LAT/OBL RT - XR ANKLE GENERAL 3V AP/LAT/OBL RT 2. Closed nondisplaced fracture of body of right talus, initial encounter - ICD9: 825.21, ICD10: S92.124A - CONSULT TO PODIATRY IMPRESSION: ? There is a small lucency noted in the lateral talus, only noted on the frontal radiograph of the foot. Recommend correlation with point tenderness in this area to evaluate for fracture. ? Patient placed in orthopedic (more content not included)...[facility]04-05-2021 History of Present illness Narrative* Radha Bella (Rt)William - 06/26/2020 6:10 PM EDT Radiology Service Progress Note PATIENT NAME: Lisa Wilkinson Covert DATE OF SERVICE: June 26, 2020 TIME: 6:03 PM PATIENT IDENTITY VERIFICATION COMPLETED USING TWO (2) IDENTIFIERS: Name and Date of confirmedby patient verbally. FALL SCREENING: Has the patient had 2 falls in the last year or 1 fall with injury or currently using an Ambulatory Assistive Device (Walker, Cane, Wheelchair, Crutches, etc.)? No PATIENT GENDER DATA: Female. status: : No status: NO. PATIENT RELEVANT IMPLANT DATA REVIEWED: Yes RADIOLOGY DEPARTMENT: General X-ray: Exam(s) Completed: Lower Extremity X- Ray(s): Ankle, Right and Foot, Right: PERIPHERAL IV DATA: Not applicable SIGNED BY: RT Adi June 26, 2020 6:03 PM documented in this encounterOhio[facility] Center[facility] + Plan note Future Appointments Appointment Date:07/17/2021 11:00:00 AM Scheduled Provider:ESE COSTELLO MD Location:ENDO [facility] Appointment Type:ENDO OV [facility] Evaluation + Plan note Future Appointments Appointment Date:07/31/2023 10:45:00 AM Scheduled Provider:ESE COSTELLO MD Location:[facility] ENDO GANN Appointment Type:ENDO OV Future Scheduled Tests Radiology* BD Bone Density DEXA Axial Skeleton 07/19/[address] [facility] Evaluation + Plan note Future Appointments Appointment Date:03/19/2024 04:00:00 PM Scheduled Provider:BOB CULP Location:[facility] Appointment Type:CV OV Appointment Date:04/02/2024 08:00:00 AM Scheduled Provider: Location:Heart Lab Appointment Type:EP Ablation PF-Ensite Appointment Date:08/05/2024 11:00:00 AM Scheduled Provider:ESE COSTELLO MD Location:[facility] ENDO GANN Appointment Type:ENDO OV Future Scheduled Tests Laboratory* Thyroid Antibodies 07/30/24 * Thyroid Stimulating Hormone 07/30/24 * Free T4 07/30/24 * Free T3 07/30/24 * Vitamin D Level 07/30/24 * Complete Metabolic Panel 07/30/24 Radiology* US Thyroid 07/31/23 * IR Thyroid Biopsy 09/03/23 [facility] Evaluation + Plan note Future Appointments Appointment Date:03/26/2024 01:45:00 PM Scheduled Provider:BOB CULP Location:[facility]ONNY Appointment Type:CV OV Appointment Date:04/02/2024 08:00:00 AM Scheduled Provider: Location:Heart Lab Appointment Type:EP Ablation PF-Ensite Appointment Date:08/05/2024 11:00:00 AM Scheduled Provider:ESE COSTELLO MD Location:[facility] ENDO GANN Appointment Type:ENDO OV Future Scheduled Tests Laboratory* Thyroid Antibodies 07/30/24 * Thyroid Stimulating Hormone 07/30/24 * Free T4 07/30/24 * Free T3 07/30/24 * Vitamin D Level 07/30/24 * Complete Metabolic Panel 07/30/24 Radiology* US Thyroid 07/31/23 * IR Thyroid Biopsy 09/03/23 [facility] Evaluation + Plan note Future Appointments Appointment Date:06/02/2024 01:00:00 PM Scheduled Provider:YOVANY GROSS Location:[facility] CAN Appointment Type:CV OV Appointment Date:08/05/2024 11:00:00 AM Scheduled Provider:ESE COSTELLO MD Location:[facility] Appointment Type:ENDO OV Future Scheduled Tests Laboratory* Thyroid Antibodies 07/30/24 * Thyroid Stimulating Hormone 07/30/24 * Free T4 07/30/24 * Free T3 07/30/24 * Vitamin D Level 07/30/24 * Complete Metabolic Panel 07/30/24 Radiology* US Thyroid 07/31/23 * IR Thyroid Biopsy 09/03/23 [facility] Evaluation + Plan note Future Appointments Appointment Date:09/20/2024 01:00:00 PM Scheduled Provider:YOVANY GROSS Location:[facility] CAN Appointment Type:CV OV Appointment Date:08/11/2025 11:30:00 AM Scheduled Provider:ESE COSTELLO MD Location:[facility] Appointment Type:ENDO OV Future Scheduled Tests Laboratory* Thyroid Stimulating Hormone 08/05/24 * Thyroid Stimulating Hormone 08/05/25 * Free T4 08/05/24 * Free T4 08/05/25 * A1C Hemoglobin 08/05/24 * A1C Hemoglobin 08/05/25 * Free T3 08/05/24 * Free T3 08/05/25 * Lipid Profile 08/05/25 * Albumin/Creatinine Ratio, Random Urine 08/05/24 * PTH, Intact 08/05/25 * Vitamin D Level 08/05/24 * Vitamin D Level 08/05/25 * Complete Metabolic Panel 08/05/24 * Complete Metabolic Panel 08/05/25 Radiology* US Thyroid 08/05/24 * IR Thyroid Biopsy 09/03/[address] [facility] Evaluation + Plan note Future Appointments Appointment Date:09/20/2024 01:00:00 PM Scheduled Provider:YOVANY GROSS Location:[facility] Appointment Type:CV OV Appointment Date:08/11/2025 11:30:00 AM Scheduled Provider:ESE COSTELLO MD Location:[facility]ANN Appointment Type:ENDO OV Future Scheduled Tests Laboratory* Thyroid Stimulating Hormone 08/05/25 * Free T4 08/05/25 * Free T3 08/05/25 * Lipid Profile 08/05/25 * PTH, Intact 08/05/25 * Vitamin D Level 08/05/25 * Complete Metabolic Panel 08/05/25 Radiology* US Thyroid 08/05/24 * IR Thyroid Biopsy 09/03/[address] [facility] Evaluation note* Diagnosis Onset Date Resolution Status [facility] (current) use of anticoagulants acute Non-rheumatic mitral regurgitation acute Nonrheumatic mitral (valve) prolapse chronic Paroxysmal atrial fibrillation [facility] Work Phone: Evaluation noteNo assessment information available [facility] Work Phone: Evaluation note* Diagnosis Onset Date Resolution Status Non-rheumatic mitral regurgitation acute Nonrheumatic mitral (valve) prolapse chronic Paroxysmal atrial fibrillation [facility] Work Phone: Evaluation note* Diagnosis Foot pain, right Pain in limb [facility] N[facility] No data available for this section [facility] Hospital Discharge instructions No data available for this section [facility] Progress note No data available for this section [facility] Reason for referral (narrative)No reason for referral [facility] available[facility] Work Phone: Summary Purpose Family History Relationship Condition Age at Onset Recorded Date/T thi father Presence of permanent cardiac pacemaker U nknown mother Atrial fibrillation Unknown Mitral valve prolapse Unknown sister Hypertension Unknown Advance Directives Advance Directive Response Recorded Date/ Time Living Will No September 23, 2013 7 :05am Power of Receiving Associate Store No September 23, 2013 7:05am Advance Directive Response Recorded Date/ Time Living Will No September 23, 2013 6 :05am Power of Receiving Associate Store No September 23, 2013 6:05am Chief Complaint and Reason for Visit Chief Complaint S/O -COUMADIN Nonrheumatic mitral (valve) prolapse S/O -COUMADIN 1 Y FU S/O -COUMADIN 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 Non-rheumatic mitral regurgitation Nonrheumatic mitral (valve) prolapse Paroxysmal atrial fibrillation Chief Complaint Nonrheumatic mitral (valve) prolapse S/O -COUMADIN 1 Y FU S/O -COUMADIN S/O -COUMADIN OSTEO 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 Non-rheumatic mitral regurgitation Nonrheumatic mitral (valve) prolapse Paroxysmal atrial fibrillation Chief Complaint 1 Y FU S/O -COUMADIN S/O -COUMADIN OSTEO S/O -COUMADIN 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 Non-rheumatic mitral regurgitation Nonrheumatic mitral (valve) prolapse Paroxysmal atrial fibrillation Chief Complaint 1 Y FU S/O -COUMADIN S/O -COUMADIN OSTEO S/O -COUMADIN S/O -COUMADIN 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 Non-rheumatic mitral regurgitation Nonrheumatic mitral (valve) prolapse Paroxysmal atrial fibrillation Chief Complaint S/O -COUMADIN S/O -COUMADIN S/O -COUMADIN Chief Complaint S/O -COUMADIN S/O -COUMADIN S/O -COUMADIN S/O -COUMADIN SCREENING Chief Complaint S/O -COUMADIN S/O -COUMADIN S/O -COUMADIN SCREENING Chief Complaint S/O -COUMADIN S/O -COUMADIN SCREENING S/O -COUMADIN Chief Complaint S/O -COUMADIN S/O -COUMADIN SCREENING S/O -COUMADIN S/O -COUMADIN Chief Complaint S/O -COUMADIN SCREENING S/O -COUMADIN S/O -COUMADIN S/O -COUMADIN Chief Complaint S/O -COUMADIN S/O -COUMADIN S/O -COUMADIN THYROID NODULE Chief Complaint S/O -COUMADIN S/O -COUMADIN THYROID NODULE S/O -COUMADIN Chief Complaint S/O -COUMADIN THYROID NODULE S/O -COUMADIN MITRAL VALVE PROLAPSE 1 y fu/ PREV PFM Reason for Visit Non-rheumatic mitral regurgitation Nonrheumatic mitral (valve) prolapse Paroxysmal atrial fibrillation Chief Complaint MITRAL VALVE PROLAPS E 1 y fu/ PREV PFM S/O -COUMADIN Reason for Visit Non-rheumatic mitral regurgitation Nonrheumatic mitral (valve) prolapse Paroxysmal atrial fibrillation Chief Complaint MITRAL VALVE PROLAPS E 1 y fu/ PREV PFM S/O -COUMADIN S/O -COUMADIN Reason for Visit Non-rheumatic mitral regurgitation Nonrheumatic mitral (valve) prolapse Paroxysmal atrial fibrillation Chief Complaint S/O -COUMADIN S/O -COUMADIN SCREENING S/O -COUMADIN Chief Complaint SCREENING S/O -COUMADIN S/O -COUMADIN S/O -COUMADIN S/O -COUMADIN Chief Complaint S/O -COUMADIN S/O -COUMADIN S/O -COUMADIN I480 Chief Complaint S/O -COUMADIN S/O -COUMADIN I480 I480 Chief Complaint S/O -COUMADIN I480 I480 I480 Chief Complaint Admit Date 3 M FU May 03, 2024 10:43am F/U MNG August 17, 2024 12:55 pm 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 Sherri teri 2024 9:51am THYROID NODULE October 20, 2024 7:45 am Additional Source Comments INFORMATION SOURCE (unrecogn ized section and content) DATE CREATED AUTHOR 04/21/2021 [facility] DATE CREATED AUTHOR AUTHOR'S ORGANIZ ATION 07/24/2023 [facility] ([place]) DATE CREATED AUTHOR AUTHOR'S ORGANIZ ATION 04/11/2024 [facility] DATE CREATED AUTHOR AUTHOR'S ORGANIZ ATION 08/22/2024 [facility] DATE CREATED AUTHOR AUTHOR'S ORGANIZ ATION 10/09/2024 [facility] Care Team (unrecognized sect ion and content) Team Status: Active Member Role Status Dates Dr. Mini Tyson MD Family Provider Active Dr. Mini Tyson MD Primary Care Provider Active Team Status: Inactive Member Role Status Dates Dr. Mini Tyosn MD Primary Care Provider, Attendin g Provider Active Team Status: Inactive Member Role Status Dates Dr. Mini Tyson MD Primary Care Provider, Family P rovider Active Dr. Dionte Castellanos MD Attending Provider, Referring Provider Active Cindy Le AERONAUTICAL DRAFTER, AERONAUTICAL DRAFTER-C Other Provider Active Team Status: Active Member Role Status Dates Dr. Mini Tyson MD Primary Care Provider Active Dr. Ese Costello MD Attending Provider, Re ferring Provider Active Team Status: Inactive Member Role Status Dates Dr. Mini Tyson MD Primary Care Provider Active Dr. Ese Costello MD Attending Provider, Re ferring Provider Active Team Status: Inactive Member Role Status Dates Dr. Mini Tyson MD Primary Care Provider, Family P rovider Active Dr. Dionte Castellanos MD Attending Provider, Referring Provider Active Cindy Le AERONAUTICAL DRAFTER, AERONAUTICAL DRAFTER-C Other Provider Active Juan M Napoles AERONAUTICAL DRAFTER, AERONAUTICAL DRAFTER-C Other Provider Active Team Status: Inactive Member Role Status Dates Dr. Mini Tyson MD Primary Care Provider, Referrin g Provider Active Niya Rivera AERONAUTICAL DRAFTER, AERONAUTICAL DRAFTER-C Attending Provider Active Team Status: Active Member Role Status Dates Dr. Mini Tyson MD Primary Care Provider Active Dr. Dillon Hemphill MD Attending Provider Active Team Status: Inactive Member Role Status Dates Dr. Mini Tyson MD Primary Care Provider Active Niya Rivera AERONAUTICAL DRAFTER, AERONAUTICAL DRAFTER-C Attending Provider, Referring P rovider Active Team Status: Active Member Role Status Dates Dr. Mini Tyson MD Primary Care Provider Active Dr. Dillon Hemphill MD Attending Provider Active Niya Rivera AERONAUTICAL DRAFTER, AERONAUTICAL DRAFTER-C Referring Provider Active Team Status: Inactive Member Role Status Dates Dr. Mini Tyson MD Primary Care Prov ider, Attending Provider, Referring Provider Active Team Status: Inactive Member Role Status Dates Dr. Mini Tyson MD Primary Care Provider, Family P roranjanader Active Cindy Le AERONAUTICAL DRAFTER, AERONAUTICAL DRAFTER-C Other Provider Active Juan M Napoles AERONAUTICAL DRAFTER, AERONAUTICAL DRAFTER-C Attending Provider, Other Provide r Active Team Status: Inactive Member Role Status Dates Dr. 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 Mini Tyson MD Primary Care Provider Active Team Status: Inactive Member Role Status Dates Dr. Mini Tyson MD Primary Care Provider Active Start: May 03, 2024 End: May 03, 2024 Dr. Mini Tyson MD Referring Provider Active Start: May 03, 2024 End: May 03, 2024 Dr. Gigi Jain MD Attending Provider Active Start: May 03, 2024 End: May 03, 2024 Team Status: Inactive Member Role Status Dates Dr. Mini Tyson MD Primary Care Provider Active Start: August 17, 2024 End: August 17, 2024 Dr. Ese Costello MD Attending Provider Act micheal Start: August 17, 2024 End: August 17, 2024 Dr. Ese Costello MD Referring Provider Act micheal Start: August 17, 2024 End: August 17, 2024 Team Status: Active Member Role/Relationship Status Dates Dr. Mahad Us MD Primary Care Provider Active Team Status: Inactive Member Role/Relationship Status Dates Dr. Mini Tyson MD Primary Care Provider Active Start: August 17, 2024 End: August 17, 2024 Dr. Ese Costello MD Attending Provider Act micheal Start: August 17, 2024 End: August 17, 2024 Dr. Ese Costello MD Referring Provider Act micheal Start: August 17, 2024 End: August 17, 2024 Team Status: Inactive Member Role/Relationship Status Dates Dr. Mini Tyson MD Primary Care Provider Active Start: September 29, 2024 End: September 29, 2024 Dr. Mini Tyson MD Referring Provider Active Start: September 29, 2024 End: September 29, 2024 Dr. Mahad Us MD Attending Provider Active Start: September 29, 2024 End: September 29, 2024 Team Status: Active Member Role/Relationship Status Dates Dr. Mahad Us MD Primary Care Provider Active Start: September 29, 2024 Dr. Mahad Us MD Attending Provider Active Start: September 29, 2024 Team Status: Inactive Member Role/Relationship Status Dates Dr. Mahad Us MD Primary Care Provider Active Start: September 29, 2024 End: September 29, 2024 Dr. Mahad Us MD Attending Provider Active Start: September 29, 2024 End: September 29, 2024 Team Status: Inactive Member Role/Relationship Status Dates Dr. Mini Tyson MD Referring Provider Active Start: October 20, 2024 End: October 20, 2024 Dr. Gigi Mix MD Attending Provider Active Start: October 20, 2024 End: October 20, 2024 Dr. Mahad Us MD Primary Care Provider Active Start: October 20, 2024 End: October 20, 2024 Goals (unrecognized section and content) Goals may be documented in a n alternate section Source Comments (unrecognize d section and content) In the event this informatio n is protected by the Federal Confidentiality of Alcohol and Drug Abuse Patient Records regulations: The Federal rules restrict any use of the information to criminally investigate or prosecute any alcohol or drug abuse patient.[facility] FOR RECORDS PERTAINING TO PATIENTS WHO ARE OR HAVE BEEN ENROLLED IN A CHEMICAL DEPENDENCY/SUBSTANCEABUSE PROGRAM, SOME INFORMATION MAY BE OMITTED. This clinical summary was aggregated from multiple sources. Caution should be exercised in using it in the provision of clinical care. This summary normalizes information from multiple sources, and as a consequence, information in this document may materially change the coding, format and clinical context of patient data. In addition, data may be omitted in some cases. CLINICAL DECISIONS SHOULD BE BASED ON THE PRIMARY CLINICAL RECORDS. [facility] [employer] [facility]. provides no warranty or guarantee of the accuracy or completeness of information in this document.
== END | disposition home or self-care (01) ==
PROVIDERS: PCP Internal Medicine; Referring Provider Surgery; Visit Provider Surgery
DX: E04.2 Nontoxic multinodular goiter (principal)
CPT/HCPCS: 88108; 88305; 88313

== ENCOUNTER → 2024-11-05 | Outpatient (CLI) | payer MEDICARE, SELFPAY ==
--- NOTE | 2024-11-05 16:13 | CT_ITS ---
PROCEDURE: SOFT TISSUE NECK WITH CONTRAST 11/05/2024 REASON FOR EXAM: COMPRESSION D/T THYROIDMEGALY TECHNIQUE: SOFT TISSUE NECK WITH CONTRAST One or more dose reduction techniques were used (e.g., Automated exposure control, adjustment of the mA and/or kV according to patient size, use of iterative reconstruction technique). COMPARISON: August 17, 2024 FINDINGS: Airway is patent and without suspicious mucosal mass or nodularity. Tongue base is satisfactory. Tonsillar pillars are within normal limits. Parotid glands and submandibular glands are intact. Heterogeneous multinodular thyroid gland with one of the largest nodules along the isthmus measuring up to 3.6 cm. Mild associated leftward tracheal deviation without tracheal stenosis. No pathologically enlarged cervical chain lymph nodes. Superficial soft tissues are within normal limits. Globes are intact. Lung apices are clear. No acute osseous abnormality. Degenerative changes of the cervical spine. CT/Soft Tissue Neck WITH Contrast IMPRESSION: 1. Multinodular thyroid gland. Correlate with recent ultrasound. 2. No suspicious neck mass or adenopathy otherwise noted. Reading Location: [facility]
== END | disposition home or self-care (01) ==
LOC: CT 16:12
PROVIDERS: PCP Internal Medicine; Referring Provider Surgery; Visit Provider Surgery
DX: E01.0 Iodine-deficiency related diffuse (endemic) goiter (principal); E04.1 Nontoxic single thyroid nodule
CPT/HCPCS: 70491; Q9967

== ENCOUNTER → 2025-01-20 | Outpatient (CLI) | payer MEDICARE, SELFPAY ==
--- NOTE | 2025-01-20 10:45 | BI_ITS ---
EXAM: BI/SCRN MAMM (CAD)W/BORIS BILAT
== END | disposition home or self-care (01) ==
PROVIDERS: PCP Internal Medicine; Referring Provider Internal Medicine; Visit Provider Internal Medicine
DX: Z12.31 Encounter for screening mammogram for malignant neoplasm of breast (principal)
CPT/HCPCS: 77063; 77067